=== PATIENT | female | born 1955 | race Caucasian/White ===

== ENCOUNTER 2023-11-17 11:15 | Observation (INO) ==
[2023-11-17] MEDS: SODIUM CHLORIDE 0.9% 500 ML IV STA (11:37)
[2023-11-17 11:58] LABS: Basophils # (auto) 0.08 K/uL (0.00-0.20); Basophils % (auto) 0.9 %; Eosinophils % (auto) 2.2 %; Hematocrit (blood only) 34.3 % (37.0-47.0); Hemoglobin 11.1 g/dl (12.0-16.0); Immature Granulocytes # (auto) 0.06 K/uL (0.01-0.20); Immature Granulocytes % (auto) 0.7 %; Lymphocytes # (auto) 2.17 K/uL (1.20-3.40); Lymphocytes % (auto) 24.3 %; Mean Corpuscular Hemoglobin 31.7 pg (25.0-34.0); Mean Corpuscular Hgb Conc 32.4 g/dL (32.0-36.0); Mean Platelet Volume 9.2 fL (9.4-12.4); Monocytes % (auto) 7.8 %; Neutrophils # (auto) 5.73 K/uL (1.40-6.50); Neutrophils % (auto) 64.1 %; Platelet Count 300 K/uL (130-400); RDW Coefficient of Variation 12.1 % (11.5-14.5); RDW Standard Deviation 43.9 fL (36.4-46.3); White Blood Count 8.94 K/ul (4.8-10.8)
[2023-11-17 12:02] LABS: Appearance Urine Turbid (Clear); Bacteria Urine Automated Negative (Negative); Bilirubin Urine Negative (Negative); Blood Urine 3+ (Negative); Color Urine Yellow; Glucose Urine UA Negative (Negative); Ketones Urine Negative (Negative); Leukocyte Esterase Urine 3+ (Negative); Nitrite Urine Negative (Negative); Protein Urine Negative (Negative); Specific Gravity Urine 1.007 (1.000-1.030); Urobilinogen Urine Negative (Negative); WBC Urine Automated >30 /hpf (0-5); pH Urine 6.5 (4.5-7.5)
[2023-11-17 12:12] LABS: Albumin Globulin Ratio 1.5 (0.9-2); Albumin Level 4.5 gm/dl (3.4-5.0); BUN Creatinine Ratio 13.3 (10-20); Bilirubin,Total 0.4 mg/dl (0.2-1.0); Calcium 9.8 mg/dl (8.6-10.3); Creatinine Clr Calc Pharmacy 24.1 ml/min; Est GFR (African American) 30.1 ml/min; Potassium 4.1 mmol/L (3.5-5.1); Total Protein 7.5 gm/dl (6.0-8.3)
--- NOTE | 2023-11-17 12:24 | Emergency Department Note ---
Impression & Plan VÍCTOR (acute kidney injury), Anemia, HTN (hypertension) ED Provider Note NAME: JAY GALVAN AGE: 67 SEX: F : 1955 ARRIVES VIA: Walk-In INFORMANT: Patient ED PROVIDER(S): Castillo Noguera DO CHIEF COMPLAINT: Kidney failure HPI: Patient is a 67-year-old female with a past medical history of urinary retention who presents to the ER for abnormal blood work. She notes that she was sent in by her PCP for an elevated creatinine. She does not believe that she has been drinking as much as usual. She denies any headache or change in vision. No chest pain or shortness of breath. No nausea, vomiting, or diarrhea. No dysuria, urgency, or frequency. No other exacerbating or remitting factors. She notes that she does have a urethral stricture which was just stretched today by urology at [facility]. ADDITIONAL HISTORY OBTAINED: Per HPI Chronic Medical/Social Conditions Affecting Care: Per HPI PAST MEDICAL HISTORY:See Below PAST SURGICAL HISTORY:See Below FAMILY HISTORY:See Below SOCIAL HISTORY:See Below HOME MEDICATIONS:See Below ALLERGIES:GENERAL: Sitting up in bed, alert, well appearing, well nourished, no distress, non-toxic VITALS:See Below PHYSICAL EXAMINATION: EYE EXAM: normal conjunctiva. PERRL and EOM's grossly intact. OROPHARYNX: mucous membranes are moist NECK: supple, no nuchal rigidity, no adenopathy, non-tender LUNGS: Clear to auscultation. Normal chest wall mechanics HEART: no murmurs, S1 normal and S2 normal ABDOMEN: abdomen soft, non-tender, normo-active bowel sounds, no masses, no rebound or guarding. BACK: Back is symmetrical on inspection and there is no deformity, no midline tenderness, no CVA tenderness. SKIN: no rashes and no bruising UPPER EXTREMITIES: upper extremities are grossly normal. LOWER EXTREMITIES: No pitting edema. NEURO EXAM: Normal sensorium, cranial nerves II-XII grossly intact, normal speech, no gross weakness of arms, no gross weakness of legs. MEDICAL DECISION MAKING: Patient is a 67-year-old female who presents the ER referred in by PCP for abnormal renal function. IV was established blood work was obtained. Labs show no significant leukocytosis. Mild anemia 11. BMP with creatinine 1.9 up from baseline 1.9. LFTs bilirubin was unremarkable. Lipase is normal. UA was contaminated. She has no urinary symptoms. Renal ultrasound was unremarkable. Patient was given IV fluids discussed with the hospitalist admitted for further workup. Consults/Care Managements Discussions: Per [facility] Triage Nursing notes reviewed. Limited review of prior medical records performed Vital Signs: reviewed and remarkable for HTN Differential diagnosis: Differential diagnoses includes but is not limited to gastritis, peptic ulcer disease, GERD, gallbladder disease, pancreatitis, small bowel obstruction, appendicitis, diverticulitis, hernia, urinary tract infection, torsion, perforation, trauma, infectious. ER treatment provided: See below Diagnostics interpreted by me include EKG and cardiac monitoring as listed below: -Cardiac Monitoring: An order was placed for continuous cardiac monitoring. The monitor shows a rate of 110 with sinus rhythm. -ECG: none -Laboratory studies:Interpreted by me as stated above in MDM and shown below. Imaging studies: Xrays: As interpreted by me:none CTs show: none Ultrasound renal per my preliminary interpretation showed no hydro Ultrasound the kidneys per radiology was unremarkable Procedures:none Critical Care: None Past Med/Surg History Medical History (Updated 11/17/23 @ 17:33 by Castillo Noguera DO) Hyperlipidemia Osteopenia Osteoporosis Chronic insomnia Obstructive sleep apnea syndrome No pertinent family history Vertigo Sleep apnea Arthritis Surgical History History of tubal ligation History of tonsillectomy History of mandibular surgery History of cholecystectomy History of arthroscopic knee surgery Family History Grandfather (Maternal) Diabetes Grandmother (Maternal) Diabetes Sister Diabetes Son Hypertension Mother Lung cancer Social History Smoking Status: Never smoker Hx Alcohol Use: No Hx Substance Use: No Preferred Language: Telugu Communication Ability: Effective Bolt Threader Required: No Beliefs That Will Affect Care: None marital status: Current Living Situation: Alone current occupational status: employed Feels Safe at Home: Yes Safety Concerns: Feels Safe At This Time Seatbelt Use: always Assistive Devices: CPAP, Denture - Upper, Denture - Lower, Glasses and Hearing Aid - Bilateral Allergies Allergies Allergy/AdvReac Type Severity Reaction Status Date / Time No Known Allergies Allergy Verified 11/17/23 13:43 Home Meds Home Medications Medication Instructions Recorded Confirmed meclizine 25 mg tablet 25 mg PO TID PRN Dizziness 08/28/18 11/17/23 meloxicam 15 mg tablet 15 mg PO DAILY 08/28/18 11/17/23 multivitamin 1 tab PO DAILY 08/28/18 11/17/23 cholecalciferol (vitamin D3) 125 125 mcg PO DAILY 07/24/20 11/17/23 mcg (5,000 unit) capsule cranberry fruit concentrate 250 mg 250 mg PO DAILY 07/24/20 11/17/23 chewable tablet (Azo Cranberry) mecobalamin (vitamin B12) 5,000 5,000 mcg PO DAILY 07/24/20 11/17/23 mcg disintegrating tablet albuterol sulfate 90 mcg/actuation 2 inh inhalation Q6H PRN Shortness 09/30/23 11/17/23 breath activated powder inhaler Of Breath Or Wheezing atorvastatin 20 mg tablet 20 mg PO HS 11/17/23 11/17/23 ferrous sulfate 325 mg (65 mg 325 mg PO BID 11/17/23 11/17/23 iron) tablet pantoprazole 20 mg tablet,delayed 20 mg PO QAM 11/17/23 11/17/23 release tamsulosin 0.4 mg capsule 0.4 mg PO BID 11/17/23 11/17/23 Previous Rx's Medication Instructions Recorded CPAP Machine #1 ea 10/18/19 CPAP Machine #1 ea 01/17/20 CPAP Supplies #1 ea 09/12/21 Results & Data (ED) Vital Signs Vital Signs - 24 hr 11/17/23 11:21 Temperature 36.1 C L Temperature Source Temporal Artery Scan Pulse Rate 95 H Respiratory Rate 14 Blood Pressure 151/76 H Blood Pressure Mean 101 Pulse Oximetry 95 Oxygen Delivery Method Room Air Sepsis Recent Fever Within 48 Hours No Sepsis New/Unexplained Change in Mental Status No Sepsis Action Taken by Nursing No Action Required Laboratory Data 11/17/23 11:31 11/17/23 11:31 Lab Results 11/17/23 11/17/23 Range/Units 11:10 11:31 WBC 8.94 (4.8-10.8) K/ul RBC 3.50 L (4.20-5.40) M/uL Hgb 11.1 L (12.0-16.0) g/dl Hct 34.3 L (37.0-47.0) % MCV 98.0 (80.0-100.0) fL MCH 31.7 (25.0-34.0) pg MCHC 32.4 (32.0-36.0) g/dL RDW Std Deviation 43.9 (36.4-46.3) fL RDW Coeff of Esteban 12.1 (11.5-14.5) % Plt Count 300 (130-400) K/uL MPV 9.2 L (9.4-12.4) fL Immature Gran % (Auto) 0.7 % Neut % (Auto) 64.1 % Lymph % (Auto) 24.3 % [place] % (Auto) 7.8 % Eos % (Auto) 2.2 % Baso % (Auto) 0.9 % Neut # (Auto) 5.73 (1.40-6.50) K/uL Lymph # (Auto) 2.17 (1.20-3.40) K/uL [place] # (Auto) 0.70 H (0.11-0.59) K/uL Eos # (Auto) 0.20 (0.00-0.50) K/uL Baso # (Auto) 0.08 (0.00-0.20) K/uL Immature Gran # (Auto) 0.06 (0.01-0.20) K/uL Sodium 136 (136-145) mmol/L Potassium 4.1 (3.5-5.1) mmol/L Chloride 104 (98-107) mmol/L Carbon Dioxide 24 (21-32) mmol/L Anion Gap 8 (3-11) BUN 26 H (6-23) mg/dl Creatinine 1.95 H (0.6-1.2) mg/dl Est Cr Clr Drug Dosing 24.1 ml/min Est GFR ( Amer) 30.1 ml/min Est GFR (Non-Af Amer) 26.0 ml/min BUN/Creatinine Ratio 13.3 (10-20) Glucose 100 H (70-99(Fasting)) mg/dl Calcium 9.8 (8.6-10.3) mg/dl Total Bilirubin 0.4 (0.2-1.0) mg/dl AST 11 L (13-39) U/L ALT 9 (7-52) U/L Alkaline Phosphatase 73 (34-104) U/L Total Protein 7.5 (6.0-8.3) gm/dl Albumin 4.5 (3.4-5.0) gm/dl Globulin 3.0 (2.5-4.0) gm/dl Albumin/Globulin Ratio 1.5 (0.9-2) Lipase 35 (11-82) U/L Urine Color Yellow Urine Appearance Turbid A (Clear) Urine pH 6.5 (4.5-7.5) Ur Specific [place] 1.007 (1.000-1.030) Urine Protein Negative (Negative) Urine Glucose (UA) Negative (Negative) Urine Ketones Negative (Negative) Urine Blood 3+ H (Negative) Urine Nitrite Negative (Negative) Urine Bilirubin Negative (Negative) Urine Urobilinogen Negative (Negative) Ur Leukocyte Esterase 3+ H (Negative) Urine WBC (Auto) >30 H (0-5) /hpf Urine RBC (Auto) 5-10 H (0-4) /hpf U Hyaline Cast (Auto) 1-5 (0-5) /lpf U Epithel Cells (Auto) 10-20 H (0-5) /lpf Urine Bacteria (Auto) Negative (Negative) Urine Yeast Not Reportable Administered Medications Ferrous Sulfate (Ferrous Sulfate 325 Mg Tab) 325 mg PO BIDM GABRIELA Stop: 12/17/23 16:59 Last Admin: 11/17/23 16:59 Dose: 325 mg Documented By: AMNA Sodium Chloride (Nss) 500 mls @ 80 mls/hr IV .Q6H15M GABRIELA Stop: 11/17/23 22:37 Last Admin: 11/17/23 16:43 Dose: 80 mls/hr Documented By: AMNA Discontinued Medications Sodium Chloride (Nss) 500 mls @ 999 mls/hr IV .Q31M STA Stop: 11/17/23 11:55 Last Infusion: 11/17/23 12:38 Dose: Infused Documented By: Admin: 11/17/23 11:37 Dose: 999 mls/hr Documented By: FRANCA Sodium Chloride (Nss) 500 mls @ 999 mls/hr IV .Q31M ONE Stop: 11/17/23 12:52 Last Infusion: 11/17/23 14:33 Dose: Infused Documented By: Admin: 11/17/23 12:39 Dose: 999 mls/hr Documented By: PAMELA Ceftriaxone Sodium (Rocephin) 1,000 mg in 50 mls @ 100 mls/hr IV 1500 GABRIELA Stop: 11/17/23 15:29 Last Infusion: 11/17/23 15:51 Dose: Infused Documented By: [facility] Admin: 11/17/23 15:05 Dose: 100 mls/hr Documented By: [facility] Imaging Data Radiologist's Impression: Renal Ultrasound 11/17/23 12:22 RENAL ULTRASOUND CLINICAL HISTORY: Acute kidney injury. COMPARISON STUDY: CT of the abdomen and pelvis June 17, 2012. Renal ultrasound October 15, 2020. TECHNIQUE: Sonography of the kidneys and the urinary bladder was performed. FINDINGS: The right kidney measures 9.2 cm in maximal dimension and the left measures 9.3 cm. Right renal pelvis is prominent. This is unchanged. There is no hydronephrosis. No renal calculus or mass is identified. Renal echogenicity, size and cortical thickness are normal. Bladder wall thickening is similar to prior ultrasound. IMPRESSION: 1. No hydronephrosis. 2. Unremarkable sonographic appearance of the kidneys. 3. No change in mild bladder wall thickening since prior ultrasound. ACT 112: Negative or not required by law. Electronically signed by: Isaiah Marcelo M.D. 11/17/2023 1:21 PM Discharge Plan Visit Data Chief Complaint: Referred by Doctor Stated Complaint: ABN LABS, NEEDS IV FLUIDS, CT SCAN ED Provider: Castillo Noguera Discharge Problem: VÍCTOR (acute kidney injury), Anemia, HTN (hypertension) Patient Disposition: Admitted As Inpatient Discharge Instructions Interventions: ED Discharge Assessment Last Done: 11/17/23 15:56 Discharge Problem: Anemia Qualifiers: Anemia type: unspecified type Qualified Code(s): D64.9 - Anemia, unspecified HTN (hypertension) Qualifiers: Hypertension type: unspecified Qualified Code(s): I10 - Essential (primary) hypertension
[2023-11-17] MEDS: SODIUM CHLORIDE 0.9% 500 ML IV ONE (12:39)
--- NOTE | 2023-11-17 13:05 | History & Physical Report ---
Date of Service November 17, 2023 Assessment & Plan (1) Bladder outlet obstruction: (2) Hyperlipidemia: (3) Obstructive sleep apnea syndrome: (4) VÍCTOR (acute kidney injury): Plan: Bladder outlet obstruction VÍCTOR on CKD stage III History of ureteral stricture - Observation for VÍCTOR and postoperative pain s/p planned ureteral dilation for hx of bladder outlet obstruction today as outpatient - Creatinine on 11/04, 1.9, in EPIC, previously baseline was ~1.2-1.5, remains elevated at 1.95 upon admission today - Patient was prescribed Bactrim perioperatively x 1 dose but did not take it today, so will HOLD on this med due to slight VÍCTOR. - Consider urology consult - follows with Dr. Rendon as outpatient - Avoid nephrotoxins and renally reduce medication - HOLD mobic she uses for pain - Obtain blood culture x 2, UA appears contaminated status postprocedure, + esterase, WBC 10-30, no urine bacteria noted, no wbc, no fever. Pt with chills and urinary frequency since here in hospital, consider prophylactic dose of ceftriaxone IV - Pt given total of 1 L NSS in the ER, will run maintenance fluids WERO -Continue CPAP HS HLD - Cont statin therapy DVT ppx: teds, scds Lines: 1 PIV FEN/GI: Allow HH diet, NSS at 80 ml/hr CODE: DNR/DNI Dispo: From home, likely to remain in the hospital x 1 day and discharge tomorrow A total of 75 minutes were spent with greater than 50% of that time face to face with the patient, personally reviewing all current laboratories, imaging studies, past medication reconciliation, outpatient chart review, and discussion with specialists to collaborate care for the patient with attending. Please see attending documentation for corrections and/or additions. (5) Complicated UTI (urinary tract infection): History of Present Illness Chief Complaint: Referred by urology Primary Care Provider: Priscilla Baez MD This is a 67 yo F with PMHx of bladder outlet obstruction, scheduled dilations by urology, follows with Dr. Thierry Rendon, she was seen in the office this morning for a planned ureteral dilation and was given Rx for perioperative Bactrim 800-160 mg x 1 tablet, but did NOT take it after the procedure, instead was sent to the ER. It was noted that she had VÍCTOR on 11/04 with creatinine of 1.9 at that time on outpatient epic review. She was referred here by urology for concern for VÍCTOR after her procedure this morning. Patient states that she feels well overall, she has been making frequent trips to the bathroom status post procedure, and feels a bit chilled. She denies any fever, difficulty breathing, abdominal pain, or pain with urinating. Denies any blood in urine and states that it appears clear yellow. Patient took all her regular scheduled medications this morning except for the iron tablet. She lives at home by herself, able to participate in all ADLs, no recent falls or concerns for safety issues. Patient plans to call her children and update them. Allergies Allergy/AdvReac Type Severity Reaction Status Date / Time No Known Allergies Allergy Verified 11/17/23 13:43 Home Medications Medication Instructions Recorded Confirmed Type meclizine 25 mg tablet 25 mg PO TID PRN Dizziness 08/28/18 11/17/23 History meloxicam 15 mg tablet 15 mg PO DAILY 08/28/18 11/17/23 History multivitamin 1 tab PO DAILY 08/28/18 11/17/23 History CPAP Machine #1 ea 10/18/19 09/30/23 Rx CPAP Machine #1 ea 01/17/20 09/30/23 Rx cholecalciferol (vitamin D3) 125 125 mcg PO DAILY 07/24/20 11/17/23 History mcg (5,000 unit) capsule cranberry fruit concentrate 250 mg 250 mg PO DAILY 07/24/20 11/17/23 History chewable tablet (Azo Cranberry) mecobalamin (vitamin B12) 5,000 5,000 mcg PO DAILY 07/24/20 11/17/23 History mcg disintegrating tablet CPAP Supplies #1 ea 09/12/21 09/30/23 Rx albuterol sulfate 90 mcg/actuation 2 inh inhalation Q6H PRN Shortness 09/30/23 11/17/23 History breath activated powder inhaler Of Breath Or Wheezing atorvastatin 20 mg tablet 20 mg PO HS 11/17/23 11/17/23 History ferrous sulfate 325 mg (65 mg 325 mg PO BID 11/17/23 11/17/23 History iron) tablet pantoprazole 20 mg tablet,delayed 20 mg PO QAM 11/17/23 11/17/23 History release tamsulosin 0.4 mg capsule 0.4 mg PO BID 11/17/23 11/17/23 History Past Med/Surg History Medical History (Updated 11/17/23 @ 18:34 by Becca Natarajan DO) Hyperlipidemia Osteopenia Osteoporosis Chronic insomnia Obstructive sleep apnea syndrome No pertinent family history Vertigo Sleep apnea Arthritis Surgical History History of tubal ligation History of tonsillectomy History of mandibular surgery History of cholecystectomy History of arthroscopic knee surgery Family History Grandfather (Maternal) Diabetes Grandmother (Maternal) Diabetes Sister Diabetes Son Hypertension Mother Lung cancer Social History Smoking Status: Never smoker Hx Alcohol Use: No Hx Substance Use: No Preferred Language: Croatian Communication Ability: Effective Matrix Bath Operator Required: No Beliefs That Will Affect Care: None marital status: Current Living Situation: Alone current occupational status: employed Feels Safe at Home: Yes Safety Concerns: Feels Safe At This Time Seatbelt Use: always Assistive Devices: CPAP, Denture - Upper, Denture - Lower, Glasses and Hearing Aid - Bilateral Review of Systems Review of Systems: Constitutional: No fever, sweats, + chills Eyes: No diplopia, no worsening or blurred vision ENT: normal hearing, no trouble swallowing Respiratory: No cough, sputum, dyspnea at rest or on exertion Cardiovascular: No chest pain, tightness or palpitations Abdomen: + Minimal lower abdominal pain with palpation status post procedure, no chronic pain, nausea, vomiting, diarrhea or constipation : Urinary frequency, no hematuria, status post ureteral dilation today Musculoskeletal: No joint pain, calf pain, swelling Neurologic: No weakness, numbness/tingling, or balance problems Psychiatric: No anxiety or depression Skin: No rash or itch Physical Exam Physical Exam: General: awake, alert, no apparent distress, white female Head: Normocephalic, atraumatic ENT: PERRL, EOMI, no pharyngeal exudate, mucous membranes moist Chest: Clear to auscultation, on room air, no adventitious breath sounds Cardiac: + Sinus tachy, no murmur, no JVD, normal peripheral pulses, good capillary refill Abdominal: NABS x 4 quadrants, soft, nondistended, nontender to palpation, no rebound or guarding Extremities: Normal inspection, no peripheral edema or erythema, calfs nontender to palpation Psych: Normal mood and affect Neuro: AAO x 3, strength intact bilaterally and rated 5/5, no motor deficits, speech is clear, no peripheral sensory deficits Results & Data Results & Data Vital Signs (Past 12 Hours) Vital Signs Temp Pulse Resp BP Pulse Ox O2 Del Method 11/17/23 11:21 36.1 C L 95 H 14 151/76 H 95 Room Air Laboratory Results 11/17/23 11:10 Urine Culture - Pending Urine,Clean Catch 11/17/23 11/17/23 11:31 11:10 WBC 8.94 RBC 3.50 L Hgb 11.1 L Hct 34.3 L MCV 98.0 MCH 31.7 MCHC 32.4 RDW Std Deviation 43.9 RDW Coeff of Esteban 12.1 Plt Count 300 MPV 9.2 L Immature Gran % (Auto) 0.7 Neut % (Auto) 64.1 Lymph % (Auto) 24.3 [place] % (Auto) 7.8 Eos % (Auto) 2.2 Baso % (Auto) 0.9 Neut # (Auto) 5.73 Lymph # (Auto) 2.17 [place] # (Auto) 0.70 H Eos # (Auto) 0.20 Baso # (Auto) 0.08 Immature Gran # (Auto) 0.06 Sodium 136 Potassium 4.1 Chloride 104 Carbon Dioxide 24 Anion Gap 8 BUN 26 H Creatinine 1.95 H Est Cr Clr Drug Dosing 24.1 Est GFR ( Amer) 30.1 Est GFR (Non-Af Amer) 26.0 BUN/Creatinine Ratio 13.3 Glucose 100 H Calcium 9.8 Total Bilirubin 0.4 AST 11 L ALT 9 Alkaline Phosphatase 73 Total Protein 7.5 Albumin 4.5 Globulin 3.0 Albumin/Globulin Ratio 1.5 Lipase 35 Urine Color Yellow Urine Appearance Turbid A Urine pH 6.5 Ur Specific [place] 1.007 Urine Protein Negative Urine Glucose (UA) Negative Urine Ketones Negative Urine Blood 3+ H Urine Nitrite Negative Urine Bilirubin Negative Urine Urobilinogen Negative Ur Leukocyte Esterase 3+ H Urine WBC (Auto) >30 H Urine RBC (Auto) 5-10 H U Hyaline Cast (Auto) 1-5 U Epithel Cells (Auto) 10-20 H Urine Bacteria (Auto) Negative Urine Yeast Not Reportable Diagnostic Findings Renal Ultrasound 11/17/23 12:22 RENAL ULTRASOUND CLINICAL HISTORY: Acute kidney injury. COMPARISON STUDY: CT of the abdomen and pelvis June 17, 2012. Renal ultrasound October 15, 2020. TECHNIQUE: Sonography of the kidneys and the urinary bladder was performed. FINDINGS: The right kidney measures 9.2 cm in maximal dimension and the left measures 9.3 cm. Right renal pelvis is prominent. This is unchanged. There is no hydronephrosis. No renal calculus or mass is identified. Renal echogenicity, s ize and cortical thickness are normal. Bladder wall thickening is similar to prior ultrasound. IMPRESSION: 1. No hydronephrosis. 2. Unremarkable sonographic appearance of the kidneys. 3. No change in mild bladder wall thickening since prior ultrasound. ACT 112: Negative or not required by law. Electronically signed by: Isaiah Marcelo M.D. 11/17/2023 1:21 PM Code Status & VTE Plan Code Status DNR/DNI-discussed with the patient at bedside Supervising Physician Co-Signing Physician Notes I have seen and examined the patient and have discussed the case with the provider above. I have reviewed the advanced practitioner's documentation, and I agree with, and take responsibility for that plan of care. This patient is a 67 yo F with chronic urologic issues, who reports frequent UTIs. She receives a regular ureteral dilation by Dr. Rendon every 6 months and recently had one two days ago. History as noted above and she reports taking Bactrim chronically as a prophylaxis over the last 6 months. There is no report of this on her outpatient Urology note, however, and she may be confused. If this information is true, it would correspond with her rise in creatinine over the past year and may be why we are seeing her creatinine as high as 1.9. This is also in conjunction with her ongoing use of Mobic and recent urologic manipulation. This may also reflect a natural worsening of her kidney function naturally, however. Notably renal us reveals no evidence of obstruction and she is making urine. Possible evidence of complicated UTI, UA shows pyuria, blood, and leuk esterase. Will monitor bladder scans serially to ensure there is no retention. There is no sepsis on exam but patient does have some tachycardia and does report subjective chills. My physical exam findings are consistent with that noted above and she also has no CVA tenderness. Agree with addition of Rocephin pending culture results and clinical improvement. Recommend continuing Mobic but avoiding Bactrim and then repeating BMP in two weeks as outpatient. Patient was advised that she can consider alternatives for antibiotic prophylaxis should her doctors still recommend this. Consider outpatient nephrology evaluation. DO Delgado
--- NOTE | 2023-11-17 13:22 | Ultrasound Report ---
RENAL ULTRASOUND CLINICAL HISTORY: Acute kidney injury. COMPARISON STUDY: CT of the abdomen and pelvis June 17, 2012. Renal ultrasound October 15, 2020. TECHNIQUE: Sonography of the kidneys and the urinary bladder was performed. FINDINGS: The right kidney measures 9.2 cm in maximal dimension and the left measures 9.3 cm. Right r enal pelvis is prominent. This is unchanged. There is no hydronephrosis. No renal calculus or mass is identified. Renal echogenicity, size and cortical thickness are normal. Bladder wall thickening is s imilar to prior ultrasound. IMPRESSION: 1. No hydronephrosis. 2. Unremarkable sonographic appearance of the kidneys. 3. No change in mild bladder wall thickening since prior ultrasound. ACT 112: Negative or not required by law. Electronically signed by: Isaiah Marcelo M.D. 11/17/2023 1:21 PM
[2023-11-17] MEDS ORDERED: MECLIZINE HCL 25 MG TAB PO PRN (13:43)
[2023-11-17] MEDS ORDERED: ALBUTEROL HFA 8 GM INHALER INH PRN (13:50)
[2023-11-17] MEDS: cefTRIAXone SODIUM 1,000 MG/50 ML BAG IV SCH (15:05)
[2023-11-17] MEDS ORDERED: ONDANSETRON INJ 2 MG/ML 2 ML VIAL IV PRN (16:23)
[2023-11-17] MEDS ORDERED: ACETAMINOPHEN 325 MG TAB PO PRN (16:23)
[2023-11-17] MEDS: SODIUM CHLORIDE 0.9% 500 ML IV SCH (16:43)
[2023-11-17] MEDS: FERROUS SULFATE 325 MG TAB PO SCH (16:59)
[2023-11-17] MEDS: ATORVASTATIN 20 MG TAB PO SCH (19:55)
[2023-11-17] MEDS: TAMSULOSIN HCL 0.4 MG CAP PO SCH (19:55)
--- OUTSIDE RECORDS SUMMARY | 2023-11-17 21:07 | External Medical Summary | Summary of Care ---
Author Name Unknown Organization [facility] Address [address] [place] [address] Phone [phone] Care Team Providers Care Mixed Signal Design Engineer Name Role Phone Priscilla Baez MD Primary Care Provide r Reason for Visit * Reason Onset Date Comments Advice 11/09/2023 Encounter Details Date Type Department Care Team (Late st Contact Info) Description 11/09/2023 Telephone Family [address] [place] [address] Priscilla Baez MD [address] [place] [address] [place] [address] Advice Allergies Active Allergy Reactions Criticality Noted Date Comments No Known Drug Allergy 08/09/2004 documented as of this encounter (statuses as of 11/10/2023) Medications Medication Sig Dispensed Refills Start Date End Date Status CALCIUM 500+D 500-200 MG-UNIT PO TABS One tablet three times daily 0 Active CRANBERRY 500 MG PO CAPS One daily 0 Active Meloxicam 15 MG Oral TabletIndications: Hip pain, right TAKE ONE TABLET BY MOUTH ONCE DAILY FOR PAIN 90 Tablet 2 04/29/2023 Active Pantoprazole Sodium 20 MG Oral Tablet Delayed Release (Protonix)Indicati ons:Gastroesophage al reflux disease, unspecified whether esophagitis present TAKE 1 TABLET BY MOUTH EVERY DAY IN THE MORNING 90 Tablet 2 04/29/2023 Active Atorvastatin Calcium 20 MG Oral Tablet (Lipitor)Indicatio ns:Hyperlipidemia with target LDL less than 100 Take 1 Tablet by mouth at bedtime. 90 Tablet 3 05/21/2023 Active Additional Information Patient taking differently:20 mg [id number], Reported on 10/07/2023 Tamsulosin HCl 0.4 MG Oral Capsule (Flomax) Take 2 Capsules by mouth in the morning. 180 Capsule 3 06/16/2023 Active Ferrous Sulfate 325 (65 Fe) MG Oral Tablet (Feosol)Indication s:Iron deficiency anemia, unspecified iron deficiency anemia type Take 1 Tablet by mouth in the morning and 1 Tablet before bedtime. 180 Tablet 3 07/03/2023 Active Triamcinolone Acetonide 0.1 % External Cream (Aristocort)Indica tions:Dry skin APPLY TOPICALLY TO AFFECTED AREA 2 TIMES A DAY. TO AFFECTED AREA. FOR UP TO 2 WEEKS. 15 g 1 07/27/2023 Active Clobetasol Propionate 0.05 % External Cream (Temovate) Apply topically to affected area 2 times a day. To affected area for up to two weeks. 30 g 1 09/04/2023 Active Meclizine HCl 25 MG Oral Tablet (Antivert)Indicati ons:BPPV (benign paroxysmal positional vertigo), bilateral TAKE 1 TABLET BY MOUTH 3 TIMES A DAY (MORNING, NOON & BEDTIME) NEEDED FOR DIZZINESS 30 Tablet 5 09/25/2023 Active CPAP Use as directed at bedtime. 0 Active Albuterol Sulfate HFA 108 (90 Base) MCG/ACT Inhalation Aerosol SolutionIndication s:SOB (shortness of breath) INHALE 2 PUFFS BY MOUTH EVERY 4 HOURS NEEDED FOR WHEEZING 18 g 1 10/26/2023 Active documented as of this encounter (statuses as of 11/10/2023) Active Problems Problem Noted Date Diagnosed Date Food insecurity 05/04/2023 Overview: Per [facility] Protocol Urinary retention 12/19/2022 Chronic kidney disease, stage 3a 06/02/2022 Overview: Per CKD protocol Hyperlipidemia with target LDL less than 100 Obesity, Class I, BMI 30.0-34.9 (see actual BMI) 12/05/2021 Shoulder arthritis 12/05/2021 Arthritis of right hip 03/16/2020 WERO on CPAP 03/16/2020 Vertigo 03/16/2020 Urethral stricture 08/04/2014 GENERAL OSTEOARTHROSIS 01/18/2003 Scoliosis documented as of this encounter (statuses as of 11/10/2023) Resolved Problems Problem Noted Date Diagnosed Date Resolved Date Hip pain, right 07/06/2018 03/16/2020 OVARIAN CYST NEC-NOS 10/24/2005 017 ADJ DISORDER W/DEPRES MOOD 05/06/2005 0 09/11/2015 Headache 02/14/2004 09/11/2015 Overview: ICD-10 update of inactive term BACKACHE, T8 disc disease 01/18/2003 Lumbago 01/18/2003 07/06/2018 Excessive menstruation 01/18/200309/11 documented as of this encounter (statuses as of 11/10/2023) Immunizations Name Administration Dates Next Due PPD 02/02/2006 documented as of this encounter Social History Tobacco Use Types Packs/Day Years Used Date Smoking Tobacco: Former Cigarettes 0.1 5 0 08/24/1970 - 08/24/1975 Smokeless Tobacco: Never Alcohol Use Standard Drinks/Week Comments No 0 (1 standard drink = 0.6 oz pur e alcohol) PHQ-2 Answer Date Recorded PHQ-2 Score 0 03/16/2020 Hunger Vital Sign Answer Date Recorded Within the past 12 months, y ou worried that your food would run out before you got the money to buy more. Never true 04/13/20 23 Within the past 12 months, t he food you bought just didn't last and you didn't have money to get more. Often true 04/13/2023 Sex and Gender Information Value Date Recorded Sex Assigned at Female 04/13/2023 11:44 AM EDT Gender Identity Female 04/13/2023 11:44 AM EDT Sexual Orientation Straight 04/13/2023 11 :44 AM EDT Job Start Date Occupation Industry Not on file Not on file Not on file documented as of this encounter Miscellaneous Notes * Telephone Encounter - Yulia Resendiz LPN - 11/10/2023 8:34 AM EDT lmtcb * Telephone Encounter - Thierry Rendon MD - 11/09/2023 1:48 PM EDT Patient has upcoming appoint for urethral which may help with her symptoms. Patient can come in forFoley catheter placement with nursing staff until her appointment next week. Thx, HM * Telephone Encounter - Yulia Resendiz LPN - 11/09/2023 1:[address] Rendon, Please see below concern from the patient. Nurse is asking for further advise/recommendation till patient is seen in office on 11/16. Thank you-Yulia Additional Comments: Patient is having problems urinating, stomach pain and when she tries to urinate has to wait a bit before it comes out and a little burning. Doesn't feel it is a UTI but something with her kidneys. Refused manager of data callback. Prefers someone from Dr Baez's office. * Telephone Encounter - Clarita Hung RN - 11/09/2023 11:21 AM EDT Defer to Urology: Pt has an appt on 11/17/23 with Urology for Cystoscopy/Dilation. Please call pt if you have any recommendations prior to your appt next week * Telephone Encounter - Clarita Hung RN - 11/09/2023 11:20 AM EDT URINARY/GENITAL: Yes Patient Gender: Female Abdominal Pain: Yes Burning: Yes Additional Comment(s) Additional Comments: Patient is having problems urinating, stomach pain and when she tries to urinate has to wait a bit before it comes out and a little burning. Doesn't feel it is a UTI but something with her kidneys. Refused manager of data callback. Prefers someone from Dr Baez's office. documented in this encounter Plan of Treatment Upcoming Encounters Date Type Department Care Team (Late st Contact Info) Description 11/13/2023 12:00 PM EDT [facility] [address] [facility] [place] [address] 11/17/2023 10:30 AM EDT Procedure Only Urology, [facility] [address] [facility] [place] [address] Thierry Rendon MD [address] [facility] [address] [place] [address] 02/04/2024 8:00 AM EDT Office Visit Orthopaedics [facility] [address] [facility] [place] [address] Willie Roe DO [address] [place] [address] 02/29/2024 9:30 AM EDT Imaging [place]iology, [address] [place] [address] 03/02/2024 8:00 AM EDT Office Visit Dermatology [address] [place] [address] Sandie Burden PA-C [address] [place] [address] [place] [address] 06/09/2024 9:00 AM EDT Imaging Radiology [address] [place] [address] Health Maintenance Due Date Last Done Comments DXA Scan 1955 DTaP,Tdap,and Td Vaccines (1 - Tdap) 12/03/1974 Cologuard 12/03/2000 Fecal Occult Blood Test 12/03/2000 Sigmoidoscopy 12/03/2000 Zoster Vaccines (1 of 2) 12/03/2005 Pneumococcal Vaccine: 65+ Years (1 of 1 - PCV) 12/03/2020 Depression Screening 03/16/2021 03/16/2020 COVID-19 Vaccine (1 - 2022- season) 2023 Influenza Vaccine (FLU shot) (#1) 2023 CKD PHOS USE SMARTSET 04762 12/20/2023 12/19/2022 GFR 05/07/2024 11/05/2023, 12/2022, 06/09/2023, Additional history exists Mammogram 05/28/2024 05/28/2023, 11/2021, 05/24/2021, Additional history exists Albumin/Creatinine Ratio 07/28/2024 07/28/2023, 05/24 CKD HGB USE SMARTSET 70379 11/04/202411/04, 11/05/2023, 07/28/2023, Additional history exists Diabetes Screening 11/04/2026 11/05/2023, 1 09/28/2022, 06/09/2023, Additional history exists Lipid Panel 12/20/2027 12/19/2022, 11/2021, 11/19/2021, Additional history exists Colonoscopy 10/20/2033 10/20/2023, 10/20/2023 Colorectal Cancer Screening 10/20/2033 Pap Smear Discontinued 10/03/2015, 09/2005, 09/25/2005, Additional history exists GARDASIL-HPV IMMUNIZATION SERIES Aged Out No longer eligible based on patient's age to complete this topic Hepatitis B Aged Out No longer eligi ble based on patient's age to complete this topic MENINGOCOCCAL (MENACTRA/MENVEO) Aged Out No longer eligible based on patient's age to complete this topic documented as of this encounter Medical Devices Implanted Type Area Corporate Attorney Device Identifier Shelf Expiration Date Model / Serial / Lot Shell Acet Trident Ii 50mm - [id number] Implanted:Qty: 1 on 03/26/2020 by Willie Roe DO at OR [facility] Right: Hip [employer] : ORTHOPA[employer] 07/17/2024 702-04-50D / / [id number] Trident Acetabular X3 0 36 D - [id number] Implanted:Qty: 1 on 03/26/2020 by Willie Roe DO at OR [facility] Right: Hip [employer] : ORTHOPAEDICS 02/15/2024 623-00-36D / / [id number] Accolade Ii 132 Deg Sz 2 - [id number] Implanted:Qty: 1 on 03/26/2020 by Willie Roe DO at OR [facility] Right: Hip [employer] : ORTHOPAED[employer] 09/29/2020 [id number] / / [id number] Hip Hd Nk Alumina Mod D 36/+5 - [id number] Implanted:Qty: 1 on 03/26/2020 by Willie Roe DO at OR [facility] Right: Hip [employer] : ORTHOPAED[employer] 09/07/2024 6570-0-236 / / [id number] documented as of this encounter Advance Directives Latest Code Status on File Code Status Date Activated Date Inactivated Comments Full Code 08/04/2014 7:47 AM 08/04/2014 1:44 PM Thi s order reflects the patients wishes and were consensually agreed upon. Care Teams Mixed Signal Design Engineer Relationship Specialty Start Date End Date Priscilla Baez MD [address] [place] [address] [place] [address] PCP - General Family Medicine 09/11/15 documented as of this encounter
--- OUTSIDE RECORDS SUMMARY | 2023-11-17 21:07 | External Medical Summary | Summary of Care ---
Author Name Unknown Organization [facility] Address [address] [place] [address] Phone [phone] Care Team Providers Care Carrier Blower Name Role Phone Priscilla Baez MD Primary Care Provide r Reason for Visit * Reason Onset Date Comments Advice 11/09/2023 Encounter Details Date Type Department Care Team (Late st Contact Info) Description 11/09/2023 Telephone Family [address] [place] [address] Priscilla Baez MD [address] [place] [address] [place] [address] Advice Allergies Active Allergy Reactions Criticality Noted [...] Active Additional Information Patient taking differently:20 mg [id number], Reported on 10/07/2023 Tamsulosin HCl 0.4 MG [...] Diagnosed Date Food insecurity 05/04/2023 Overview: Per [facility] Protocol Urinary retention 12/19/2022 Chronic kidney [...] UTI but something with her kidneys. Refused furnace checker callback. Prefers someone from Dr Baez's office. [...] UTI but something with her kidneys. Refused furnace checker callback. Prefers someone from Dr Baez's office. documented in this encounter Plan of Treatment Upcoming Encounters Date Type Department Care Team (Late st Contact Info) Description 11/17/2023 10:30 AM EDT Procedure Only Urology, [facility] [address] [place] [address] Thierry Rendon MD [address] [place] [address] 02/04/2024 8:00 AM EDT Office Visit Orthopaedics [facility] [address] [facility] [place] [address] Willie Roe, [address] [place] [address] 02/29/2024 9:30 AM EDT Imaging Radiology, [address] [place] [address] 03/02/2024 8:00 AM EDT Office Visit Dermatology [address] [place] [address] Sandie Burden PA-C [address] [place] [address] [place] [address] 06/09/2024 9:00 AM EDT Imaging Radiology [address] [place] [address] Health Maintenance Due Date Last Done Comments DXA Scan 1955 DTaP,Tdap,and Td Vaccines (1 - Tdap) 12/03/1974 Cologuard 12/03/2000 Fecal Occult Blood Test 12/03/2000 Sigmoidoscopy 12/03/2000 Zoster Vaccines (1 of 2) 12/03/2005 Pneumococcal Vaccine: 65+ Years (1 of 1 - PCV) 12/03/2020 Depression Screening 03/16/2021 03/16/2020 COVID-19 Vaccine (1 - 2022- season) 2023 Influenza Vaccine (FLU shot) (#1) 2023 CKD PHOS USE SMARTSET 52245 12/20/2023 12/19/2022 GFR 05/07/2024 11/05/2023, 12/2022, 06/09/2023, Additional history exists Mammogram 05/28/2024 05/28/2023, 11/2021, 05/24/2021, Additional history exists Albumin/Creatinine Ratio 07/28/2024 07/28/2023, 05/24 CKD HGB USE SMARTSET 05271 11/04/202411/04, 11/05/2023, 07/28/2023, Additional history exists Diabetes [...] this encounter Medical Devices Implanted Type Area Remote Sensing Surveyor Device Identifier Shelf Expiration Date Model / Serial / Lot Shell Acet Trident Ii 50mm - [id number] Implanted:Qty: 1 on 03/26/2020 by Willie Roe DO at OR [facility] Right: Hip [employer] : ORTHOPAEDICS 07/17/2024 702-04-50D / / [id number] Trident Acetabular X3 0 36 D - [id number] Implanted:Qty: 1 on 03/26/2020 by Willie Roe DO at OR [facility] Right: Hip [employer] : ORTHOPAEDICS 02/15/2024 623-00-36D / / [id number] Accolade Ii 132 Deg Sz 2 - [id number] Implanted:Qty: 1 on 03/26/2020 by Willie Roe DO at OR [facility] Right: Hip [employer] : ORTHOPAEDICS 09/29/2020 [id number] / / [id number] Hip Hd Nk Alumina Mod D 36/+5 - [id number] Implanted:Qty: 1 on 03/26/2020 by Willie Roe DO at OR [facility] Right: Hip [employer] : ORTHOPAEDICS 09/07/2024 6570-0-236 / / [id number] documented as of this encounter Advance Directives Latest Code Status on File Code Status Date Activated Date Inactivated Comments Full Code 08/04/2014 7:47 AM 08/04/2014 1:44 PM Thi s order reflects the patients wishes and were consensually agreed upon. Care Teams Carrier Blower Relationship Specialty Start Date End Date Priscilla Baez MD [address] [place] [address] [place] [address] PCP - General Family Medicine 09/11/15 documented as of this encounter
--- OUTSIDE RECORDS SUMMARY | 2023-11-17 21:07 | External Medical Summary | Summary of Care ---
Author Name Unknown Organization [facility] Address [address] [facility] [place] [address] Phone [phone] Care Team Providers Care Heel Top Lift Splitter Name Role Phone Priscilla Baez MD Primary Care Provide r Reason for Visit * Reason Onset Date Comments Advice 11/09/2023 Lmtcb 11/09, myg 11/10 Encounter Details Date Type Department Care Team (Late st Contact Info) Description 11/09/2023 Telephone Family [address] [place] [address] Priscilla Baez MD [address] [place] [address] [place] [address] Advice (Lmtcb 11/09, myg 11/10) Allergies Active Allergy Reactions Criticality Noted Date Comments No Known Drug Allergy 08/09/2004 documented as of this encounter (statuses as of 11/11/2023) Medications Medication Sig Dispensed Refills Start Date [...] Active Additional Information Patient taking differently:20 mg [id number], Reported on 10/07/2023 Tamsulosin HCl 0.4 MG [...] as of this encounter (statuses as of 11/11/2023) Active Problems Problem Noted Date Diagnosed Date Food insecurity 05/04/2023 Overview: Per [facility] Protocol Urinary retention 12/19/2022 Chronic kidney disease, stage 3a 06/02/2022 Overview: Per CKD protocol Hyperlipidemia with target LDL less than 100 Obesity, Class I, BMI 30.0-34.9 (see actual BMI) 12/05/2021 Shoulder arthritis 12/05/2021 Arthritis of right hip 03/16/2020 WERO on CPAP 03/16/2020 Vertigo 03/16/2020 Urethral stricture 08/04/2014 GENERAL OSTEOARTHROSIS 01/18/2003 Scoliosis documented as of this encounter (statuses as of 11/11/2023) Resolved Problems Problem Noted Date Diagnosed Date Resolved Date Hip pain, right 07/06/2018 03/16/2020 OVARIAN CYST NEC-NOS 10/24/2005 017 ADJ DISORDER W/DEPRES MOOD 05/06/2005 0 09/11/2015 Headache 02/14/2004 09/11/2015 Overview: ICD-10 update of inactive term BACKACHE, T8 disc disease 01/18/2003 Lumbago 01/18/2003 07/06/2018 Excessive menstruation 01/18/200309/11 documented as of this encounter (statuses as of 11/11/2023) Immunizations Name Administration Dates Next Due PPD [...] UTI but something with her kidneys. Refused aluminizer callback. Prefers someone from Dr Baez's office. [...] UTI but something with her kidneys. Refused aluminizer callback. Prefers someone from Dr Baez's office. documented in this encounter Plan of Treatment Upcoming Encounters Date Type Department Care Team (Late st Contact Info) Description 11/13/2023 12:00 PM EDT [facility] [address] [facility] [place] [address] 11/17/2023 10:30 AM EDT Procedure Only Urology, [facility] [address] [facility] [place] [address] Thierry Rendon MD [address] [facility] [address] [place] [address] 02/04/2024 8:00 AM EDT Office Visit Orthopaedics [facility] [address] [facility] [place] [address] Willie Roe, [address] [facility] [place] [address] 02/29/2024 9:30 AM EDT [place]iology, [address] [place] [address] 03/02/2024 8:00 AM EDT Office Visit Dermatology [address] [place] [address] Sandie Burden PA-C [address] [place] [address] [place] [address] 06/09/2024 9:00 AM EDT Imaging Radiology [address] [place] [address] Health Maintenance Due Date Last Done Comments DXA Scan 1955 DTaP,Tdap,and Td Vaccines (1 - Tdap) 12/03/1974 Cologuard 12/03/2000 Fecal Occult Blood Test 12/03/2000 Sigmoidoscopy 12/03/2000 Zoster Vaccines (1 of 2) 12/03/2005 Pneumococcal Vaccine: 65+ Years (1 of 1 - PCV) 12/03/2020 Depression Screening 03/16/2021 03/16/2020 COVID-19 Vaccine ( season) 2023 Influenza Vaccine (FLU shot) (#1) 2023 CKD PHOS USE SMARTSET 83636 12/20/2023 12/19/2022 GFR 05/07/2024 11/05/2023, 12/2022, 06/09/2023, Additional history exists Mammogram 05/28/2024 05/28/2023, 11/2021, 05/24/2021, Additional history exists Albumin/Creatinine Ratio 07/28/2024 07/28/2023, 05/24 CKD HGB USE SMARTSET 36997 11/04/202411/04, 11/05/2023, 07/28/2023, Additional history exists Diabetes [...] this encounter Medical Devices Implanted Type Area Valve Technician Device Identifier Shelf Expiration Date Model / Serial / Lot Shell Acet Trident Ii 50mm - [id number] Implanted:Qty: 1 on 03/26/2020 by Willie Roe DO at OR [facility] Right: Hip [employer] : ORTHOPAEDICS 07/17/2024 702-04-50D / / [id number] Trident Acetabular X3 0 36 D - [id number] Implanted:Qty: 1 on 03/26/2020 by Willie Roe DO at OR [facility] Right: Hip [employer] : ORTHOPAEDICS 02/15/2024 623-00-36D / / [id number] Accolade Ii 132 Deg Sz 2 - [id number] Implanted:Qty: 1 on 03/26/2020 by Willie Roe DO at OR [facility] Right: Hip [employer] : ORTHOPAEDICS 09/29/2020 1505-3236 / / [id number] Hip Hd Nk Alumina Mod D 36/+5 - [id number] Implanted:Qty: 1 on 03/26/2020 by Willie Roe DO at OR [facility] Right: Hip [employer] : ORTHOPAEDICS 09/07/2024 6570-0-236 / / [id number] documented as of this encounter Advance Directives Latest Code Status on File Code Status Date Activated Date Inactivated Comments Full Code 08/04/2014 7:47 AM 08/04/2014 1:44 PM Thi s order reflects the patients wishes and were consensually agreed upon. Care Teams Heel Top Lift Splitter Relationship Specialty Start Date End Date Priscilla Baez MD [address] [place] [address] [place] [address] PCP - General Family Medicine 09/11/15 documented as of this encounter
--- OUTSIDE RECORDS SUMMARY | 2023-11-17 21:07 | External Medical Summary | Summary of Care ---
Author Name Unknown Organization [facility] Address [address] [facility] [place] [address] Phone [phone] Care Team Providers Care Lithographing Machine Operator Name Role Phone Priscilla Baez MD Primary Care Provide r Reason for Visit * Reason Comments Outpatient Testing Encounter Details Date Type Department Care Team (Late st Contact Info) Description 11/05/2023 8:40 AM EDT Laboratory Laboratory [address] [place] [address] [facility] [address] [place] [address] Iron deficiency anemia, unspecified iron deficiency anemia type; Chronic kidney disease, stage 3a (HCC); Fatigue, unspecified type Allergies Active Allergy Reactions Criticality Noted Date Comments No Known Drug Allergy 08/09/2004 documented as of this encounter (statuses as of 11/05/2023) Medications Medication Sig Dispensed Refills Start Date [...] Active Additional Information Patient taking differently:20 mg [id number], Reported on 10/07/2023 Tamsulosin HCl 0.4 MG [...] as of this encounter (statuses as of 11/05/2023) Active Problems Problem Noted Date Diagnosed Date Food insecurity 05/04/2023 Overview: Per [facility] Protocol Urinary retention 12/19/2022 Chronic kidney disease, stage 3a 06/02/2022 Overview: Per CKD protocol Hyperlipidemia with target LDL less than 100 Obesity, Class I, BMI 30.0-34.9 (see actual BMI) 12/05/2021 Shoulder arthritis 12/05/2021 Arthritis of right hip 03/16/2020 WERO on CPAP 03/16/2020 Vertigo 03/16/2020 Urethral stricture 08/04/2014 GENERAL OSTEOARTHROSIS 01/18/2003 Scoliosis documented as of this encounter (statuses as of 11/05/2023) Resolved Problems Problem Noted Date Diagnosed Date Resolved Date Hip pain, right 07/06/2018 03/16/2020 OVARIAN CYST NEC-NOS 10/24/2005 017 ADJ DISORDER W/DEPRES MOOD 05/06/2005 0 09/11/2015 Headache 02/14/2004 09/11/2015 Overview: ICD-10 update of inactive term BACKACHE, T8 disc disease 01/18/2003 Lumbago 01/18/2003 07/06/2018 Excessive menstruation 01/18/200309/11 documented as of this encounter (statuses as of 11/05/2023) Immunizations Name Administration Dates Next Due PPD [...] on file documented as of this encounter Plan of Treatment Upcoming Encounters Date Type Department Care Team (Late st Contact Info) Description 11/17/2023 10:30 AM EDT Procedure Only Urology, [facility] [address] [facility] [place] [address] Thierry Rendon MD [address] [place] [address] 02/04/2024 8:00 AM EDT Office Visit Orthopaedics [facility] [address] [place] [address] Willie Roe, DO [address] [place] [address] 02/29/2024 9:30 AM EDT [place]iology, [address] [place] [address] 03/02/2024 8:00 AM EDT Office Visit Dermatology [address] [place] [address] Sandie Burden PA-C [address] [place] [address] [place] [address] 06/09/2024 9:00 AM EDT Imaging Radiology [address] [place] [address] Pending Results Name Type Priority Associated Diagnoses Date /Time CBC WITH WBC DIFFERENTIAL AND ANEMIA REFLEX WORKUP Lab Routine Iron deficiency anemia, unspecified iron deficiency anemia type 11/05/2023 8:25 AM EDT IRON SCREEN, INCLUDING TIBC Lab Routine Iron deficiency anemia, unspecified iron deficiency anemia type 11/05/2023 8:25 AM EDT COMPREHENSIVE METABOLIC PANEL Lab Routine Chronic kidney disease, stage 3a (HCC) 11/05/2023 8:25 AM EDT 25-HYDROXY VITAMIN D Lab Routine Fatigue, unspecified type 11/05/2023 8:25 AM EDT D-DIMER Lab Routine Fatigue, unspecified type 11/05/2023 8:25 AM EDT ANEMIA CBC Lab Routine Iron deficiency anemia, unspecified iron deficiency anemia type 11/05/2023 8:25 AM EDT DIFFERENTIAL, AUTOMATED Lab Routine Iron deficiency anemia, unspecified iron deficiency anemia type 11/05/2023 8:25 AM EDT ANEMIA REFLEX CHEMISTRY HOLD Lab Routine Iron deficiency anemia, unspecified iron deficiency anemia type 11/05/2023 8:25 AM EDT Health Maintenance Due Date Last Done Comments DXA Scan 1955 DTaP,Tdap,and Td Vaccines (1 - Tdap) 12/03/1974 Cologuard 12/03/2000 Fecal Occult Blood Test 12/03/2000 Sigmoidoscopy 12/03/2000 Zoster Vaccines (1 of 2) 12/03/2005 Pneumococcal Vaccine: 65+ Years (1 of 1 - PCV) 12/03/2020 Depression Screening 03/16/2021 03/16/2020 COVID-19 Vaccine (1 - 2022- season) 2023 Influenza Vaccine (FLU shot) (#1) 2023 CKD PHOS USE SMARTSET 16535 12/20/2023 12/19/2022 GFR 01/27/2024 07/28/2023, 05/24, 12/19/2022, Additional history exists Mammogram 05/28/2024 05/28/2023, 11/2021, 05/24/2021, Additional history exists Albumin/Creatinine Ratio 07/28/2024 07/28/2023, 05/24 CKD HGB USE SMARTSET 39718 07/28/202407/28, 07/28/2023, 06/09/2023, Additional history exists Diabetes Screening 07/28/2026 07/28/2023, 1 , 12/19/2022, Additional history exists Lipid Panel 12/20/2027 12/19/2022, [...] this encounter Medical Devices Implanted Type Area Deck Supervisor Device Identifier Shelf Expiration Date Model / Serial / Lot Shell Acet Trident Ii 50mm - [id number] Implanted:Qty: 1 on 03/26/2020 by Willie Roe DO at OR [facility] Right: Hip K[employer] : ORTHOPAEDICS 07/17/2024 702-04-50D / / [id number] Trident Acetabular X3 0 36 D - [id number] Implanted:Qty: 1 on 03/26/2020 by Willie Roe DO at OR [facility] Right: Hip [employer] : ORTHOPAEDICS 02/15/2024 623-00-36D / / [id number] Accolade Ii 132 Deg Sz 2 - [id number] Implanted:Qty: 1 on 03/26/2020 by Willie Roe DO at OR [facility] Right: Hip [employer] : ORTHOPAEDICS 09/29/2020 [id number] / / [id number] Hip Hd Nk Alumina Mod D 36/+5 - [id number] Implanted:Qty: 1 on 03/26/2020 by Willie Roe DO at OR [facility] Right: Hip [employer]IAN : ORTHOPAEDICS 09/07/2024 6570-0-236 / / [id number] documented as of this encounter Visit Diagnoses Diagnosis Iron deficiency anemia, unspecified iron deficiency anemia type Chronic kidney disease, stage 3a (HCC) Fatigue, unspecified type documented in this encounter Advance Directives Latest Code Status on File Code Status Date Activated Date Inactivated Comments Full Code 08/04/2014 7:47 AM 08/04/2014 1:44 PM Thi s order reflects the patients wishes and were consensually agreed upon. Care Teams Lithographing Machine Operator Relationship Specialty Start Date End Date Priscilla Baez MD [address] [place] [address] [place] [address] PCP - General Family Medicine 09/11/15 documented as of this encounter
--- OUTSIDE RECORDS SUMMARY | 2023-11-17 21:07 | External Medical Summary | Summary of Care ---
Author Name Unknown Organization [facility] Address [address] [facility] [place] [address] Phone [phone] Care Team Providers Care Transit Manager Name Role Phone Priscilla Baez MD Primary Care Provide r Reason for Visit * Reason Onset Date Comments Advice 11/09/2023 Encounter Details Date Type Department Care Team (Late st Contact Info) Description 11/09/2023 Telephone Family [address] [place] [address] Priscilla Baez MD [address] [place] [address] [place] [address] Advice Allergies Active Allergy Reactions Criticality Noted Date Comments No Known Drug Allergy 08/09/2004 documented as of this encounter (statuses as of 11/12/2023) Medications Medication Sig Dispensed Refills Start Date [...] Active Additional Information Patient taking differently:20 mg [id number], Reported on 10/07/2023 Tamsulosin HCl 0.4 MG [...] as of this encounter (statuses as of 11/12/2023) Active Problems Problem Noted Date Diagnosed Date Food insecurity 05/04/2023 Overview: Per [facility] Protocol Urinary retention 12/19/2022 Chronic kidney disease, stage 3a 06/02/2022 Overview: Per CKD protocol Hyperlipidemia with target LDL less than 100 Obesity, Class I, BMI 30.0-34.9 (see actual BMI) 12/05/2021 Shoulder arthritis 12/05/2021 Arthritis of right hip 03/16/2020 WERO on CPAP 03/16/2020 Vertigo 03/16/2020 Urethral stricture 08/04/2014 GENERAL OSTEOARTHROSIS 01/18/2003 Scoliosis documented as of this encounter (statuses as of 11/12/2023) Resolved Problems Problem Noted Date Diagnosed Date Resolved Date Hip pain, right 07/06/2018 03/16/2020 OVARIAN CYST NEC-NOS 10/24/2005 017 ADJ DISORDER W/DEPRES MOOD 05/06/2005 0 09/11/2015 Headache 02/14/2004 09/11/2015 Overview: ICD-10 update of inactive term BACKACHE, T8 disc disease 01/18/2003 Lumbago 01/18/2003 07/06/2018 Excessive menstruation 01/18/200309/11 documented as of this encounter (statuses as of 11/12/2023) Immunizations Name Administration Dates Next Due PPD [...] encounter Miscellaneous Notes * Telephone Encounter - Farzana David LPN - 11/12/2023 9:00 AM EDT lmtcb * Telephone Encounter - Yulia Resendiz LPN [...] UTI but something with her kidneys. Refused spoon maker callback. Prefers someone from Dr Baez's office. [...] UTI but something with her kidneys. Refused spoon maker callback. Prefers someone from Dr Baez's office. documented in this encounter Plan of Treatment Upcoming Encounters Date Type Department Care Team (Late st Contact Info) Description 11/17/2023 10:30 AM EDT Procedure Only Urology, [facility] [place] [address] Thierry Rendon MD [address] [place] [address] 02/04/2024 8:00 AM EDT Office Visit Orthopaedics [facility] [address] [facility] [place] [address] Willie Roe, [address] [facility] [place] [address] 02/29/2024 9:30 AM EDT Imaging [place]iology, [address] [place] [address] 03/02/2024 8:00 AM EDT Office Visit Dermatology [address] [place] [address] Sandie Burden PA-C [address] [place] [address] [place] [address] 06/09/2024 9:00 AM EDT Imaging Radiology [address] [place] [address] Health Maintenance Due Date Last Done Comments DXA Scan 1955 DTaP,Tdap,and Td Vaccines (1 - Tdap) 12/03/1974 Cologuard 12/03/2000 Fecal Occult Blood Test 12/03/2000 Sigmoidoscopy 12/03/2000 Zoster Vaccines (1 of 2) 12/03/2005 Pneumococcal Vaccine: 65+ Years (1 of 1 - PCV) 12/03/2020 Depression Screening 03/16/2021 03/16/2020 COVID-19 Vaccine ( season) 2023 Influenza Vaccine (FLU shot) (#1) 2023 CKD PHOS USE SMARTSET 36072 12/20/2023 12/19/2022 GFR 05/07/2024 11/05/2023, 12/2022, 06/09/2023, Additional history exists Mammogram 05/28/2024 05/28/2023, 11/2021, 05/24/2021, Additional history exists Albumin/Creatinine Ratio 07/28/2024 07/28/2023, 05/24 CKD HGB USE SMARTSET 94929 11/04/202411/04, 11/05/2023, 07/28/2023, Additional history exists Diabetes [...] this encounter Medical Devices Implanted Type Area Camp Program Director Device Identifier Shelf Expiration Date Model / Serial / Lot Shell Acet Trident Ii 50mm - [id number] Implanted:Qty: 1 on 03/26/2020 by Willie Roe DO at OR [facility] Right: Hip [employer] : ORTHOPAEDICS 07/17/2024 702-04-50D / / [id number] Trident Acetabular X3 0 36 D - [id number] Implanted:Qty: 1 on 03/26/2020 by Willie Roe DO at OR [facility] Right: Hip [employer]STIAN : ORTHOPAEDICS 02/15/2024 623-00-36D / / [id number] Accolade Ii 132 Deg Sz 2 - [id number] Implanted:Qty: 1 on 03/26/2020 by Willie Roe DO at OR [facility] Right: Hip [employer]IAN : ORTHOPAEDICS 09/29/2020 [id number] / / [id number] Hip Hd Nk Alumina Mod D 36/+5 - [id number] Implanted:Qty: 1 on 03/26/2020 by Willie Roe DO at OR [facility] Right: Hip [employer]IAN : ORTHOPAEDICS 09/07/2024 6570-0-236 / / [id number] documented as of this encounter Advance Directives Latest Code Status on File Code Status Date Activated Date Inactivated Comments Full Code 08/04/2014 7:47 AM 08/04/2014 1:44 PM Thi s order reflects the patients wishes and were consensually agreed upon. Care Teams Transit Manager Relationship Specialty Start Date End Date Priscilla Baez MD [address] [place] [address] [place] [address] PCP - General Family Medicine 09/11/15 documented as of this encounter
--- OUTSIDE RECORDS SUMMARY | 2023-11-17 21:08 | External Medical Summary ---
Author Name Unknown Address Unknown Organization [id number]:LABORATORY [facility] [place] - [address] [facility] [address] Laboratory Report Ordering Provider Test Date Status REYNA CRUZ 11/05/2023 08:25:51 Final Observation Date Value Abnormality Reference (Units ) Status WBC, Total 11/05/2023 08:25:51 8.61 4.00-10.8 0 (K/uL) Final RBC 11/05/2023 08:25:51 3.37 3.85-5.15 (M/uL) Final Hemoglobin 11/05/2023 08:25:51 11.4 Below low normal 12 .0-15.3 (g/dL) Final Anemia reflex testing trigge rs on a HGB < 12.0 for Females and HGB < 13.0 for Males in accordance with the WHO Anemia Guidelines
Anemia reflex testing triggers on a HGB < 12.0 for Females and HGB < 13.0 for Males in accordance with the WHO Anemia Guidelines HCT 11/05/2023 08:25:51 34.8 Below low normal 36. 0-45.2 (%) Final MCV 11/05/2023 08:25:51 103.3 81.5-97.5 (fL) Final MCH 11/05/2023 08:25:51 33.8 27.0-34.0 (pg) Final MCHC 11/05/2023 08:25:51 32.8 32.0-36.0 (g/dL) Final RDW 11/05/2023 08:25:51 12.2 11.5-15.5 (%) Final Platelets 11/05/2023 08:25:51 298 140-400 (K /uL) Final MPV 11/05/2023 08:25:51 10.2 6.6-11.1 ( fL) Final Nucleated erythrocytes/100 leukocytes [Ratio] in Blood by Automated count 11/05/2023 08:25:51 0 <=0 (/100 WBCs) [facility] Performing Location LABORATORY [facility] - [address] [facility] [address]
--- OUTSIDE RECORDS SUMMARY | 2023-11-17 21:08 | External Medical Summary ---
Author Name Unknown Address Unknown Organization [id number]:[facility] [place] [address] [facility] [address] Laboratory Report Ordering Provider Test Date Status REYNA CRUZ 11/05/2023 08:25:51 Final Observation Date Value Abnormality Reference (Units ) Status SYNC LEUKOCYTES IN BLOOD BY AUTOMATED COUNT 11/05/2023 08:25:51 8.61 4.00-10.80 (K/uL) Final Segs 11/05/2023 08:25:51 60.0 40.0-75.0 (%) Final Lymphs % 11/05/2023 08:25:51 26.2 18.0-42.0 (%) Final Monos 11/05/2023 08:25:51 8.5 1.0-11.0 (%) Final Eosinophils 11/05/2023 08:25:51 3.7 0.0-6.0 (%) Final Basos 11/05/2023 08:25:51 0.7 0.0-2.0 (%) Final Immature Granulocyte, Percent 11/05/2023 08:25:51 0.9 0.0-2.0 (%) Final Absolute Segs 11/05/2023 08:25:51 5.16 1.80-7.70 (K/uL) Final Lymphs, absolute 11/05/2023 08:25:51 2.26 1.00-4.80 (K/ul) Final Monos, Abs 11/05/2023 08:25:51 0.73 0.00-1.10 (K/uL) Final Eos, Abs 11/05/2023 08:25:51 0.32 0.00-0.70 (K/uL) Final Basos, Abs 11/05/2023 08:25:51 0.06 0.00-0.20 (K/uL) Final Immature Granulocytes, Number 11/05/2023 08:25:51 0.08 0.00-0.20 (K/uL) Final Performing Location [facility] [place] [address] [facility] [address]
--- OUTSIDE RECORDS SUMMARY | 2023-11-17 21:08 | External Medical Summary ---
Author Name Unknown Address Unknown Organization [id number]:LAB[facility]ATORY [facility] [place] - [address] [facility] [place] [address] Laboratory Report Ordering Provider Test Date Status REYNA CRUZ 11/05/2023 08:25:51 Final Observation Date Value Abnormality Reference (Units ) Status BUN 11/05/2023 08:25:51 31 Above high normal 6-20 (mg/dL) Final Creatinine 11/05/2023 08:25:51 1.9 Above high normal 0.5-1.0 (mg/dL) Final Glomerular filtration rate/1.73 sq M.predicted [Volume Rate/Area] in Serum, Plasma or Blood by Creatinine-based formula (CKD-EPI) 11/05/2023 08:25:51 29 Below low normal >=60 (mL/min) Final eGFR is calculated based on the CKD-EPI 2020 equation SODIUM 11/05/2023 08:25:51 137 135-146 (m mol/L) Final Potassium 11/05/2023 08:25:51 4.7 3.5-5.1 (m mol/L) Final Cl 11/05/2023 08:25:51 104 98-107 (mm ol/L) Final CO2 11/05/2023 08:25:51 23 22-32 (mmo l/L) Final Anion gap 11/05/2023 08:25:51 10 7-15 (mmol /L) Final Glucose 11/05/2023 08:25:51 116 70-120 (mg /dL) Final Albumin 11/05/2023 08:25:51 4.1 3.8-5.0 (g /dL) Final AST (Aspartate aminotransferase) 11/05/2023 08:25:51 10 10-35 (U/L) Final Alk Phos 11/05/2023 08:25:51 82 35-130 (U/ L) Final Bilirubin, Total 11/05/2023 08:25:51 0.3 <=1 .2 (mg/dL) Final Calcium 11/05/2023 08:25:51 9.5 8.4-10.2 ( mg/dL) Final Protein 11/05/2023 08:25:51 6.5 6.0-8.3 (g /dL) Final ALT (Alanine aminotransferase) 11/05/2023 08:25:51 14 10-35 (U/L) Final Performing Location LAB[facility]ATORY [facility] - [facility] [address] [facility] [address]
--- OUTSIDE RECORDS SUMMARY | 2023-11-17 21:08 | External Medical Summary | Summary of Care ---
Author Name Unknown Organization [facility] Address [address] [facility] [place] [address] Phone [phone] Care Team Providers Care Date Pitter Name Role Phone Priscilla Baez MD Primary Care Provide r Reason for Visit * Reason Comments Follow Up R shoulder injection , last injection 07/09/23, Encounter Details Date Type Department Care Team (Latest Contact Info) Description 10/08/2023 9:00 AM EST Office Visit Orthopaedics [facility] [address] [place] [address] Willie Roe, [address] [place] [address] Chronic right shoulder pain*; Primary osteoarthritis of right shoulder Allergies Active Allergy Reactions Criticality Noted Date Comments No Known Drug Allergy 08/09/2004 documented as of this encounter (statuses as of 10/08/2023) Medications Medication Sig Dispensed Refills Start Date [...] Active Additional Information Patient taking differently:20 mg [id number], Reported on 10/07/2023 Tamsulosin HCl 0.4 MG [...] two weeks. 30 g 1 09/04/2023 Active Additional Information Patient not taking.Reported on 10/07/2023 Albuterol Sulfate HFA 108 (90 Base) MCG/ACT Inhalation Aerosol SolutionIndication s:SOB (shortness of breath) INHALE 2 PUFFS BY MOUTH EVERY 4 HOURS NEEDED FOR WHEEZE 18 g 1 09/10/2023 Active Meclizine HCl 25 MG Oral Tablet (Antivert)Indicati ons:BPPV (benign paroxysmal positional vertigo), bilateral TAKE 1 TABLET BY MOUTH 3 TIMES A DAY (MORNING, NOON & BEDTIME) NEEDED FOR DIZZINESS 30 Tablet 5 09/25/2023 Active Hospital, Clinic, or Other Facility Administered Medication Ordered Dose Route Frequency Start Date End Date Status lidocaine 1% 1 mL - triamcinolone acetonide 40 mg/mL 1 mL inj 2 mLIndications:Primary osteoarthritis of right shoulder 2 mL IJ ONCE 10/08/2023 10/08/2023 Active documented as of this encounter (statuses as of 10/08/2023) Active Problems Problem Noted Date Diagnosed Date [...] as of this encounter (statuses as of 10/08/2023) Resolved Problems Problem Noted Date Diagnosed Date Resolved Date Hip pain, right 07/06/2018 03/16/2020 OVARIAN CYST NEC-NOS 10/24/2005 017 ADJ DISORDER W/DEPRES MOOD 05/06/2005 0 09/11/2015 Headache 02/14/2004 09/11/2015 Overview: ICD-10 update of inactive term BACKACHE, T8 disc disease 01/18/2003 Lumbago 01/18/2003 07/06/2018 Excessive menstruation 01/18/200309/11 documented as of this encounter (statuses as of 10/08/2023) Immunizations Name Administration Dates Next Due PPD 02/02/2006 documented as of this encounter Social History Tobacco Use Types Packs/Day Years Used Date Smoking Tobacco: Former Cigarettes 0.1 5 Q uit: 08/24/1975 Smokeless Tobacco: Never Tobacco Cessation:Counseling Given: Not Answered Alcohol Use Standard Drinks/Week Comments No 0 [...] on file documented as of this encounter Last Filed Vital Signs Vital Sign Reading Time Taken Comments Blood Pressure - - Pulse - - Temperature - - Respiratory Rate - - Oxygen Saturation - - Inhaled Oxygen Concentration - - Weight 68.9 kg (152 lb) 10/08/2023 8:47 AM EST Height 152.4 cm (5') 10/08/2023 8:47 AM EST Body Mass Index 29.69 10/08/2023 8:47 AM EST documented in this encounter Progress Notes * Willie Roe, DO - 10/08/2023 9:00 AM EST ORTHOPAEDIC SURGERY - Clinic Note/Injection SUBJECTIVE: Apoorva Morillo is a 67 year old female. Chief Complaint Patient presents with Follow Up R shoulder injection, last injection 07/09/23, HPI: She presents for a repeat right shoulder glenohumeral injection today. Her last injection worked quite well. She described symptoms returning this past week. Review of patient's allergies indicates: Allergen Reactions No Known Drug Allergy Current Outpatient Medications Medication Sig Dispense Refill CALCIUM 500+D 500-200 MG-UNIT PO TABS One tablet three times daily CRANBERRY 500 MG PO CAPS One daily Meloxicam 15 MG Oral Tablet TAKE ONE TABLET BY MOUTH ONCE DAILY FOR PAIN 90 Tablet 2 Pantoprazole Sodium 20 MG Oral Tablet Delayed Release (Protonix) TAKE 1 TABLET BY MOUTH EVERY DAY IN THE MORNING 90 Tablet 2 Atorvastatin Calcium 20 MG Oral Tablet (Lipitor) Take 1 Tablet by mouth at bedtime. (Patient takingdifferently: Take 1 Tablet by mouth daily first thing in the morning.) 90 Tablet 3 Tamsulosin HCl 0.4 MG Oral Capsule (Flomax) Take 2 Capsules by mouth in the morning. 180 Capsule 3 Ferrous Sulfate 325 (65 Fe) MG Oral Tablet (Feosol) Take 1 Tablet by mouth in the morning and 1 Tablet before bedtime. 180 Tablet 3 Triamcinolone Acetonide 0.1 % External Cream (Aristocort) APPLY TOPICALLY TO AFFECTED AREA 2 TIMES A DAY. TO AFFECTED AREA. FOR UP TO 2 WEEKS. 15 g 1 Clobetasol Propionate 0.05 % External Cream (Temovate) Apply topically to affected area 2 times a day. To affected area for up to two weeks. (Patient not taking: Reported on 10/07/2023) 30 g 1 Albuterol Sulfate HFA 108 (90 Base) MCG/ACT Inhalation Aerosol Solution INHALE 2 PUFFS BY MOUTH EVERY 4 HOURS NEEDED FOR WHEEZE 18 g 1 Meclizine HCl 25 MG Oral Tablet (Antivert) TAKE 1 TABLET BY MOUTH 3 TIMES A DAY (MORNING, NOON & BEDTIME) NEEDED FOR DIZZINESS 30 Tablet 5 Current Facility-Administered Medications Medication Dose Route Frequency Provider Last Rate Last Admin lidocaine 1% 1 mL - triamcinolone acetonide 40 mg/mL 1 mL inj 2 mL 2 mL Injection Once Willie Roe, ASSESSMENT: Chronic right shoulder pain (Primary) Primary osteoarthritis of right shoulder - ARTHROCENT ASP &/OR INJ MAJOR JX/BURSA W/O US - lidocaine 1% 1 mL - triamcinolone acetonide 40 mg/mL 1 mL inj 2 mL Follow Up: Return in about 4 months (around 02/06/2024). PLAN: We discussed a repeat right shoulder glenohumeral injection today. She was in agreement. This was well tolerated. Injection Procedure Note: RIGHT Shoulder: Time out: Prior to injection, a time out was called to confirm the administration of appropriate medicine, patient name, procedure and confirm to the best of our ability and knowledge the presence of any necessary risks and benefits. Patient verbalizes understanding. Consent obtained. Sterile techinique applied. Skin sterilized with alcohol swab and ChloraPrep. The right shoulder glenohumeral joint was injected using 1.5 inch, 22 gauge needle. Injected with 1 mL 1% lidocaine and 1mL Kenalog 40 mg/mL. Skin cleansed with alcohol and Band-Aid placed. Patient tolerated procedure with no significant bleeding or adverse reaction. Patient instructed to call or return to clinic for fever or warmth and redness at injection site for potential infection. Patient also advised as to potential for steroid flare reaction including increased pain and redness at injection site which should be treated with ice and resolve within 24 hours. Willie Roe DO This chart was completed in part utilizing [employer] Speech Voice Recognition Software. Grammatical errors, random word insertions, pronoun errors, and incomplete sentences are an occasional consequence of this system due to software limitations, ambient noise, and hardware issues. Any formal questions or concerns about the content, text, or information contained within the body of this dictation should be directly addressed to the provider for clarification. Willie Roe DO 10/08/2023 9:00 AM documented in this encounter Nursing Notes * Guido Valenzuela LPN - 10/08/2023 8:47 AM EST Chief Complaint Patient presents with Follow Up R shoulder injection, last injection 07/09/23, documented in this encounter Plan of Treatment Upcoming Encounters Date Type Department Care Team (Latest Contact Info) Description 10/19/2023 11:40 AM EST Office Visit Family [address] [place] [phone] Priscilla Baez MD [address] [place] [address] [place] [address] 10/20/2023 10:30 AM EST Hospital Encounter ENDO OSSC, Endoscopy Room [facility] [address] [place] [phone] Ellen Torres DO [address] [place] [address] 10/20/2023 10:30 AM EST - 10/20/2023 11:00 AM EST Surgery ENDO OSSC, Endoscopy Room [facility] [address] [place] [phone] Ellen Torres DO [address] [place] [address] COLONOSCOPY FLEXIBLE PROXIMAL DIAGNOSTIC 11/17/2023 10:30 AM EDT Procedure Only Urology, [facility] [address] [place] [address] Thierry Rendon MD [address] [place] [address] 02/04/2024 8:00 AM EDT Office Visit Orthopaedics [facility] [address] [place] [address] Willie Roe, [address] [place] [address] 03/02/2024 8:00 AM EDT Office Visit Dermatology [address] [place] [address] Sandie Burden PA-C [address] [place] [address] [place] [address] 06/09/2024 9:00 AM EDT Imaging Radiology [address] [place] [address] Scheduled Orders Name Type Priority Associated Diagnoses Orde r Schedule ARTHROCENT ASP &/OR INJ MAJOR JX/BURSA W/O US Procedures Routine Primary osteoarthritis of right shoulder Ordered: 10/08/2023 Scheduled Procedures Name Priority Associated Diagnoses Date/Ti me COLONOSCOPY FLEXIBLE PROXIMAL DIAGNOSTIC Iron deficiency anemia, unspecified iron deficiency anemia type 10/20/2023 10:30 AM EST Health Maintenance Due Date Last Done Comments DXA Scan 1955 COVID-19 Vaccine (#1) 06/04/1956 DTaP,Tdap,and Td Vaccines (1 - Tdap) 12/03/1974 Cologuard 12/03/2000 Colonoscopy 12/03/2000 Colorectal Cancer Screening 12/03/2000 Fecal Occult Blood Test 12/03/2000 Sigmoidoscopy 12/03/2000 Zoster Vaccines (1 of 2) 12/03/2005 Pneumococcal Vaccine: 65+ Years (1 - PCV) 12/03/2020 Depression Screening 03/16/2021 03/16/2020 Influenza Vaccine (FLU shot) (#1) 2023 CKD PHOS USE SMARTSET 83477 12/20/2023 12/19/2022 GFR 01/27/2024 07/28/2023, 05/24, 12/19/2022, Additional history exists Mammogram 05/28/2024 05/28/2023, 11/2021, 05/24/2021, Additional history exists Albumin/Creatinine Ratio 07/28/2024 07/28/2023, 05/24 CKD HGB USE SMARTSET 22415 07/28/202407/28, 07/28/2023, 06/09/2023, Additional history exists Diabetes Screening 07/28/2026 07/28/2023, 1 , 12/19/2022, Additional history exists Lipid Panel 12/20/2027 12/19/2022, 11/2021, 11/19/2021, Additional history exists Pap Smear Discontinued 10/03/2015, 09/2005, 09/25/2005, Additional [...] this encounter Medical Devices Implanted Type Area [employer] Device Identifier Shelf Expiration Date Model / Serial / Lot Hip Hd Nk Alumina Mod D 36/+5 - [id number] Implanted:Qty: 1 on 03/26/2020 by Willie Roe DO at OR [facility] Right: Hip [employer]IAN : ORTHOPAEDICS 09/07/2024 [id number] / / [id number] documented as of this encounter Visit Diagnoses Diagnosis Chronic right shoulder pain- Primary Pain in joint, shoulder region Primary osteoarthritis of right shoulder Primary localized osteoarthrosis, shoulder region Iron deficiency anemia, unspecified iron deficiency anemia type documented in this encounter Advance Directives Latest Code Status on File Code Status Date Activated Date Inactivated Comments Full Code 08/04/2014 7:47 AM 08/04/2014 1:44 PM Thi s order reflects the patients wishes and were consensually agreed upon. Care Teams Date Pitter Relationship Specialty Start Date End Date Priscilla Baez MD [address] [place] [address] [place] [address] PCP - General Family Medicine 09/11/15 documented as of this encounter
--- OUTSIDE RECORDS SUMMARY | 2023-11-17 21:08 | External Medical Summary ---
Author Name Unknown Address Unknown Organization K01:LABORATORY [facility] - [address] [place] [address] [place] [address] Laboratory Report Ordering Provider Test Date Status ANTHONYREYNA 11/05/2023 08:25:51 Final Observation Date Value Abnormality Reference (Units ) Status Retic, % (auto) 11/05/2023 08:25:51 1.69 0.80-1.90 (%) Final Reticulocytes, Absolute 11/05/2023 08:25:51 58.3 31.3-100.1 (K/uL) Final Reticulocyte fraction, immature 11/05/2023 08:25:51 16.9 2.5-20.6 (%) Final Reticulocyte HGB 11/05/2023 08:25:51 34.7 29.7-37.4 (pg) Final Performing Location LABORATORY [facility] - [address] [place] [address]
--- OUTSIDE RECORDS SUMMARY | 2023-11-17 21:08 | External Medical Summary ---
Author Name Unknown Address Unknown Organization K01:LABORATORY [facility] [place] - [address] [place] [address] Laboratory Report Ordering Provider Test Date Status REYNA CRUZ 11/05/2023 08:25:51 Final Observation Date Value Abnormality Reference (Units ) Status Folic Acid 11/05/2023 08:25:51 20.0 >4.5 (ng/ mL) Final Performing Location [facility] [address] [facility] [address]
--- OUTSIDE RECORDS SUMMARY | 2023-11-17 21:08 | External Medical Summary | Summary of Care ---
Author Name Unknown Organization [facility] Address [address] [facility] [place] [address] Phone [phone] Care Team Providers Care Information And Referral Director Name Role Phone Priscilla Baez MD Primary Care Provide r Reason for Visit * Reason Comments Follow Up R shoulder injection , last injection 07/09/23, Encounter Details Date Type Department Care Team (Latest Contact Info) Description 10/08/2023 9:00 AM EST Office Visit Orthopaedics [facility] [address] [place] [address] Willie Roe, [address] [place] [address] Chronic right shoulder pain*; Primary osteoarthritis of [...] Active Additional Information Patient taking differently:20 mg [id number], Reported on 10/07/2023 Tamsulosin HCl 0.4 MG [...] shoulder 2 mL IJ ONCE 10/08/2023 10/08/2023 Ended documented as of this encounter (statuses as [...] This chart was completed in part utilizing [employer] Voice Recognition Software. Grammatical errors, random word insertions, pronoun errors, and incomplete sentences are an occasional consequence of this system due to software limitations, ambient noise, and hardware issues. Any formal questions or concerns about the content, text, or information contained within the body of this dictation should be directly addressed to the provider for clarification. Wlilie Roe DO 10/08/2023 9:00 AM documented in this encounter Nursing Notes * Guido Valenzuela LPN - 10/08/2023 8:47 AM EST Chief Complaint Patient presents with Follow Up R shoulder injection, last injection 07/09/23, documented in this encounter Plan of Treatment Upcoming Encounters Date Type Department Care Team (Latest Contact Info) Description 10/19/2023 11:40 AM EST Office Visit Family [address] [place] [phone] Priscilla Baez MD [address] [place] [address] [place] [address] 10/20/2023 10:30 AM EST Hospital Encounter ENDO OSSC, Endoscopy Room [facility] [address] [place] [phone] Ellen Torres DO [address] [place] [address] 10/20/2023 10:30 AM EST - 10/20/2023 11:00 AM EST Surgery ENDO OSSC, Endoscopy Room [facility] [address] [place] [phone] Ellen Torres DO [address] [place] [address] COLONOSCOPY FLEXIBLE PROXIMAL DIAGNOSTIC 11/17/2023 10:30 AM EDT Procedure Only Urology, [facility] [address] [place] [address] Thierry Rendon MD [address] [place] [address] 02/04/2024 8:00 AM EDT Office Visit Orthopaedics [facility] [address] [place] [address] Willie Roe, [address] [place] [address] 03/02/2024 8:00 AM EDT Office Visit Dermatology [address] [place] [address] Sandie Burden PA-C [address] [place] [address] [place] [address] 06/09/2024 9:00 AM EDT Imaging Radiology [address] [place] [address] Scheduled Orders Name Type Priority Associated Diagnoses [...] shot) (#1) 2023 CKD PHOS USE SMARTSET 02986 12/20/2023 12/19/2022 GFR 01/27/2024 07/28/2023, 05/24, 12/19/2022, Additional history exists Mammogram 05/28/2024 05/28/2023, 11/2021, 05/24/2021, Additional history exists Albumin/Creatinine Ratio 07/28/2024 07/28/2023, 05/24 CKD HGB USE SMARTSET 36641 07/28/202407/28, 07/28/2023, 06/09/2023, Additional history exists Diabetes [...] this encounter Medical Devices Implanted Type Area [employer] Device Identifier Shelf Expiration Date Model / Serial / Lot Hip Hd Nk Alumina Mod D 36/+5 - [id number] Implanted:Qty: 1 on 03/26/2020 by Willie Roe DO at OR [facility] Right: Hip [employer]STIAN : ORTHOPAEDICS 09/07/2024 [id number] / / [id number] documented as of this encounter Visit Diagnoses Diagnosis Chronic right shoulder pain- Primary Pain in joint, shoulder region Primary osteoarthritis of right shoulder Primary localized osteoarthrosis, shoulder region Iron deficiency anemia, unspecified iron deficiency anemia type documented in this encounter Administered Medications Inactive Administered Medications - up to 3 most recent administrations Medication Order MAR Action Action Date Dose Rate Site lidocaine 1% 1 mL - triamcinolone acetonide 40 mg/mL 1 mL inj 2 mL 2 mL, Injection, ONCE, On Vidhya 10/08/23 at 0945, For 1 dose, Lidocaine 1% 1mL Triamcinolone Acetonide 40 mg/mL 1 mL (Final concentration = 20 mg/mL) REFRIGERATE and SHAKE WELL Given 10/08/2023 9:28 AM EST 2 mL Shoulder Right documented in this encounter Advance Directives Latest Code Status on File Code Status Date Activated Date Inactivated Comments Full Code 08/04/2014 7:47 AM 08/04/2014 1:44 PM Thi s order reflects the patients wishes and were consensually agreed upon. Care Teams Information And Referral Director Relationship Specialty Start Date End Date Priscilla Baez MD [address] [place] [address] [place] [phone] PCP - General Family Medicine 09/11/15 documented as of this encounter
--- OUTSIDE RECORDS SUMMARY | 2023-11-17 21:08 | External Medical Summary ---
Author Name Unknown Address Unknown Organization K01:LABORATORY [facility] - [address] [place] [address] [place] [address] Laboratory Report Ordering Provider Test Date Status REYNA CRUZ 11/05/2023 08:25:51 Final Observation Date Value Abnormality Reference (Units ) Status Vitamin B12 11/05/2023 08:25:51 [phone] (pg/mL) Final Performing Location LABORATORY [facility] - [address] [place] [address]
--- OUTSIDE RECORDS SUMMARY | 2023-11-17 21:08 | External Medical Summary | Summary of Care ---
Author Name Unknown Organization [facility] Address [address] [facility] [place] [address] Phone [phone] Care Team Providers Care Executive Talent Acquisition Consultant Name Role Phone Priscilla Baez MD Primary Care Provide r Reason for Visit * Reason Comments Follow Up 6 mo f/u Encounter Details Date Type Department Care Team (Late st Contact Info) Description 11/05/2023 8:00 AM EDT Office Visit Family Medicine [address] [place] [address] Enid Rose PA-C [address] [place] [address] [place] [address] Iron deficiency anemia, unspecified iron deficiency anemia type*; Postmenopausal status, age-related; Chronic kidney disease, stage 3a (HCC); GENERAL OSTEOARTHROSIS; Hyperlipidemia with target LDL less than 100; WERO on CPAP; Fatigue, unspecified type Allergies Active Allergy Reactions [...] Active Additional Information Patient taking differently:20 mg [id number], Reported on 10/07/2023 Tamsulosin HCl 0.4 MG [...] Diagnosed Date Food insecurity 05/04/2023 Overview: Per [facility] Protocol Urinary retention 12/19/2022 Chronic [...] 0 08/24/1970 - 08/24/1975 Smokeless Tobacco: Never Tobacco Cessation:Counseling Given: [...] Sign Reading Time Taken Comments Blood Pressure 120/60 11/05/2023 7:46 AM EDT Pulse 89 11/05/2023 7:46 AM EDT Temperature 36.8 C (98.2 F) 11/05/2023 7:46 AM ED T Respiratory Rate - - Oxygen Saturation 99% 11/05/2023 7:46 AM EDT Inhaled Oxygen Concentration - - Weight 68.5 kg (151 lb) 11/05/2023 7:46 AM EDT Height - - Body Mass Index 29.49 10/08/2023 8:47 AM EST documented in this encounter Progress Notes * Enid Rose PA-C - 11/05/2023 7:55 AM EDT Nursing Notes: Juana Marx LPN 11/05/23 0753 Signed Chief Complaint Patient presents with Follow Up 6 mo f/u 10/20/23 colonoscopy done and no dx of Anemia. Still remains fatigue and SOB The patient has been properly identified by confirmation of name and date of . Pt here today for recheck. Pt with PMH of GERD, dyslipidemia, OA, WERO on CPAP, CKD. Pt is still feeling run down and tired. Her blood count was low a few months ago. She never had repeat labs. She states that she is taking her iron when she remembers. She hasn't taken it for the past week or so. Ptdid have colonoscopy and it was normal. Pt denies chest pain, swelling in legs, fever, chills, cough, URI sx, allergy/sinus sx. Pt has very mild SOB. Pt states that she did have some chest pain with deep breath, just now. Nothing before today. Pt has no other issues at this time. Pt denies calf swelling, pain in calves. Review of patient's allergies indicates: Allergen Reactions [...] up to two weeks. 30 g 1 Meclizine HCl 25 MG Oral Tablet (Antivert) TAKE 1 TABLET BY MOUTH 3 TIMES A DAY (MORNING, NOON & BEDTIME) NEEDED FOR DIZZINESS 30 Tablet 5 CPAP Use as directed at bedtime. Albuterol Sulfate HFA 108 (90 Base) MCG/ACT Inhalation Aerosol Solution INHALE 2 PUFFS BY MOUTH EVERY 4 HOURS NEEDED FOR WHEEZING 18 g 1 No current facility-administered medications for this visit. Past Medical History: Diagnosis Date Generalized osteoarthritis WERO on CPAP Scoliosis Vertigo Social History Socioeconomic History Marital status: Spouse name: Not on file Number of children: Not on file Years of education: Not on file Highest education level: Not on file Occupational History Not on file Tobacco Use Smoking status: Former Current packs/day: 0.00 Average packs/day: 0.1 packs/day for 5.0 years (0.5 ttl pk-yrs) Types: Cigarettes Start date: 08/24/1970 Quit date: 08/24/1975 Years since quittin.2 Smokeless tobacco: Never Vaping Use Vaping Use: Never used Substance and Sexual Activity Alcohol use: No Drug use: No Sexual activity: Not on file Other Topics Concern Not on file Social History Narrative Not on file Social Determinants of Health Financial Resource Strain: Not on file Food Insecurity: Food Insecurity Present (04/13/2023) Hunger Vital Sign Worried About Running Out of Food in the Last Year: Never true Ran Out of Food in the Last Year: Often true Transportation Needs: Not on file Physical Activity: Not on file Stress: Not on file Social Connections: Not on file Intimate Partner Violence: Not on file Housing Stability: Not on file O:Blood pressure 120/60, pulse 89, temperature 36.8 C (98.2 F), temperature source Tympanic, weight 68.5 kg (151 lb), SpO2 99%. GENERAL: alert, healthy, and no distress NECK: supple, no adenopathy, no bruits, thyroid normal size, non-tender, without nodularity EYES: PERRLA, conjunctiva are pink and non-injected, sclera clear EARS: External ears normal, Canals clear, TM's Normal NOSE: no mucosal erythema, no mucosal edema, no purulent discharge OROPHARYNX: no exudate, no erythema, lips, buccal mucosa, and tongue normal, and mucous membranes are moist HEART: regular rate & rhythm, no murmur, and no gallops LUNGS: chest symmetric with normal AP diameter, no chest deformities noted, no chest wall tenderness, lungs clear to auscultation A:Iron deficiency anemia, unspecified iron deficiency anemia type (Primary) - CBC WITH WBC DIFFERENTIAL AND ANEMIA REFLEX WORKUP; Future; Expected date: 11/05/2023 - IRON SCREEN, INCLUDING TIBC; Future; Expected date: 11/05/2023 Postmenopausal status, age-related - DEXA SCAN/BONE MINERAL AXIAL; Future; Expected date: 11/05/2023 Chronic kidney disease, stage 3a (HCC) - COMPREHENSIVE METABOLIC PANEL; Future; Expected date: 11/05/2023 GENERAL OSTEOARTHROSIS Hyperlipidemia with target LDL less than 100 WERO on CPAP Fatigue, unspecified type - 25-HYDROXY VITAMIN D; Future; Expected date: 11/05/2023 - D-DIMER; Future; Expected date: 11/05/2023 Will recheck some labs. May need to get EGD. Make sure to take iron. Any questions/problems, pleasecall. If anything changes, worsens, develops new sx, please call [facility]. Follow Up: Return if symptoms worsen or fail to improve. Enid Rose PA-C documented in this encounter Nursing Notes * Juana Marx LPN - 11/05/2023 7:47 AM EDT Chief Complaint Patient presents with Follow Up 6 mo f/u 02/27/24 colonoscopy done and no dx of Anemia. Still remains fatigue and SOB The patient has been properly identified by confirmation of name and date of . documented in this encounter Plan of Treatment Upcoming Encounters Date Type Department Care Team (Latest Contact Info) Description 11/05/2023 8:40 AM EDT Laboratory Laboratory [address] [place] [phone] [place] [address] Iron deficiency anemia, unspecified iron deficiency anemia type; Chronic kidney disease, stage 3a (HCC); Fatigue, unspecified type 11/17/2023 10:30 AM EDT Procedure Only Urology, [facility] [address] [facility] [place] [address] Thierry Rendon MD [address] [facility] [address] [place] [address] 02/04/2024 8:00 AM EDT Office Visit Orthopaedics [facility] [address] [facility] [place] [address] Willie Roe DO [address] [place] [address] 02/29/2024 9:30 AM EDT [place], [address] [place] [address] 03/02/2024 8:00 AM EDT Office Visit Dermatology [address] [place] [address] Sandie Burden PA-C [address] [place] [address] [place] [address] 06/09/2024 9:00 AM EDT Imaging Radiology [address] [place] [address] Pending Results Name Type Priority Associated Diagnoses [...] Fatigue, unspecified type 11/05/2023 8:25 AM EDT Scheduled Orders Name Type Priority Associated Diagnoses Orde r Schedule DEXA SCAN/BONE MINERAL AXIAL Medical Imaging Routine Postmenopausal status, age-related Expected: 11/05/2023 (Approximate), Expires: 12/05/2024 CBC WITH WBC DIFFERENTIAL AND ANEMIA REFLEX WORKUP Lab Routine Iron deficiency anemia, unspecified iron deficiency anemia type Expected: 11/05/2023 (Approximate), Expires: 11/04/2024 IRON SCREEN, INCLUDING TIBC Lab Routine Iron deficiency anemia, unspecified iron deficiency anemia type Expected: 11/05/2023 (Approximate), Expires: 11/04/2024 COMPREHENSIVE METABOLIC PANEL Lab Routine Chronic kidney disease, stage 3a (HCC) Expected: 11/05/2023 (Approximate), Expires: 11/04/2024 25-HYDROXY VITAMIN D Lab Routine Fatigue, unspecified type Expected: 11/05/2023 (Approximate), Expires: 11/04/2024 D-DIMER Lab Routine Fatigue, unspecified type Expected: 11/05/2023 (Approximate), Expires: 11/04/2024 Health Maintenance Due Date Last Done Comments DXA Scan 1955 DTaP,Tdap,and Td Vaccines (1 - Tdap) 12/03/1974 Cologuard 12/03/2000 Fecal Occult Blood Test 12/03/2000 Sigmoidoscopy 12/03/2000 Zoster Vaccines (1 of 2) 12/03/2005 Pneumococcal Vaccine: 65+ Years (1 of 1 - PCV) 12/03/2020 Depression Screening 03/16/2021 03/16/2020 COVID-19 Vaccine (1 - 2022- season) 2023 Influenza Vaccine (FLU shot) (#1) 2023 CKD PHOS USE SMARTSET 35245 12/20/2023 12/19/2022 GFR 01/27/2024 07/28/2023, 05/24, 12/19/2022, Additional history exists Mammogram 05/28/2024 05/28/2023, 11/2021, 05/24/2021, Additional history exists Albumin/Creatinine Ratio 07/28/2024 07/28/2023, 05/24 CKD HGB USE SMARTSET 98300 07/28/202407/28, 07/28/2023, 06/09/2023, Additional history exists Diabetes [...] this encounter Medical Devices Implanted Type Area Automation Tech Device Identifier Shelf Expiration Date Model / Serial / Lot Shell Acet Trident Ii 50mm - [id number] Implanted:Qty: 1 on 03/26/2020 by Willie Roe DO at OR [facility] Right: Hip KRISTIAN : ORTHOPAEDICS 07/17/2024 702-04-50D / / [id number] Trident Acetabular X3 0 36 D - [id number] Implanted:Qty: 1 on 03/26/2020 by Willie Roe DO at OR [facility] Right: Hip K[employer]IAN : ORTHOPAEDICS 02/15/2024 623-00-36D / / [id number] Accolade Ii 132 Deg Sz 2 - [id number] Implanted:Qty: 1 on 03/26/2020 by Willie Roe DO at OR [facility] Right: Hip [employer]STIAN : ORTHOPAEDICS 09/29/2020 9634-8726 / / [id number] Hip Hd Nk Alumina Mod D 36/+5 - [id number] Implanted:Qty: 1 on 03/26/2020 by Willie Roe DO at OR [facility] Right: Hip K[employer]IAN : ORTHOPAEDICS 09/07/2024 6570-0-236 / / [id number] documented as of this encounter Visit Diagnoses Diagnosis Iron deficiency anemia, unspecified iron deficiency anemia type- Primary Postmenopausal status, age-related Asymptomatic postmenopausal status (age-related) (natural) Chronic kidney disease, stage 3a (HCC) GENERAL OSTEOARTHROSIS Generalized osteoarthrosis, unspecified site Hyperlipidemia with target LDL less than 100 Other and unspecified hyperlipidemia WERO on CPAP Obstructive sleep apnea (adult) (pediatric) Fatigue, unspecified type Iron deficiency anemia, unspecified iron deficiency anemia type Chronic kidney disease, stage 3a (HCC) Fatigue, unspecified type documented in this encounter Advance Directives Latest Code Status on File Code Status Date Activated Date Inactivated Comments Full Code 08/04/2014 7:47 AM 08/04/2014 1:44 PM Thi s order reflects the patients wishes and were consensually agreed upon. Care Teams Executive Talent Acquisition Consultant Relationship Specialty Start Date End Date Priscilla Baez MD [address] [place] [address] [place] [phone] PCP - General Family Medicine 09/11/15 documented as of this encounter
--- OUTSIDE RECORDS SUMMARY | 2023-11-17 21:08 | External Medical Summary | Summary of Care ---
Author Name Unknown Organization [facility] Address [address] [place] [address] Phone [phone] Care Team Providers Care Senior Management Consultant Name Role Phone Priscilla Baez MD Primary Care Provide r Encounter Details Date Type Department Care Team (Late st Contact Info) Description 10/05/2023 Patient Reported Data Patient Survey Ortho [facility] Allergies Active Allergy Reactions Criticality Noted Date Comments No Known Drug Allergy 08/09/2004 documented as of this encounter (statuses as of 10/05/2023) Medications Medication Sig Dispensed Refills Start Date End Date Status CALCIUM 500+D 500-200 MG-UNIT PO TABS One tablet three times daily 0 Active CRANBERRY 500 MG PO CAPS One daily 0 Active Meloxicam 15 MG Oral TabletIndications:H ip pain, right TAKE ONE TABLET BY MOUTH ONCE DAILY FOR PAIN 90 Tablet 2 04/29/2023 Active Pantoprazole Sodium 20 MG Oral Tablet Delayed Release (Protonix)Indicatio ns:Gastroesophageal reflux disease, unspecified whether esophagitis present TAKE 1 TABLET BY MOUTH EVERY DAY IN THE MORNING 90 Tablet 2 04/29/2023 Active Atorvastatin Calcium 20 MG Oral Tablet (Lipitor)Indication s:Hyperlipidemia with target LDL less than 100 Take 1 Tablet by mouth at bedtime. 90 Tablet 3 05/21/2023 Active Tamsulosin HCl 0.4 MG Oral Capsule (Flomax) Take 2 Capsules by mouth in the morning. 180 Capsule 3 06/16/2023 Active Ferrous Sulfate 325 (65 Fe) MG Oral Tablet (Feosol)Indications :Iron deficiency anemia, unspecified iron deficiency anemia type Take 1 Tablet by mouth in the morning and 1 Tablet before bedtime. 180 Tablet 3 07/03/2023 Active Triamcinolone Acetonide 0.1 % External Cream (Aristocort)Indicat ions:Dry skin APPLY TOPICALLY TO AFFECTED AREA 2 TIMES A DAY. TO AFFECTED AREA. FOR UP TO 2 WEEKS. 15 g 1 07/27/2023 Active predniSONE 20 MG Oral Tablet (Deltasone)Indicati ons:Allergic contact dermatitis due to cosmetics,Acute cough 1 tab 3 times a day for 3 days, then 1 tab 2 times a day for 3 days, then 1 tab daily for 3 days 18 Tablet 0 08/25/2023 Active Clobetasol Propionate 0.05 % External Cream (Temovate) Apply topically to affected area 2 times a day. To affected area for up to two weeks. 30 g 1 09/04/2023 Active Albuterol Sulfate HFA 108 (90 Base) MCG/ACT Inhalation Aerosol SolutionIndications :SOB (shortness of breath) INHALE 2 PUFFS BY MOUTH EVERY 4 HOURS NEEDED FOR WHEEZE 18 g 1 09/10/2023 Active Meclizine HCl 25 MG Oral Tablet (Antivert)Indicatio ns:BPPV (benign paroxysmal positional vertigo), bilateral TAKE 1 TABLET BY MOUTH 3 TIMES A DAY (MORNING, NOON & BEDTIME) NEEDED FOR DIZZINESS 30 Tablet 5 09/25/2023 Active documented as of this encounter (statuses as of 10/05/2023) Active Problems Problem Noted Date Diagnosed Date [...] as of this encounter (statuses as of 10/05/2023) Resolved Problems Problem Noted Date Diagnosed Date Resolved Date Hip pain, right 07/06/2018 03/16/2020 OVARIAN CYST NEC-NOS 10/24/2005 017 ADJ DISORDER W/DEPRES MOOD 05/06/2005 0 09/11/2015 Headache 02/14/2004 09/11/2015 Overview: ICD-10 update of inactive term BACKACHE, T8 disc disease 01/18/2003 Lumbago 01/18/2003 07/06/2018 Excessive menstruation 01/18/200309/11 documented as of this encounter (statuses as of 10/05/2023) Immunizations Name Administration Dates Next Due PPD 02/02/2006 documented as of this encounter Social History Tobacco Use Types Packs/Day Years Used Date Smoking Tobacco: Former Cigarettes 0.1 5 Q uit: 08/24/1975 Smokeless Tobacco: Never Alcohol Use Standard [...] 10/08/2023 9:00 AM EST Office Visit Orthopaedics [facility] [address] [place] [address] Willie Roe, [address] [place] [address] 10/19/2023 11:40 AM EST Office Visit Family Medicine [address] [address] Priscilla Baez MD [address] [place] [address] [place] [address] 10/20/2023 10:30 AM EST Hospital Encounter ENDO [facility], Endoscopy Room [facility] [address] [place] [phone] Ellen Torres, DO [address] [place] [address] 10/20/2023 10:30 AM EST - 10/20/2023 11:00 AM EST Surgery ENDO [facility], Endoscopy Room [facility] [address] [place] [phone] Ellen Torres, [address] [place] [address] COLONOSCOPY FLEXIBLE PROXIMAL DIAGNOSTIC 11/17/2023 10:30 AM EDT Procedure Only Urology, [facility] [address] [place] [address] Thierry Rendon MD [address] [place] [address] [place] [address] 03/02/2024 8:00 AM EDT Office Visit Dermatology [address] [place] [address] Sandie Burden PA-C [address] [place] [address] [place] [address] 06/09/2024 9:00 AM EDT Imaging Radiology [address] [place] [address] Scheduled Procedures Name Priority Associated Diagnoses Date/Ti [...] shot) (#1) 2023 CKD PHOS USE SMARTSET 34982 12/20/2023 12/19/2022 GFR 01/27/2024 07/28/2023, 05/24, 12/19/2022, Additional history exists Mammogram 05/28/2024 05/28/2023, 11/2021, 05/24/2021, Additional history exists Albumin/Creatinine Ratio 07/28/2024 07/28/2023, 05/24 CKD HGB USE SMARTSET 80643 07/28/202407/28, 07/28/2023, 06/09/2023, Additional history exists Diabetes [...] this encounter Medical Devices Implanted Type Area Hr Business Partner Consultant Device Identifier Shelf Expiration Date Model / Serial / Lot Hip Hd Nk Alumina Mod D 36/+5 - [id number] Implanted:Qty: 1 on 03/26/2020 by Willie Roe, DO at OR [facility] Right: Hip KRISTIAN : ORTHOPAEDICS 09/07/2024 6570-0-236 / / [id number] documented as of this encounter Advance Directives Latest Code Status on File Code Status Date Activated Date Inactivated Comments Full Code 08/04/2014 7:47 AM 08/04/2014 1:44 PM Thi s order reflects the patients wishes and were consensually agreed upon. Care Teams Senior Management Consultant Relationship Specialty Start Date End Date Priscilla Baez MD [address] [place] [address] [place] [phone] PCP - General Family Medicine 09/11/15 documented as of this encounter
--- OUTSIDE RECORDS SUMMARY | 2023-11-17 21:08 | External Medical Summary | Summary of Care ---
Author Name Unknown Organization [facility] Address [address] [place] [address] Phone [phone] Care Team Providers Care Substance Abuse Services Director Name Role Phone Priscilla Baez MD [...] 10/08/2023 9:00 AM EST Office Visit Orthopaedics [facility] [address] [place] [address] Willie Roe, [address] [place] [address] 10/19/2023 11:40 AM EST Office Visit Family Medicine [address] [place] [address] [phone] Priscilla Baez MD [address] [place] [address] [place] [address] 10/20/2023 10:30 AM EST Hospital Encounter ENDO [facility], Endoscopy Room [facility] [address] [place] [phone] Ellen Torres, DO [address] [place] [address] 10/20/2023 10:30 AM EST - 10/20/2023 11:00 AM EST Surgery ENDO [facility], Endoscopy Room [facility] [address] [place] [phone] Ellen Torres, [address] [place] [address] COLONOSCOPY FLEXIBLE PROXIMAL DIAGNOSTIC 11/17/2023 10:30 AM EDT Procedure Only Urology, [facility] [address] [place] [address] Thierry Rendon MD [address] [place] [address] [place] [address] 03/02/2024 8:00 AM EDT Office Visit Dermatology [address] [place] [address] Sandie Burden PA-C [address] [place] [address] [place] [address] 06/09/2024 9:00 AM EDT Imaging Radiology [address] [place] [address] Scheduled Procedures Name Priority Associated Diagnoses Date/Ti [...] shot) (#1) 2023 CKD PHOS USE SMARTSET 02637 12/20/2023 12/19/2022 GFR 01/27/2024 07/28/2023, 05/24, 12/19/2022, Additional history exists Mammogram 05/28/2024 05/28/2023, 11/2021, 05/24/2021, Additional history exists Albumin/Creatinine Ratio 07/28/2024 07/28/2023, 05/24 CKD HGB USE SMARTSET 28047 07/28/202407/28, 07/28/2023, 06/09/2023, Additional history exists Diabetes [...] this encounter Medical Devices Implanted Type Area Lock Stitch Channeler Device Identifier Shelf Expiration Date Model / Serial / Lot Hip Hd Nk Alumina Mod D 36/+5 - [id number] Implanted:Qty: 1 on 03/26/2020 by Willie Roe, DO at OR [facility] Right: Hip K[employer]STIAN : ORTHOPAEDICS 09/07/2024 6570-0-236 / / [id number] documented as of this encounter Advance Directives Latest Code Status on File Code Status Date Activated Date Inactivated Comments Full Code 08/04/2014 7:47 AM 08/04/2014 1:44 PM Thi s order reflects the patients wishes and were consensually agreed upon. Care Teams Substance Abuse Services Director Relationship Specialty Start Date End Date Priscilla Baez MD [address] [place] [address] [place] [phone] PCP - General Family Medicine 09/11/15 documented as of this encounter
--- OUTSIDE RECORDS SUMMARY | 2023-11-17 21:08 | External Medical Summary | Summary of Care ---
Author Name Unknown Organization [facility] Address [address] [facility] [place] [address] Phone [phone] Care Team Providers Care Wellfield Technician Name Role Phone Priscilla Baez MD Primary Care Provide r Reason for Visit * Reason Onset Date Comments Pre Op Discussion 10/07/2023 Encounter Details Date Type Department Care Team (Late st Contact Info) Description 10/07/2023 Telephone OR [facility], Operating Room [facility] [address] [place] [phone] Ellen Torres DO [address] [place] [address] Pre Op Discussion Allergies Active Allergy Reactions Criticality Noted Date Comments No Known Drug Allergy 08/09/2004 documented as of this encounter (statuses as of 10/07/2023) Medications Medication Sig Dispensed Refills Start Date [...] Active Additional Information Patient taking differently:20 mg [id number], Reported on 10/07/2023 Tamsulosin HCl 0.4 MG [...] as of this encounter (statuses as of 10/07/2023) Active Problems Problem Noted Date Diagnosed Date Food insecurity 05/04/2023 Overview: Per [facility] Protocol Urinary retention 12/19/2022 Chronic kidney disease, stage 3a 06/02/2022 Overview: Per CKD protocol Hyperlipidemia with target LDL less than 100 Obesity, Class I, BMI 30.0-34.9 (see actual BMI) 12/05/2021 Shoulder arthritis 12/05/2021 Arthritis of right hip 03/16/2020 WERO on CPAP 03/16/2020 Vertigo 03/16/2020 Urethral stricture 08/04/2014 GENERAL OSTEOARTHROSIS 01/18/2003 Scoliosis documented as of this encounter (statuses as of 10/07/2023) Resolved Problems Problem Noted Date Diagnosed Date Resolved Date Hip pain, right 07/06/2018 03/16/2020 OVARIAN CYST NEC-NOS 10/24/2005 017 ADJ DISORDER W/DEPRES MOOD 05/06/2005 0 09/11/2015 Headache 02/14/2004 09/11/2015 Overview: ICD-10 update of inactive term BACKACHE, T8 disc disease 01/18/2003 Lumbago 01/18/2003 07/06/2018 Excessive menstruation 01/18/200309/11 documented as of this encounter (statuses as of 10/07/2023) Immunizations Name Administration Dates Next Due PPD [...] 10/08/2023 9:00 AM EST Office Visit Orthopaedics [facility] [address] [place] [address] Willie Roe, [address] [place] [address] 10/19/2023 11:40 AM EST Office Visit Family Medicine [address] [place] [phone] Priscilla Baez MD [address] [place] [address] [place] [address] 10/20/2023 10:30 AM EST Hospital Encounter ENDO OSS, Endoscopy Room [facility] [address] [place] [phone] Ellen Torres DO [address] [place] [address] 10/20/2023 10:30 AM EST - 10/20/2023 11:00 AM EST Surgery ENDO OSS, Endoscopy Room [facility] [address] [place] [phone] Ellen Torres DO [address] [place] [address] COLONOSCOPY FLEXIBLE PROXIMAL DIAGNOSTIC 11/17/2023 10:30 AM EDT Procedure Only Urology, [facility] [address] [place] [address] Thierry Rendon MD 27 [facility] [address] [place] [address] 03/02/2024 8:00 AM EDT Office Visit Dermatology [address] [place] [address] Sandie Burden PA-C [address] [place] [address] [place] [address] 06/09/2024 9:00 AM EDT Imaging Radiology [address] [place] [address] Scheduled Procedures Name Priority Associated Diagnoses Date/Ti [...] shot) (#1) 2023 CKD PHOS USE SMARTSET 55455 12/20/2023 12/19/2022 GFR 01/27/2024 07/28/2023, 05/24, 12/19/2022, Additional history exists Mammogram 05/28/2024 05/28/2023, 11/2021, 05/24/2021, Additional history exists Albumin/Creatinine Ratio 07/28/2024 07/28/2023, 05/24 CKD HGB USE SMARTSET 34369 07/28/202407/28, 07/28/2023, 06/09/2023, Additional history exists Diabetes [...] this encounter Medical Devices Implanted Type Area Noodle Press Operator Device Identifier Shelf Expiration Date Model / Serial / Lot Hip Hd Nk Alumina Mod D 36/+5 - [id number] Implanted:Qty: 1 on 03/26/2020 by Willie Roe DO at OR [facility] Right: Hip KRISTIAN : ORTHOPAEDICS 09/07/2024 6570-0-236 / / [id number] documented as of this encounter Advance Directives Latest Code Status on File Code Status Date Activated Date Inactivated Comments Full Code 08/04/2014 7:47 AM 08/04/2014 1:44 PM Thi s order reflects the patients wishes and were consensually agreed upon. Care Teams Wellfield Technician Relationship Specialty Start Date End Date Priscilla Baez MD [address] [place] [address] [place] [address] PCP - General Family Medicine 09/11/15 documented as of this encounter
--- OUTSIDE RECORDS SUMMARY | 2023-11-17 21:08 | External Medical Summary ---
Author Name Unknown Address Unknown Organization K01:[place] [place] [address] [facility] [address] [facility] [address] Laboratory Report Ordering Provider Test Date Status REYNA CRUZ 11/05/2023 08:25:51 Final Observation Date Value Abnormality Reference (Units ) Status TSH 11/05/2023 08:25:51 4.25 Above high normal 0. 27-4.20 (uIU/mL) Final Performing Location LABORATORY [facility] - [address] [facility] [address]
--- OUTSIDE RECORDS SUMMARY | 2023-11-17 21:08 | External Medical Summary | Summary of Care ---
Author Name Unknown Organization [facility] Address [address] [place] [address] Phone [phone] Care Team Providers Care Database Report Writer Name Role Phone Florencia Baez MD Primary Care Provide r Reason for Visit * Reason Comments eRx-Medication Refill Encounter Details Date Type Department Care Team (Late st Contact Info) Description 10/25/2023 Refill Family [address] [place] [phone] Florencia Baez MD [address] [place], [place] [address] [id number] SOB (shortness of breath) Allergies Active Allergy Reactions Criticality Noted Date Comments No Known Drug Allergy 08/09/2004 documented as of this encounter (statuses as of 10/26/2023) Medications Medication Sig Dispensed Refills Start Date End Date Status CALCIUM 500+D 500-200 MG-UNIT PO TABS One tablet three times daily 0 Active CRANBERRY 500 MG PO CAPS One daily 0 Active Meloxicam 15 MG Oral TabletIndication s:Hip pain, right TAKE ONE TABLET BY MOUTH ONCE DAILY FOR PAIN 90 Tablet 2 04/29/2023 Active Pantoprazole Sodium 20 MG Oral Tablet Delayed Release (Protonix)Indica tions:Gastroesop hageal reflux disease, unspecified whether esophagitis present TAKE 1 TABLET BY MOUTH EVERY DAY IN THE MORNING 90 Tablet 2 04/29/2023 Active Atorvastatin Calcium 20 MG Oral Tablet (Lipitor)Indicat ions:Hyperlipide paola with target LDL less than 100 Take 1 Tablet by mouth at bedtime. 90 Tablet 3 05/21/2023 Active Additional Information Patient taking differently:20 mg [id number], Reported on 10/07/2023 Tamsulosin HCl 0.4 MG Oral Capsule (Flomax) Take 2 Capsules by mouth in the morning. 180 Capsule 3 06/16/2023 Active Ferrous Sulfate 325 (65 Fe) MG Oral Tablet (Feosol)Indicati ons:Iron deficiency anemia, unspecified iron deficiency anemia type Take 1 Tablet by mouth in the morning and 1 Tablet before bedtime. 180 Tablet 3 07/03/2023 Active Triamcinolone Acetonide 0.1 % External Cream (Aristocort)Cindy cations:Dry skin APPLY TOPICALLY TO AFFECTED AREA 2 TIMES A DAY. TO AFFECTED AREA. FOR UP TO 2 WEEKS. 15 g 1 07/27/2023 Active Clobetasol Propionate 0.05 % External Cream (Temovate) Apply topically to affected area 2 times a day. To affected area for up to two weeks. 30 g 1 09/04/2023 Active Additional Information Patient not taking.Reported on 10/07/2023 Meclizine HCl 25 MG Oral Tablet (Antivert)Indica tions:BPPV (benign paroxysmal positional vertigo), bilateral TAKE 1 TABLET BY MOUTH 3 TIMES A DAY (MORNING, NOON & BEDTIME) NEEDED FOR DIZZINESS 30 Tablet 5 09/25/2023 Active CPAP Use as directed at bedtime. 0 Active Albuterol Sulfate HFA 108 (90 Base) MCG/ACT Inhalation Aerosol SolutionIndicati ons:SOB (shortness of breath) INHALE 2 PUFFS BY MOUTH EVERY 4 HOURS NEEDED FOR WHEEZING 18 g 1 10/26/2023 Active Albuterol Sulfate HFA 108 (90 Base) MCG/ACT Inhalation Aerosol SolutionIndicati ons:SOB (shortness of breath) INHALE 2 PUFFS BY MOUTH EVERY 4 HOURS NEEDED FOR WHEEZE 18 g 1 09/10/2023 10/26/19 24 Discontinued documented as of this encounter (statuses as of 10/26/2023) Active Problems Problem Noted Date Diagnosed Date Food insecurity 05/04/2023 Overview: Per [facility] Protocol Urinary retention 12/19/2022 Chronic kidney disease, stage 3a 06/02/2022 Overview: Per CKD protocol Hyperlipidemia with target LDL less than 100 04/ Obesity, Class I, BMI 30.0-34.9 (see actual BMI) 12/05/2021 Shoulder arthritis 12/05/2021 Arthritis of right hip 03/16/2020 WERO on CPAP 03/16/2020 Vertigo 03/16/2020 Urethral stricture 08/04/2014 GENERAL OSTEOARTHROSIS 01/18/2003 Scoliosis documented as of this encounter (statuses as of 10/26/2023) Resolved Problems Problem Noted Date Diagnosed Date Resolved Date Hip pain, right 07/06/2018 03/16/2020 OVARIAN CYST NEC-NOS 10/24/2005 017 ADJ DISORDER W/DEPRES MOOD 05/06/2005 0 09/11/2015 Headache 02/14/2004 09/11/2015 Overview: ICD-10 update of inactive term BACKACHE, T8 disc disease 01/18/2003 Lumbago 01/18/2003 07/06/2018 Excessive menstruation 01/18/200309/11 documented as of this encounter (statuses as of 10/26/2023) Immunizations Name Administration Dates Next Due PPD [...] encounter Miscellaneous Notes * Telephone Encounter - Lexie Arzate [facility] - 10/26/2023 3:51 PM ESTSigned Prescriptions: Disp Refills Albuterol Sulfate HFA 108 (90 Base) MCG/AC*18 g 1 Sig: INHALE 2 PUFFS BY MOUTH EVERY 4 HOURS NEEDED FOR WHEEZINGAuthorizing Provider: FLORENCIA BAEZ User: LEXIE ARZATE documented in this encounter Plan of Treatment Upcoming Encounters Date Type Department Care Team (Late st Contact Info) Description 11/05/2023 8:00 AM EDT Office Visit Family Medicine [address] [place] [phone] Enid Rose PA-C [address] [place] [address] [place] [address] 11/17/2023 10:30 AM EDT Procedure Only Urology, [facility] [address] [facility] [place] [address] Thierry Rendon MD 27 [facility] [address] [place] [address] 02/04/2024 8:00 AM EDT Office Visit Orthopaedics [facility] [address] [place] [address] Willie Roe DO 132 [place] [address] 03/02/2024 8:00 AM EDT Office Visit Dermatology [address] [place] [address] Sandie Burden PA-C [address] [place] [address] [place] [address] 06/09/2024 9:00 AM EDT Imaging Radiology [address] [place] [address] Health Maintenance Due Date Last Done Comments DXA Scan 1955 DTaP,Tdap,and Td Vaccines (1 - Tdap) 12/03/1974 Cologuard 12/03/2000 Fecal Occult Blood Test 12/03/2000 Sigmoidoscopy 12/03/2000 Zoster Vaccines (1 of 2) 12/03/2005 Pneumococcal Vaccine: 65+ Years (1 of 1 - PCV) 12/03/2020 Depression Screening 03/16/2021 03/16/2020 COVID-19 Vaccine (1 - 2022- season) 2023 Influenza Vaccine (FLU shot) (#1) 2023 CKD PHOS USE SMARTSET 53163 12/20/2023 12/19/2022 GFR 01/27/2024 07/28/2023, 05/24, 12/19/2022, Additional history exists Mammogram 05/28/2024 05/28/2023, 11/2021, 05/24/2021, Additional history exists Albumin/Creatinine Ratio 07/28/2024 07/28/2023, 05/24 CKD HGB USE SMARTSET 18530 07/28/202407/28, 07/28/2023, 06/09/2023, Additional history exists Diabetes [...] this encounter Medical Devices Implanted Type Area Regional Business Manager Device Identifier Shelf Expiration Date Model / Serial / Lot Shell Acet Trident Ii 50mm - [id number] Implanted:Qty: 1 on 03/26/2020 by Willie oRe DO at OR [facility] Right: Hip K[employer]STIAN : ORTHOPAEDICS 07/17/2024 702-04-50D / / [id number] Trident Acetabular X3 0 36 D - [id number] Implanted:Qty: 1 on 03/26/2020 by Willie Roe DO at OR [facility] Right: Hip KRISTIAN : ORTHOPAEDICS 02/15/2024 623-00-36D / / [id number] Accolade Ii 132 Deg Sz 2 - [id number] Implanted:Qty: 1 on 03/26/2020 by Willie Roe DO at OR [facility] Right: Hip KRISTIAN : ORTHOPAEDICS 09/29/2020 [id number] / / [id number] Hip Hd Nk Alumina Mod D 36/+5 - [id number] Implanted:Qty: 1 on 03/26/2020 by Willie Roe DO at OR [facility] Right: Hip KRISTIAN : ORTHOPAEDICS 09/07/2024 6570-0-236 / / [id number] documented as of this encounter Visit Diagnoses Diagnosis SOB (shortness of breath) Shortness of breath documented in this encounter Advance Directives Latest Code Status on File Code Status Date Activated Date Inactivated Comments Full Code 08/04/2014 7:47 AM 08/04/2014 1:44 PM Thi s order reflects the patients wishes and were consensually agreed upon. Care Teams Database Report Writer Relationship Specialty Start Date End Date Florencia Baez MD [address] [place] [address] [place] [address] PCP - General Family Medicine 09/11/15 documented as of this encounter
--- OUTSIDE RECORDS SUMMARY | 2023-11-17 21:08 | External Medical Summary ---
Author Name Unknown Address Unknown Organization K01:LAB[facility]ATORY [facility] [place] - [address] [place] [address] Laboratory Report Ordering Provider Test Date Status REYNA CRUZ 11/05/2023 08:25:51 Final Deficient: <20 ng/mL
Ins ufficient: 20-29 ng/mL
Recommended/Optimum:30-50 ng/mL

Vitamin D intoxication is rare. If suspicious of Vitamin D toxicity, evaluation of serum Calcium and PTH is recommended. Observation Date Value Abnormality Reference (Units ) Status 25-OH Vitamin D total 11/05/2023 08:25:51 37 >19 (ng/mL) Final Performing Location LABORATORY [facility] [place] - [address] [place] [address]
--- OUTSIDE RECORDS SUMMARY | 2023-11-17 21:08 | External Medical Summary | Summary of Care ---
Author Name Unknown Organization [facility] Address [address] [facility] [place] [address] Phone [phone] Care Team Providers Care Beater Engineer Name Role Phone Priscilla Baez MD Primary Care Provide r Reason for Visit * Reason Onset Date Comments Advice 07/27/2023 Encounter Details Date Type Department Care Team (Late st Contact Info) Description 07/27/2023 Telephone Family [address] [place] [phone] Priscilla Baez MD [address] [place] [address] [place] [address] Advice Allergies Active Allergy Reactions Criticality Noted [...] Active Additional Information Patient taking differently:20 mg [id number], Reported on 10/07/2023 Tamsulosin HCl 0.4 MG Oral Capsule (Flomax) Take 2 Capsules by mouth in the morning. 180 Capsule 3 06/16/2023 Active Ferrous Sulfate 325 (65 Fe) MG Oral Tablet (Feosol)Indication s:Iron deficiency anemia, unspecified iron deficiency anemia type Take 1 Tablet by mouth in the morning and 1 Tablet before bedtime. 180 Tablet 3 07/03/2023 Active documented as of this encounter (statuses [...] encounter Miscellaneous Notes * Telephone Encounter - Fadumo Aponte LPN - 07/27/2023 9:46 AM EST Pt calling due to ankles swelling for 3 days. No pain, her shoes feel tight. Elevating helps but assoon as she gets up they swell again. Scheduled appt with [place] on 07/28 at 11:40 * Telephone Encounter - Rissa Michaels OSA - 07/27/2023 9:45 AM EST Requesting to speak to a nurse about swelling in ankles. Denied scheduling sherine documented in this encounter Plan of Treatment Upcoming Encounters Date Type Department Care Team (Late st Contact Info) Description 11/05/2023 8:00 AM EDT Office Visit Family Medicine [address] [place] [phone] Enid Rose PA-C [address] [place] [address] [place] [address] 11/17/2023 10:30 AM EDT Procedure Only Urology, [facility] [address] [facility] [place] [address] Thierry Rendon MD 27 [facility] [address] [place] [address] 02/04/2024 8:00 AM EDT Office Visit Orthopaedics [facility] [place] [address] Willie Roe, DO 132 [facility] [place] [address] 03/02/2024 8:00 AM EDT Office Visit Dermatology [address] [place] [address] Sandie Burden PA-C [address] [place] [address] [place] [address] 06/09/2024 9:00 AM EDT Imaging Radiology [address] [place] [address] Health Maintenance Due Date Last Done Comments DXA Scan 1955 DTaP,Tdap,and Td Vaccines (1 - Tdap) 12/03/1974 Cologuard 12/03/2000 Fecal Occult Blood Test 12/03/2000 Sigmoidoscopy 12/03/2000 Zoster Vaccines (1 of 2) 12/03/2005 Pneumococcal Vaccine: 65+ Years (1 of 1 - PCV) 12/03/2020 Depression Screening 03/16/2021 03/16/2020 COVID-19 Vaccine (1 - 2022- season) 2023 Influenza Vaccine (FLU shot) (#1) 2023 CKD PHOS USE SMARTSET 88501 12/20/2023 12/19/2022 GFR 01/27/2024 07/28/2023, 05/24, 12/19/2022, Additional history exists Mammogram 05/28/2024 05/28/2023, 11/2021, 05/24/2021, Additional history exists Albumin/Creatinine Ratio 07/28/2024 07/28/2023, 05/24 CKD HGB USE SMARTSET 16883 07/28/202407/28, 07/28/2023, 06/09/2023, Additional history exists Diabetes [...] this encounter Medical Devices Implanted Type Area Pediatric Clinical Dietician Device Identifier Shelf Expiration Date Model / Serial / Lot Shell Acet Trident Ii 50mm - [id number] Implanted:Qty: 1 on 03/26/2020 by Willie Roe DO at OR [facility] Right: Hip KRISTIAN : ORTHOPAEDICS 07/17/2024 702-04-50D / / [id number] Trident Acetabular X3 0 36 D - [id number] Implanted:Qty: 1 on 03/26/2020 by Willie Roe DO at OR [facility] Right: Hip KRISTIAN : ORTHOPAEDICS 02/15/2024 623-00-36D / / [id number] Accolade Ii 132 Deg Sz 2 - [id number] Implanted:Qty: 1 on 03/26/2020 by Willie Roe DO at OR [facility] Right: Hip KRISTIAN : ORTHOPAEDICS 09/29/2020 [id number] / / [id number] Hip Hd Nk Alumina Mod D 36/+5 - [id number] Implanted:Qty: 1 on 03/26/2020 by Willie Roe, at OR [facility] Right: Hip KRISTIAN : ORTHOPAEDICS 09/07/2024 6570-0-236 / / [id number] documented as of this encounter Advance Directives Latest Code Status on File Code Status Date Activated Date Inactivated Comments Full Code 08/04/2014 7:47 AM 08/04/2014 1:44 PM Thi s order reflects the patients wishes and were consensually agreed upon. Care Teams Beater Engineer Relationship Specialty Start Date End Date Priscilla Baez MD [address] [place] [address] [place] [address] PCP - General Family Medicine 09/11/15 documented as of this encounter
--- OUTSIDE RECORDS SUMMARY | 2023-11-17 21:08 | External Medical Summary ---
Author Name Unknown Address Unknown Organization K01:LABORATORY [facility] [place] - [address] [place] [address] Laboratory Report Ordering Provider Test Date Status REYNA CRUZ 11/05/2023 08:25:51 Final Observation Date Value Abnormality Reference (Units ) Status Iron 11/05/2023 08:25:51 65 33-151 (ug/dL) Final Iron-binding capacity 11/05/2023 08:25:51 243 Below low normal 250-425 (ug/dL) Final Transferrin Sat % 11/05/2023 08:25:51 27 15-55 (%) Final Performing Location LABORATORY [facility] [place] - [address] [place] [address]
--- OUTSIDE RECORDS SUMMARY | 2023-11-17 21:08 | External Medical Summary ---
Author Name Unknown Address Unknown Organization K01:LABORATORY [address] [address] Laboratory Report Ordering Provider Test Date Status REYNA CRUZ 11/05/2023 08:25:51 Final Rheumatoid factor at a level above 50 IU/mL may lead to an overestimation of the D-dimer level. A normal D-dimer result (<0.50 ug/mL FEU) has a negative predictive value of approximately 95% for the exclusion of acute pulmonary embolism (PE) or deep vein thrombosis when there is low or moderate pretest PE probability. Increased D-dimer values are abnormal but do not indicate a specific disease state and the D-dimer increase does not definitively correlate with clinical severity of disease. Observation Date Value Abnormality Reference (Units ) Status Fibrin D-dimer FEU [Mass/volume] in Platelet poor plasma by Immunoassay 11/05/2023 08:25:51 0.58 Above high normal <0.50 (ug/mL FEU) Final Performing Location LABORATORY [facility] [place] - [facility] [address] [facility] [address]
--- OUTSIDE RECORDS SUMMARY | 2023-11-17 21:08 | External Medical Summary | Summary of Care ---
Author Name Unknown Organization [facility] Address [address] [facility] [address] Phone [phone] Care Team Providers Care Brush Maker Machine Name Role Phone Priscilla Baez MD Primary Care Provide r Reason for Visit * Auth/Cert Specialty Diagnoses / Procedures Referred By Dalton t Referred To Contact Diagnoses Iron deficiency anemia, unspecified iron deficiency anemia type Iron deficiency anemia, unspecified iron deficiency anemia type [D50.9] Procedures COLONOSCOPY, DIAGNOSTIC (RECTUM) COLONOSCOPY FLEXIBLE PROXIMAL DIAGNOSTIC Referral ID Status Reason Start Date Expiration Date Visits Re quested Visits Authorized [id number] Encounter Details Date Type Department Care Team (Latest Contact Info) Description 10/20/2023 8:05 AM EST - 10/20/2023 11:13 AM EST Hospital Encounter ENDO [facility], Endoscopy Room [facility] [address] [place] [phone] Ellen Torres DO [address] [place] [address] Colonoscopy Discharge Disposition: Home - Self Care Allergies Active Allergy Reactions Criticality Noted Date Comments No Known Drug Allergy 08/09/2004 documented as of this encounter (statuses as of 10/20/2023) Medications Medication Sig Dispensed Refills Start Date [...] Active Additional Information Patient taking differently:20 mg [id number], Reported on 10/07/2023 Tamsulosin HCl 0.4 MG [...] 2 WEEKS. 15 g 1 07/27/2023 Active Albuterol Sulfate HFA 108 (90 Base) MCG/ACT Inhalation Aerosol SolutionIndicati ons:SOB (shortness of breath) INHALE 2 PUFFS BY MOUTH EVERY 4 HOURS NEEDED FOR WHEEZE 18 g 1 09/10/2023 Active Meclizine HCl 25 MG Oral Tablet (Antivert)Indica tions:BPPV (benign paroxysmal positional vertigo), bilateral TAKE 1 TABLET BY MOUTH 3 TIMES A DAY (MORNING, NOON & BEDTIME) NEEDED FOR DIZZINESS 30 Tablet 5 09/25/2023 Active CPAP Use as directed at bedtime. 0 Active predniSONE 20 MG Oral Tablet (Deltasone)Indic ations:Allergic contact dermatitis due to cosmetics,Acute cough 1 tab 3 times a day for 3 days, then 1 tab 2 times a day for 3 days, then 1 tab daily for 3 days 18 Tablet 0 08/25/2023 10/07/19 24 Discontinued documented as of this encounter (statuses as of 10/20/2023) Active Problems Problem Noted Date Diagnosed Date [...] as of this encounter (statuses as of 10/20/2023) Resolved Problems Problem Noted Date Diagnosed Date Resolved Date Hip pain, right 07/06/2018 03/16/2020 OVARIAN CYST NEC-NOS 10/24/2005 017 ADJ DISORDER W/DEPRES MOOD 05/06/2005 0 09/11/2015 Headache 02/14/2004 09/11/2015 Overview: ICD-10 update of inactive term BACKACHE, T8 disc disease 01/18/2003 Lumbago 01/18/2003 07/06/2018 Excessive menstruation 01/18/200309/11 documented as of this encounter (statuses as of 10/20/2023) Immunizations Name Administration Dates Next Due PPD [...] Sign Reading Time Taken Comments Blood Pressure 109/79 10/20/2023 10:46 AM EST Pulse 70 10/20/2023 10:46 AM EST Temperature 36.2 C (97.2 F) 10/20/2023 10:[address] Respiratory Rate 16 10/20/2023 10:46 AM EST Oxygen Saturation 98% 10/20/2023 10:46 AM EST Inhaled Oxygen Concentration - - Weight 68.9 kg (152 lb) 10/07/2023 12:35 PM EST Height 152.4 cm (5') 10/07/2023 12:35 PM EST Body Mass Index 29.69 10/07/2023 12:35 PM EST documented in this encounter H&P Notes * Ellen Torres, DO - 10/20/2023 9:26 AM EST Endoscopy Pre-Procedure Assessment Name: Apoorva Morillo Date: 10/20/2023 Time: 9:26 AM Procedure: Colonoscopy; with Indication(s) of evaluation of GI blood loss or iron- deficiency anemia Endoscopy Pre-Procedure Assessment: Prior to the procedure, the patient was identified. The patient's history, medications and allergies were reviewed as per the Anesthesia Assessment. The patient is competent. The risks and benefits of the proposed procedure and the planned sedation were discussed with the patient. All questions were answered and informed consent for the procedure was obtained. This patient has undergone a preprocedural evaluation. A determination has been made to proceed with the planned procedure under [facility] procedural guidelines and the CMS Non-Emergent, Elective Medical Services and Treatment Recommendations (published on 11-29-19). The community and hospital prevalence of COVID-19 has been discussed as well as this patient's specific risks associated with SARS-CoV-19 infection. Based upon the clinical acuity and patient-specific care considerations, this procedure is deemed a Tier II - Intermediate acuity treatment or service with either progression or the threat of progressive disease related to the delay in treatment. Not providing the service has the potential for increasing morbidity or mortality. Ht 1.524 m (5') | Wt 68.9 kg (152 lb) | BMI 29.69 kg/m | BSA 1.71 m Prior to Admission medications Medication Sig Last Dose Discont. CPAP Use as directed at bedtime. 10/19/2023 Meclizine HCl 25 MG Oral Tablet (Antivert) TAKE 1 TABLET BY MOUTH 3 TIMES A DAY (MORNING, NOON & BEDTIME) NEEDED FOR DIZZINESS 10/20/2023 Albuterol Sulfate HFA 108 (90 Base) MCG/ACT Inhalation Aerosol Solution INHALE 2 PUFFS BY MOUTH EVERY 4 HOURS NEEDED FOR WHEEZE 10/19/2023 Triamcinolone Acetonide 0.1 % External Cream (Aristocort) APPLY TOPICALLY TO AFFECTED AREA 2 TIMES A DAY. TO AFFECTED AREA. FOR UP TO 2 WEEKS. Past Week Ferrous Sulfate 325 (65 Fe) MG Oral Tablet (Feosol) Take 1 Tablet by mouth in the morning and 1 Tablet before bedtime. Past Week Tamsulosin HCl 0.4 MG Oral Capsule (Flomax) Take 2 Capsules by mouth in the morning. Past Week Atorvastatin Calcium 20 MG Oral Tablet (Lipitor) Take 1 Tablet by mouth at bedtime. Patient taking differently: Take 1 Tablet by mouth daily first thing in the morning. 10/19/2023 Meloxicam 15 MG Oral Tablet TAKE ONE TABLET BY MOUTH ONCE DAILY FOR PAIN 10/19/2023 Pantoprazole Sodium 20 MG Oral Tablet Delayed Release (Protonix) TAKE 1 TABLET BY MOUTH EVERY DAY IN THE MORNING 10/20/2023 CALCIUM 500+D 500-200 MG-UNIT PO TABS One tablet three times daily Past Week CRANBERRY 500 MG PO CAPS One daily Past Week Clobetasol Propionate 0.05 % External Cream (Temovate) Apply topically to affected area 2 times a day. To affected area for up to two weeks. Patient not taking: Reported on 10/07/2023 Not Taking Ampicillin 500 MG Oral Capsule Take 1 Capsule by mouth in the morning and 1 Capsule at noon and 1 Capsule in the evening and 1 Capsule before bedtime. Do all this for 10 days. Review of patient's allergies indicates: Allergen Reactions No Known Drug Allergy Physical Exam: Mental Status Examination: alert and oriented. General: nad, calm Airway Examination: normal oropharyngeal airway and neck mobility. Respiratory Examination: symmetrical excursion Cardiac: RRR, no murmurs Abd:soft/ntd ASA Grade: II - A patient with mild systemic disease. After reviewing the risks and benefits, the patient was deemed in satisfactory condition to undergothe procedure. The anesthesia plan was to use general anesthesia. Ellen Torres DO Gastroenterology and Hepatology 10/20/2023 documented in this encounter Procedure Notes * Priscilla Baez MD - 10/20/2023 9:56 AM ESTAssociated Order(s): COLONOSCOPY [facility] Patient Name: Apoorva Morillo Procedure Date: 10/20/2023 9:56 AM Date of : 1955 Admit Type: Outpatient Note Status: Finalized Date of : 1955 Admit Type: Outpatient Age: 67 Room: Endo 3 Gender: Female Note Status: Finalized Procedure: Colonoscopy Indications: Iron deficiency anemia Providers: Ellen Torres DO (Doctor) Patient Profile: This is a 67 year old female. Refer to note in patient chart for documentation of history and physical. Referring MD: Priscilla Baez MD (Referring MD) Medicines: General Anesthesia Complications: No immediate complications. Procedure: Pre-Anesthesia Assessment: - Prior to the procedure, a History and Physical was performed, and patient medications and allergies were reviewed. The risks and benefits of the procedure and the sedation options and risks were discussed with the patient. All questions were answered and informed consent was obtained. Patient identification and proposed procedure were verified by the physician, the nurse and the functional manager in the procedure room. Mental Status Examination: alert and oriented. Airway Examination: Mallampati Class II (the uvula but not tonsillar pillars visualized). Respiratory Examination: clear to auscultation. CV Examination: RRR, no murmurs, no S3 or S4. Prophylactic Antibiotics: The patient does not require prophylactic antibiotics. Prior Anticoagulants: The patient has taken no anticoagulant or antiplatelet agents. ASA Grade Assessment: III - A patient with severe systemic disease. After reviewing the risks and benefits, the patient was deemed in satisfactory condition to undergo the procedure. The anesthesia plan was to use general anesthesia. Immediately prior to administration of medications, the patient was re-assessed for adequacy to receive sedatives. The physical status of the patient was re-assessed after the procedure. After I obtained informed consent, the scope was passed under direct vision. All instruments were visually inspected immediately before and after removal from the patient to ensure they are fully intact. Throughout the procedure, the patient's blood pressure, pulse, and oxygen saturations were monitored continuously. The colonoscopy was performed without difficulty. The patient tolerated the procedure well. The quality of the bowel preparation was good. The PCF-180AL Colonoscope ([id number]) was introduced through the anus and advanced to the terminal ileum, with identification of the appendiceal orifice and IC valve. Findings & Specimens: The perianal and digital rectal examinations were normal. Internal hemorrhoids were found during retroflexion. The exam was otherwise normal throughout the examined colon. The terminal ileum appeared normal. Impression: - Internal hemorrhoids. - The examined portion of the ileum was normal. - No specimens collected. Recommendation: - Patient has a contact number available for emergencies. The signs and symptoms of potential delayed complications were discussed with the patient. Return to normal activities tomorrow. Written discharge instructions were provided to the patient. - The patient will be observed post-procedure, until all discharge criteria are met. - Discharge patient to home (with escort). - Resume previous diet. - Continue present medications. - Repeat colonoscopy in 10 years for screening purposes. - Nothing found on colonoscopy to explain patient's anemia. Ellen Torres DO 10/20/2023 10:30:05 AM This report has been signed electronically. documented in this encounter Nursing Notes * Monik Lowe RN - 10/20/2023 11:12 AM EST Escorted pt to the vehicle by PACU staff. Ambulates well. * Monik Lowe RN - 10/20/2023 11:05 AM EST Late entry: pt ambulates to the BR a few times prior to her discharge. Had been incontinent of small amt of urine. Pt states "that happens to me sometimes." * Monik Lowe RN - 10/20/2023 10:31 AM EST Late entry: received pt into the PACU II s/p colonoscopy. VSS. Awakens with mild verbal stimuli. O2sats 97% on RA, resps easy and unlabored. IV fluids infusing without issue. Dr. Torres in to visit pt and discusses her procedure with her. * Sudeep Zuleta RN - 10/20/2023 10:28 AM EST See anesthesia record for medication administered during procedure. Sudeep Zuleta RN Pre cleaning of scope at the bedside started by air analysis technician. Mid abdominal pressure given per Dr. Torres to assist with scope advancement. Pt tolerated well * Paula Kennedy RN - 10/20/2023 9:18 AM EST Patient prepped and ready for anesthesia to assess. Call portillo in reach, bed locked. documented in this encounter Plan of Treatment Upcoming Encounters Date Type Department Care Team (Late st Contact Info) Description 11/05/2023 8:00 AM EDT Office Visit Family [address] [place] [phone] Enid Rose PA-C [address] [place] [address] [place] [address] 11/17/2023 10:30 AM EDT Procedure Only Urology, [facility] [address] [facility] [place] [address] Thierry Rendon MD [address] [facility] [address] [place] [address] 02/04/2024 8:00 AM EDT Office Visit Orthopaedics [facility] [address] [place] [address] Willie Roe, [address] [place] [address] 03/02/2024 8:00 AM EDT Office Visit Dermatology [address] [place] [address] Sandie Burden PA-C [address] [place] [address] [place] [address] 06/09/2024 9:00 AM EDT Imaging Radiology [address] [place] [address] Scheduled Procedures Name Priority Associated Diagnoses Date/Ti me COLONOSCOPY FLEXIBLE PROXIMAL DIAGNOSTIC Iron deficiency anemia, unspecified iron deficiency anemia type 10/20/2023 10:10 AM EST Health Maintenance Due Date Last [...] shot) (#1) 2023 CKD PHOS USE SMARTSET 73571 12/20/2023 12/19/2022 GFR 01/27/2024 07/28/2023, 05/24, 12/19/2022, Additional history exists Mammogram 05/28/2024 05/28/2023, 11/2021, 05/24/2021, Additional history exists Albumin/Creatinine Ratio 07/28/2024 07/28/2023, 05/24 CKD HGB USE SMARTSET 54785 07/28/202407/28, 07/28/2023, 06/09/2023, Additional history exists Diabetes Screening 07/28/2026 07/28/2023, 1 , 12/19/2022, Additional history exists Lipid Panel 12/20/2027 12/19/2022, 11/2021, 11/19/2021, Additional history exists Colonoscopy 10/20/2033 10/20/2023 Colorectal Cancer Screening 10/20/2033 Pap Smear [...] this encounter Medical Devices Implanted Type Area [employer] Car Loader Device Identifier Shelf Expiration Date Model / Serial / Lot Shell Acet Trident Ii 50mm - [id number] Implanted:Qty: 1 on 03/26/2020 by Willie Roe DO at OR [facility] Right: Hip [employer] : ORTHOPAEDICS 07/17/2024 702-04-50D / / [id number] Trident Acetabular X3 0 36 D - [id number] Implanted:Qty: 1 on 03/26/2020 by Willie Roe DO at OR [facility] Right: Hip [employer] : ORTHOPAEDICS 02/15/2024 623-00-36D / / [id number] Accolade Ii 132 Deg Sz 2 - [id number] Implanted:Qty: 1 on 03/26/2020 by Willie Roe DO at OR [facility] Right: Hip [employer] : ORTHOPAEDICS 09/29/2020 5533-5106 / / [id number] Hip Hd Nk Alumina Mod D 36/+5 - [id number] Implanted:Qty: 1 on 03/26/2020 by Willie Roe DO at OR [facility] Right: Hip [employer] : ORTHOPAEDICS 09/07/2024 6570-0-236 / / [id number] documented as of this encounter Procedures Procedure Name Priority Date/Time Associated Diagnosis Comments COLONOSCOPY 10/20/2023 9:56 AM EST documented in this encounter Results * COLONOSCOPY (10/20/2023 9:56 AM EST) 10/20/2023 9:56 AM EST Narrative Procedure Note Priscilla Baez MD - 10/20/2023 9:56 AM EST [facility] Patient Name: Apoorva Morillo Procedure Date: 10/20/2023 9:56 AM Date of : 1955 Admit Type: Outpatient Note Status:Finalized Date of : 1955 Admit Type: Outpatient Age: 67 Room: Endo 3 Gender: Female Note Status: Finalized Procedure: Colonoscopy Indications: Iron deficiency anemia Providers: Ellen Torres DO (Doctor) Patient Profile: This is a 67 year old female. Refer to note inpatient chart for documentation of history and physical. Referring MD: Priscilla Baez MD (Referring MD) Medicines: General Anesthesia Complications: No immediate complications. Procedure: Pre-Anesthesia Assessment: - Prior to the procedure, a History and Physicalwas performed, and patient medications and allergies were reviewed. The risksand benefits of the procedure and the sedation options and risks were discussed withthe patient. All questions were answered and informed consent was obtained. Patientidentification and proposed procedure were verified by the physician, the nurseand the functional manager in the procedure room. Mental Status Examination: alertand oriented. Airway Examination: Mallampati Class II (the uvula but not tonsillarpillars visualized). Respiratory Examination: clear to auscultation. CV Examination:RRR, no murmurs, no S3 or S4. Prophylactic Antibiotics: The patient does notrequire prophylactic antibiotics. Prior Anticoagulants: The patient has taken noanticoagulant or antiplatelet agents. ASA Grade Assessment: III - A patient with severesystemic disease. After reviewing the risks and benefits, the patient was deemed insatisfactory condition to undergo the procedure. The anesthesia plan was to usegeneral anesthesia. Immediately prior to administration of medications, the patient wasre-assessed for adequacy to receive sedatives. The physical status of the patient wasre-assessed after the procedure. After I obtained informed consent, the scope waspassed under direct vision. All instruments were visually inspected immediatelybefore and after removal from the patient to ensure they are fully intact. Throughout the procedure, the patient's bloodpressure, pulse, and oxygen saturations were monitored continuously. The colonoscopy wasperformed without difficulty. The patient tolerated the procedure well. The qualityof the bowel preparation was good. The PCF-180AL Colonoscope ([id number]) was introducedthrough the anus and advanced to the terminal ileum, with identification of theappendiceal orifice and IC valve. Findings & Specimens: The perianal and digital rectal examinations were normal. Internal hemorrhoids were found during retroflexion. The exam was otherwise normal throughout the examined colon. The terminal ileum appeared normal. Impression: - Internal hemorrhoids. - The examined portion of the ileum was normal. - No specimens collected. Recommendation: - [facility]. The signs and symptoms of potential delayed complications were discussed withthe patient. Return to normal activities tomorrow. Written discharge instructionswere provided to the patient. - The patient will be observed post-procedure,until all discharge criteria are met. - Discharge patient to home (with escort). - Resume previous diet. - Continue present medications. - Repeat colonoscopy in 10 years for screeningpurposes. - Nothing found on colonoscopy to explain patient'sanemia. Ellen Torres DO 10/20/2023 10:30:05 AM This report has been signed electronically. Priscilla Baez MD GASTRO LOWER documented in this encounter Administered Medications Inactive Administered Medications - up to 3 most recent administrations Medication Order MAR Action Action Date Dose Rate Site isolyte-S pH 7.4 infusion Intravenous, at 75 mL/hr, for Outpatient patient Plasma-LYTE 148, isolyte-S, and isolyte-S pH 7.4 are considered equivalent - including for MAR barcode scanning., CONTINUOUS, Starting on Thu10/20/23 at 1000, Until Thu10/20/23 at 1516, Pre-Op Continue from Pre-Op 10/20/2023 10:02 AM EST 75 mL/hr New Bag 10/20/2023 9:36 AM EST 75 mL/hr 75 mL/hr documented in this encounter Active and Recently Administered Medications Times are shown in EST. Continuous Medication Order 10/18/2023 10/19/2023 10/20/2023 isolyte-S pH 7.4 infusion Intravenous, at 75 mL/hr, for Outpatient patient Plasma-LYTE 148, isolyte-S, and isolyte-S pH 7.4 are considered equivalent - including for MAR barcode scanning., CONTINUOUS, Starting on Thu10/20/23 at 1000, Until Thu10/20/23 at 1516, Pre-Op 0936 (New Bag - Prov ider: Paula Kennedy RN)1002 (Continue from Pre-Op - Provider: Analy Marks CRNA)1032 (Anes Intra-Op Fluid - Provider: Analy Marks CRNA) documented in this encounter Advance Directives Latest Code Status on File Code Status Date Activated Date Inactivated Comments Full Code 08/04/2014 7:47 AM 08/04/2014 1:44 PM Thi s order reflects the patients wishes and were consensually agreed upon. Care Teams Brush Maker Machine Relationship Specialty Start Date End Date Priscilla Baez MD [address] [place] [address] [place] [phone] PCP - General Family Medicine 09/11/15 documented as of this encounter
--- OUTSIDE RECORDS SUMMARY | 2023-11-17 21:09 | External Medical Summary | Summary of Care ---
Author Name Unknown Organization [facility] Address [address] [place] [address] Phone [phone] Care Team Providers Care Fourdrinier Operator Name Role Phone Priscilla Baez MD [...] 10/08/2023 9:00 AM EST Office Visit Orthopaedics [facility] [address] [place] [address] Willie Roe, [address] [place] [address] 10/19/2023 11:40 AM EST Office Visit Family Medicine [address] [phone] Priscilla Baez MD [address] [place] [address] [place] [address] 10/20/2023 10:30 AM EST Hospital Encounter ENDO [facility], Endoscopy Room [facility] [address] [place] [phone] Ellen Torres, DO [address] [place] [address] 10/20/2023 10:30 AM EST - 10/20/2023 11:00 AM EST Surgery ENDO [facility], Endoscopy Room [facility] [address] [place] [phone] Ellen Torres, [address] [place] [address] COLONOSCOPY FLEXIBLE PROXIMAL DIAGNOSTIC 11/17/2023 10:30 AM EDT Procedure Only Urology, [facility] [address] [place] [address] Thierry Rendon MD [address] [place] [address] [place] [address] 03/02/2024 8:00 AM EDT Office Visit Dermatology [address] [place] [address] Sandie Burden PA-C [address] [place] [address] [place] [address] 06/09/2024 9:00 AM EDT Imaging Radiology [address] [place] [address] Scheduled Procedures Name Priority Associated Diagnoses Date/Ti [...] shot) (#1) 2023 CKD PHOS USE SMARTSET 49122 12/20/2023 12/19/2022 GFR 01/27/2024 07/28/2023, 05/24, 12/19/2022, Additional history exists Mammogram 05/28/2024 05/28/2023, 11/2021, 05/24/2021, Additional history exists Albumin/Creatinine Ratio 07/28/2024 07/28/2023, 05/24 CKD HGB USE SMARTSET 86007 07/28/202407/28, 07/28/2023, 06/09/2023, Additional history exists Diabetes [...] this encounter Medical Devices Implanted Type Area Pharmacy Clerk Device Identifier Shelf Expiration Date Model / Serial / Lot Hip Hd Nk Alumina Mod D 36/+5 - [id number] Implanted:Qty: 1 on 03/26/2020 by Willie Roe, DO at OR [facility] Right: Hip [employer] : ORTHOPAEDICS 09/07/2024 6570-0-236 / / [id number] documented as of this encounter Advance Directives Latest Code Status on File Code Status Date Activated Date Inactivated Comments Full Code 08/04/2014 7:47 AM 08/04/2014 1:44 PM Thi s order reflects the patients wishes and were consensually agreed upon. Care Teams Fourdrinier Operator Relationship Specialty Start Date End Date Priscilla Baez MD [address] [place] [address] [place] [phone] PCP - General Family Medicine 09/11/15 documented as of this encounter
[2023-11-17] MEDS: SODIUM CHLORIDE 0.9% 1,000 ML IV SCH (23:02)
--- NOTE | 2023-11-18 | CT Scan Report ---
Exam(s): CT HEAD Without Contrast EXAM: CT Head Without Intravenous Contrast CLINICAL HISTORY: Reason for exam: double vision. TECHNIQUE: Axial computed tomography images of the head/brain without intravenous contrast. CTDI is 36.43 mGy and DLP is 547.75 mGy-cm. Automated exposure control was utilized for the study. A dose lowering technique was utilized adhering to the principles of ALARA. COMPARISON: February 12, 2018 FINDINGS: Brain: Unremarkable. No hemorrhage. No significant white matter disease. No edema. Ventricles: Unremarkable. No ventriculomegaly. Bones/joints: Unremarkable. No acute fracture. Soft tissues: Unremarkable. Sinuses: Unremarkable as visualized. No acute sinusitis. Mastoid air cells: Unremarkable as visualized. No mastoid effusion. IMPRESSION: Normal head/brain CT. Electronically signed by: Tulio Marie MD 11/17/23 23:59 PM
[2023-11-18 07:29] LABS: Hematocrit (blood only) 31.3 % (37.0-47.0); Hemoglobin 10.4 g/dl (12.0-16.0); Mean Corpuscular Hemoglobin 32.2 pg (25.0-34.0); Mean Corpuscular Hgb Conc 33.2 g/dL (32.0-36.0); Mean Corpuscular Volume 96.9 fL (80.0-100.0); Mean Platelet Volume 9.3 fL (9.4-12.4); Platelet Count 294 K/uL (130-400); RDW Coefficient of Variation 12.3 % (11.5-14.5); RDW Standard Deviation 43.6 fL (36.4-46.3); Red Blood Count 3.23 M/uL (4.20-5.40)
[2023-11-18 07:44] LABS: BUN Creatinine Ratio 15.3 (10-20); Calcium 8.8 mg/dl (8.6-10.3); Creatinine Clr Calc Pharmacy 27.7 ml/min; Est GFR (African American) 35.5 ml/min; Est GFR (Non-African American) 30.7 ml/min
[2023-11-18] MEDS: CYANOCOBALAMIN (B-12) 2,500 MCG TABLET PO SCH (08:22)
[2023-11-18] MEDS: MULTIVITAMIN TAB PO SCH (08:22)
[2023-11-18] MEDS: PANTOprazole 40 MG TAB PO SCH (08:22)
[2023-11-18] MEDS: CHOLECALCIFEROL 125 MCG (5,000 UNITS) TAB PO SCH (08:22)
--- OUTSIDE RECORDS SUMMARY | 2023-11-18 09:46 | External Medical Summary | Summary of Care ---
Author Name Unknown Organization [facility] Address [address] [place] [address] Phone [phone] Care Team Providers Care Talkback Host Name Role Phone Priscilla Baez MD Primary Care Provide r Reason for Visit * Reason Comments Cystoscopy Encounter Details Date Type Department Care Team (Latest Contact Info) Description 11/17/2023 10:30 AM EDT Procedure Only Urology, [facility] 132 [facility] [place] [address] Thierry Rendon MD 27 [facility] [address] [place] [address] Bladder outlet obstruction*; Acute cystitis without hematuria; Retention of urine Allergies Active Allergy Reactions Criticality Noted Date Comments No Known Drug Allergy 08/09/2004 documented as of this encounter (statuses as of 11/17/2023) Medications Medication Sig Dispensed Refills Start Date [...] Active Additional Information Patient taking differently:20 mg [id number], Reported on 10/07/2023 Tamsulosin HCl 0.4 MG [...] FOR WHEEZING 18 g 1 10/26/2023 Active Hospital, Clinic, or Other Facility Administered Medication Ordered Dose Route Frequency Start Date End Date Status sulfamethoxazole-trimethopr im DS (Bactrim DS) 800-160 MG 1 TabletIndications:Bladder outlet obstruction 1 Tablet OR ONCE 11/17/2023 11/17/2023 Ended documented as of this encounter (statuses as of 11/17/2023) Active Problems Problem Noted Date Diagnosed Date [...] as of this encounter (statuses as of 11/17/2023) Resolved Problems Problem Noted Date Diagnosed Date Resolved Date Hip pain, right 07/06/2018 03/16/2020 OVARIAN CYST NEC-NOS 10/24/2005 017 ADJ DISORDER W/DEPRES MOOD 05/06/2005 0 09/11/2015 Headache 02/14/2004 09/11/2015 Overview: ICD-10 update of inactive term BACKACHE, T8 disc disease 01/18/2003 Lumbago 01/18/2003 07/06/2018 Excessive menstruation 01/18/200309/11 documented as of this encounter (statuses as of 11/17/2023) Immunizations Name Administration Dates Next Due PPD [...] on file documented as of this encounter Progress Notes * Thierry Rendon MD - 11/17/2023 10:30 AM EDT [id number] PCP: PRISCILLA BAEZ [address] [place] [address] [place] [address] Apoorva Morillo is a 67 year old female, who presents for cystoscopy for six- month urethral dilation. She notes recurrent urinary symptoms after recent colonoscopy. Bladder outlet obstruction: Presented to Urology in December 2022. Present for over 10 years. Last urethral dilation December 2020. Tamsulosin provided December 2022. Cystoscopy, urethral dilation December 2022, May 2023, Oct 2023. Renal US Aug 2022: IMPRESSION: Bilateral foreshortened kidneys. No hydronephrosis. Current Outpatient Medications Medication Sig Dispense Refill [...] No current facility-administered medications for this visit. Review of patient's allergies indicates: Allergen Reactions No Known Drug Allergy Social History: Social History Tobacco Use Smoking status: Former Current packs/day: 0.00 Average packs/day: 0.1 packs/day for 5.0 years (0.5 ttl pk-yrs) Types: Cigarettes Start date: 08/24/1970 Quit date: 08/24/1975 Years since quittin.2 Smokeless tobacco: Never Substance Use Topics Alcohol use: No Vaping/E-Cigarette Use Vaping/E-Cigarette Use Never User Vaping/E-Cigarette Substances Vaping/E-Cigarette Devices Past Surgical History: Procedure Laterality Date COLONOSCOPY normal COLONOSCOPY, DIAGNOSTIC (RECTUM) 10/20/2023 COLONOSCOPY FLEXIBLE PROXIMAL DIAGNOSTIC performed by Ellen Torres DO at ENDOSCOPY [facility] CYSTOSCOPY 07/31/2014 CYSTOSCOPY/TREATMENT OF STRICTURE N/A 08/04/2014 CYSTOURETHROSCOPY WITH CALIBRATION OR DILATION STRICTURE performed by Qiana Allen MD at OR [facility] CYSTOURETHROSCOPY W/BIOPSY N/A 08/04/2014 CYSTOURETHROSCOPY WITH BIOPSY performed by Qiana Allen MD at [facility] EGD, FLEXIBLE, DIAGNOSTIC KNEE ARTHROSCOPY, DIAGNOSTIC 09/27 Knee Arthroscopy, right LAPAROSCOPY; CHOLECYSTECTOMY 2009 [facility] LIGATE/CUT OVIDUCT(S) 1980 RECONST LWR JAW W/FIXATION REMOVE TONSILS & ADENOIDS, UNDER 12 TOTAL HIP REPLACEMENT & PROSTHESIS Right 03/26/2020 ROBOTIC ARTHROPLASTY TOTAL HIP performed by Willie Roe DO at OR [facility] Past Medical History: Diagnosis Date Generalized osteoarthritis WERO on CPAP Scoliosis Vertigo Patient Active Problem List Diagnosis Code GENERAL OSTEOARTHROSIS M15.9 Urethral stricture N35.919 Scoliosis M41.9 Arthritis of right hip M16.11 WERO on CPAP G47.33 Vertigo R42 Hyperlipidemia with target LDL less than 100 E78.5 Obesity, Class I, BMI 30.0-34.9 (see actual BMI) E66.9 Shoulder arthritis M19.019 Chronic kidney disease, stage 3a (HCC) N18.31 Urinary retention R33.9 Food insecurity Z59.41 Female : (+) see HPI Physical Exam Nursing note reviewed. Exam conducted with a data governance analyst present. Constitutional: General: She is not in acute distress. Appearance: She is not toxic-appearing. Constitutional: (-) fever and (-) chills Eyes: (+) corrective lenses Abdominal/GI: (+) abdominal pain Female : (+) see HPI Neurology: (-) negative: no focal neurologic defect Psychiatry: (+) anxiousness Procedure Note: Using female sounds patient is dilated from a 22-32 Ukrainian caliber with some discomfort. Urine aliquot taken for culture. Perioperative Bactrim was provided. Impression/Plan: 67-year-old female with recurrent obstructive voiding and pelvic discomfort. Patient with recurrence of symptoms shortly before her planned dilation. Will continue with the abbreviated intervals. Will plan on next dilation in April 2024. Will see the patient in a couple of months to check on progress. Will check a urine culture, cover if urinary pathogens are present. Above content is personally reviewed. Thierry Rendon MD 8:07 AM 11/17/2023 documented in this encounter Nursing Notes * Farzana David LPN - 11/17/2023 10:25 AM EDT Patient in office for cystoscopy with dilation. Consent signed. Patient's skin was prepped with hibiclens, and 2% lidocaine jelly was inserted into urethra for cystoscopy. Patient tolerated well. documented in this encounter Plan of Treatment Upcoming Encounters Date Type Department Care Team (Late st Contact Info) Description 02/04/2024 8:00 AM EDT Office Visit Orthopaedics [facility] [address] [place] [address] Willie Roe DO 132 [place] [address] 02/29/2024 9:30 AM EDT Imaging Radiology, [address] [place] [address] 03/02/2024 8:00 AM EDT Office Visit Dermatology [address] [place] [address] Sandie Burden PA-C [address] [place] [address] [place] [address] 05/18/2024 3:30 PM EDT Office Visit Urology, [facility] [address] [facility] [place] [address] Thierry Rendon MD [address] [place] [address] [place] [address] 06/09/2024 9:00 AM EDT Imaging Radiology [address] [place] [address] Scheduled Orders Name Type Priority Associated Diagnoses Orde r Schedule CULTURE, URINE, QUANTITATIVE Lab Routine Bladder outlet obstruction Expected: 11/17/2023, Expires: 11/16/2024 RE-DILATE FEMALE URETHRA Procedures Routine Acute cystitis without hematuria Bladder outlet obstruction Retention of urine Ordered: 11/17/2023 Health Maintenance Due Date Last Done Comments DXA Scan 1955 DTaP,Tdap,and Td Vaccines (1 - Tdap) 12/03/1974 Cologuard 12/03/2000 Fecal Occult Blood Test 12/03/2000 Sigmoidoscopy 12/03/2000 Zoster Vaccines (1 of 2) 12/03/2005 Pneumococcal Vaccine: 65+ Years (1 of 1 - PCV) 12/03/2020 Depression Screening 03/16/2021 03/16/2020 COVID-19 Vaccine (1 - 2022- season) 2023 Influenza Vaccine (FLU shot) (#1) 2023 CKD PHOS USE SMARTSET 67182 12/20/2023 12/19/2022 GFR 05/07/2024 11/05/2023, 12/2022, 06/09/2023, Additional history exists Mammogram 05/28/2024 05/28/2023, 11/2021, 05/24/2021, Additional history exists Albumin/Creatinine Ratio 07/28/2024 07/28/2023, 05/24 CKD HGB USE SMARTSET 30757 11/04/202411/04, 11/05/2023, 07/28/2023, Additional history exists Diabetes [...] this encounter Medical Devices Implanted Type Area Nurse Leader Device Identifier Shelf Expiration Date Model / Serial / Lot Shell Acet Trident Ii 50mm - [id number] Implanted:Qty: 1 on 03/26/2020 by Willie Roe DO at OR [facility] Right: Hip KRISTIAN : ORTHOPAEDICS 07/17/2024 702-04-50D / / [id number] Trident Acetabular X3 0 36 D - [id number] Implanted:Qty: 1 on 03/26/2020 by Willie Roe DO at OR [facility] Right: Hip KRISTIAN : ORTHOPAEDICS 02/15/2024 623-00-36D / / [id number] Accolade Ii 132 Deg Sz 2 - [id number] Implanted:Qty: 1 on 03/26/2020 by Willie Roe DO at OR [facility] Right: Hip KRISTIAN : ORTHOPAEDICS 09/29/2020 4229-0443 / / [id number] Hip Hd Nk Alumina Mod D 36/+5 - [id number] Implanted:Qty: 1 on 03/26/2020 by Willie Roe DO at OR [facility] Right: Hip KRISTIAN : ORTHOPAEDICS 09/07/2024 6570-0-236 / / [id number] documented as of this encounter Visit Diagnoses Diagnosis Bladder outlet obstruction- Primary Bladder neck obstruction Acute cystitis without hematuria Acute cystitis Retention of urine Retention of urine, unspecified documented in this encounter Administered Medications Inactive Administered Medications - up to 3 most recent administrations Medication Order MAR Action Action Date Dose Rate Site sulfamethoxazole-trimethoprim DS (Bactrim DS) 800-160 MG 1 Tablet 1 Tablet, Oral, ONCE, On Thu11/17/23 at 1115, For 1 dose Given 11/17/2023 10:53 AM EDT 1 Tablet documented in this encounter Advance Directives Latest Code Status on File Code Status Date Activated Date Inactivated Comments Full Code 08/04/2014 7:47 AM 08/04/2014 1:44 PM Thi s order reflects the patients wishes and were consensually agreed upon. Care Teams Talkback Host Relationship Specialty Start Date End Date Priscilla Baez MD [address] [place] [address] [place] [phone] PCP - General Family Medicine 09/11/15 documented as of this encounter
--- OUTSIDE RECORDS SUMMARY | 2023-11-18 09:46 | External Medical Summary | Summary of Care ---
Author Name Unknown Organization [facility] Address [address] [place] [address] Phone [phone] Care Team Providers Care Technology Manager Name Role Phone Florencia Baez MD Primary Care Provide r Reason for Visit * Reason Comments Cystoscopy Encounter Details Date Type Department Care Team (Latest Contact Info) Description 11/17/2023 10:30 AM EDT Procedure Only Urology, [facility] 132 [facility] [place] [address] Thierry Rendon MD 27 [facility] [address] [place] [address] Bladder outlet obstruction*; Acute cystitis without hematuria; [...] Active Additional Information Patient taking differently:20 mg [id number], Reported on 10/07/2023 Tamsulosin HCl 0.4 MG [...] Rendon MD - 11/17/2023 10:30 AM EDT [id number] PCP: FLORENCIA BAEZ [address] [place] [address] [place] [address] Apoorva Morillo is a [...] performed by Ellen Torres DO at ENDOSCOPY [facility] CYSTOSCOPY 07/31/2014 CYSTOSCOPY/TREATMENT OF STRICTURE N/A 08/04/2014 CYSTOURETHROSCOPY WITH CALIBRATION OR DILATION STRICTURE performed by Qiana Allen MD at OR [facility] CYSTOURETHROSCOPY W/BIOPSY N/A 08/04/2014 CYSTOURETHROSCOPY WITH BIOPSY performed by Qiana Allen MD at [facility] EGD, FLEXIBLE, DIAGNOSTIC KNEE ARTHROSCOPY, DIAGNOSTIC 09/27 Knee Arthroscopy, right LAPAROSCOPY; CHOLECYSTECTOMY 2009 [facility] LIGATE/CUT OVIDUCT(S) 1980 RECONST LWR JAW W/FIXATION REMOVE TONSILS & ADENOIDS, UNDER 12 TOTAL HIP REPLACEMENT & PROSTHESIS Right 03/26/2020 ROBOTIC ARTHROPLASTY TOTAL HIP performed by Willie Roe DO at OR [facility] Past Medical History: Diagnosis Date Generalized osteoarthritis [...] Nursing note reviewed. Exam conducted with a chucking machine set up operator present. Constitutional: General: She is not in acute distress. Appearance: She is not toxic-appearing. Constitutional: (-) fever and (-) chills Eyes: (+) corrective lenses Abdominal/GI: (+) abdominal pain Female : (+) see HPI Neurology: (-) negative: no focal neurologic defect Psychiatry: (+) anxiousness Procedure Note: Using female sounds patient is dilated from a 22-32 Armenian caliber with some discomfort. Urine aliquot taken [...] 02/04/2024 8:00 AM EDT Office Visit Orthopaedics [facility] [address] [place] [address] Willie Roe DO 132 [place] [address] 02/29/2024 9:30 AM EDT Imaging Radiology, [address] [place] [address] 03/02/2024 8:00 AM EDT Office Visit Dermatology [address] [place] [address] Sandie Burden PA-C [address] [place] [address] [place] [address] 06/09/2024 9:00 AM EDT Imaging Radiology [address] [place] [address] Scheduled Orders Name Type Priority Associated Diagnoses [...] shot) (#1) 2023 CKD PHOS USE SMARTSET 46722 12/20/2023 12/19/2022 GFR 05/07/2024 11/05/2023, 12/2022, 06/09/2023, Additional history exists Mammogram 05/28/2024 05/28/2023, 11/2021, 05/24/2021, Additional history exists Albumin/Creatinine Ratio 07/28/2024 07/28/2023, 05/24 CKD HGB USE SMARTSET 90627 11/04/202411/04, 11/05/2023, 07/28/2023, Additional history exists Diabetes [...] this encounter Medical Devices Implanted Type Area Senior Partner Device Identifier Shelf Expiration Date Model / Serial / Lot Shell Acet Trident Ii 50mm - [id number] Implanted:Qty: 1 on 03/26/2020 by Willie Roe DO at OR [facility] Right: Hip KRISTIAN : ORTHOPAEDICS 07/17/2024 702-04-50D / / [id number] Trident Acetabular X3 0 36 D - [id number] Implanted:Qty: 1 on 03/26/2020 by Willie Roe DO at OR [facility] Right: Hip KRISTIAN : ORTHOPAEDICS 02/15/2024 623-00-36D / / [id number] Accolade Ii 132 Deg Sz 2 - [id number] Implanted:Qty: 1 on 03/26/2020 by Willie Roe DO at OR [facility] Right: Hip KRISTIAN : ORTHOPAEDICS 09/29/2020 1419-3034 / / [id number] Hip Hd Nk Alumina Mod D 36/+5 - [id number] Implanted:Qty: 1 on 03/26/2020 by Willie Roe DO at OR [facility] Right: Hip KRISTIAN : ORTHOPAEDICS 09/07/2024 6570-0-236 / / [id number] documented as of this encounter Visit Diagnoses [...] and were consensually agreed upon. Care Teams Technology Manager Relationship Specialty Start Date End Date Florencia Baez MD [address] [place] [address] [place] [address] PCP - General Family Medicine 09/11/15 documented as of this encounter
--- OUTSIDE RECORDS SUMMARY | 2023-11-18 09:46 | External Medical Summary | Summary of Care ---
Author Name Unknown Organization [facility] Address [address] [place] [address] Phone [phone] Care Team Providers Care Gravedigger Name Role Phone Priscilla Baez MD Primary Care Provide r Reason for Visit * Reason Comments Cystoscopy Encounter Details Date Type Department Care Team (Latest Contact Info) Description 11/17/2023 10:30 AM EDT Procedure Only Urology, [facility] 132 [facility] [place] [address] Thierry Rendon MD 27 [facility] [address] [place] [address] Bladder outlet obstruction*; Acute cystitis without hematuria; [...] Active Additional Information Patient taking differently:20 mg [id number], Reported on 10/07/2023 Tamsulosin HCl 0.4 MG [...] Rendon MD - 11/17/2023 10:30 AM EDT [id number] PCP: PRISCILLA BAEZ [address] [place] [address] [place] [address] Apoorva Morillo is a [...] performed by Ellen Torres DO at ENDOSCOPY [facility] CYSTOSCOPY 07/31/2014 CYSTOSCOPY/TREATMENT OF STRICTURE N/A 08/04/2014 CYSTOURETHROSCOPY WITH CALIBRATION OR DILATION STRICTURE performed by Qiana Allen MD at OR [facility] CYSTOURETHROSCOPY W/BIOPSY N/A 08/04/2014 CYSTOURETHROSCOPY WITH BIOPSY performed by Qiana Allen MD at [facility] EGD, FLEXIBLE, DIAGNOSTIC KNEE ARTHROSCOPY, DIAGNOSTIC 09/27 Knee Arthroscopy, right LAPAROSCOPY; CHOLECYSTECTOMY 2009 [facility] LIGATE/CUT OVIDUCT(S) 1980 RECONST LWR JAW W/FIXATION REMOVE TONSILS & ADENOIDS, UNDER 12 TOTAL HIP REPLACEMENT & PROSTHESIS Right 03/26/2020 ROBOTIC ARTHROPLASTY TOTAL HIP performed by Willie Roe DO at OR [facility] Past Medical History: Diagnosis Date Generalized osteoarthritis [...] Nursing note reviewed. Exam conducted with a chemical dependency nurse present. Constitutional: General: She is not in acute distress. Appearance: She is not toxic-appearing. Constitutional: (-) fever and (-) chills Eyes: (+) corrective lenses Abdominal/GI: (+) abdominal pain Female : (+) see HPI Neurology: (-) negative: no focal neurologic defect Psychiatry: (+) anxiousness Procedure Note: Using female sounds patient is dilated from a 22-32 Burmese caliber with some discomfort. Urine aliquot taken [...] 02/04/2024 8:00 AM EDT Office Visit Orthopaedics [facility] [address] [place] [address] Willie Roe DO 132 [place] [address] 02/29/2024 9:30 AM EDT Imaging Radiology, [address] [place] [address] 03/02/2024 8:00 AM EDT Office Visit Dermatology [address] [place] [address] Sandie Burden PA-C [address] [place] [address] [place] [address] 05/18/2024 3:30 PM EDT Office Visit Urology, [facility] [address] [facility] [place] [address] Thierry Rendon MD [address] [place] [address] [place] [address] 06/09/2024 9:00 AM EDT Imaging Radiology [address] [place] [address] Scheduled Orders Name Type Priority Associated Diagnoses [...] shot) (#1) 2023 CKD PHOS USE SMARTSET 90313 12/20/2023 12/19/2022 GFR 05/07/2024 11/05/2023, 12/2022, 06/09/2023, Additional history exists Mammogram 05/28/2024 05/28/2023, 11/2021, 05/24/2021, Additional history exists Albumin/Creatinine Ratio 07/28/2024 07/28/2023, 05/24 CKD HGB USE SMARTSET 79195 11/04/202411/04, 11/05/2023, 07/28/2023, Additional history exists Diabetes [...] this encounter Medical Devices Implanted Type Area Professor Of Psychiatry Device Identifier Shelf Expiration Date Model / Serial / Lot Shell Acet Trident Ii 50mm - [id number] Implanted:Qty: 1 on 03/26/2020 by Willie Roe DO at OR [facility] Right: Hip KRISTIAN : ORTHOPAEDICS 07/17/2024 702-04-50D / / [id number] Trident Acetabular X3 0 36 D - [id number] Implanted:Qty: 1 on 03/26/2020 by Willie Roe DO at OR [facility] Right: Hip KRISTIAN : ORTHOPAEDICS 02/15/2024 623-00-36D / / [id number] Accolade Ii 132 Deg Sz 2 - [id number] Implanted:Qty: 1 on 03/26/2020 by Willie Roe DO at OR [facility] Right: Hip KRISTIAN : ORTHOPAEDICS 09/29/2020 4037-3522 / / [id number] Hip Hd Nk Alumina Mod D 36/+5 - [id number] Implanted:Qty: 1 on 03/26/2020 by Willie Roe DO at OR [facility] Right: Hip KRISTIAN : ORTHOPAEDICS 09/07/2024 6570-0-236 / / [id number] documented as of this encounter Visit Diagnoses [...] and were consensually agreed upon. Care Teams Gravedigger Relationship Specialty Start Date End Date Priscilla Baez MD [address] [place] [address] [place] [phone] PCP - General Family Medicine 09/11/15 documented as of this encounter
--- NOTE | 2023-11-18 10:11 | Urology Consultation ---
Date of Consultation November 18, 2023 Assessment & Plan (1) VÍCTOR (acute kidney injury): 67 yo/F with history of urethral stricture and urinary retention admitted for VÍCTOR. Patient had urethral dilation with Dr. Thierry Rendon on 11/16 She is febrile with stable vitals Labs todaycreatinine improved to 1.7, no leukocytosis Urine and blood cultures are pending She is on empiric IV ceftriaxonefollow cultures and narrow per sensitivity data when available Renal ultrasound showed no hydronephrosis Plan: No indication for Pantoja catheter at this time She is voiding spontaneously, bladder scans have been low, creatinine downtrending Continue to monitor postvoid residual bladder scans If there is evidence of urinary retention, then Pantoja catheter can be placed Continue with hydration and monitoring Continue medical management per hospital medicine service She can follow-up with her established urologist for ongoing management of urethral stricture will sign off, please contact our service with any additional questions or concerns Supervising Physician Co-Signing Physician Notes Discussed patient with SUSANA. Agree with plan. History of Present Illness Attending Physician: Latosha Freire MD History of Present Illness This is a 67-year-old female with history of urinary retention and urethral strictures who was referred to the emergency department on 11/17/23 by her PCP for elevated creatinine. She follows routinely with urology, Dr. Rendon, at [facility] and reported urethral dilation prior to ED presentation. On arrival, she was afebrile, hypertensive but otherwise hemodynamically stable. Labs showed creatinine 1.95 (baseline ~1.2-1.5), WBC 8.94, hemoglobin 11.1. Urinalysis notable for turbid urine, 3+ blood, 3+ LE, >30 WBC, 5-10 RBC, 10-20 epithelials and negative for bacteria. Renal ultrasound showed no hydronephrosis, mild bladder wall thickening. She was treated with IV fluids, ceftriaxone in the emergency department. Urology consulted for evaluation. Patient seen and examined at bedside. She is awake, alert and sitting up in bed. She reports she is voiding without difficulty, notes her urine stream is improved since her dilation. She notes mild dysuria, no gross hematuria. She notes urinary frequency, but feels like she is emptying her bladder well. Repo rts mild low back pain, no flank or abdominal pain. Denies fever or chills. She follows with Dr. Thierry Rendon. She has urethral dilations performed approximately every 5 to 6 months. Chart review: Labs todaycreatinine 1.70, WBC 7.9, hemoglobin 10.4 Urine and blood cultures are pending Currently on IV ceftriaxone Documented bladder scans are low (30 mL, 0 mL) Allergies Allergy/AdvReac Type Severity Reaction Status Date / Time No Known Allergies Allergy Verified 11/17/23 13:43 Home Medications Medication Instructions Recorded Confirmed Type meclizine 25 mg tablet 25 mg PO TID PRN Dizziness 08/28/18 11/17/23 History meloxicam 15 mg tablet 15 mg PO DAILY 08/28/18 11/17/23 History multivitamin 1 tab PO DAILY 08/28/18 11/17/23 History CPAP Machine #1 ea 10/18/19 09/30/23 Rx CPAP Machine #1 ea 01/17/20 09/30/23 Rx cholecalciferol (vitamin D3) 125 125 mcg PO DAILY 07/24/20 11/17/23 History mcg (5,000 unit) capsule cranberry fruit concentrate 250 mg 250 mg PO DAILY 07/24/20 11/17/23 History chewable tablet (Azo Cranberry) mecobalamin (vitamin B12) 5,000 5,000 mcg PO DAILY 07/24/20 11/17/23 History mcg disintegrating tablet CPAP Supplies #1 ea 09/12/21 09/30/23 Rx albuterol sulfate 90 mcg/actuation 2 inh inhalation Q6H PRN Shortness 09/30/23 11/17/23 History breath activated powder inhaler Of Breath Or Wheezing atorvastatin 20 mg tablet 20 mg PO HS 11/17/23 11/17/23 History ferrous sulfate 325 mg (65 mg 325 mg PO BID 11/17/23 11/17/23 History iron) tablet pantoprazole 20 mg tablet,delayed 20 mg PO QAM 11/17/23 11/17/23 History release tamsulosin 0.4 mg capsule 0.4 mg PO BID 11/17/23 11/17/23 History Patient History Medical History Hyperlipidemia Osteopenia Osteoporosis Chronic insomnia Obstructive sleep apnea syndrome No pertinent family history Vertigo Sleep apnea Arthritis Surgical History History of tubal ligation History of tonsillectomy History of mandibular surgery History of cholecystectomy History of arthroscopic knee surgery Family History Grandfather (Maternal) Diabetes Grandmother (Maternal) Diabetes Sister Diabetes Son Hypertension Mother Lung cancer Social History Smoking Status: Never smoker Hx Alcohol Use: No Hx Substance Use: No Preferred Language: Macedonian Communication Ability: Effective Computer Forensic Examiner Required: No Beliefs That Will Affect Care: None marital status: Current Living Situation: Alone current occupational status: employed Feels Safe at Home: Yes Safety Concerns: Feels Safe At This Time Seatbelt Use: always Assistive Devices: Cane, Glasses and Walker Review of Systems 2 Review of Systems: All systems reviewed & are unremarkable except as noted in HPI & below Physical Exam Constitutional: well developed and well nourished; no acute distress Respiratory: normal respiratory effort; no respiratory distress and no labored breathing Gastrointestinal (Abdomen): Inspection/Auscultation: abdomen normal to inspection Musculoskeletal: Head/Neck/Chest: normocephalic Neurologic: moves all extremities and awake Psychiatric: Orientation: alert and oriented x 3 Genitourinary: no CVA tenderness Results & Data Vital Signs (Past 12 Hours) Vital Signs Temp Pulse Pulse Resp BP Pulse Ox O2 Del Method 11/18/23 07:58 36.5 C 70 18 137/75 97 Room Air 11/17/23 23:13 36.6 C 80 20 132/79 97 Room Air 11/17/23 22:10 85 15 98 PG Care Time/CCT Total # of Minutes Spent Total Time Spent with Patient: Total time spent is greater than 50% in coordination of care (as documented) at patient's floor/unit and/or counseling patient: Coding Level of Care Code 83190 INT INP/OBS CARE 2/55MIN Diagnoses VÍCTOR (acute kidney injury) N17.9
--- NOTE | 2023-11-18 13:35 | Hospitalist Progress Note ---
Date of Service November 18, 2023 Assessment & Plan (1) Bladder outlet obstruction: (2) Hyperlipidemia: (3) Obstructive sleep apnea syndrome: (4) VÍCTOR (acute kidney injury): Plan: Bladder outlet obstruction VÍCTOR on CKD stage III History of ureteral stricture - c/w Mx for VÍCTOR and postoperative pain s/p planned ureteral dilation for hx of bladder outlet obstruction 11/16 as outpatient - Creatinine on 11/04, 1.9, in EPIC, previously baseline was ~1.2-1.5, remains elevated at 1.95 upon admission. Minimal Cr improvement today. - Uro evaled. F/u w/ uro as OP. - Avoid nephrotoxins and renally reduce medication - hold nsaids - UCx prelim +ve, f/u. f/u admitting bl cx. - c/w iv rocephin. - c/w ivf - f/u labs in am. WERO -Continue CPAP HS HLD - Cont statin therapy DVT ppx: teds, scds CODE: DNR/DNI Dispo: From home, until renal fxn improves. (5) Complicated UTI (urinary tract infection): Admission and Anticipated Discharge Date Admission Date: November 17, 2023 Subjective Patient was seen and examined at bedside. Patient was lying in bed, on room air, resting comfortably, NAD. Patient reported having pain / burning while passing urine yesterday but none today. Patient denies febrile illness/chest pain/palpitations/abdominal pain. Physical Exam Physical Exam: General: awake, alert, no apparent distress, white female Head: Normocephalic, atraumatic ENT: PERRL, EOMI, no pharyngeal exudate, mucous membranes moist Chest: Clear to auscultation, on room air, no adventitious breath sounds Cardiac: + Sinus tachy, no murmur, no JVD, normal peripheral pulses, good capillary refill Abdominal: NABS x 4 quadrants, soft, nondistended, nontender to palpation, no rebound or guarding Extremities: Normal inspection, no peripheral edema or erythema, calfs nontender to palpation Psych: Normal mood and affect Neuro: AAO x 3, strength intact bilaterally and rated 5/5, no motor deficits, speech is clear, no peripheral sensory deficits Results & Data Results & Data Vital Signs (Past 12 Hours) Vital Signs Temp Pulse Resp BP Pulse Ox O2 Del Method 11/18/23 07:58 36.5 C 70 18 137/75 97 Room Air
[2023-11-18] MEDS: cefTRIAXone SODIUM 1,000 MG in DEXTROSE 5 % MINI-B 50 ML IV SCH (14:01)
[2023-11-18] MEDS: SODIUM CHLORIDE 0.9% 1,000 ML IV SCH (14:01)
[2023-11-19 07:13] LABS: Hematocrit (blood only) 29.5 % (37.0-47.0); Hemoglobin 9.8 g/dl (12.0-16.0); Mean Corpuscular Hemoglobin 32.3 pg (25.0-34.0); Mean Corpuscular Hgb Conc 33.2 g/dL (32.0-36.0); Mean Corpuscular Volume 97.4 fL (80.0-100.0); Mean Platelet Volume 9.5 fL (9.4-12.4); Platelet Count 261 K/uL (130-400); RDW Coefficient of Variation 12.4 % (11.5-14.5); RDW Standard Deviation 43.8 fL (36.4-46.3); Red Blood Count 3.03 M/uL (4.20-5.40); White Blood Count 8.17 K/ul (4.8-10.8)
[2023-11-19 07:41] LABS: BUN Creatinine Ratio 17.6 (10-20); Calcium 8.8 mg/dl (8.6-10.3); Creatinine Clr Calc Pharmacy 28.5 ml/min; Est GFR (African American) 36.9 ml/min; Est GFR (Non-African American) 31.8 ml/min; Magnesium 2.3 mg/dl (1.7-2.4); Phosphorus 2.9 mg/dl (2.5-4.9); Potassium 4.1 mmol/L (3.5-5.1)
--- NOTE | 2023-11-19 15:15 | Hospitalist Progress Note ---
Date of Service November 19, 2023 Assessment & Plan (1) Bladder outlet obstruction: (2) Hyperlipidemia: (3) Obstructive sleep apnea syndrome: (4) VÍCTOR (acute kidney injury): Plan: Bladder outlet obstruction VÍCTOR on CKD stage III History of ureteral stricture - c/w Mx for VÍCTOR and postoperative pain s/p planned ureteral dilation for hx of bladder outlet obstruction 11/16 as outpatient - Creatinine on 11/04, 1.9, in EPIC, previously baseline was ~1.2-1.5, remains elevated at 1.95 upon admission. Minimal Cr improvement today. - Uro evaled. F/u w/ uro as OP. - Avoid nephrotoxins and renally reduce medication - hold nsaids - UCx prelim +ve, f/u. f/u admitting bl cx. - c/w iv rocephin. - c/w ivf - f/u labs in am. WERO -Continue CPAP HS HLD - Cont statin therapy DVT ppx: teds, scds CODE: DNR/DNI Dispo: From home, until renal fxn improves. (5) Complicated UTI (urinary tract infection): Admission and Anticipated Discharge Date Admission Date: November 17, 2023 Results & Data Results & Data Vital Signs (Past 12 Hours) Vital Signs Temp Pulse Resp BP Pulse Ox O2 Del Method 11/19/23 14:59 73 11/19/23 14:32 36.6 C 134 H 16 142/80 H 91 Room Air 11/19/23 08:08 36.6 C 80 16 136/80 98 Room Air
--- NOTE | 2023-11-19 15:26 | Discharge Summary ---
Discharge Summary Date of Service November 19, 2023 Notes For Next Care Provider complicated UTI, VÍCTOR following outpatient Bactrim course, recent urologic instrumentation Medication Changes From Visit Complete renally dosed Keflex course Hold Mobic for now given VÍCTOR Admission HPI Per Admitting Provider This is a 67 yo F with PMHx of bladder outlet obstruction, scheduled dilations by urology, follows with Dr. Thierry Rendon, she was seen in the office this morning for a planned ureteral dilation and was given Rx for perioperative Bactrim 800-160 mg x 1 tablet, but did NOT take it after the procedure, instead was sent to the ER. It was noted that she had VÍCTOR on 11/04 with creatinine of 1.9 at that time on outpatient epic review. She was referred here by urology for concern for VÍCTOR after her procedure this morning. Patient states that she feels well overall, she has been making frequent trips to the bathroom status post procedure, and feels a bit chilled. She denies any fever, difficulty breathing, abdominal pain, or pain with urinating. Denies any blood in urine and states that it appears clear yellow. Patient took all her regular scheduled medications this morning except for the iron tablet. She lives at home by herself, able to participate in all ADLs, no recent falls or concerns for safety issues. Patient plans to call her children and update them. Admission Exam Per Admitting Provider General: awake, alert, no apparent distress, white female Head: Normocephalic, atraumatic ENT: PERRL, EOMI, no pharyngeal exudate, mucous membranes moist Chest: Clear to auscultation, on room air, no adventitious breath sounds Cardiac: + Sinus tachy, no murmur, no JVD, normal peripheral pulses, good capillary refill Abdominal: NABS x 4 quadrants, soft, nondistended, nontender to palpation, no rebound or guarding Extremities: Normal inspection, no peripheral edema or erythema, calfs nontender to palpation Psych: Normal mood and affect Neuro: AAO x 3, strength intact bilaterally and rated 5/5, no motor deficits, speech is clear, no peripheral sensory deficits Principal Dx & Hospital Course #1 = Principal Diagnosis (1) Bladder outlet obstruction: (2) Hyperlipidemia: (3) Obstructive sleep apnea syndrome: (4) VÍCTOR (acute kidney injury): (5) Complicated UTI (urinary tract infection): This is a 67 yo F with PMH of bladder outlet obstruction, scheduled dilations by urology, follows with Dr. Thierry Rendon, she was seen in the office this morning for a planned ureteral dilation and was given Rx for perioperative Bactrim 800- 160 mg x 1 tablet, but did NOT take it after the procedure, instead was sent to the ER. It was noted that she had VÍCTOR on 11/04 with creatinine of 1.9 at that time on outpatient epic review. Underwent ureteral dilation on 11/16. Noted to be growing group B strep on urine culture, will discharge on renally dosed Keflex to complete antibiotic course. Renal ultrasound without hydronephrosis, normal-appearing kidneys, no change in mild bladder wall thickening since prior ultrasound. Was evaluated by [facility] urology group during admission who did not feel any procedure was indicated as there was no obstruction present. Okay to follow-up with Dr. Rendon, primary urologist. Their office aware of patient will call to schedule follow-up. Continue holding Mobic due to impaired kidney function. VÍCTOR downtrending from 1.95-1.6 during admission but baseline closer to 1.2. Bladder scans <100 ml. Will need follow-up BMP within 1 week with PCP follow-up. Patient hemodynamically stable and comfortable at time of discharge home. Discharge Exam Gen: WD/WN, NAD, sitting in bedside chair, A&Ox3, ambulating out of bed without issue HEENT: Normocephalic, atraumatic, conjunctivae moist, sclerae anicteric, mucous membranes moist Lung: Clear to Auscultation bilaterally, no wheezes/rales/rhonchi Heart: Regular rate, regular rhythm, no murmurs, rubs, or gallops Abdomen: Soft, NT, ND +BS x 4 Extremities: no edema Skin: Warm, no rash Updated Medication List Medication Instructions Recorded Confirmed Type meclizine 25 mg tablet 25 mg PO TID PRN Dizziness 08/28/18 11/17/23 History meloxicam 15 mg tablet 15 mg PO DAILY 08/28/18 11/17/23 History multivitamin 1 tab PO DAILY 08/28/18 11/17/23 History CPAP Machine #1 ea 10/18/19 09/30/23 Rx CPAP Machine #1 ea 01/17/20 09/30/23 Rx cholecalciferol (vitamin D3) 125 125 mcg PO DAILY 07/24/20 11/17/23 History mcg (5,000 unit) capsule cranberry fruit concentrate 250 mg 250 mg PO DAILY 07/24/20 11/17/23 History chewable tablet (Azo Cranberry) mecobalamin (vitamin B12) 5,000 5,000 mcg PO DAILY 07/24/20 11/17/23 History mcg disintegrating tablet CPAP Supplies #1 ea 09/12/21 09/30/23 Rx albuterol sulfate 90 mcg/actuation 2 inh inhalation Q6H PRN Shortness 09/30/23 11/17/23 History breath activated powder inhaler Of Breath Or Wheezing atorvastatin 20 mg tablet 20 mg PO HS 11/17/23 11/17/23 History ferrous sulfate 325 mg (65 mg 325 mg PO BID 11/17/23 11/17/23 History iron) tablet pantoprazole 20 mg tablet,delayed 20 mg PO QAM 11/17/23 11/17/23 History release tamsulosin 0.4 mg capsule 0.4 mg PO BID 11/17/23 11/17/23 History cephalexin 500 mg capsule 500 mg PO BID 7 days #14 caps 11/19/23 Rx Hospital Stay Data Consultations 11/17/23 12:56 ED Decision to Admit Stat 11/18/23 08:51 Consult Urology Routine Diagnostic Imagining Performed 11/17/23 12:22 US Renal Bladder [US renal/blad retro comp] Stat 11/17/23 22:16 CT head/brain wo con Urgent Pending Results Patient Have Any Pending Studies at Discharge: No Discharge Instructions Given to Patient (Per Discharging Provider) MEDICATION CHANGES: Keflex 500mg BID (renally dosed) x 7 days forcomplicated UTI. Hold meloxicam until PCP says to resume given kidney injury. SUMMARY OF TEST RESULTS: Patient was admitted for post-operative pain and acute kidney injury following outpatient ureteral dilation on 11/16 Cr downtrending from 1.95 -> 1.70 -> 1.65 Evaluated by [facility] [place] - no indication for intervention during admission. No obstruction on imaging. Follow up with Dr. Rendon as an outpatient. Their office knows to contact you for follow-up. PENDING TEST RESULTS: None RECOMMENDATIONS FOR FOLLOW-UP: Follow up with PCP as scheduled. Complete antibiotic in its entirety. Follow up with your urologist, Dr. Rendon, given UTI and VÍCTOR in setting of recent instrumentation. Will need repeat BMP in 1 week to monitor renal function, PCP to follow up. Continue medication regimen as scheduled aside from changes noted above. OTHER INSTRUCTIONS: Seek medical attention if you have: * temperature above 101 * chest pain or trouble breathing * abdominal pain, nausea, vomiting * diarrhea, dark stools or bloody stools * any unanswered questions or concerns Call 911 if symptoms are severe. Please take good care of yourself. Call if you have any questions or problems. You can reach a [facility] hospitalist on duty at [facility] 24 hours a day by calling [phone]. Abigail Marie PA-C [facility] Medical Centerist Total Time Total Time Spent Total Time Spent (In Minutes): 45 Supervising Physician Co-Signing Physician Notes Attending addendum: The patient was seen and examined in medical floor She has been feeling lot better and denies any urinary and/or respiratory symptoms She has been passing urine normally and has been drinking enough fluid to improv e kidney function Her creatinine has been improving and she denies any significant symptoms She will be discharged home this afternoon On examination Lying in bed without any acute distress Remains hemodynamically stable Chest-clear to auscultate bilaterally Heart-S1-S2, regular Abdomen-benign Extremities-negative for any edema Her labs, imaging studies reviewed Bladder outlet obstruction-resolved VÍCTOR likely secondary to dehydration-improved UTI-will continue with current antibiotic Will have outpatient follow-up appointment with PCP and urologist Agree with assessment and plan as outlined above by JOSIE Aden Dr
== END 2023-11-19 15:53 | disposition home or self-care (01) ==
LOC: ED 11:15 → SUATTDRO 13:13 → 3W 13:13 → INTOOBSV 13:13 → 3W 15:56

== ENCOUNTER 2024-01-04 20:29 | Observation (INO) ==
--- NOTE | 2024-01-04 21:09 | Emergency Department Note ---
Impression & Plan Facial droop, Acute kidney injury superimposed on chronic kidney disease ED Provider Note HISTORY OF PRESENT ILLNESS: Patient is a 68-year-old female presenting with left-sided facial droop and slurred speech. Patient reports that she started having facial droop on the left side of her face 3 days ago. They were seen in her primary care provider's clinic and CT imaging was ordered in the outpatient setting. However, patient started having significant difficulties speaking and communicating this evening and seemed more confused per family, prompting presentation to the emergency department. Patient denies any anticoagulation use. Denies any numbness, tingling or weakness in extremities. She denies any chest pain. Reports she is chronically short of breath and uses an inhaler. She denies any recent head injury or chiropractic manipulation of her neck. ROS: as above PHYSICAL EXAM: Constitutional: Patient appears in no acute distress. HENT: Head: Normocephalic and atraumatic. Eyes: EOMI, PERRL Mouth/Throat: Mucous membranes moist. Neck: Trachea midline. Neck supple. Cardiovascular: RRR, No murmurs, rubs or gallops. Intact distal pulses. Pulmonary/Chest: No respiratory distress. Breath sounds clear and equal bilaterally. No wheezes or rales. Abdominal: Abdomen soft, no tenderness, rebound or guarding. Musculoskeletal: No edema, tenderness or deformity noted. Skin: Warm and dry. No rash, erythema, pallor or cyanosis Psychiatric: Appropriate mood and affect for situation. Neurological: Alert and keenly responsive. Patient has left-sided facial droop that involves the upper and lower face. She is unable to raise her eyebrows. Able to shrug shoulders. PERRLA. SILT to forehead below eye and at jawline. Can hear soft noise bilaterally. Good finger to nose. Strength 5/5 in bilateral upper and lower extremities. SILT throughout bilateral upper and lower extremities. MDM: - Vitals signs showed hypertension and tachycardia - History obtained via patient. History as above. - Chronic conditions affecting care: HTN; HLD - Differential diagnoses include, but are not limited to: Chicas's palsy; electrolyte abnormality; CVA; intracranial hemorrhage; ACS - Order placed for continuous cardiac monitoring. At this time, monitor showed rate of 85 bpm with normal sinus rhythm, per my interpretation. - External medical records reviewed. Discharge summary dated 11/19/2023 was reviewed. Patient was admitted at that time for complicated UTI and acute kidney injury following an outpatient Bactrim course. - EKG interpreted by myself showed normal sinus rhythm. Rate tachycardic at 101 bpm. QT 330. No acute ischemic changes. - Laboratory workup interpreted by myself showed normal WBC; normal PT/INR; stable electrolytes; VÍCTOR on CKD (Cr 2.11 - baseline around 1.65); hypercalcemia (Ca 11.5) - CT head wo contrast negative for acute pathology, per radiology - CXR negative for pneumonia, per my interpretation - Further CTA imaging not obtained, given patient's poor GFR. Patient has complete paralysis of the left side of her face and no sparing of her forehead, making Chicas's palsy significantly more likely. However, patient has numerous risk factors for CVA and will admit for further stroke workup. - Discussion was had with family independence case manager about patient's case and need for admission - Hospitalist consulted for admission - Patient admitted to [facility] for further evaluation and management. ASSESSMENT AND PLAN: Diagnosis: Facial droop; VÍCTOR on CKD Plan: Admit Past Med/Surg History Problem List (Updated 01/04/24 @ 22:25 by Lexie Escamilla MD) Acute kidney injury superimposed on chronic kidney disease (Acute) Facial droop (Acute) Complicated UTI (urinary tract infection) HTN (hypertension) (Acute) Anemia (Acute) VÍCTOR (acute kidney injury) (Acute) Hyperlipidemia VÍCTOR (acute kidney injury) Bladder outlet obstruction Poor sleep hygiene Urinary retention Other urethral stricture, female Cervical radiculopathy (Acute) Microscopic hematuria (Acute) Urinary symptom or sign (Acute) Vitamin D deficiency (Acute) Chronic insomnia Obstructive sleep apnea syndrome Arthritis (Chronic) Sleep apnea (Chronic) Vertigo (Chronic) Medical History Hyperlipidemia Osteopenia Osteoporosis Chronic insomnia Obstructive sleep apnea syndrome No pertinent family history Vertigo Sleep apnea Arthritis Surgical History History of tubal ligation History of tonsillectomy History of mandibular surgery History of cholecystectomy History of arthroscopic knee surgery Family History Grandfather (Maternal) Diabetes Grandmother (Maternal) Diabetes Sister Diabetes Son Hypertension Mother Lung cancer Social History Smoking Status: Never smoker Hx Alcohol Use: No Hx Substance Use: No Preferred Language: Thai Communication Ability: Effective Drywaller Required: No Beliefs That Will Affect Care: None marital status: Current Living Situation: Alone current occupational status: employed Feels Safe at Home: Yes Seatbelt Use: always Assistive Devices: Cane, Glasses and Walker Allergies Allergies Allergy/AdvReac Type Severity Reaction Status Date / Time No Known Allergies Allergy Verified 11/17/23 13:43 Home Meds Home Medications Medication Instructions Recorded Confirmed meclizine 25 mg tablet 25 mg PO TID PRN Dizziness 08/28/18 11/17/23 meloxicam 15 mg tablet 15 mg PO DAILY 08/28/18 11/17/23 multivitamin 1 tab PO DAILY 08/28/18 11/17/23 cholecalciferol (vitamin D3) 125 125 mcg PO DAILY 07/24/20 11/17/23 mcg (5,000 unit) capsule cranberry fruit concentrate 250 mg 250 mg PO DAILY 07/24/20 11/17/23 chewable tablet (Azo Cranberry) mecobalamin (vitamin B12) 5,000 5,000 mcg PO DAILY 07/24/20 11/17/23 mcg disintegrating tablet albuterol sulfate 90 mcg/actuation 2 inh inhalation Q6H PRN Shortness 09/30/23 11/17/23 breath activated powder inhaler Of Breath Or Wheezing atorvastatin 20 mg tablet 20 mg PO HS 11/17/23 11/17/23 ferrous sulfate 325 mg (65 mg 325 mg PO BID 11/17/23 11/17/23 iron) tablet pantoprazole 20 mg tablet,delayed 20 mg PO QAM 11/17/23 11/17/23 release tamsulosin 0.4 mg capsule 0.4 mg PO BID 11/17/23 11/17/23 Previous Rx's Medication Instructions Recorded CPAP Machine #1 ea 10/18/19 CPAP Machine #1 ea 01/17/20 CPAP Supplies #1 ea 09/12/21 Results & Data (ED) Vital Signs Vital Signs - 24 hr 01/04/24 20:30 01/04/24 20:37 01/04/24 21:14 Temperature 36.9 C Temperature Source Temporal Artery Scan Pulse Rate 107 H Pulse Rate [Apical] 94 H Pulse Rate from SpO2 Sensor Pulse Rhythm [Apical] Regular Pulse Strength [Apical] Normal Respiratory Rate 20 16 Respiratory Effort / Characteristics Non-Labored Respiratory Depth Normal Respiratory Pattern Regular Blood Pressure 162/73 H Blood Pressure [Left Arm] 165/92 H Blood Pressure Mean 102 Blood Pressure Mean [Left Arm] 116 Blood Pressure Position [Left Arm] Semi-fowlers Pulse Oximetry 95 95 Oxygen Delivery Method Room Air Room Air Room Air Oxygen Flow Rate 95 Sepsis Recent Fever Within 48 Hours No Sepsis New/Unexplained Change in Mental Status N/A Sepsis Action Taken by Nursing No Action Required 01/04/24 21:14 01/04/24 21:14 01/04/24 21:16 Temperature Temperature Source Pulse Rate 89 90 95 H Pulse Rate [Apical] Pulse Rate from SpO2 Sensor 90 Pulse Rhythm [Apical] Pulse Strength [Apical] Respiratory Rate 18 16 Respiratory Effort / Characteristics Respiratory Depth Respiratory Pattern Blood Pressure Blood Pressure [Left Arm] Blood Pressure Mean Blood Pressure Mean [Left Arm] Blood Pressure Position [Left Arm] Pulse Oximetry 96 95 Oxygen Delivery Method Room Air Oxygen Flow Rate Sepsis Recent Fever Within 48 Hours Sepsis New/Unexplained Change in Mental Status Sepsis Action Taken by Nursing 01/04/24 21:20 01/04/24 21:30 01/04/24 21:30 Temperature Temperature Source Pulse Rate 103 H 93 H Pulse Rate [Apical] Pulse Rate from SpO2 Sensor 100 H 95 H Pulse Rhythm [Apical] Pulse Strength [Apical] Respiratory Rate 26 H 16 Respiratory Effort / Characteristics Respiratory Depth Respiratory Pattern Blood Pressure 185/107 H Blood Pressure [Left Arm] Blood Pressure Mean 130 Blood Pressure Mean [Left Arm] Blood Pressure Position [Left Arm] Pulse Oximetry 95 96 Oxygen Delivery Method Oxygen Flow Rate Sepsis Recent Fever Within 48 Hours Sepsis New/Unexplained Change in Mental Status Sepsis Action Taken by Nursing 01/04/24 21:44 01/04/24 21:45 01/04/24 21:45 Temperature Temperature Source Pulse Rate 83 Pulse Rate [Apical] Pulse Rate from SpO2 Sensor 106 H 85 Pulse Rhythm [Apical] Pulse Strength [Apical] Respiratory Rate 20 Respiratory Effort / Characteristics Respiratory Depth Respiratory Pattern Blood Pressure 158/99 H Blood Pressure [Left Arm] Blood Pressure Mean 125 Blood Pressure Mean [Left Arm] Blood Pressure Position [Left Arm] Pulse Oximetry 97 98 Oxygen Delivery Method Oxygen Flow Rate Sepsis Recent Fever Within 48 Hours Sepsis New/Unexplained Change in Mental Status Sepsis Action Taken by Nursing 01/04/24 21:50 01/04/24 22:00 01/04/24 22:00 Temperature Temperature Source Pulse Rate 83 83 Pulse Rate [Apical] Pulse Rate from SpO2 Sensor 83 85 Pulse Rhythm [Apical] Pulse Strength [Apical] Respiratory Rate 17 15 Respiratory Effort / Characteristics Respiratory Depth Respiratory Pattern Blood Pressure 156/88 H Blood Pressure [Left Arm] Blood Pressure Mean 119 Blood Pressure Mean [Left Arm] Blood Pressure Position [Left Arm] Pulse Oximetry 97 96 Oxygen Delivery Method Oxygen Flow Rate Sepsis Recent Fever Within 48 Hours Sepsis New/Unexplained Change in Mental Status Sepsis Action Taken by Nursing Laboratory Data 01/04/24 20:50 01/04/24 20:50 Lab Results 01/04/24 01/04/24 Range/Units 20:50 20:58 WBC 10.17 (4.8-10.8) K/ul RBC 3.61 L (4.20-5.40) M/uL Hgb 11.9 L (12.0-16.0) g/dl POC Hgb 11.9 L (12.0-16.0) g/dl Hct 34.9 L (37.0-47.0) % POC Hct 35 L (37-47) % MCV 96.7 (80.0-100.0) fL MCH 33.0 (25.0-34.0) pg MCHC 34.1 (32.0-36.0) g/dL RDW Std Deviation 43.1 (36.4-46.3) fL RDW Coeff of Esteban 12.1 (11.5-14.5) % Plt Count 316 (130-400) K/uL MPV 9.8 (9.4-12.4) fL PT 10.7 (9.0-12.0) Seconds INR 1.0 (0.9-1.1) APTT 24 (21-31) Seconds PTT Ratio 0.9 POC Sodium 138 (135-144) mmol/L Sodium 138 (136-145) mmol/L POC Potassium 3.7 (3.3-5.0) mmol/L Potassium 3.7 (3.5-5.1) mmol/L POC Chloride 104 (101-112) mmol/L Chloride 103 (98-107) mmol/L Carbon Dioxide 25 (21-32) mmol/L POC Total CO2 24 (24-31) mmol/L Anion Gap 10 (3-11) POC Anion Gap 15.0 L (16-25) mmol/L POC BUN 32 H (7-18) mg/dl BUN 33 H (6-23) mg/dl Creatinine 2.11 H (0.6-1.2) mg/dl POC Creatinine 2.4 H (0.6-1.3) mg/dl Est Cr Clr Drug Dosing 22.0 ml/min Est GFR ( Amer) 27.2 ml/min Est GFR (Non-Af Amer) 23.5 ml/min BUN/Creatinine Ratio 15.6 (10-20) Glucose 93 (70-99(Fasting)) mg/dl POC Glucose (other) 98 (70-99) mg/dl Calcium 11.5 H (8.6-10.3) mg/dl POC Ioniz Calcium Stephani 1.42 H (1.12-1.32) mmol/l Magnesium 1.8 (1.7-2.4) mg/dl Total Bilirubin 0.4 (0.2-1.0) mg/dl AST 16 (13-39) U/L ALT 14 (7-52) U/L Alkaline Phosphatase 65 (34-104) U/L Total Protein 7.6 (6.0-8.3) gm/dl Albumin 4.5 (3.4-5.0) gm/dl Globulin 3.1 (2.5-4.0) gm/dl Albumin/Globulin Ratio 1.5 (0.9-2) Imaging Data Radiologist's Impression: Head CT 01/04/24 20:37 Exam(s): CT HEAD Without Contrast EXAM: CT Head Without Intravenous Contrast CLINICAL HISTORY: Reason for exam: Neuro deficit, acute, stroke suspected. TECHNIQUE: Axial computed tomography images of the head/brain without intravenous contrast. CTDI is 37.32 mGy and DLP is 547.75 mGy-cm. Automated exposure control was utilized for the study. A dose lowering technique was utilized adhering to the principles of ALARA. COMPARISON: No relevant prior studies available. FINDINGS: No acute intracranial hemorrhage. No midline shift or mass effect. The territorial dias-white matter differentiation is maintained throughout. Age-related cerebral volume loss. Periventricular and subcortical white matter hypoattenuation, consistent with chronic microangiopathy. The visualized orbits appear grossly unremarkable. The calvarium is intact. The visualized paranasal sinuses and mastoid air cells are grossly clear. IMPRESSION: No acute intracranial hemorrhage, midline shift, or mass effect. Electronically signed by: Marvin Sheth MD 01/04/24 22:03 PM Discharge Plan Visit Data Chief Complaint: TIA Symptoms Stated Complaint: STROKE LIKE SX ED Provider: Lexie Escamilla Discharge Problem: Facial droop, Acute kidney injury superimposed on chronic kidney disease Forms Stand Alone Forms: My [facility] [employer] Prescriptions Prescriptions: No Action (DME) CPAP Machine Misc See Rx Instructions .ROUTE .MEDSUPPLY Qty: 1 0RF Rx Instructions: NEW CPAP 6CM. HEATED HUMIDITY. CPAP SUPPLIES. [place] 99. [place] [facility] (DME) CPAP Supplies Misc See Rx Instructions .ROUTE .MEDSUPPLY Qty: 1 0RF Rx Instructions: CPAP supplies, mask, and filter. Needs new mask fit patient comfort and appropriate seal. [place] ancillary Azo Cranberry 250 mg tablet,chewable 250 mg PO DAILY cholecalciferol (vitamin D3) 125 mcg (5,000 unit) capsule 125 mcg PO DAILY mecobalamin (vitamin B12) 5,000 mcg tablet,disintegrating 5,000 mcg PO DAILY albuterol sulfate 90 mcg/actuation aerosol powdr breath activated 2 inh inhalation Q6H PRN (Reason: Shortness Of Breath Or Wheezing) (DME) CPAP Machine Misc See Rx Instructions .ROUTE .MEDSUPPLY Qty: 1 0RF Rx Instructions: CHANGE TO AUTO CPAP MIN 6 MAX 12. [place] [facility] meloxicam 15 mg Tablet 15 mg PO DAILY Hold Instructions: Resume on 12/03/23. VÍCTOR meclizine 25 mg tablet 25 mg PO TID PRN (Reason: Dizziness) multivitamin Tablet 1 tab PO DAILY atorvastatin 20 mg tablet 20 mg PO HS pantoprazole 20 mg tablet,delayed release (DR/EC) 20 mg PO QAM tamsulosin 0.4 mg capsule 0.4 mg PO BID Rx Instructions: Morning and Afternoon ferrous sulfate 325 mg (65 mg iron) tablet 325 mg PO BID Referrals Referrals: Priscilla Baez MD [Primary Care Provider] -
[2024-01-04 21:11] LABS: iSTAT Creatinine 2.4 mg/dl (0.6-1.3); iSTAT Hemoglobin 11.9 g/dl (12.0-16.0); iSTAT Ionized Calcium 1.42 mmol/l (1.12-1.32); iSTAT Potassium 3.7 mmol/L (3.3-5.0)
[2024-01-04 21:13] LABS: Hematocrit (blood only) 34.9 % (37.0-47.0); Hemoglobin 11.9 g/dl (12.0-16.0); Mean Corpuscular Hgb Conc 34.1 g/dL (32.0-36.0); Mean Corpuscular Volume 96.7 fL (80.0-100.0); Mean Platelet Volume 9.8 fL (9.4-12.4); Platelet Count 316 K/uL (130-400); RDW Coefficient of Variation 12.1 % (11.5-14.5); RDW Standard Deviation 43.1 fL (36.4-46.3); Red Blood Count 3.61 M/uL (4.20-5.40); White Blood Count 10.17 K/ul (4.8-10.8)
[2024-01-04 21:44] LABS: Albumin Globulin Ratio 1.5 (0.9-2); Albumin Level 4.5 gm/dl (3.4-5.0); BUN Creatinine Ratio 15.6 (10-20); Bilirubin,Total 0.4 mg/dl (0.2-1.0); Calcium 11.5 mg/dl (8.6-10.3); Est GFR (African American) 27.2 ml/min; Est GFR (Non-African American) 23.5 ml/min; Globulin 3.1 gm/dl (2.5-4.0); Magnesium 1.8 mg/dl (1.7-2.4); Potassium 3.7 mmol/L (3.5-5.1); Total Protein 7.6 gm/dl (6.0-8.3)
[2024-01-04 21:59] LABS: Partial Thromboplastin Ratio 0.9; Partial Thromboplastin Time 24 Seconds (21-31); Prothrombin Time 10.7 Seconds (9.0-12.0)
--- NOTE | 2024-01-04 22:04 | CT Scan Report ---
Exam(s): CT HEAD Without Contrast EXAM: CT Head Without Intravenous Contrast CLINICAL HISTORY: Reason for exam: Neuro deficit, acute, stroke suspected. TECHNIQUE: Axial computed tomography images of the head/brain without intravenous contrast. CTDI is 37.32 mGy and DLP is 547.75 mGy-cm. Automated exposure control was utilized for the study. A dose lowering technique was utilized adhering to the principles of ALARA. COMPARISON: No relevant prior studies available. FINDINGS: No acute intracranial hemorrhage. No midline shift or mass effect. The territorial dias-white matter differentiation is maintained throughout. Age-related cerebral volume loss. Periventricular and subcortical white matter hypoattenuation, consistent with chronic microangiopathy. The visualized orbits appear grossly unremarkable. The calvarium is intact. The visualized paranasal sinuses and mastoid air cells are grossly clear. IMPRESSION: No acute intracranial hemorrhage, midline shift, or mass effect. Electronically signed by: Marvin Sheth MD 01/04/24 22:03 PM
[2024-01-04] MEDS: SODIUM CHLORIDE 0.9% 1,000 ML IV ONE (22:42)
[2024-01-05] MEDS: OPTIRAY 320 125ml IV ONE (01:05)
--- NOTE | 2024-01-05 01:19 | Magnetic Resonance Report ---
Exam(s): MRI HEAD Without Contrast EXAM: MR Head Without Intravenous Contrast CLINICAL HISTORY: Reason for exam: L facial droop. TECHNIQUE: Magnetic resonance images of the head/brain without intravenous contrast in multiple planes. COMPARISON: Comparison made to prior head CT from January 04, 2024. FINDINGS: Brain: Minimal nonspecific white matter changes. No mass. No hemorrhage. No acute infarct. The flow voids at the base the brain are intact. Hypoplastic vertebral basilar arteries. Ventricles: Unremarkable. No ventriculomegaly. Bones/joints: Unremarkable. No acute fracture. Sinuses: Unremarkable as visualized. No acute sinusitis. Mastoid air cells: Unremarkable as visualized. No mastoid effusion. Orbits: Left lens replacement. IMPRESSION: No evidence of acute intracranial pathology. If there is continued clinical concern, recommend contrast enhanced MRI of the IACs for further evaluation of Chicas's palsy. Electronically signed by: Augustina Ho MD 01/05/24 01:19 AM
--- NOTE | 2024-01-05 01:55 | History & Physical Report ---
Date of Service January 05, 2024 Assessment & Plan (1) Stroke-like symptom: Plan: 68-year-old female with past medical history significant for hyperlipidemia, obstructive sleep apnea on CPAP, ureteral stricture and urinary retention s/p multiple dilatations, CKD stage III, arthritis, vertigo comes because of left- sided facial droop and some slurred speech. Patient states she noticed watery left eye since last 3 days. On Mother's Day Thursday her [id number] noticed that she is having facial droop on the left side,So she came to the ER today. She also thinks she has some slurred speech. Feeling numbness on the left side of the face. Having difficulty raising the left brow. And also difficulty closing left eye tight. No weakness in the hands or legs. Ambulating okay. No headache. No dizziness. Vision is somewhat blurred. No runny nose or sore throat. No cough. No difficulty swallowing. No fevers. No nausea. No abdominal pain. No chest pains or shortness of breath. Normal bowel movements. States yesterday she had some difficulty micturating but today she is micturating okay as per patient. 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 Will monitor in the hospital Consult neurology for further recommendations VÍCTOR on CKD stage III History of ureteral stricture and urinary retention s/p multiple dilatations Baseline creatinine 1.4 Presented with creatinine of 2.1 IV fluids Continue Flomax Avoid nephrotoxic agents Follow CT abdomen pelvis Monitor for urinary retention If not improving consult urology/nephro History of obstructive apnea CPAP nightly Hyperlipidemia On statin DVT prophylaxis SCDs Disposition Telemetry Full code History of Present Illness Chief Complaint: Left-sided facial droop and numbness and slurred speech Primary Care Provider: Priscilla Baez MD 68-year-old female with past medical history significant for hyperlipidemia, obstructive sleep apnea on CPAP, ureteral stricture and urinary retention s/p multiple dilatations, CKD stage III, arthritis, vertigo comes because of left- sided facial droop and some slurred speech. Patient states she noticed watery left eye since last 3 days. On Mother's Day Thursday her [id number] noticed that she is having facial droop on the left side,So she came to the ER today. She also thinks she has some slurred speech. Feeling numbness on the left side of the face. Having difficulty raising the left brow. And also difficulty closing left eye tight. No weakness in the hands or legs. Ambulating okay. No headache. No dizziness. Vision is somewhat blurred. No runny nose or sore throat. No cough. No difficulty swallowing. No fevers. No nausea. No abdominal pain. No chest pains or shortness of breath. Normal bowel movements. States yesterday she had some difficulty micturating but today she is micturating okay as per patient. Past medical history. As mentioned above. Past surgical history. Colonoscopy. Cystoscopy. Cystourethroscopy with dilatation of stricture. Cystourethroscopy with biopsy. EGD. Right knee arthroscopy. Laparoscopic cholecystectomy. Ligation of oviducts. Tonsillectomy adenoidectomy. Right total hip replacement. Social history. . Quit smoking 1975. Smoked 0.1 pack a day for 5 years. No alcohol use. No drug use. Family history. Father had lung cancer. Mother had lung cancer. Sister has diabetes. Paternal grandfather had diabetes. Sister had stroke. Allergies Allergy/AdvReac Type Severity Reaction Status Date / Time No Known Allergies Allergy Verified 01/04/24 22:43 Home Medications Medication Instructions Recorded Confirmed Type meclizine 25 mg tablet 25 mg PO TID PRN Dizziness 08/28/18 01/04/24 History meloxicam 15 mg tablet 15 mg PO DAILY 08/28/18 01/04/24 History multivitamin 1 tab PO DAILY 08/28/18 01/04/24 History CPAP Machine #1 ea 10/18/19 09/30/23 Rx CPAP Machine #1 ea 01/17/20 09/30/23 Rx cholecalciferol (vitamin D3) 125 125 mcg PO DAILY 07/24/20 01/04/24 History mcg (5,000 unit) capsule cranberry fruit concentrate 250 mg 250 mg PO DAILY 07/24/20 01/04/24 History chewable tablet (Azo Cranberry) mecobalamin (vitamin B12) 5,000 5,000 mcg PO DAILY 07/24/20 01/04/24 History mcg disintegrating tablet CPAP Supplies #1 ea 09/12/21 09/30/23 Rx albuterol sulfate 90 mcg/actuation 2 inh inhalation Q6H PRN Shortness 09/30/23 01/04/24 History breath activated powder inhaler Of Breath Or Wheezing atorvastatin 20 mg tablet 20 mg PO HS 11/17/23 01/04/24 History ferrous sulfate 325 mg (65 mg 325 mg PO BID 11/17/23 01/04/24 History iron) tablet pantoprazole 20 mg tablet,delayed 20 mg PO QAM 11/17/23 01/04/24 History release tamsulosin 0.4 mg capsule 0.4 mg PO BID 11/17/23 01/04/24 History Past Med/Surg History Problem List (Updated 01/05/24 @ 02:00 by Tip Talbert MD) Stroke-like symptom Acute kidney injury superimposed on chronic kidney disease (Acute) Facial droop (Acute) Complicated UTI (urinary tract infection) HTN (hypertension) (Acute) Anemia (Acute) VÍCTOR (acute kidney injury) (Acute) Hyperlipidemia VÍCTOR (acute kidney injury) Bladder outlet obstruction Poor sleep hygiene Urinary retention Other urethral stricture, female Cervical radiculopathy (Acute) Microscopic hematuria (Acute) Urinary symptom or sign (Acute) Vitamin D deficiency (Acute) Chronic insomnia Obstructive sleep apnea syndrome Arthritis (Chronic) Sleep apnea (Chronic) Vertigo (Chronic) Medical History Hyperlipidemia Osteopenia Osteoporosis Chronic insomnia Obstructive sleep apnea syndrome No pertinent family history Vertigo Sleep apnea Arthritis Surgical History History of tubal ligation History of tonsillectomy History of mandibular surgery History of cholecystectomy History of arthroscopic knee surgery Family History Grandfather (Maternal) Diabetes Grandmother (Maternal) Diabetes Sister Diabetes Son Hypertension Mother Lung cancer Social History Smoking Status: Unknown if ever smoked Second Hand Exposure: No; Do You Dip or Chew Tobacco: No; Tobacco Cessation Education Requested by Patient: No Hx Alcohol Use: No Hx Substance Use: No Preferred Language: Estonian Communication Ability: Effective Weather Analyst Required: No Beliefs That Will Affect Care: None marital status: Current Living Situation: Alone current occupational status: employed Other Information That Helps Us Care for You: No Feels Safe at Home: Yes Safety Concerns: Feels Safe At This Time Seatbelt Use: always Assistive Devices: CPAP and Walker Review of Systems Review of Systems: All systems reviewed & are unremarkable except as noted in HPI & below Physical Exam Physical Exam: General- Not in distress Head- atraumatic Eyes- PERRL, EOMI,difficult to raise left brow and closing left eye ENT- oropharynx clear Neck- supple, no JVD. Lungs- clear to auscultation no wheezing or crackles. Heart- regular rhythm; no murmur, no gallop. Abdomen- normal bowel sounds, soft, nontender, no distension. Extremities- no pretibial edema, no erythema seen. Neuro- alert, oriented PERRL, EOMI; Left side facial droop. Difficulty raising left eye brow. Difficulty closing left eye lid; no dysarthria; motor 5/5 bilaterally; no pronator drift, sensations intact, position sense intact. Skin- warm & dry Results & Data Results & Data Vital Signs (Past 12 Hours) Vital Signs Temp Pulse Pulse Resp BP BP Pulse Ox 01/05/24 01:14 96 H 01/05/24 00:50 104 H 18 01/05/24 00:40 89 22 96 01/05/24 00:30 153/84 H 01/05/24 00:30 73 20 97 01/05/24 00:29 88 24 91 01/05/24 00:10 79 12 97 01/05/24 00:00 83 17 93 01/05/24 00:00 146/83 H 01/04/24 23:50 87 14 99 01/04/24 23:42 84 18 97 01/04/24 22:50 92 H 23 97 01/04/24 22:41 88 17 96 01/04/24 22:10 87 22 97 01/04/24 22:00 156/88 H 01/04/24 22:00 83 15 96 01/04/24 21:50 83 17 97 01/04/24 21:45 83 20 98 01/04/24 21:45 158/99 H 01/04/24 21:44 97 01/04/24 21:30 185/107 H 01/04/24 21:30 93 H 16 96 01/04/24 21:20 103 H 26 H 95 01/04/24 21:16 95 H 16 95 01/04/24 21:14 90 18 96 01/04/24 21:14 89 01/04/24 21:14 94 H 16 165/92 H 95 01/04/24 20:37 01/04/24 20:30 36.9 C 107 H 20 162/73 H 95 O2 Del Method O2 Flow Rate 01/05/24 01:14 01/05/24 00:50 01/05/24 00:40 01/05/24 00:30 01/05/24 00:30 01/05/24 00:29 01/05/24 00:10 01/05/24 00:00 01/05/24 00:00 01/04/24 23:50 01/04/24 23:42 01/04/24 22:50 01/04/24 22:41 01/04/24 22:10 01/04/24 22:00 01/04/24 22:00 01/04/24 21:50 01/04/24 21:45 01/04/24 21:45 01/04/24 21:44 01/04/24 21:30 01/04/24 21:30 01/04/24 21:20 01/04/24 21:16 Room Air 01/04/24 21:14 01/04/24 21:14 01/04/24 21:14 Room Air 01/04/24 20:37 Room Air 95 01/04/24 20:30 Room Air Diagnostic Findings Laboratory Results WBC 10.17 K/ul (4.8-10.8) 01/04/24 20:50 RBC 3.61 M/uL (4.20-5.40) L 01/04/24 20:50 Hgb 11.9 g/dl (12.0-16.0) L 01/04/24 20:50 POC Hgb 11.9 g/dl (12.0-16.0) L 01/04/24 20:58 Hct 34.9 % (37.0-47.0) L 01/04/24 20:50 POC Hct 35 % (37-47) L 01/04/24 20:58 MCV 96.7 fL (80.0-100.0) 01/04/24 20:50 MCH 33.0 pg (25.0-34.0) 01/04/24 20:50 MCHC 34.1 g/dL (32.0-36.0) 01/04/24 20:50 RDW Std Deviation 43.1 fL (36.4-46.3) 01/04/24 20:50 RDW Coeff of Esteban 12.1 % (11.5-14.5) 01/04/24 20:50 Plt Count 316 K/uL (130-400) 01/04/24 20:50 MPV 9.8 fL (9.4-12.4) 01/04/24 20:50 PT 10.7 Seconds (9.0-12.0) 01/04/24 20:50 INR 1.0 (0.9-1.1) 01/04/24 20:50 APTT 24 Seconds (21-31) 01/04/24 20:50 PTT Ratio 0.9 01/04/24 20:50 POC Sodium 138 mmol/L (135-144) 01/04/24 20:58 Sodium 138 mmol/L (136-145) 01/04/24 20:50 POC Potassium 3.7 mmol/L (3.3-5.0) 01/04/24 20:58 Potassium 3.7 mmol/L (3.5-5.1) 01/04/24 20:50 POC Chloride 104 mmol/L (101-112) 01/04/24 20:58 Chloride 103 mmol/L (98-107) 01/04/24 20:50 Carbon Dioxide 25 mmol/L (21-32) 01/04/24 20:50 POC Total CO2 24 mmol/L (24-31) 01/04/24 20:58 Anion Gap 10 (3-11) 01/04/24 20:50 POC Anion Gap 15.0 mmol/L (16-25) L 01/04/24 20:58 POC BUN 32 mg/dl (7-18) H 01/04/24 20:58 BUN 33 mg/dl (6-23) H 01/04/24 20:50 Creatinine 2.11 mg/dl (0.6-1.2) H 01/04/24 20:50 POC Creatinine 2.4 mg/dl (0.6-1.3) H 01/04/24 20:58 Est Cr Clr Drug Dosing 22.0 ml/min 01/04/24 20:50 Est GFR ( Amer) 27.2 ml/min 01/04/24 20:50 Est GFR (Non-Af Amer) 23.5 ml/min 01/04/24 20:50 BUN/Creatinine Ratio 15.6 (10-20) 01/04/24 20:50 Glucose 93 mg/dl (70-99(Fasting)) 01/04/24 20:50 POC Glucose (other) 98 mg/dl (70-99) 01/04/24 20:58 Calcium 11.5 mg/dl (8.6-10.3) H 01/04/24 20:50 POC Ioniz Calcium Stephani 1.42 mmol/l (1.12-1.32) H 01/04/24 20:58 Magnesium 1.8 mg/dl (1.7-2.4) 01/04/24 20:50 Total Bilirubin 0.4 mg/dl (0.2-1.0) 01/04/24 20:50 AST 16 U/L (13-39) 01/04/24 20:50 ALT 14 U/L (7-52) 01/04/24 20:50 Alkaline Phosphatase 65 U/L (34-104) 01/04/24 20:50 Total Protein 7.6 gm/dl (6.0-8.3) 01/04/24 20:50 Albumin 4.5 gm/dl (3.4-5.0) 01/04/24 20:50 Globulin 3.1 gm/dl (2.5-4.0) 01/04/24 20:50 Albumin/Globulin Ratio 1.5 (0.9-2) 01/04/24 20:50 Lyme Disease Screen Negative (Negative) 01/04/24 20:[address] 01/04/24 20:37 Exam(s): CT HEAD Without Contrast EXAM: CT Head Without Intravenous Contrast CLINICAL HISTORY: Reason for exam: Neuro deficit, acute, stroke suspected. TECHNIQUE: Axial computed tomography images of the head/brain without intravenous contrast. CTDI is 37.32 mGy and DLP is 547.75 mGy-cm. Automated exposure control was utilized for the study. A dose lowering technique was utilized adhering to the principles of ALARA. COMPARISON: No relevant prior studies available. FINDINGS: No acute intracranial hemorrhage. No midline shift or mass effect. The territorial dias-white matter differentiation is maintained throughout. Age-related cerebral volume loss. Periventricular and subcortical white matter hypoattenuation, consistent with chronic microangiopathy. The visualized orbits appear grossly unremarkable. The calvarium is intact. The visualized paranasal sinuses and mastoid air cells are grossly clear. IMPRESSION: No acute intracranial hemorrhage, midline shift, or mass effect. Electronically signed by: Marvin Sheth MD 01/04/24 22:03 PM Brain MRI 01/04/24 22:34 Exam(s): MRI HEAD Without Contrast EXAM: MR Head Without Intravenous Contrast CLINICAL HISTORY: Reason for exam: L facial droop. TECHNIQUE: Magnetic resonance images of the head/brain without intravenous contrast in multiple planes. COMPARISON: Comparison made to prior head CT from January 04, 2024. FINDINGS: Brain: Minimal nonspecific white matter changes. No mass. No hemorrhage. No acute infarct. The flow voids at the base the brain are intact. Hypoplastic vertebral basilar arteries. Ventricles: Unremarkable. No ventriculomegaly. Bones/joints: Unremarkable. No acute fracture. Sinuses: Unremarkable as visualized. No acute sinusitis. Mastoid air cells: Unremarkable as visualized. No mastoid effusion. Orbits: Left lens replacement. IMPRESSION: No evidence of acute intracranial pathology. If there is continued clinical concern, recommend contrast enhanced MRI of the IACs for further evaluation of Chicas's palsy. Electronically signed by: Augustina Ho MD 01/05/24 01:19 AM ECG Additional Comments: ECG. Sinus tachycardia rate of 101. Left posterior fascicular block. Code Status & VTE Plan VTE Prophylaxis Plan VTE Prophylaxis will be ordered: Yes
--- NOTE | 2024-01-05 02:11 | CT Scan Report ---
Exam(s): CTA HEAD With Contrast IV Amt: 119 ML OPTIRAY 320 EXAM: CT Angiography Head With Intravenous Contrast CLINICAL HISTORY: Reason for exam: facial droop. TECHNIQUE: Axial computed tomographic angiography images of the head with intravenous contrast. Automated exposure control was utilized for the study. A dose lowering technique was utilized adhering to the principles of ALARA. MIP reconstructed images were created and reviewed. CONTRAST: Patient received 119 ML OPTIRAY 320 of IV contrast COMPARISON: No relevant prior studies available. FINDINGS: The dural venous sinuses are patent. Right internal carotid artery: No acute findings. Intracranial segment is patent with no significant stenosis. No aneurysm. Right anterior cerebral artery: Unremarkable. No occlusion or significant stenosis. No aneurysm. Right middle cerebral artery: Unremarkable. No occlusion or significant stenosis. No aneurysm. Right posterior cerebral artery: Unremarkable. No occlusion or significant stenosis. No aneurysm. Right vertebral artery: Hypoplastic. Left internal carotid artery: No acute findings. Intracranial segment is patent with no significant stenosis. No aneurysm. Left anterior cerebral artery: Unremarkable. No occlusion or significant stenosis. No aneurysm. Left middle cerebral artery: Unremarkable. No occlusion or significant stenosis. No aneurysm. Left posterior cerebral artery: Unremarkable. No occlusion or significant stenosis. No aneurysm. Left vertebral artery: Hypoplastic. Basilar artery: Hypoplastic. No occlusion or significant stenosis. No aneurysm. IMPRESSION: Negative CT angiogram of the head. Electronically signed by: Augustina Ho MD 01/05/24 02:09 AM
--- NOTE | 2024-01-05 02:14 | CT Scan Report ---
Exam(s): CTA NECK With Contrast IV Amt: 119 ML OPTIRAY 320 EXAM: CT Angiography Neck With Intravenous Contrast CLINICAL HISTORY: Reason for exam: facial droop. TECHNIQUE: Routine carotid CT angiography protocol was performed with intravenous contrast. NASCET criteria using the distal ICAs for comparison were used for evaluation of stenoses. Automated exposure control was utilized for the study. A dose lowering technique was utilized adhering to the principles of ALARA. MIP reconstructed images were created and reviewed. CONTRAST: Patient received 119 ML OPTIRAY 320 of IV contrast COMPARISON: None. FINDINGS: VASCULATURE: Right common carotid artery: Unremarkable. No occlusion or significant stenosis. No dissection. Right internal carotid artery: Unremarkable. Extracranial segment is patent with no occlusion or significant stenosis. No dissection. Right external carotid artery: Unremarkable. No occlusion. Right vertebral artery: Unremarkable. No occlusion or significant stenosis. No dissection. Left common carotid artery: Unremarkable. No occlusion or significant stenosis. No dissection. Left internal carotid artery: Unremarkable. Extracranial segment is patent with no occlusion or significant stenosis. No dissection. Left external carotid artery: Unremarkable. No occlusion. Left vertebral artery: Unremarkable. No occlusion or significant stenosis. No dissection. NECK: Bones/joints: Severe spinal canal stenosis at C6-7. No acute fracture. Soft tissues: Prominent cervical lymph nodes. Prominent mediastinal lymph nodes.. Lung apices: Clear. CAROTID STENOSIS REFERENCE USING NASCET CRITERIA: % ICA stenosis = (1 - narrowest ICA diameter/diameter of distal cervical ICA) x 100. Mild - <50% stenosis. Moderate - 50-69% stenosis. Severe - 70-94% stenosis. Near occlusion - 95-99% stenosis. Occluded - 100% stenosis. IMPRESSION: Negative CTA neck. Electronically signed by: Augustina Ho MD 01/05/24 02:14 AM
[2024-01-05] MEDS ORDERED: NITROGLYCERIN SL 0.4 MG/TAB TAB SL PRN (03:16)
[2024-01-05] MEDS ORDERED: POLYETHYLENE (MIRALAX) 17 GM PACK PO PRN (03:16)
[2024-01-05] MEDS ORDERED: PHARMACIST DISCHARGE MED REC CONSULT PRN (03:16)
[2024-01-05] MEDS ORDERED: MECLIZINE HCL 25 MG TAB PO PRN (03:16)
[2024-01-05] MEDS ORDERED: ACETAMINOPHEN 325 MG TAB PO PRN (03:16)
[2024-01-05] MEDS ORDERED: ALBUTEROL HFA 8 GM INHALER INH PRN (03:25)
[2024-01-05] MEDS: SODIUM CHLORIDE 0.9% 1,000 ML IV SCH (05:15)
[2024-01-05 05:34] LABS: Appearance Urine Clear (Clear); Bacteria Urine Automated None Seen (None Seen); Bilirubin Urine Negative (Negative); Blood Urine 2+ (Negative); Cast Urine Automated 0-2 /lpf (0-2); Color Urine Yellow; Epithelial Cell Urine Auto 0-2 /hpf (0-2); Glucose Urine UA Negative (Negative); Ketones Urine Negative (Negative); Leukocyte Esterase Urine 1+ (Negative); Nitrite Urine Negative (Negative); Protein Urine Negative (Negative); RBC Urine Automated >20 /hpf (0-2); Urobilinogen Urine Negative (Negative); pH Urine 7.5 (4.5-7.5)
--- NOTE | 2024-01-05 07:25 | XRay Report ---
XR chest 1V portable HISTORY: 68 years-old Female stroke alert acute strokelike symptoms COMPARISON: 02/12/2018 TECHNIQUE: AP view of the chest FINDINGS: Cardiac silhouette is enlarged. No pneumothorax, pleural effusion, or overt pulmonary edema. There is no ill-defined 2.2 cm left midlung opacity. Degenerative changes of the shoulders and spine. IMPRESSION: Ill-defined 2.2 cm left midlung opacity may be secondary to summation density however cou ld be further evaluated with a follow-up chest CT. ACT 112: Negative or not required by law. The above report was generated using voice recognition software. It may contain grammatical, syntax o r spelling errors. Electronically signed by: Aries Chua M.D. 01/05/2024 7:24 AM
[2024-01-05 08:01] LABS: BUN Creatinine Ratio 16.6 (10-20); Calcium 10.3 mg/dl (8.6-10.3); Creatinine Clr Calc Pharmacy 27.5 ml/min; Est GFR (African American) 35.5 ml/min; Est GFR (Non-African American) 30.7 ml/min; Magnesium 1.9 mg/dl (1.7-2.4); Potassium 4.2 mmol/L (3.5-5.1)
[2024-01-05 08:39] LABS: Estimated Average Glucose 103 mg/dl; Hemoglobin A1C 5.2 % (4.5-5.6)
[2024-01-05] MEDS: cefTRIAXone SODIUM 2,000 MG/50 ML BAG IV SCH (08:44)
[2024-01-05 08:50] LABS: Basophils # (auto) 0.08 K/uL (0.00-0.20); Basophils % (auto) 1.1 %; Eosinophils # (auto) 0.27 K/uL (0.00-0.50); Eosinophils % (auto) 3.8 %; Immature Granulocytes # (auto) 0.04 K/uL (0.01-0.20); Immature Granulocytes % (auto) 0.6 %; Lymphocytes # (auto) 1.99 K/uL (1.20-3.40); Mean Corpuscular Hemoglobin 32.4 pg (25.0-34.0); Mean Corpuscular Hgb Conc 33.3 g/dL (32.0-36.0); Mean Corpuscular Volume 97.1 fL (80.0-100.0); Mean Platelet Volume 10.1 fL (9.4-12.4); Monocytes # (auto) 0.74 K/uL (0.11-0.59); Monocytes % (auto) 10.4 %; Neutrophils # (auto) 3.98 K/uL (1.40-6.50); Neutrophils % (auto) 56.1 %; Platelet Count 292 K/uL (130-400); RDW Coefficient of Variation 12.3 % (11.5-14.5); RDW Standard Deviation 44.2 fL (36.4-46.3)
[2024-01-05] MEDS ORDERED: CHOLECALCIFEROL 125 MCG (5,000 UNITS) TAB PO SCH (09:00)
--- NOTE | 2024-01-05 09:05 | Electrocardiogram Report ---
Test Reason : Blood Pressure : / mmHG Vent. Rate : 101 BPM Atrial Rate : 101 BPM P-R Int : 140 ms QRS Dur : 082 ms QT Int : 330 ms P-R-T Axes : 000 128 181 degrees QTc Int : 427 ms Sinus tachycardia Left posterior fascicular block possible Inferior infarct , age undetermined Abnormal ECG When compared with ECG of 28-AUG-2018 10:18, Left posterior fascicular block is now Present Confirmed by Kuldip Khan ([id number]) on 01/05/2024 9:05:30 AM Referred By: REFERRED SELF Confirmed By:Oniel Khan
--- NOTE | 2024-01-05 09:21 | Communication Note ---
Date of Service: January 05, 2024 Patient seen and examined. Did she started having to read left right associated with itching. Noted [id number] had commented aobut deviation of the mouth to the right on Thursday. Patient reports that she noted that when she looked at herself in the marrow. She reported some spillage when eating but no difficulty swallowing. Denies any focal weakness. Denies any numbness. Denies any visual changes, Reports some headache this morning, mild. Exam notable for flattened left nasolabial folds, deviation of mild to the right, inability to close left eye completely Head CT did not show any acute abnormality CTA head and neck was negative Brain MRI did not show any acute abnormality Chest x-ray on admission had noted an ill-defined 2.2 cm left midlung opacity CT chest to better evaluate the third no finding to correspond to a 2.2 cm left midlung opacity. This was artifactual is a 5 mm subpleural groundglass left lower lobe nodule. Will need follow-up CT chest CT in 6 months to ensure stability Possible Chicas's palsy. Follow-up neurology evaluation. Speech therapy/PT/OT evaluation. Had VÍCTOR with creatinine of 2.1 on admission, improved to 1.69 this morning. IV fluids. CT abdomen pelvis did not show any hydronephrosis. Other plans as detailed in H&P this morning
[2024-01-05 09:39] LABS: Chol HDL Ratio 3.8 (0-5)
[2024-01-05] MEDS: CYANOCOBALAMIN (B-12) 2,500 MCG TABLET PO SCH (10:28)
[2024-01-05] MEDS: PANTOprazole 40 MG TAB PO SCH (10:28)
[2024-01-05] MEDS: FERROUS SULFATE 325 MG TAB PO SCH (10:28)
[2024-01-05] MEDS: MULTIVITAMIN TAB PO SCH (10:28)
[2024-01-05] MEDS: TAMSULOSIN HCL 0.4 MG CAP PO SCH (10:28)
--- NOTE | 2024-01-05 11:32 | CT Scan Report ---
CT OF THE CHEST WITHOUT IV CONTRAST CLINICAL HISTORY: For better assessment of lung opacity on CXR COMPARISON STUDY: Chest CT February 12, 2018. Chest radiograph January 04, 2024. CT DOSE: 422.57 mGy.cm TECHNIQUE: Axial images of the chest were obtained without IV contrast. Images were reviewed in the axial, sagittal, and coronal planes. IV contrast was not administered for this examination. Automat ed exposure control was utilized for the study. A dose lowering technique was utilized adhering to t he principles of ALARA. FINDINGS: No enlarged axillary, mediastinal or hilar lymph nodes are present. There is a small hiata l hernia. There is no pericardial effusion. Central airways are patent. There is no pneumothorax or p leural effusion. There is no finding to correspond to the 2.2 cm left midlung density on chest radiog raph January 04, 2024. This was artifactual. A 5 mm subpleural groundglass left lower lobe nodule on imag e 121 of 233 is present. This was not clearly evident on CT of February 12, 2018 but may have been obscur ed by groundglass opacity. Mild subpleural groundglass opacities with reticulation are noted on this exam. There is no honeycombing. A 3 cm intermediate attenuation left hepatic dome lesion is similar t o CT of February 12, 2018. This is benign. Excreted contrast within the collecting systems from recent co ntrast-enhanced CT is incidentally noted. IMPRESSION: 1. No finding to correspond to the 2.2 cm left midlung opacity on chest radiograph of January 04, 2024. T his was artifactual. 2. Subpleural ground glass opacities and reticulation, likely chronic. The findings favor interstitia l lung disease. No consolidation to suggest pneumonia. 3. 5 mm subpleural groundglass left lower lobe nodule. This is likely benign. A follow-up chest CT in 6 months to ensure stability is recommended. ACT 112: Negative or not required by law. Electronically signed by: Isaiah Marcelo M.D. 01/05/2024 11:30 AM
--- NOTE | 2024-01-05 13:07 | CT Scan Report ---
ABDOMEN AND PELVIS CT WITHOUT CONTRAST CT DOSE: 1159.09 mGy.cm HISTORY: Reported urinary bladder retention. Acute kidney injury. raji, hx of incomplete bladder empt meena TECHNIQUE: Multiaxial CT images of the abdomen and pelvis were performed without contrast. A dose lo wering technique was utilized adhering to the principles of ALARA. COMPARISON STUDY: CT 06/17/2012. FINDINGS: Bibasilar atelectasis/scarring with areas of mild traction bronchiectasis. No free air. Unr emarkable spleen, pancreas and adrenal glands. Cholecystectomy. A 2.6 cm left hepatic lobe lesion on image 8 series 2 is unchanged, compatible with a benign hemangioma. Mild nonspecific bilateral perinephric stranding. Subcentimeter hypodensity of the superior pole righ t kidney is too small to characterize, likely a cyst. Contrast is noted within the renal collecting s ystems without hydronephrosis. There is limited evaluation for renal and ureteral calculi secondary t o the phase of postcontrast imaging. Urinary bladder wall thickening and trabeculation with a small a nterior diverticulum. No urinary bladder mass lesion is identified. The uterus and adnexa are within normal limits. Mild atherosclerosis of the aorta. No lymphadenopathy. Small hiatal hernia. No bowel obstruction or bowel wall thickening. Mild colonic diverticulosis. The appendix is not visualized. No CT evidence of acute appendicitis. Unremarkable soft tissues. No acute fracture. Severe L2-L3 intervertebral disc space narrowing. Lumbar levoscoliosis. Right hip arthropl asty. IMPRESSION: 1. No hydronephrosis. 2. Urinary bladder wall thickening and trabeculation with a few small diverticula. 3. No bowel obstruction or bowel wall thickening. 4. Small hiatal hernia. 5. Additional findings as above. ACT 112: Negative or not required by law. The above report was generated using voice recognition software. It may contain grammatical, syntax o r spelling errors. Dictated: 01/05/2024 8:31 AM Transcribed: 01/05/2024 8:49 AM Jay [id number] [email or web address] Electronically signed by: Aries Chua M.D. 01/05/2024 1:06 PM
--- OUTSIDE RECORDS SUMMARY | 2024-01-05 13:09 | External Medical Summary ---
Author Name Unknown Address Unknown Organization [id number]:[facility] [place] - [address] [place] [id number] Laboratory Report Ordering Provider Test Date Status NOAH HAGAN 12/08/2023 11:59:31 Final Observation Date Value Abnormality Reference (Units) Status Bacteria identified in Specimen by Culture 12/08/2023 11:59:31 No significant growth Final Test: Culture, Urine, Quanti tative
Specimen Source: Urine, Clean Catch
Specimen Type: Urine
Specimen Date: 12/08/2023 11:59 AM
Result Date: 12/09/2023 5:41 PM
Result Status: Final result
Resulting Lab: [facility]
[address]
[facility] [address]

CULTURE

No significant growth

null Performing Location [facility] - [address] [facility] [address]
--- OUTSIDE RECORDS SUMMARY | 2024-01-05 13:09 | External Medical Summary | Summary of Care ---
Author Name Unknown Organization [facility] Address [address] [place] [address] Phone [phone] Care Team Providers Care Real Estate Account Executive Name Role Phone Florencia Baez MD Primary Care Provide r Reason for Visit * Reason Comments eRx-Medication Refill Encounter Details Date Type Department Care Team (Late st Contact Info) Description 12/11/2023 Refill Family [address] [place] [address] Florencia Baez MD [address] [place], [place] [address] [id number] SOB (shortness of breath) Allergies Active Allergy Reactions Criticality Noted Date Comments No Known Drug Allergy 08/09/2004 documented as of this encounter (statuses as of 12/11/2023) Medications Medication Sig Dispensed Refills Start Date [...] Active Additional Information Patient taking differently:20 mg [id number], Reported on 10/07/2023 Tamsulosin HCl 0.4 MG [...] Use as directed at bedtime. 0 Active Amoxicillin 500 MG Oral Capsule (Amoxil) Take 1 Capsule by mouth in the morning and 1 Capsule at noon and 1 Capsule before bedtime. Do all this for 7 days. 21 Capsule 0 12/08/2023 12/15/19 24 Active Albuterol Sulfate HFA 108 (90 Base) MCG/ACT Inhalation Aerosol SolutionIndicati ons:SOB (shortness of breath) TAKE 2 PUFFS BY MOUTH EVERY 4 HOURS NEEDED FOR WHEEZE 48 g 1 12/11/2023 Active Albuterol Sulfate HFA 108 (90 Base) MCG/ACT Inhalation Aerosol SolutionIndicati ons:SOB (shortness of breath) INHALE 2 PUFFS BY MOUTH EVERY 4 HOURS NEEDED FOR WHEEZING 18 g 1 10/26/2023 12/11/19 24 Discontinued documented as of this encounter (statuses as of 12/11/2023) Active Problems Problem Noted Date Diagnosed Date Chronic kidney disease, stage 3b 11/30/2023 Overview: Per CKD protocol Urinary retention 12/19/2022 Hyperlipidemia with target LDL less than 100 Obesity, Class I, BMI 30.0-34.9 (see actual BMI) 12/05/2021 Shoulder arthritis 12/05/2021 Arthritis of right hip 03/16/2020 WERO on CPAP 03/16/2020 Vertigo 03/16/2020 Urethral stricture 08/04/2014 GENERAL OSTEOARTHROSIS 01/18/2003 Scoliosis documented as of this encounter (statuses as of 12/11/2023) Resolved Problems Problem Noted Date Diagnosed Date Resolved Date Food insecurity 05/04/2023 12/03/2023 Overview: Per [facility] Protocol Chronic kidney disease, stage 3a 06/02/2022 12/03/2023 Overview: Per CKD protocol Hip pain, right 07/06/2018 03/16/2020 OVARIAN CYST NEC-NOS 10/24/2005 017 ADJ DISORDER W/DEPRES MOOD 05/06/2005 0 09/11/2015 Headache 02/14/2004 09/11/2015 Overview: ICD-10 update of inactive term BACKACHE, T8 disc disease 01/18/2003 Lumbago 01/18/2003 07/06/2018 Excessive menstruation 01/18/200309/11 documented as of this encounter (statuses as of 12/11/2023) Immunizations Name Administration Dates Next Due PPD [...] the money to buy more. Never true Within the past 12 months, t he food you bought just didn't last and you didn't have money to get more. Patient declined 04/ 08/2023 Sex and Gender Information Value Date Recorded Sex Assigned at Female 04/13/2023 11:44 AM EDT Gender Identity Female 04/13/2023 11:44 AM EDT Sexual Orientation Straight 04/13/2023 11 :44 AM EDT Job Start Date Occupation Industry Not on file Not on file Not on file documented as of this encounter Miscellaneous Notes * Telephone Encounter - Adina Blum [facility] - 12/11/2023 12:54 PM EDTSigned Prescriptions: Disp Refills Albuterol Sulfate HFA 108 (90 Base) MCG/AC*48 g 1 Sig: TAKE 2 PUFFS BY MOUTH EVERY 4 HOURS NEEDED FOR WHEEZEAuthorizing Provider: FLORENCIA BAEZ User: ADINA BLUM documented in this encounter Plan of Treatment Upcoming Encounters Date Type Department Care Team (Late st Contact Info) Description 02/04/2024 8:00 AM EDT Office Visit Orthopaedics [facility] [address] [facility] [place] [address] Willie Roe, [address] [place] [address] 02/29/2024 9:30 AM EDT Imaging Radiology, [address] [place] [address] 03/02/2024 8:00 AM EDT Office Visit Dermatology [address] [place] [address] Sandie Burden PA-C [address] [place] [address] [place] [address] 05/18/2024 3:30 PM EDT Office Visit Urology, [facility] [place] [address] Thierry Rendon MD 27 [facility] [address] [place] [address] 06/09/2024 9:00 AM EDT Imaging Radiology [address] [place] [address] Health Maintenance Due Date Last Done Comments DXA Scan 1955 DTaP,Tdap,and Td Vaccines (1 - Tdap) 12/03/1974 Cologuard 12/03/2000 Fecal Occult Blood Test 12/03/2000 Sigmoidoscopy 12/03/2000 Zoster Vaccines (1 of 2) 12/03/2005 Pneumococcal Vaccine: 65+ Years (1 of 1 - PCV) 12/03/2020 Depression Screening 03/16/2021 03/16/2020 COVID-19 Vaccine (1 - 2022- season) 2023 Influenza Vaccine (FLU shot) (Season Ended) 2024 GFR 05/24/2024 11/23/2023, 10/23, 11/17/2023, Additional history exists Mammogram 05/28/2024 05/28/2023, 11/2021, 05/24/2021, Additional history exists Albumin/Creatinine Ratio 07/28/2024 07/28/2023, 05/24 CKD HGB USE SMARTSET 66401 11/22/202411/22, 11/17/2023, 11/05/2023, Additional history exists CKD PHOS USE SMARTSET 93107 11/22/2024 04/0 08/2023, 11/19/2023, 12/19/2022 Diabetes Screening 11/22/2026 11/23/2023, 0 11/19/2023, 11/17/2023, Additional history exists Lipid Panel 12/20/2027 12/19/2022, 1011/2021, 11/19/2021, Additional history exists Colonoscopy 10/20/2033 10/20/2023, [...] this encounter Medical Devices Implanted Type Area Fiber Artist Device Identifier Shelf Expiration Date Model / Serial / Lot Shell Acet Trident Ii 50mm - [id number] Implanted:Qty: 1 on 03/26/2020 by Willie Roe DO at OR [facility] Right: Hip KRISTIAN : ORTHOPAEDICS 07/17/2024 702-04-50D / / [id number] Trident Acetabular X3 0 36 D - [id number] Implanted:Qty: 1 on 03/26/2020 by Willie Roe DO at OR [facility] Right: Hip KRISTIAN : ORTHOPAEDICS 02/15/2024 623-00-36D / / [id number] Accolade Ii 132 Deg Sz 2 - [id number] Implanted:Qty: 1 on 03/26/2020 by Willie Roe DO at OR [facility] Right: Hip KRISTIAN : ORTHOPAEDICS 09/29/2020 [id number] / / [id number] Hip Hd Nk Alumina Mod D 36/+5 - [id number] Implanted:Qty: 1 on 03/26/2020 by Willie Roe DO at OR [facility] Right: Hip KRISTIAN : ORTHOPAEDICS 09/07/2024 6570-0-236 / / [id number] documented as of this encounter Visit Diagnoses Diagnosis SOB (shortness of breath) Shortness of breath documented in this encounter Advance Directives Latest Code Status on File Code Status Date Activated Date Inactivated Comments Full Code 08/04/2014 7:47 AM 08/04/2014 1:44 PM Thi s order reflects the patients wishes and were consensually agreed upon. Care Teams Real Estate Account Executive Relationship Specialty Start Date End Date Florencia Baez MD [address] [place] [address] [place] [address] PCP - General Family Medicine 09/11/15 documented as of this encounter
--- OUTSIDE RECORDS SUMMARY | 2024-01-05 13:09 | External Medical Summary | Summary of Care ---
Author Name Unknown Organization [facility] Address [address] [place] [address] Phone [phone] Care Team Providers Care Replenishment Merchandising Associate Name Role Phone Priscilla Baez MD Primary Care Provide r Reason for Visit * Reason Comments Acute Pt c/o pain in lower abdomen, blood in urine, saw Dr. Rendon last week and everything was okay then. Encounter Details Date Type Department Care Team (Late st Contact Info) Description 12/08/2023 11:50 AM EDT Office Visit Family Medicine [address] [place] [address] [place] [phone] Dysuria*; Acute cystitis with hematuria; Chronic kidney disease, stage 3b ([facility]) Allergies Active Allergy Reactions Criticality Noted Date Comments No Known Drug Allergy 08/09/2004 documented as of this encounter (statuses as of 12/08/2023) Medications Medication Sig Dispensed Refills Start Date [...] Active Additional Information Patient taking differently:20 mg [id number], Reported on 10/07/2023 Tamsulosin HCl 0.4 MG [...] FOR WHEEZING 18 g 1 10/26/2023 Active Amoxicillin 500 MG Oral Capsule (Amoxil) Take 1 Capsule by mouth in the morning and 1 Capsule at noon and 1 Capsule before bedtime. Do all this for 7 days. 21 Capsule 0 12/08/2023 12/15/2023 Active documented as of this encounter (statuses as of 12/08/2023) Active Problems Problem Noted Date Diagnosed Date [...] as of this encounter (statuses as of 12/08/2023) Resolved Problems Problem Noted Date Diagnosed Date [...] as of this encounter (statuses as of 12/08/2023) Immunizations Name Administration Dates Next Due PPD [...] have money to get more. Patient declined 08/2023 Sex and Gender Information Value Date Recorded Sex Assigned at Female 04/13/2023 11:44 AM EDT Gender Identity Female 04/13/2023 11:44 AM EDT Sexual Orientation Straight 04/13/2023 11 :44 AM EDT Job Start Date Occupation Industry Not on file Not on file Not on file documented as of this encounter Last Filed Vital Signs Vital Sign Reading Time Taken Comments Blood Pressure 126/58 12/08/2023 11:54 AM EDT Pulse 96 12/08/2023 11:54 AM EDT Temperature 36.9 C (98.4 F) 12/08/2023 1 1:54 AM EDT Respiratory Rate 20 12/08/2023 11:5 4 AM EDT Oxygen Saturation - - Inhaled Oxygen Concentration - - Weight 67.9 kg (149 lb 12.8 oz) 024 11:54 AM EDT Height - - Body Mass Index 29.26 11/23/2023 2:43 PM EDT documented in this encounter Progress Notes * Bhupinder Ashlyn Kraft, DO - 12/08/2023 12:02 PM EDT Subjective: Apoorva Morillo is a 68 year old female. Chief Complaint Patient presents with Acute Pt c/o pain in lower abdomen, blood in urine, saw Dr. Rendon last week and everything was okay then. HPI: Apoorva Morillo presents today for evaluation of lower abdominal pain/gross hematuria. She hada ureteral dilation by Dr. Rendon on 11/17/23 for ureteral stricture. She has pain in her lower abdomen and pain when she urinates. This morning she started peeing clots. She feels she is able to urinate. PMH: Patient Active Problem List Diagnosis Code GENERAL OSTEOARTHROSIS M15.9 Urethral stricture N35.919 Scoliosis M41.9 Arthritis of right hip M16.11 WERO on CPAP G47.33 Vertigo R42 Hyperlipidemia with target LDL less than 100 E78.5 Obesity, Class I, BMI 30.0-34.9 (see actual BMI) E66.9 Shoulder arthritis M19.019 Urinary retention R33.9 Chronic kidney disease, stage 3b (HCC) N18.32 Current Outpatient Medications Medication Sig Dispense Refill [...] indicates: Allergen Reactions No Known Drug Allergy Objective: BP 126/58 | Pulse 96 | Temp 36.9 C (98.4 F) | Resp 20 | Wt 67.9 kg (149 lb 12.8 oz) | BMI 29.26kg/m | BSA 1.7 m General: alert, healthy, no distress, well nourished, and well developed Neck: supple, no adenopathy, thyroid normal size, non-tender, without nodularity Heart: regular rate & rhythm and no murmur Lungs: chest symmetric with normal AP diameter, no chest deformities noted, normal respiratory rateand rhythm, lungs clear to auscultation Abdomen: abdomen soft and non-tender Extremities: no joint deformities, effusion, or inflammation, no edema Neuro Exam: alert & oriented x 3 with fluent speech, no focal motor/sensory deficits, gait normal Skin: skin color, texture, turgor are normal, no rashes or significant lesions ASSESSMENT/PLAN: Dysuria (Primary) - antibiotics as below. - URINALYSIS, POINT OF CARE (ENTER/EDIT) - CULTURE, URINE, QUANTITATIVE Acute cystitis with hematuria Chronic kidney disease, stage 3b (HCC) Other orders - Amoxicillin 500 MG Oral Capsule (Amoxil); Take 1 Capsule by mouth in the morning and 1 Capsule atnoon and 1 Capsule before bedtime. Do all this for 7 days. Follow up as needed. Ashlyn Roe DO documented in this encounter Plan of Treatment Upcoming Encounters Date Type Department Care Team (Late st Contact Info) Description 02/04/2024 8:00 AM EDT Office Visit Orthopaedics [facility] [address] [place] [address] Willie Roe DO [address] [place] [address] 02/29/2024 9:30 AM EDT Imaging Radiology, [address] [place] [address] 03/02/2024 8:00 AM EDT Office Visit Dermatology [address] [place] [address] Sandie Burden PA-C [address] [place] [address] [place] [address] 05/18/2024 3:30 PM EDT Office Visit Urology, [facility] [address] [facility] [place] [address] Thierry Rendon MD 27 [facility] [address] [place] [address] 06/09/2024 9:00 AM EDT Imaging Radiology [address] [place] [address] Scheduled Orders Name Type Priority Associated Diagnoses Orde r Schedule CULTURE, URINE, QUANTITATIVE Lab Routine Dysuria Ordered: 12/08/2023 Health Maintenance Due Date Last Done Comments [...] 07/28/2024 07/28/2023, 05/24 CKD HGB USE SMARTSET 98781 11/22/202411/22, 11/17/2023, 11/05/2023, Additional history exists CKD PHOS USE SMARTSET 31459 11/22/2024 0408/2023, 11/19/2023, 12/19/2022 Diabetes Screening 11/22/2026 11/23/2023, 0 [...] this encounter Medical Devices Implanted Type Area Director Of Strategy & Mobile Device Identifier Shelf Expiration Date Model / Serial / Lot Shell Acet Trident Ii 50mm - [id number] Implanted:Qty: 1 on 03/26/2020 by Willie Roe DO at OR [facility] Right: Hip KRISTIAN : ORTHOPAEDICS 07/17/2024 702-04-50D / / [id number] Trident Acetabular X3 0 36 D - [id number] Implanted:Qty: 1 on 03/26/2020 by Willie Roe DO at OR [facility] Right: Hip KRISTIAN : ORTHOPAEDICS 02/15/2024 623-00-36D / / [id number] Accolade Ii 132 Deg Sz 2 - [id number] Implanted:Qty: 1 on 03/26/2020 by Willie Roe DO at OR [facility] Right: Hip KRISTIAN : ORTHOPAEDICS 09/29/2020 6979-1369 / / [id number] Hip Hd Nk Alumina Mod D 36/+5 - [id number] Implanted:Qty: 1 on 03/26/2020 by Willie Roe DO at OR [facility] Right: Hip KRISTIAN : ORTHOPAEDICS 09/07/2024 6570-0-236 / / [id number] documented as of this encounter Procedures Procedure Name Priority Date/Time Associated Diagnosis Comments URINALYSIS, POINT OF CARE (ENTER/EDIT) Routine 12/08/2023 Dysuria documented in this encounter Results * URINALYSIS, POINT OF CARE (ENTER/EDIT) (12/08/2023) Color, Urine Yellow Yellow or Light Yellow Clarity, Urine Clear Clear Glucose, Urine Negative Negative mg/dL Bilirubin, Urine Negative Negative Ketone, Urine Negative Negative mg/dL Specific [place], Urine 1.005 1.003 - 1.030 Blood, Urine Large Negative pH, Urine 6.0 5.0 - 7.5 units Protein, Urine Negative Negative mg/dL Urobilinogen, Urine 0.2 0.2 - 1.0 mg/dL Nitrite, Urine Negative Negative Esterase, Urine Large Negative Urine 12/08/2023 Ashlyn Kraft Roe DO LAB POINT OF CARE TE ST ENTER/EDIT ORDERABLES documented in this encounter Visit Diagnoses Diagnosis Dysuria- Primary Acute cystitis with hematuria Acute cystitis Chronic kidney disease, stage 3b (HCC) documented in this encounter Advance Directives Latest Code Status on File Code Status Date Activated Date Inactivated Comments Full Code 08/04/2014 7:47 AM 08/04/2014 1:44 PM Thi s order reflects the patients wishes and were consensually agreed upon. Care Teams Replenishment Merchandising Associate Relationship Specialty Start Date End Date Priscilla Baez MD [address] [place] [address] [place] [phone] PCP - General Family Medicine 09/11/15 documented as of this encounter"
--- OUTSIDE RECORDS SUMMARY | 2024-01-05 13:09 | External Medical Summary | Summary of Care ---
Author Name Unknown Organization [facility] Address [address] [place] [address] Phone [phone] Care Team Providers Care Organizational Consultant Name Role Phone Priscilla Baez MD Primary Care Provide r Reason for Referral * Evaluate & Treat - Unlimited Visits (Within 10 days (routine)) - Pending Review Specialty Diagnoses / Procedures Referred By Dalton saavedra Referred To Contact Dermatology Diagnoses Dermatitis Priscilla Baez MD [address] [place] [address] [place] [address] Referral ID Status Reason Start Date Expiration Date Visits Requested Visits Authorized [id number] Pending Review Specialty Services Required 09/04/[phone] Question Answer Referral Priority Within 10 days (routine) Where should this appointment be scheduled? [facility] Are you referring the patient for Mohs Surgery and have a current positive skin cancer biopsy result? No What is the reason for the patient referral? Rash/Skin Check/Eval of Lesion or Mole Comments Dermatitis temporarily relieved with prednisone Reason for Visit * Reason Onset Date Comments Advice 09/04/2023 Encounter Details Date Type Department Care Team (Late st Contact Info) Description 09/04/2023 Telephone Family Medicine [facility] [place] [phone] Priscilla Baez MD [address] [place] [address] [place] [address] Advice Allergies Active Allergy Reactions Criticality Noted Date Comments No Known Drug Allergy 08/09/2004 documented as of this encounter (statuses as of 2023) Medications Medication Sig Dispensed Refills Start Date [...] Active Additional Information Patient taking differently:20 mg [id number], Reported on 10/07/2023 Tamsulosin HCl 0.4 MG [...] BEDTIME) NEEDED FOR DIZZINESS 30 Tablet 5 10/13/2022 09/25/19 24 Discontinued Albuterol Sulfate HFA 108 (90 Base) MCG/ACT Inhalation Aerosol SolutionIndicati ons:SOB (shortness of breath) TAKE 2 PUFFS BY MOUTH EVERY 4 HOURS NEEDED FOR WHEEZE 18 g 1 07/24/2023 09/10/19 24 Discontinued predniSONE 20 MG Oral Tablet (Deltasone)Indic ations:Allergic contact dermatitis due to cosmetics,Acute cough 1 tab 3 times a day for 3 days, then 1 tab 2 times a day for 3 days, then 1 tab daily for 3 days 18 Tablet 0 08/25/2023 10/07/19 24 Discontinued documented as of this encounter (statuses as of 2023) Active Problems Problem Noted Date Diagnosed Date [...] as of this encounter (statuses as of 2023) Resolved Problems Problem Noted Date Diagnosed Date [...] as of this encounter (statuses as of 2023) Immunizations Name Administration Dates Next Due PPD [...] encounter Miscellaneous Notes * Telephone Encounter - Juana Marx LPN - 09/04/2023 1:22 PM EST message left for patient to return my phone call Transfer to nurse triage line [phone] * Telephone Encounter - Priscilla Baez MD - 09/04/2023 10:03 AM EST Sent a stronger steroid cream and placed referral to dermatology * Telephone Encounter - Marilee Kaminski LPN - 09/04/2023 9:17 AM EST Patient states that she finished prednisone on Thursday, her rash had resolved after taking prednisone for about 4 days, but then the rash came back last night The rash looks the same It is very itchy It is in all the same places She is now using Dove soap She is not taking any OTC meds Patient states that it is very itchy and she does not know what to do for it She wants to know what PCP recommends Pharm selected. Please advise. * Telephone Encounter - Yolanda Estrada OSA - 09/04/2023 9:13 AM EST Spoke to pt voiced that she would like to speak to a nurse, did not say why call was transferred, thanks documented in this encounter Plan of Treatment Upcoming Encounters Date Type Department Care Team (Late st Contact Info) Description 02/04/2024 8:00 AM EDT Office Visit Orthopaedics [facility] [address] [place] [phone] Willie Roe DO [address] [place] [address] 02/29/2024 9:30 AM EDT Imaging Radiology, [address] [place] [address] 03/02/2024 8:00 AM EDT Office Visit Dermatology [address] [place] [address] Sandie Burden PA-C [address] [place] [address] [place] [address] 05/18/2024 3:30 PM EDT Office Visit Urology, [facility] [address] [place] [address] Thierry Rendon MD 27 [facility] [address] [place] [address] 06/09/2024 9:00 AM EDT Imaging Radiology [address] [place] [address] Scheduled Referrals Name Type Priority Associated Diagnoses Orde r Schedule DERMATOLOGY REFERRAL OP Referral Within 10 days (routine) Dermatitis Ordered: 09/04/2023 Health Maintenance Due Date Last Done Comments [...] 07/28/2024 07/28/2023, 05/24 CKD HGB USE SMARTSET 12230 11/22/202411/22, 11/17/2023, 11/05/2023, Additional history exists CKD PHOS USE SMARTSET 87814 11/22/2024 040 08/2023, 11/19/2023, 12/19/2022 Diabetes Screening 11/22/2026 11/23/2023, [...] this encounter Medical Devices Implanted Type Area Loader Technician Device Identifier Shelf Expiration Date Model / Serial / Lot Shell Acet Trident Ii 50mm - [id number] Implanted:Qty: 1 on 03/26/2020 by Willie Roe DO at OR [facility] Right: Hip KRISTIAN : ORTHOPAEDICS 07/17/2024 702-04-50D / / [id number] Trident Acetabular X3 0 36 D - [id number] Implanted:Qty: 1 on 03/26/2020 by Willie Roe DO at OR [facility] Right: Hip KRISTIAN : ORTHOPAEDICS 02/15/2024 623-00-36D / / [id number] Accolade Ii 132 Deg Sz 2 - [id number] Implanted:Qty: 1 on 03/26/2020 by Willie Roe DO at OR [facility] Right: Hip KRISTIAN : ORTHOPAEDICS 09/29/2020 5809-2505 / / [id number] Hip Hd Nk Alumina Mod D 36/+5 - [id number] Implanted:Qty: 1 on 03/26/2020 by Willie Roe DO at OR [facility] Right: Hip KRISTIAN : ORTHOPAEDICS 09/07/2024 6570-0-236 / / [id number] documented as of this encounter Visit Diagnoses Diagnosis Dermatitis- Primary Contact dermatitis and other eczema, due to unspecified cause documented in this encounter Advance Directives Latest Code Status on File Code Status Date Activated Date Inactivated Comments Full Code 08/04/2014 7:47 AM 08/04/2014 1:44 PM Thi s order reflects the patients wishes and were consensually agreed upon. Care Teams Organizational Consultant Relationship Specialty Start Date End Date Priscilla Baez MD [address] [place] [address] [place] [phone] PCP - General Family Medicine 09/11/15 documented as of this encounter
--- OUTSIDE RECORDS SUMMARY | 2024-01-05 13:09 | External Medical Summary | Summary of Care ---
Author Name Unknown Organization [facility] Address [address] [facility] [place] [address] Phone [phone] Care Team Providers Care Legal Summer Intern Name Role Phone Priscilla Baez MD Primary Care Provide r Reason for Visit * Reason Onset Date Comments Health Maintenance 12/30/2023 Encounter Details Date Type Department Care Team (Late st Contact Info) Description 12/30/2023 Telephone Family Medicine [address] [place] [address] Priscilla Baez MD [address] [place] [address] [place] [address] Health Maintenance Allergies Active Allergy Reactions Criticality Noted Date Comments No Known Drug Allergy 08/09/2004 documented as of this encounter (statuses as of 12/30/2023) Medications Medication Sig Dispensed Refills Start Date [...] Active Additional Information Patient taking differently:20 mg [id number], Reported on 10/07/2023 Tamsulosin HCl 0.4 MG Oral Capsule (Flomax) Take 2 Capsules by mouth in the morning. 180 Capsule 3 06/16/2023 Active Ferrous Sulfate 325 (65 Fe) MG Oral Tablet (Feosol)Indication s:Iron deficiency anemia, unspecified iron deficiency anemia type Take 1 Tablet by mouth in the morning and 1 Tablet before bedtime. 180 Tablet 3 07/03/2023 Active Meclizine HCl 25 MG Oral Tablet (Antivert)Indicati ons:BPPV (benign paroxysmal positional vertigo), bilateral TAKE 1 TABLET BY MOUTH 3 TIMES A DAY (MORNING, NOON & BEDTIME) NEEDED FOR DIZZINESS 30 Tablet 5 09/25/2023 Active CPAP Use as directed at bedtime. 0 Active Albuterol Sulfate HFA 108 (90 Base) MCG/ACT Inhalation Aerosol SolutionIndication s:SOB (shortness of breath) TAKE 2 PUFFS BY MOUTH EVERY 4 HOURS NEEDED FOR WHEEZE 48 g 1 12/11/2023 Active Triamcinolone Acetonide 0.1 % External Cream (Aristocort)Indica tions:Dry skin APPLY TOPICALLY TO AFFECTED AREA 2 TIMES A DAY. TO AFFECTED AREA. FOR UP TO 2 WEEKS. 15 g 1 12/23/2023 Active Clobetasol Propionate 0.05 % External Cream (Temovate) APPLY TOPICALLY TO AFFECTED AREA 2 TIMES A DAY. TO AFFECTED AREA FOR UP TO TWO WEEKS. 30 g 1 12/23/2023 Active documented as of this encounter (statuses as of 12/30/2023) Active Problems Problem Noted Date Diagnosed Date [...] as of this encounter (statuses as of 12/30/2023) Resolved Problems Problem Noted Date Diagnosed Date [...] as of this encounter (statuses as of 12/30/2023) Immunizations Name Administration Dates Next Due PPD [...] encounter Miscellaneous Notes * Telephone Encounter - Kurt SonyaLUZ jordan - 12/30/2023 9:10 AM EDT Care Gaps Comprehensive Care Outreach Last Office/Telemedicine Visit: 12/08/2023 (in office), Visit date not found (telemedicine) Next Office Visit: Visit date not found Hemoglobin AIC Results: Lab Results Component Value Date/Time HEMOGLOBIN A1C - ROSINAER 5.5 03/16/2020 09:29 AM BP Readings from Last 1 Encounters: 12/08/23 126/58 Reviewed Health Maintenance below: Health Maintenance Topic Date Due DXA Scan Never done DTaP,Tdap,and Td Vaccines (1 - Tdap) Never done Zoster Vaccines (1 of 2) Never done Pneumococcal Vaccine: 65+ Years (1 of 1 - PCV) Never done Depression Screening 03/16/2021 COVID-19 Vaccine (1 - season) Never done Influenza Vaccine (FLU shot) (Season Ended) 2024 GFR 05/24/2024 Mammogram 05/28/2024 Albumin/Creatinine Ratio 07/28/2024 Ov Dexa already scheduled Labs Mamm oct already scheduled order placed Care Gap Outreach Action Taken: Unable to reach won't ring through documented in this encounter Plan of Treatment Upcoming Encounters Date Type Department Care Team (Late st Contact Info) Description 02/04/2024 8:00 AM EDT Office Visit Orthopaedics [facility] [address] [place] [address] Willie Roe DO [address] [place] [address] 02/29/2024 9:30 AM EDT Imaging [place]iology, [address] [place] [address] 03/02/2024 8:00 AM EDT Office Visit Dermatology [address] [place] [address] Sandie Burden PA-C [address] [place] [address] [place] [address] 05/18/2024 3:30 PM EDT Office Visit Urology, [facility] [address] [place] [address] Thierry Rendon MD 27 [facility] [address] [place] [id number] 06/09/2024 9:00 AM EDT Imaging Radiology [address] [place] [address] Scheduled Orders Name Type Priority Associated Diagnoses Orde r Schedule MAMMOGRAM SCREENING AL BILATERAL Medical Imaging Routine Encounter for screening mammogram for malignant neoplasm of breast Expected: 12/30/2023, Expires: 01/29/2025 Health Maintenance Due Date Last Done Comments [...] 07/28/2024 07/28/2023, 05/24 CKD HGB USE SMARTSET 93575 11/22/202411/22, 11/17/2023, 11/05/2023, Additional history exists CKD PHOS USE SMARTSET 11284 11/22/2024 0408/2023, 11/19/2023, 12/19/2022 Diabetes Screening 11/22/2026 [...] this encounter Medical Devices Implanted Type Area Heavy Duty Press Operator Device Identifier Shelf Expiration Date Model / Serial / Lot Shell Acet Trident Ii 50mm - [id number] Implanted:Qty: 1 on 03/26/2020 by Willie Roe DO at OR [facility] Right: Hip KRISTIAN : ORTHOPAEDICS 07/17/2024 702-04-50D / / [id number] Trident Acetabular X3 0 36 D - [id number] Implanted:Qty: 1 on 03/26/2020 by Willie Roe DO at OR [facility] Right: Hip KRISTIAN : ORTHOPAEDICS 02/15/2024 623-00-36D / / [id number] Accolade Ii 132 Deg Sz 2 - [id number] Implanted:Qty: 1 on 03/26/2020 by Willie Roe DO at OR [facility] Right: Hip KRISTIAN : ORTHOPAEDICS 09/29/2020 [id number] / / [id number] Hip Hd Nk Alumina Mod D 36/+5 - [id number] Implanted:Qty: 1 on 03/26/2020 by Willie Roe DO at OR [facility] Right: Hip KRISTIAN : ORTHOPAEDICS 09/07/2024 6570-0-236 / / [id number] documented as of this encounter Visit Diagnoses Diagnosis Encounter for screening mammogram for malignant neoplasm of breast- Primary Other screening mammogram documented in this encounter Advance Directives Latest Code Status on File Code Status Date Activated Date Inactivated Comments Full Code 08/04/2014 7:47 AM 08/04/2014 1:44 PM Thi s order reflects the patients wishes and were consensually agreed upon. Care Teams Legal Summer Intern Relationship Specialty Start Date End Date Priscilla Baez MD [address] [place] [address] [place] [phone] PCP - General Family Medicine 09/11/15 documented as of this encounter
--- OUTSIDE RECORDS SUMMARY | 2024-01-05 13:09 | External Medical Summary | Summary of Care ---
Author Name Unknown Organization [facility] Address [address] [place] [address] Phone [phone] Care Team Providers Care Neon Sign Maker Name Role Phone Priscilla Baez MD Primary Care Provide r Reason for Visit * Reason Comments eRx-Medication Refill Encounter Details Date Type Department Care Team (Late st Contact Info) Description 12/23/2023 Refill Family [address] [place] [id number] Priscilla Baez MD [address] [place] [address] [place] [address] Dry skin Allergies Active Allergy Reactions Criticality Noted Date Comments No Known Drug Allergy 08/09/2004 documented as of this encounter (statuses as of 12/23/2023) Medications Medication Sig Dispensed Refills Start Date [...] Active Additional Information Patient taking differently:20 mg [id number], Reported on 10/07/2023 Tamsulosin HCl 0.4 MG [...] TWO WEEKS. 30 g 1 12/23/2023 Active Triamcinolone Acetonide 0.1 % External Cream (Aristocort)Cindy cations:Dry skin APPLY TOPICALLY TO AFFECTED AREA 2 TIMES A DAY. TO AFFECTED AREA. FOR UP TO 2 WEEKS. 15 g 1 07/27/2023 12/23/19 24 Discontinued Clobetasol Propionate 0.05 % External Cream (Temovate) Apply topically to affected area 2 times a day. To affected area for up to two weeks. 30 g 1 09/04/2023 12/23/19 24 Discontinued documented as of this encounter (statuses as of 12/23/2023) Active Problems Problem Noted Date Diagnosed Date [...] as of this encounter (statuses as of 12/23/2023) Resolved Problems Problem Noted Date Diagnosed Date [...] as of this encounter (statuses as of 12/23/2023) Immunizations Name Administration Dates Next Due PPD [...] encounter Miscellaneous Notes * Telephone Encounter - Priscilla Baez MD - 12/23/2023 2:14 PM EDT Signed Prescriptions: Disp Refills Triamcinolone Acetonide 0.1 % External Cre*15 g 1 Sig: APPLY TOPICALLY TO AFFECTED AREA 2 TIMES A DAY. TO AFFECTED AREA. FOR UP TO 2 WEEKS. Authorizing Provider: PRISCILLA BAEZ Clobetasol Propionate 0.05 % External Crea*30 g 1 Sig: APPLY TOPICALLY TO AFFECTED AREA 2 TIMES A DAY. TO AFFECTED AREA FOR UP TO TWO WEEKS. Authorizing Provider: PRISCILLA BAEZ * Telephone Encounter - Jessica Riley LPN - 12/23/2023 2:13 PM EDTPending Prescriptions: Disp Refills Triamcinolone Acetonide 0.1 % External Cre*15 g 1 Sig: APPLY TOPICALLY TO AFFECTED AREA 2 TIMES A DAY. TO AFFECTED AREA. FOR UP TO 2 WEEKS. Clobetasol Propionate 0.05 % External Crea*30 g 1 Sig: Apply topically to affected area 2 times a day. To affected area for up to two weeks. * Telephone Encounter - Jessica Riley LPN - 12/23/2023 2:13 PM EDT Last refill 09/04/23 Last appt: 12/08/2023 (in office), Visit date not found (telemedicine) * Telephone Encounter - Luis Winter - 12/23/2023 1:47 PM EDTPending Prescriptions: Disp Refills Triamcinolone Acetonide 0.1 % External Cre*15 g 1 Sig: APPLY TOPICALLY TO AFFECTED AREA 2 TIMES A DAY. TO AFFECTED AREA. FOR UP TO 2 WEEKS. Clobetasol Propionate 0.05 % External Crea*30 g 1 Sig: Apply topically to affected area 2 times a day. To affected area forup to two weeks. documented in this encounter Plan of Treatment Upcoming Encounters Date Type Department Care Team (Late st Contact Info) Description 02/04/2024 8:00 AM EDT Office Visit Orthopaedics [facility] [address] [place] [address] Willie Roe DO 132 [place] [address] 02/29/2024 9:30 AM EDT [place] [address] [place] [address] 03/02/2024 8:00 AM EDT Office Visit Dermatology [address] [place] [address] Sandei Burden PA-C [address] [place] [address] [place] [address] 05/18/2024 3:30 PM EDT Office Visit Urology, [facility] [address] [place] [address] Thierry Rendon MD 27 [facility] [place] [address] [place] [address] 06/09/2024 9:00 AM EDT Imaging Radiology [address] [place] [address] Health Maintenance Due Date Last Done Comments DXA Scan 1955 DTaP,Tdap,and Td Vaccines (1 - Tdap) 12/03/1974 Cologuard 12/03/2000 Fecal Occult Blood Test 12/03/2000 Sigmoidoscopy 12/03/2000 Zoster Vaccines (1 of 2) 12/03/2005 Pneumococcal Vaccine: 65+ Years (1 of 1 - PCV) 12/03/2020 Depression Screening 03/16/2021 03/16/2020 COVID-19 Vaccine (1 - season) 2023 Influenza Vaccine (FLU shot) (Season Ended) 2024 GFR 05/24/2024 11/23/2023, 10/23, 11/17/2023, Additional history exists Mammogram 05/28/2024 05/28/2023, 11/2021, 05/24/2021, Additional history exists Albumin/Creatinine Ratio 07/28/2024 07/28/2023, 05/24 CKD HGB USE SMARTSET 36160 11/22/202411/22, 11/17/2023, 11/05/2023, Additional history exists CKD PHOS USE SMARTSET 92472 11/22/2024 04/08/2023, 11/19/2023, 12/19/2022 Diabetes Screening 11/22/2026 11/23/2023, 0 [...] this encounter Medical Devices Implanted Type Area Ssis Architect Device Identifier Shelf Expiration Date Model / Serial / Lot Shell Acet Trident Ii 50mm - [id number] Implanted:Qty: 1 on 03/26/2020 by Willie Roe DO at OR [facility] Right: Hip KRISTIAN : ORTHOPAEDICS 07/17/2024 702-04-50D / / [id number] Trident Acetabular X3 0 36 D - [id number] Implanted:Qty: 1 on 03/26/2020 by Willie Roe DO at OR [facility] Right: Hip KRISTIAN : ORTHOPAEDICS 02/15/2024 623-00-36D / / [id number] Accolade Ii 132 Deg Sz 2 - [id number] Implanted:Qty: 1 on 03/26/2020 by Willie Roe DO at OR [facility] Right: Hip KRISTIAN : ORTHOPAEDICS 09/29/2020 1394-0889 / / [id number] Hip Hd Nk Alumina Mod D 36/+5 - [id number] Implanted:Qty: 1 on 03/26/2020 by Willie Roe DO at OR [facility] Right: Hip KRISTIAN : ORTHOPAEDICS 09/07/2024 6570-0-236 / / [id number] documented as of this encounter Visit Diagnoses Diagnosis Dry skin Other specified disease of sebaceous glands documented in this encounter Advance Directives Latest Code Status on File Code Status Date Activated Date Inactivated Comments Full Code 08/04/2014 7:47 AM 08/04/2014 1:44 PM Thi s order reflects the patients wishes and were consensually agreed upon. Care Teams Neon Sign Maker Relationship Specialty Start Date End Date Priscilla Baez MD [address] [place] [address] [place] [address] PCP - General Family Medicine 09/11/15 documented as of this encounter
--- OUTSIDE RECORDS SUMMARY | 2024-01-05 13:10 | External Medical Summary | Summary of Care ---
Author Name Unknown Organization [facility] Address [address] [place] [address] Phone [phone] Care Team Providers Care Machine Buffer Name Role Phone Priscilla Baez MD Primary Care Provide r Encounter Details Date Type Department Care Team (Late st Contact Info) Description 11/17/2023 Orders Only Family Medicine [address] [place] [address] Priscilla Baez MD [address] [place] [address] [place] [address] Allergies Active Allergy Reactions Criticality Noted Date Comments No Known Drug Allergy 08/09/2004 documented as of this encounter (statuses as of 12/01/2023) Medications Medication Sig Dispensed Refills Start Date [...] Active Additional Information Patient taking differently:20 mg [id number], Reported on 10/07/2023 Tamsulosin HCl 0.4 MG [...] as of this encounter (statuses as of 12/01/2023) Active Problems Problem Noted Date Diagnosed Date Food insecurity 05/04/2023 Overview: Per [facility] Protocol Urinary retention 12/19/2022 Chronic kidney disease, stage 3a 06/02/2022 Overview: Per CKD protocol Hyperlipidemia with target LDL less than 100 Obesity, Class I, BMI 30.0-34.9 (see actual BMI) 12/05/2021 Shoulder arthritis 12/05/2021 Arthritis of right hip 03/16/2020 WERO on CPAP 03/16/2020 Vertigo 03/16/2020 Urethral stricture 08/04/2014 GENERAL OSTEOARTHROSIS 01/18/2003 Scoliosis documented as of this encounter (statuses as of 12/01/2023) Resolved Problems Problem Noted Date Diagnosed Date Resolved Date Hip pain, right 07/06/2018 03/16/2020 OVARIAN CYST NEC-NOS 10/24/2005 017 ADJ DISORDER W/DEPRES MOOD 05/06/2005 0 09/11/2015 Headache 02/14/2004 09/11/2015 Overview: ICD-10 update of inactive term BACKACHE, T8 disc disease 01/18/2003 Lumbago 01/18/2003 07/06/2018 Excessive menstruation 01/18/200309/11 documented as of this encounter (statuses as of 12/01/2023) Immunizations Name Administration Dates Next Due PPD [...] Care Team (Late st Contact Info) Description 12/02/2023 11:15 AM EDT Office Visit Urology, [facility] [address] [facility] [place] [address] Thierry Rendon MD 27 [facility] [place] [address] [place] [address] 02/04/2024 8:00 AM EDT Office [facility] [place] [address] Willie Roe, [address] [place] [address] 02/29/2024 9:30 AM EDT [place]iology, [address] [place] [address] 03/02/2024 8:00 AM EDT Office Visit Dermatology [address] [place] [address] Sandie Burden PA-C [address] [place] [address] [place] [address] 05/18/2024 3:30 PM EDT Office Visit Urology, [facility] [address] [place] [address] Thierry Rendon MD 27 [facility] [address] [place] [address] 06/09/2024 9:00 AM EDT Imaging Radiology [address] [place] [address] Health Maintenance Due Date Last Done Comments [...] 07/28/2024 07/28/2023, 05/24 CKD HGB USE SMARTSET 66969 11/22/202411/22, 11/17/2023, 11/05/2023, Additional history exists CKD PHOS USE SMARTSET 07100 11/22/2024 040 08/2023, 11/19/2023, 12/19/2022 Diabetes Screening [...] this encounter Medical Devices Implanted Type Area Wellness Program Manager Device Identifier Shelf Expiration Date Model / Serial / Lot Shell Acet Trident Ii 50mm - [id number] Implanted:Qty: 1 on 03/26/2020 by Willie Roe DO at OR [facility] Right: Hip KRISTIAN : ORTHOPAEDICS 07/17/2024 702-04-50D / / [id number] Trident Acetabular X3 0 36 D - [id number] Implanted:Qty: 1 on 03/26/2020 by Willie Roe DO at OR [facility] Right: Hip KRISTIAN : ORTHOPAEDICS 02/15/2024 623-00-36D / / [id number] Accolade Ii 132 Deg Sz 2 - [id number] Implanted:Qty: 1 on 03/26/2020 by Willie Roe, DO at OR [facility] Right: Hip KRISTIAN : ORTHOPAEDICS 09/29/2020 1456-2255 / / [id number] Hip Hd Nk Alumina Mod D 36/+5 - [id number] Implanted:Qty: 1 on 03/26/2020 by Willie Roe, DO at OR [facility] Right: Hip KRISTIAN : ORTHOPAEDICS 09/07/2024 6570-0-236 / / [id number] documented as of this encounter Procedures Procedure Name Priority Date/Time Associated Diagnosis Comments RADIOLOGY EXAM - CT (IMAGES ONLY, NO REPORT) Routine 11/17/2023 10:35 PM EDT documented in this encounter Results * RADIOLOGY EXAM - CT (IMAGES ONLY, NO REPORT) (11/17/2023 10:35 PM EDT) 11/17/2023 10:3 5 PM EDT Narrative Scheduling, Silent - 12/01/2023 9:46 AM EDT This is an imaging study not interpreted or resulted by a [employer] or [employer] contracted radiologist. Priscilla Baez MD RAD CT documented in this encounter Advance Directives Latest Code Status on File Code Status Date Activated Date Inactivated Comments Full Code 08/04/2014 7:47 AM 08/04/2014 1:44 PM Thi s order reflects the patients wishes and were consensually agreed upon. Care Teams Machine Buffer Relationship Specialty Start Date End Date Priscilla Baez MD [address] [place] [address] [place] [address] PCP - General Family Medicine 09/11/15 documented as of this encounter
--- OUTSIDE RECORDS SUMMARY | 2024-01-05 13:10 | External Medical Summary | Summary of Care ---
Author Name Unknown Organization [facility] Address [address] [place] [address] Phone [phone] Care Team Providers Care Tile Roofer Name Role Phone Priscilla Baez MD Primary Care Provide r Encounter Details Date Type Department Care Team (Latest Contact Info) Description 11/17/2023 12:45 PM EDT - 11/17/2023 10:34 PM EDT Hospital Encounter Radiology Film File [address] [place] [address] Discharge Disposition: Home - Self Care Allergies Active Allergy Reactions Criticality Noted Date Comments No Known Drug Allergy 08/09/2004 documented as of this encounter (statuses as of 12/02/2023) Medications Medication Sig Dispensed Refills Start Date [...] Active Additional Information Patient taking differently:20 mg [id number], Reported on 10/07/2023 Tamsulosin HCl 0.4 MG [...] as of this encounter (statuses as of 12/02/2023) Active Problems Problem Noted Date Diagnosed Date [...] as of this encounter (statuses as of 12/02/2023) Resolved Problems Problem Noted Date Diagnosed Date Resolved Date Hip pain, right 07/06/2018 03/16/2020 OVARIAN CYST NEC-NOS 10/24/2005 017 ADJ DISORDER W/DEPRES MOOD 05/06/2005 0 09/11/2015 Headache 02/14/2004 09/11/2015 Overview: ICD-10 update of inactive term BACKACHE, T8 disc disease 01/18/2003 Lumbago 01/18/2003 07/06/2018 Excessive menstruation 01/18/200309/11 documented as of this encounter (statuses as of 12/02/2023) Immunizations Name Administration Dates Next Due PPD [...] 02/04/2024 8:00 AM EDT Office Visit Orthopaedics [facility] [address] [place] [address] Willie Roe, [address] [place] [address] 02/29/2024 9:30 AM EDT Imaging Radiology, [place] [address] [place] [address] 03/02/2024 8:00 AM EDT Office Visit Dermatology [address] [place] [address] Sandie Burden PA-C [address] [place] [address] [place] [address] 05/18/2024 3:30 PM EDT Office Visit Urology, [facility] [address] [facility] [place] [address] Thierry Rendon MD [address] [place] [address] [place] [address] 06/09/2024 9:00 AM EDT Imaging Radiology [address] [place] [address] Health Maintenance Due Date Last Done Comments [...] 07/28/2024 07/28/2023, 05/24 CKD HGB USE SMARTSET 52373 11/22/202411/22, 11/17/2023, 11/05/2023, Additional history exists CKD PHOS USE SMARTSET 64646 11/22/20242024, 11/19/2023, 12/19/2022 Diabetes Screening 11/22/2026 11/23/2023, 0 [...] this encounter Medical Devices Implanted Type Area Photonics Technician Device Identifier Shelf Expiration Date Model / Serial / Lot Shell Acet Trident Ii 50mm - [id number] Implanted:Qty: 1 on 03/26/2020 by Willie Roe DO at OR [facility] Right: Hip KRISTIAN : ORTHOPAEDICS 07/17/2024 702-04-50D / / [id number] Trident Acetabular X3 0 36 D - [id number] Implanted:Qty: 1 on 03/26/2020 by Willie Roe DO at OR [facility] Right: Hip KRISTIAN : ORTHOPAEDICS 02/15/2024 623-00-36D / / [id number] Accolade Ii 132 Deg Sz 2 - [id number] Implanted:Qty: 1 on 03/26/2020 by Willie Roe DO at OR [facility] Right: Hip KRISTIAN : ORTHOPAEDICS 09/29/2020 6651-7440 / / [id number] Hip Hd Nk Alumina Mod D 36/+5 - [id number] Implanted:Qty: 1 on 03/26/2020 by Willie Roe DO at OR [facility] Right: Hip KRISTIAN : ORTHOPAEDICS 09/07/2024 6570-0-236 / / [id number] documented as of this encounter Procedures Procedure Name Priority Date/Time Associated Diagnosis Comments RADIOLOGY EXAM - US (IMAGES ONLY, NO REPORT) Routine 11/17/2023 12:45 PM EDT documented in this encounter Results * RADIOLOGY EXAM - US (IMAGES ONLY, NO REPORT) (11/17/2023 12:45 PM EDT) 11/17/2023 12:4 4 PM EDT Narrative Scheduling, Silent - 12/01/2023 9:49 AM EDT This is an imaging study not interpreted or resulted by a [facility] or [employer] contracted radiologist. Priscilla Sears documented in this encounter Advance Directives Latest Code Status on File Code Status Date Activated Date Inactivated Comments Full Code 08/04/2014 7:47 AM 08/04/2014 1:44 PM Thi s order reflects the patients wishes and were consensually agreed upon. Care Teams Tile Roofer Relationship Specialty Start Date End Date Priscilla Baez MD [address] [place] [address] [place] [address] PCP - General Family Medicine 09/11/15 documented as of this encounter
--- OUTSIDE RECORDS SUMMARY | 2024-01-05 13:10 | External Medical Summary | Summary of Care ---
Author Name Unknown Organization [facility] Address [address] [place] [address] Phone [phone] Care Team Providers Care Street Car Inspector Name Role Phone Priscilla Baez MD Primary Care Provide r Encounter Details Date Type Department Care Team (Late st Contact Info) Description 11/17/2023 Orders Only Family Medicine [address] [place] [address] Priscilla Baez MD [address] [place] [address] [place] [address] Allergies Active Allergy Reactions [...] Active Additional Information Patient taking differently:20 mg [id number], Reported on 10/07/2023 Tamsulosin HCl 0.4 MG [...] Diagnosed Date Food insecurity 05/04/2023 Overview: Per [facility] Protocol Urinary retention 12/19/2022 Chronic [...] 12/02/2023 11:15 AM EDT Office Visit Urology, [facility] 132 [facility] [place] [address] Thierry Rendon MD 27 [facility] [address] [place] [address] 02/04/2024 8:00 AM EDT Office Visit Orthopaedics [facility] [place] [address] Willie Roe, 132 [place] [address] 02/29/2024 9:30 AM EDT Imaging [place]iology, [address] [place] [address] 03/02/2024 8:00 AM EDT Office Visit Dermatology [address] [place] [address] Sandie Burden PA-C [address] [place] [address] [place] [address] 05/18/2024 3:30 PM EDT Office Visit Urology, [facility] 132 [place] [address] Thierry Rendon MD 27 [facility] [address] [place] [address] 06/09/2024 9:00 AM EDT Imaging Radiology [address] [place] [address] Health Maintenance Due Date Last Done Comments [...] 07/28/2024 07/28/2023, 05/24 CKD HGB USE SMARTSET 30023 11/22/202411/22, 11/17/2023, 11/05/2023, Additional history exists CKD PHOS USE SMARTSET 60142 11/22/2024 040 08/2023, 11/19/2023, 12/19/2022 Diabetes Screening [...] this encounter Medical Devices Implanted Type Area Modeling Teacher Device Identifier Shelf Expiration Date Model / Serial / Lot Shell Acet Trident Ii 50mm - [id number] Implanted:Qty: 1 on 03/26/2020 by Willie Roe DO at OR [facility] Right: Hip KRISTIAN : ORTHOPAEDICS 07/17/2024 702-04-50D / / [id number] Trident Acetabular X3 0 36 D - [id number] Implanted:Qty: 1 on 03/26/2020 by Willie Roe DO at OR [facility] Right: Hip KRISTIAN : ORTHOPAEDICS 02/15/2024 623-00-36D / / [id number] Accolade Ii 132 Deg Sz 2 - [id number] Implanted:Qty: 1 on 03/26/2020 by Willie Roe, DO at OR [facility] Right: Hip KRISTIAN : ORTHOPAEDICS 09/29/2020 1296-3411 / / [id number] Hip Hd Nk Alumina Mod D 36/+5 - [id number] Implanted:Qty: 1 on 03/26/2020 by Willie Roe, DO at OR [facility] Right: Hip KRISTIAN : ORTHOPAEDICS 09/07/2024 6570-0-236 / / [id number] documented as of this encounter Procedures Procedure [...] study not interpreted or resulted by a [employer] or [employer] contracted radiologist. Priscilla Sears documented in this encounter Advance Directives Latest Code Status on File Code Status Date Activated Date Inactivated Comments Full Code 08/04/2014 7:47 AM 08/04/2014 1:44 PM Thi s order reflects the patients wishes and were consensually agreed upon. Care Teams Street Car Inspector Relationship Specialty Start Date End Date Priscilla Baez MD [address] [place] [address] [place] [address] PCP - General Family Medicine 09/11/15 documented as of this encounter
--- OUTSIDE RECORDS SUMMARY | 2024-01-05 13:10 | External Medical Summary | Summary of Care ---
Author Name Unknown Organization [facility] Address [address] [place] [address] Phone [phone] Care Team Providers Care Sales Vendor Name Role Phone Florencia Baez MD Primary Care Provide r Reason for Visit * Reason Comments Follow Up Hospital discharge, reports scanned, images requested 11/24 (renal US). Encounter Details Date Type Department Care Team (Late st Contact Info) Description 12/02/2023 11:15 AM EDT Office Visit Urology, [facility] 132 [facility] [place] [address] Thierry Rendon MD 27 [facility] 270 [place] [address] Acute cystitis without hematuria*; Bladder outlet obstruction; Retention of urine Allergies Active Allergy Reactions [...] Active Additional Information Patient taking differently:20 mg [id number], Reported on 10/07/2023 Tamsulosin HCl 0.4 MG [...] Diagnosed Date Food insecurity 05/04/2023 Overview: Per [facility] Protocol Urinary retention 12/19/2022 Chronic [...] Pressure - - Pulse - - Temperature 37 C (98.6 F) 12/02/2023 10:40 AM EDT Respiratory Rate - - Oxygen Saturation - - Inhaled Oxygen Concentration - - Weight 65.8 kg (145 lb 1.6 oz) 12/02/2023 10:40 AM EDT Height - - Body Mass Index 28.34 11/23/2023 2:43 PM EDT documented in this encounter Progress Notes * Thierry Rendon MD - 12/02/2023 11:15 AM EDT [id number] PCP: FLORENCIA BAEZ [address] [place] [address] [place] [address] Apoorva Morillo is a 67 year old female, who presents For follow-up of her urinary difficulties. Patient's past notes reviewed , seen within the past month. Bladder scanned by nursing staff for postvoid residual at 25 cc. She notes admission for renal insufficiency and IVF, now improved. Bladder outlet obstruction: Presented to Urology in December 2022. Present for over 10 years. Last urethral dilation December 2020. Tamsulosin provided December 2022. Cystoscopy, urethral dilation December 2022, May 2023, Oct 2023. Renal US Aug 2022: IMPRESSION: Bilateral foreshortened kidneys. No hydronephrosis. Creatinine Results: Lab Results Component Value Date/Time CREATININE - [facility] 1.4 (H) 11/23/2023 03:01 PM CREATININE - [facility] 1.9 (H) 11/05/2023 08:25 AM CREATININE - [facility] 1.5 (H) 07/28/2023 11:30 AM CREATININE - [facility] 0.8 03/27/2020 04:54 AM CREATININE - [facility] 1.0 03/16/2020 09:29 AM CREATININE - [facility] 1.0 03/16/2019 09:23 AM CREATININE ISTAT 0.7 08/04/2014 07:35 AM CREATININE, RANDOM URINE - [facility] 200 07/28/2023 01:47 PM CREATININE, RANDOM URINE - [facility] 18 06/06/2022 08:43 AM CREATININE-OU[facility]IDE LAB 1.65 (A) 11/19/2023 12:00 AM CREATININE-OUTSIDE LAB 1.95 (A) 11/17/2023 12:00 AM CREATININE-OUTSIDE LAB 1.11 08/28/2018 12:00 AM Current Outpatient Medications Medication Sig Dispense Refill [...] date: 08/24/1970 Quit date: 08/24/1975 Years since quittin.3 Smokeless tobacco: Never Substance Use Topics Alcohol use: No Vaping/E-Cigarette Use Vaping/E-Cigarette Use Never User Vaping/E-Cigarette Substances Vaping/E-Cigarette Devices Family History Problem Relation Age of Onset Cancer Mother lung Cancer Father lung Diabetes Grandfather (Paternal) Diabetes Sister Neurological Disorder Sister dementia Stroke Sister No Past Hx Son No Past Hx Son Past Surgical History: Procedure Laterality Date COLONOSCOPY normal COLONOSCOPY, DIAGNOSTIC (RECTUM) 10/20/2023 COLONOSCOPY FLEXIBLE PROXIMAL DIAGNOSTIC performed by Ellen Torres DO at ENDOSCOPY [facility] CYSTOSCOPY 07/31/2014 CYSTOSCOPY/TREATMENT OF STRICTURE N/A 08/04/2014 CYSTOURETHROSCOPY WITH CALIBRATION OR DILATION STRICTURE performed by Qiana Allen MD at OR [facility] CYSTOURETHROSCOPY W/BIOPSY N/A 08/04/2014 CYSTOURETHROSCOPY WITH BIOPSY performed by Qiana Allen MD at OR [facility] EGD, FLEXIBLE, DIAGNOSTIC KNEE ARTHROSCOPY, DIAGNOSTIC 09/27 Knee Arthroscopy, right LAPAROSCOPY; CHOLECYSTECTOMY 2009 [facility] LIGATE/CUT OVIDUCT(S) 1980 [facility] JAW W/FIXATION REMOVE TONSILS & ADENOIDS, UNDER 12 TOTAL HIP REPLACEMENT & PROSTHESIS Right 03/26/2020 ROBOTIC ARTHROPLASTY TOTAL HIP performed by Willie Roe DO at OR [facility] Past Medical History: Diagnosis Date VÍCTOR (acute kidney injury) (HCC) 11/05/2023 Cr 1.9 Cystitis 11/17/2023 10-100,000 B strep Generalized osteoarthritis WERO on CPAP Scoliosis Vertigo Patient Active Problem List Diagnosis Code GENERAL OSTEOARTHROSIS M15.9 Urethral stricture N35.919 Scoliosis M41.9 Arthritis of right hip M16.11 WERO on CPAP G47.33 Vertigo R42 Hyperlipidemia with target LDL less than 100 E78.5 Obesity, Class I, BMI 30.0-34.9 (see actual BMI) E66.9 Shoulder arthritis M19.019 Chronic kidney disease, stage 3a ([facility]) N18.31 Urinary retention R33.9 Food insecurity Z59.41 Constitutional: (-) fever and (-) chills Eyes: (+) corrective lenses ENT: (-) stridor Female : (+) see HPI Musculoskeletal: (+) joint pain and (+) shoulder pain/problems Psychiatry: (-) negative: no depression or anxiety Physical Exam Nursing note reviewed. Constitutional: General: She is not in acute distress. Appearance: She is not ill-appearing or toxic-appearing. HENT: Head: Normocephalic and atraumatic. Right Ear: External ear normal. Left Ear: External ear normal. Nose: Nose normal. Mouth/Throat: Mouth: Mucous membranes are moist. Eyes: Extraocular Movements: Extraocular movements intact. Pulmonary: Effort: Pulmonary effort is normal. No respiratory distress. Abdominal: General: There is no distension. Skin: Coloration: Skin is not pale. Neurological: Mental Status: She is oriented to person, place, and time. Psychiatric: Behavior: Behavior normal. Thought Content: Thought content normal. Impression/Plan: 67-year-old female with history of incomplete bladder emptying, improved with regular dilation. We are pleased with her current bladder emptying. Continue tamsulosin, has Rx at home. Will see in Apr 2024 as scheduled for dilation and evaluation. Above content is personally reviewed. Patient vocalizes good understanding of the treatment plan. Thierry Rendon MD 8:13 AM 12/02/2023 documented in this encounter Nursing Notes * Angel Espino MED ASSIST - 12/02/2023 10:42 AM EDT Chief Complaint Patient presents with Follow Up Hospital discharge, reports scanned, images requested 11/24 (renal US). Verified patient. Some pain 2 and goes up out of 10. Patient is here alone today. documented in this encounter Plan of Treatment Upcoming Encounters Date Type Department Care Team (Late st Contact Info) Description 02/04/2024 8:00 AM EDT Office Visit Orthopaedics [facility] 132 [facility] [place] [address] Willie Roe DO 132 [facility] [place] [address] 02/29/2024 9:30 AM EDT Imaging Radiology, [address] [place] [address] 03/02/2024 8:00 AM EDT Office Visit Dermatology [address] [place] [address] Sandie Burden PA-C [address] [place] [address] [place] [address] 05/18/2024 3:30 PM EDT Office Visit Urology, [facility] [address] [place] [address] Thierry Rendon MD 27 [facility] [address] [place] [address] 06/09/2024 9:00 AM EDT Imaging Radiology [address] [place] [address] Health Maintenance Due Date Last Done Comments [...] 07/28/2024 07/28/2023, 05/24 CKD HGB USE SMARTSET 22668 11/22/202411/22, 11/17/2023, 11/05/2023, Additional history exists CKD PHOS USE SMARTSET 05405 11/22/2024 0408/2023, 11/19/2023, 12/19/2022 Diabetes Screening 11/22/2026 [...] this encounter Medical Devices Implanted Type Area Ecotherapist Device Identifier Shelf Expiration Date Model / Serial / Lot Shell Acet Trident Ii 50mm - [id number] Implanted:Qty: 1 on 03/26/2020 by Willie Roe DO at OR [facility] Right: Hip KRISTIAN : ORTHOPAEDICS 07/17/2024 702-04-50D / / [id number] Trident Acetabular X3 0 36 D - [id number] Implanted:Qty: 1 on 03/26/2020 by Willie Roe DO at OR [facility] Right: Hip KRISTIAN : ORTHOPAEDICS 02/15/2024 623-00-36D / / [id number] Accolade Ii 132 Deg Sz 2 - [id number] Implanted:Qty: 1 on 03/26/2020 by Willie Roe DO at OR [facility] Right: Hip KRISTIAN : ORTHOPAEDICS 09/29/2020 7565-5467 / / [id number] Hip Hd Nk Alumina Mod D 36/+5 - [id number] Implanted:Qty: 1 on 03/26/2020 by Willie Roe DO at OR [facility] Right: Hip KRISTIAN : ORTHOPAEDICS 09/07/2024 6570-0-236 / / [id number] documented as of this encounter Visit Diagnoses Diagnosis Acute cystitis without hematuria- Primary Acute cystitis Bladder outlet obstruction Bladder neck obstruction Retention of urine Retention of urine, unspecified documented in this encounter Advance Directives Latest Code Status on File Code Status Date Activated Date Inactivated Comments Full Code 08/04/2014 7:47 AM 08/04/2014 1:44 PM Thi s order reflects the patients wishes and were consensually agreed upon. Care Teams Sales Vendor Relationship Specialty Start Date End Date Florencia Baez MD [address] [place] [address] [place] [address] PCP - General Family Medicine 09/11/15 documented as of this encounter
--- OUTSIDE RECORDS SUMMARY | 2024-01-05 13:10 | External Medical Summary | Summary of Care ---
Author Name Unknown Organization [facility] Address [address] [place] [address] Phone [phone] Care Team Providers Care Sapphire Stylus Grinder Name Role Phone Priscilla Baez MD Primary Care Provide r Reason for Visit * Reason Onset Date Comments Advice 11/27/2023 Encounter Details Date Type Department Care Team (Late st Contact Info) Description 11/27/2023 Telephone Urology, [facility] 132 [facility] [place] [address] Services, Scheduling [address] [place] [address] Advice Allergies Active Allergy Reactions Criticality Noted Date Comments No Known Drug Allergy 08/09/2004 documented as of this encounter (statuses as of 11/27/2023) Medications Medication Sig Dispensed Refills Start Date [...] Active Additional Information Patient taking differently:20 mg [id number], Reported on 10/07/2023 Tamsulosin HCl 0.4 MG [...] as of this encounter (statuses as of 11/27/2023) Active Problems Problem Noted Date Diagnosed Date Food insecurity 05/04/2023 Overview: Per [email or web address] Protocol Urinary retention 12/19/2022 Chronic kidney disease, stage 3a 06/02/2022 Overview: Per CKD protocol Hyperlipidemia with target LDL less than 100 Obesity, Class I, BMI 30.0-34.9 (see actual BMI) 12/05/2021 Shoulder arthritis 12/05/2021 Arthritis of right hip 03/16/2020 WERO on CPAP 03/16/2020 Vertigo 03/16/2020 Urethral stricture 08/04/2014 GENERAL OSTEOARTHROSIS 01/18/2003 Scoliosis documented as of this encounter (statuses as of 11/27/2023) Resolved Problems Problem Noted Date Diagnosed Date Resolved Date Hip pain, right 07/06/2018 03/16/2020 OVARIAN CYST NEC-NOS 10/24/2005 017 ADJ DISORDER W/DEPRES MOOD 05/06/2005 0 09/11/2015 Headache 02/14/2004 09/11/2015 Overview: ICD-10 update of inactive term BACKACHE, T8 disc disease 01/18/2003 Lumbago 01/18/2003 07/06/2018 Excessive menstruation 01/18/200309/11 documented as of this encounter (statuses as of 11/27/2023) Immunizations Name Administration Dates Next Due PPD [...] encounter Miscellaneous Notes * Telephone Encounter - Thierry Rendon MD - 11/27/2023 4:14 PM EDT Patient can come in for nursing visit next week for Pantoja placement if she desires. Otherwise, follow-up as scheduled. If she can not void acutely, return to ER. Thanks, HM * Telephone Encounter - Patricia Rodriguez LPN - 11/27/2023 4:10 PM EDT Returned call to patient, she states last week she was in the hospital due to dehydration, given fluids for two days and discharged. She states since being home from that she's voiding every 15 minutes and has pain at the end of her stream. If she holds her bladder any longer, she gets lower abdominal pain. States she's drinking a lot of fluid (water and green teat) throughout the day. Does have follow up appointment scheduled 12/02/2023 Was dilated 11/17/23 * Telephone Encounter - Merly Butcher OSA - 11/27/2023 4:03 PM EDT Patient's call was transferred to . No nurse available. Patient said she has her phone on her nowif you can return her call. * Telephone Encounter - Patricia Rodriguez LPN - 11/27/2023 2:29 PM EDT Called and left message for patient to return call to office. * Telephone Encounter - Shantal Kirk OSA - 11/27/2023 2:00 PM EDT Pt. had Cysto last week and was seen in the ER on Thursday. Pt having difficulty urinating asking to speak with a nurse. line keeps dropping when transferring to office. Sent TT documented in this encounter Plan of Treatment Upcoming Encounters Date Type Department Care Team (Late st Contact Info) Description 12/02/2023 11:15 AM EDT Office Visit Urology, [address] [place] [address] Thierry Rendon MD [address] [place] [address] [place] [address] 02/04/2024 8:00 AM EDT Office Visit Orthopaedics [facility] [address] [place] [address] Willie Roe, 132 [facility] [place] [address] 02/29/2024 9:30 AM EDT Imaging Radiology, [address] [place] [address] 03/02/2024 8:00 AM EDT Office Visit Dermatology [address] [place] [address] Sandie Burden PA-C [address] [place] [address] [place] [address] 05/18/2024 3:30 PM EDT Office Visit Urology, [facility] [address] [place] [address] Thierry Rendon MD [address] [place] [address] [place] [address] 06/09/2024 9:00 AM EDT Imaging Radiology [address] [place] [address] Health Maintenance Due Date Last Done Comments [...] 07/28/2024 07/28/2023, 05/24 CKD HGB USE SMARTSET 70807 11/22/202411/22, 11/17/2023, 11/05/2023, Additional history exists CKD PHOS USE SMARTSET 27792 11/22/2024 040 08/2023, 11/19/2023, 12/19/2022 Diabetes Screening [...] this encounter Medical Devices Implanted Type Area Wash Barrel Leader Device Identifier Shelf Expiration Date Model / Serial / Lot Shell Acet Trident Ii 50mm - [id number] Implanted:Qty: 1 on 03/26/2020 by Willie Roe DO at OR [facility] Right: Hip KRISTIAN : ORTHOPAEDICS 07/17/2024 702-04-50D / / [id number] Trident Acetabular X3 0 36 D - [id number] Implanted:Qty: 1 on 03/26/2020 by Willie Roe DO at OR [facility] Right: Hip KRISTIAN : ORTHOPAEDICS 02/15/2024 623-00-36D / / [id number] Accolade Ii 132 Deg Sz 2 - [id number] Implanted:Qty: 1 on 03/26/2020 by Willie Roe DO at OR [facility] Right: Hip KRISTIAN : ORTHOPAEDICS 09/29/2020 2051-9061 / / [id number] Hip Hd Nk Alumina Mod D 36/+5 - [id number] Implanted:Qty: 1 on 03/26/2020 by Willie Roe DO at OR [facility] Right: Hip KRISTIAN : ORTHOPAEDICS 09/07/2024 6570-0-236 / / [id number] documented as of this encounter Advance Directives Latest Code Status on File Code Status Date Activated Date Inactivated Comments Full Code 08/04/2014 7:47 AM 08/04/2014 1:44 PM Thi s order reflects the patients wishes and were consensually agreed upon. Care Teams Sapphire Stylus Grinder Relationship Specialty Start Date End Date Priscilla Baez MD [address] [place] [address] [place] [address] PCP - General Family Medicine 09/11/15 documented as of this encounter
--- OUTSIDE RECORDS SUMMARY | 2024-01-05 13:10 | External Medical Summary | Summary of Care ---
Author Name Unknown Organization [facility] Address [address] [place] [address] Phone [phone] Care Team Providers Care Clinical Data Management Manager Name Role Phone Priscilla Baez MD Primary Care Provide r Encounter Details Date Type Department Care Team (Latest Contact Info) Description 11/17/2023 10:35 PM EDT - 11/17/2023 11:59 PM EDT Hospital Encounter Radiology Film File [address] [place] [address] Discharge Disposition: Home - Self [...] Active Additional Information Patient taking differently:20 mg [id number], Reported on 10/07/2023 Tamsulosin HCl 0.4 MG [...] 02/04/2024 8:00 AM EDT Office Visit Orthopaedics [facility] [address] [place] [address] Willie Roe, 132 [place] [address] 02/29/2024 9:30 AM EDT Imaging Radiology, [place] [address] [facility] [place] [address] 03/02/2024 8:00 AM EDT Office Visit Dermatology [address] [place] [address] Sandie Burden PA-C [address] [place] [address] [place] [address] 05/18/2024 3:30 PM EDT Office Visit Urology, [facility] [address] [facility] [place] [address] Thierry Rendon MD [address] [place] [address] [place] [address] 06/09/2024 9:00 AM EDT Imaging Radiology [address] [place] [address] Health Maintenance Due Date Last Done Comments [...] 07/28/2024 07/28/2023, 05/24 CKD HGB USE SMARTSET 92897 11/22/202411/22, 11/17/2023, 11/05/2023, Additional history exists CKD PHOS USE SMARTSET 49712 11/22/20242024, 11/19/2023, 12/19/2022 Diabetes Screening 11/22/2026 11/23/2023, [...] this encounter Medical Devices Implanted Type Area Link Knitting Machine Operator Device Identifier Shelf Expiration Date Model / Serial / Lot Shell Acet Trident Ii 50mm - [id number] Implanted:Qty: 1 on 03/26/2020 by Willie Roe DO at OR [facility] Right: Hip KRISTIAN : ORTHOPAEDICS 07/17/2024 702-04-50D / / [id number] Trident Acetabular X3 0 36 D - [id number] Implanted:Qty: 1 on 03/26/2020 by Willie Roe DO at OR [facility] Right: Hip KRISTIAN : ORTHOPAEDICS 02/15/2024 623-00-36D / / [id number] Accolade Ii 132 Deg Sz 2 - [id number] Implanted:Qty: 1 on 03/26/2020 by Willie Roe DO at OR [facility] Right: Hip KRISTIAN : ORTHOPAEDICS 09/29/2020 3134-3581 / / [id number] Hip Hd Nk Alumina Mod D 36/+5 - [id number] Implanted:Qty: 1 on 03/26/2020 by Willie Roe DO at OR [facility] Right: Hip KRISTIAN : ORTHOPAEDICS 09/07/2024 6570-0-236 / / [id number] documented as of this encounter Procedures Procedure [...] interpreted or resulted by a [facility] or [employer] contracted radiologist. Priscilla Baez MD RAD CT documented in this encounter Advance Directives Latest Code Status on File Code Status Date Activated Date Inactivated Comments Full Code 08/04/2014 7:47 AM 08/04/2014 1:44 PM Thi s order reflects the patients wishes and were consensually agreed upon. Care Teams Clinical Data Management Manager Relationship Specialty Start Date End Date Priscilla Baez MD [address] [place] [address] [place] [address] PCP - General Family Medicine 09/11/15 documented as of this encounter
--- OUTSIDE RECORDS SUMMARY | 2024-01-05 13:11 | External Medical Summary | Summary of Care ---
Author Name Unknown Organization [facility] Address [address] [facility] [place] [address] Phone [phone] Care Team Providers Care Endoscopy Specialty Technician Name Role Phone Priscilla Baez MD Primary Care Provide r Reason for Visit * Reason Onset Date Comments Hospital Follow-Up 11/20/2023 Naye for [facility] Encounter Details Date Type Department Care Team (Late st Contact Info) Description 11/20/2023 Telephone [address] [place] [phone] Fabiana Bautista, ION Hospital Follow-Up (Naye for [facility]) Allergies Active Allergy Reactions Criticality Noted Date Comments No Known Drug Allergy 08/09/2004 documented as of this encounter (statuses as of 11/24/2023) Medications Medication Sig Dispensed Refills Start Date End Date Status CALCIUM 500+D 500-200 MG-UNIT PO TABS One tablet three times daily 0 Active CRANBERRY 500 MG PO CAPS One daily 0 Active Meloxicam 15 MG Oral TabletIndications :Hip pain, right TAKE ONE TABLET BY MOUTH ONCE DAILY FOR PAIN 90 Tablet 2 04/29/2023 Active Pantoprazole Sodium 20 MG Oral Tablet Delayed Release (Protonix)Indicat ions:Gastroesopha geal reflux disease, unspecified whether esophagitis present TAKE 1 TABLET BY MOUTH EVERY DAY IN THE MORNING 90 Tablet 2 04/29/2023 Active Atorvastatin Calcium 20 MG Oral Tablet (Lipitor)Indicati ons:Hyperlipidemi a with target LDL less than 100 Take 1 Tablet by mouth at bedtime. 90 Tablet 3 05/21/2023 Active Additional Information Patient taking differently:20 mg [id number], Reported on 10/07/2023 Tamsulosin HCl 0.4 MG Oral Capsule (Flomax) Take 2 Capsules by mouth in the morning. 180 Capsule 3 06/16/2023 Active Ferrous Sulfate 325 (65 Fe) MG Oral Tablet (Feosol)Indicatio ns:Iron deficiency anemia, unspecified iron deficiency anemia type Take 1 Tablet by mouth in the morning and 1 Tablet before bedtime. 180 Tablet 3 07/03/2023 Active Triamcinolone Acetonide 0.1 % External Cream (Aristocort)Indic ations:Dry skin APPLY TOPICALLY TO AFFECTED AREA 2 TIMES A DAY. TO AFFECTED AREA. FOR UP TO 2 WEEKS. 15 g 1 07/27/2023 Active Clobetasol Propionate 0.05 % External Cream (Temovate) Apply topically to affected area 2 times a day. To affected area for up to two weeks. 30 g 1 09/04/2023 Active Meclizine HCl 25 MG Oral Tablet (Antivert)Indicat ions:BPPV (benign paroxysmal positional vertigo), bilateral TAKE 1 TABLET BY MOUTH 3 TIMES A DAY (MORNING, NOON & BEDTIME) NEEDED FOR DIZZINESS 30 Tablet 5 09/25/2023 Active CPAP Use as directed at bedtime. 0 Active Albuterol Sulfate HFA 108 (90 Base) MCG/ACT Inhalation Aerosol SolutionIndicatio ns:SOB (shortness of breath) INHALE 2 PUFFS BY MOUTH EVERY 4 HOURS NEEDED FOR WHEEZING 18 g 1 10/26/2023 Active Cephalexin 500 MG Oral Capsule (Keflex) Take 1 Capsule by mouth in the morning and 1 Capsule before bedtime. 0 11/19/2023 Discontinue d(Patient preference/ discontinua tion) documented as of this encounter (statuses as of 11/24/2023) Active Problems Problem Noted Date Diagnosed Date Food insecurity 05/04/2023 Overview: Per [facility] Protocol Urinary retention 12/19/2022 Chronic kidney disease, stage 3a 06/02/2022 Overview: Per CKD protocol Hyperlipidemia with target LDL less than 100 Obesity, Class I, BMI 30.0-34.9 (see actual BMI) 12/05/2021 Shoulder arthritis 12/05/2021 Arthritis of right hip 03/16/2020 WERO on CPAP 03/16/2020 Vertigo 03/16/2020 Urethral stricture 08/04/2014 GENERAL OSTEOARTHROSIS 01/18/2003 Scoliosis documented as of this encounter (statuses as of 11/24/2023) Resolved Problems Problem Noted Date Diagnosed Date Resolved Date Hip pain, right 07/06/2018 03/16/2020 OVARIAN CYST NEC-NOS 10/24/2005 017 ADJ DISORDER W/DEPRES MOOD 05/06/2005 0 09/11/2015 Headache 02/14/2004 09/11/2015 Overview: ICD-10 update of inactive term BACKACHE, T8 disc disease 01/18/2003 Lumbago 01/18/2003 07/06/2018 Excessive menstruation 01/18/200309/11 documented as of this encounter (statuses as of 11/24/2023) Immunizations Name Administration Dates Next Due PPD [...] encounter Miscellaneous Notes * Telephone Encounter - Fabiana Bautista RN - 11/24/2023 9:04 AM EDT Patient was seen yesterday for her Hospital discharge appointment. * Telephone Encounter - Fabiana Bautista RN - 11/23/2023 10:16 AM EDT 2nd attempt sent via my , I will make sure patient does keep appointment. * Telephone Encounter - Fabiana Bautista RN - 11/20/2023 3:25 PM EDT Transitions of Care Note Reason for Referral:Recent Admission Phone visit for follow up: naye Admitted to: [facility], Date: 11.17.23 Discharged to: Home, Date: 11.19.23 Diagnosis driving hospitalization: (1) Bladder outlet obstruction: (2) Hyperlipidemia: (3) Obstructive sleep apnea syndrome: (4) VÍCTOR (acute kidney injury): (5) Complicated UTI (urinary tract infection): Plan per hospital discharge patient to have repeat BMP in 1wk Patient to hold Meloxicam and resume on 12/03/23 Left message for the patient to call the office. Fabiana Bautista RN documented in this encounter Plan of Treatment Upcoming Encounters Date Type Department Care Team (Late st Contact Info) Description 12/02/2023 11:15 AM EDT Office Visit Urology, [facility] [address] [facility] [place] [address] Thierry Rendon MD 27 [facility] [address] [place] [address] 02/04/2024 8:00 AM EDT Office Visit Orthopaedics [facility] 132 [facility] [place] [address] Willie Roe DO 132 [facility] [place] [address] 02/29/2024 9:30 AM EDT Imaging Radiology, [facility] [address] [facility] [place] [address] 03/02/2024 8:00 AM EDT Office Visit Dermatology [address] [place] [address] Sandie Burden PA-C [address] [place] [address] [place] [address] 05/18/2024 3:30 PM EDT Office Visit Urology, [facility] [address] [place] [address] Thierry Rendon MD 27 [facility] [place] [address] [place] [address] 06/09/2024 9:00 AM EDT Imaging Radiology [address] [place] [address] Health Maintenance Due Date Last Done Comments [...] 07/28/2024 07/28/2023, 05/24 CKD HGB USE SMARTSET 79680 11/22/202411/22, 11/17/2023, 11/05/2023, Additional history exists CKD PHOS USE SMARTSET 53482 11/22/2024 04/0 08/2023, 11/19/2023, 12/19/2022 Diabetes Screening 11/22/2026 11/23/2023, 0 11/19/2023, 11/17/2023, Additional history exists Lipid Panel 12/20/2027 12/19/2022, 100 11/2021, 11/19/2021, Additional history exists Colonoscopy 10/20/2033 [...] encounter Medical Devices Implanted Type Area Director Executive Communications Device Identifier Shelf Expiration Date Model / Serial / Lot Shell Acet Trident Ii 50mm - [id number] Implanted:Qty: 1 on 03/26/2020 by Willie Roe DO at OR [facility] Right: Hip KRISTIAN : ORTHOPAEDICS 07/17/2024 702-04-50D / / [id number] Trident Acetabular X3 0 36 D - [id number] Implanted:Qty: 1 on 03/26/2020 by Willie Roe DO at OR [facility] Right: Hip KRISTIAN : ORTHOPAEDICS 02/15/2024 623-00-36D / / [id number] Accolade Ii 132 Deg Sz 2 - [id number] Implanted:Qty: 1 on 03/26/2020 by Willie Roe DO at OR [facility] Right: Hip K[employer]STIAN : ORTHOPAEDICS 09/29/2020 7091-4167 / / [id number] Hip Hd Nk Alumina Mod D 36/+5 - [id number] Implanted:Qty: 1 on 03/26/2020 by Willie Roe DO at OR [facility] Right: Hip KRISTIAN : ORTHOPAEDICS 09/07/2024 6570-0-236 / / [id number] documented as of this encounter Advance Directives Latest Code Status on File Code Status Date Activated Date Inactivated Comments Full Code 08/04/2014 7:47 AM 08/04/2014 1:44 PM Thi s order reflects the patients wishes and were consensually agreed upon. Care Teams Endoscopy Specialty Technician Relationship Specialty Start Date End Date Priscilla Baez MD [address] [place] [address] [place] [phone] PCP - General Family Medicine 09/11/15 documented as of this encounter
--- OUTSIDE RECORDS SUMMARY | 2024-01-05 13:11 | External Medical Summary | Summary of Care ---
Author Name Unknown Organization [facility] Address [address] [place] [address] Phone [phone] Care Team Providers Care Sap Abap Developer Name Role Phone Priscilla Baez MD Primary Care Provide r Reason for Visit * Reason Onset Date Comments Advice 11/27/2023 Encounter Details Date Type Department Care Team (Late st Contact Info) Description 11/27/2023 Telephone Urology, [facility] 132 [facility] [place] [address] Services, Scheduling [address] [place] [address] Advice Allergies Active Allergy Reactions Criticality Noted [...] Active Additional Information Patient taking differently:20 mg [id number], Reported on 10/07/2023 Tamsulosin HCl 0.4 MG [...] Diagnosed Date Food insecurity 05/04/2023 Overview: Per [facility] Protocol Urinary retention 12/19/2022 Chronic kidney [...] encounter Miscellaneous Notes * Telephone Encounter - Patricia Rodriguez LPN [...] 12/02/2023 11:15 AM EDT Office Visit Urology, [facility] [address] [place] [address] Thierry Rendon MD [address] [place] [address] [place] [address] 02/04/2024 8:00 AM EDT Office Visit Orthopaedics [facility] [address] [place] [address] Willie Roe, [address] [place] [address] 02/29/2024 9:30 AM EDT Imaging Radiology, [address] [place] [address] 03/02/2024 8:00 AM EDT Office Visit Dermatology [address] [place] [address] Sandie Burden PA-C [address] [place] [address] [place] [address] 05/18/2024 3:30 PM EDT Office Visit Urology, [facility] 132 [place] [address] Thierry Rendon MD [address] [place] [address] [place] [address] 06/09/2024 9:00 AM EDT Imaging Radiology [address] [place] [address] Health Maintenance Due Date Last Done Comments [...] 07/28/2024 07/28/2023, 05/24 CKD HGB USE SMARTSET 14909 11/22/202411/22, 11/17/2023, 11/05/2023, Additional history exists CKD PHOS USE SMARTSET 31293 11/22/2024 0408/2023, 11/19/2023, 12/19/2022 Diabetes Screening 11/22/2026 [...] this encounter Medical Devices Implanted Type Area Profiler Device Identifier Shelf Expiration Date Model / Serial / Lot Shell Acet Trident Ii 50mm - [id number] Implanted:Qty: 1 on 03/26/2020 by Willie Roe DO at OR [facility] Right: Hip KRISTIAN : ORTHOPAEDICS 07/17/2024 702-04-50D / / [id number] Trident Acetabular X3 0 36 D - [id number] Implanted:Qty: 1 on 03/26/2020 by Willie Roe DO at OR [facility] Right: Hip KRISTIAN : ORTHOPAEDICS 02/15/2024 623-00-36D / / [id number] Accolade Ii 132 Deg Sz 2 - [id number] Implanted:Qty: 1 on 03/26/2020 by Willie Roe DO at OR [facility] Right: Hip K[employer]STIAN : ORTHOPAEDICS 09/29/2020 0869-2248 / / [id number] Hip Hd Nk Alumina Mod D 36/+5 - [id number] Implanted:Qty: 1 on 03/26/2020 by Willie Roe DO at OR [facility] Right: Hip KRISTIAN : ORTHOPAEDICS 09/07/2024 6570-0-236 / / [id number] documented as of this encounter Advance Directives Latest Code Status on File Code Status Date Activated Date Inactivated Comments Full Code 08/04/2014 7:47 AM 08/04/2014 1:44 PM Thi s order reflects the patients wishes and were consensually agreed upon. Care Teams Sap Abap Developer Relationship Specialty Start Date End Date Priscilla Baez MD [address] [place] [address] [place] [address] PCP - General Family Medicine 09/11/15 documented as of this encounter
--- OUTSIDE RECORDS SUMMARY | 2024-01-05 13:11 | External Medical Summary | Summary of Care ---
Author Name Unknown Organization [facility] Address [address] [place] [address] Phone [phone] Care Team Providers Care Executive Secretary Social Welfare Name Role Phone Priscilla Baez MD Primary Care Provide r Reason for Visit * Reason Onset Date Comments Advice 11/27/2023 Encounter Details Date Type Department Care Team (Late st Contact Info) Description 11/27/2023 Telephone Urology, [facility] 132 [facility] [place] [address] Services, Scheduling [address] [place] [address] Advice Allergies Active Allergy Reactions Criticality Noted [...] Active Additional Information Patient taking differently:20 mg [id number], Reported on 10/07/2023 Tamsulosin HCl 0.4 MG [...] Diagnosed Date Food insecurity 05/04/2023 Overview: Per [facility] Protocol Urinary retention 12/19/2022 Chronic kidney [...] encounter Miscellaneous Notes * Telephone Encounter - Merly Butcher OSA [...] 12/02/2023 11:15 AM EDT Office Visit Urology, [facility] [address] [place] [address] Thierry Rendon MD 27 [facility] 270 [place] [address] 02/04/2024 8:00 AM EDT Office Visit Orthopaedics [facility] [address] [place] [address] Willie Roe DO 132 [facility] [place] [address] 02/29/2024 9:30 AM EDT [place], [address] [place] [address] 03/02/2024 8:00 AM EDT Office Visit Dermatology [address] [place] [address] Sandie Burden PA-C [address] [place] [address] [place] [address] 05/18/2024 3:30 PM EDT Office Visit Urology, [facility] [address] [address] Thierry Rendon MD 27 [facility] 270 [place] [address] 06/09/2024 9:00 AM EDT Imaging Radiology [address] [place] [address] Health Maintenance Due Date Last Done Comments DXA Scan 1955 DTaP,Tdap,and Td Vaccines (1 - Tdap) 12/03/1974 Cologuard 12/03/2000 Fecal Occult Blood Test 12/03/2000 Sigmoidoscopy 12/03/2000 Zoster Vaccines (1 of 2) 12/03/2005 Pneumococcal Vaccine: 65+ Years (1 of 1 - PCV) 12/03/2020 Depression Screening 03/16/2021 03/16/2020 COVID-19 Vaccine ( - season) 2023 Influenza Vaccine (FLU shot) (Season Ended) 2024 GFR 05/24/2024 11/23/2023, 10/23, 11/17/2023, Additional history exists Mammogram 05/28/2024 05/28/2023, 11/2021, 05/24/2021, Additional history exists Albumin/Creatinine Ratio 07/28/2024 07/28/2023, 05/24 CKD HGB USE SMARTSET 39850 11/22/202411/22, 11/17/2023, 11/05/2023, Additional history exists CKD PHOS USE SMARTSET 27127 11/22/2024 04/0 08/2023, 11/19/2023, 12/19/2022 Diabetes Screening [...] this encounter Medical Devices Implanted Type Area Recreation Aide Device Identifier Shelf Expiration Date Model / Serial / Lot Shell Acet Trident Ii 50mm - [id number] Implanted:Qty: 1 on 03/26/2020 by Willie Roe DO at OR [facility] Right: Hip KRISTIAN : ORTHOPAEDICS 07/17/2024 702-04-50D / / [id number] Trident Acetabular X3 0 36 D - [id number] Implanted:Qty: 1 on 03/26/2020 by Willie Roe DO at OR [facility] Right: Hip KRISTIAN : ORTHOPAEDICS 02/15/2024 623-00-36D / / [id number] Accolade Ii 132 Deg Sz 2 - [id number] Implanted:Qty: 1 on 03/26/2020 by Willie Roe DO at OR [facility] Right: Hip KRISTIAN : ORTHOPAEDICS 09/29/2020 2941-2605 / / [id number] Hip Hd Nk Alumina Mod D 36/+5 - [id number] Implanted:Qty: 1 on 03/26/2020 by Willie Roe DO at OR [facility] Right: Hip KRISTIAN : ORTHOPAEDICS 09/07/2024 6570-0-236 / / [id number] documented as of this encounter Advance Directives Latest Code Status on File Code Status Date Activated Date Inactivated Comments Full Code 08/04/2014 7:47 AM 08/04/2014 1:44 PM Thi s order reflects the patients wishes and were consensually agreed upon. Care Teams Executive Secretary Social Welfare Relationship Specialty Start Date End Date Priscilla Baez MD [address] [place] [address] [place] [phone] PCP - General Family Medicine 09/11/15 documented as of this encounter
--- OUTSIDE RECORDS SUMMARY | 2024-01-05 13:11 | External Medical Summary | Summary of Care ---
Author Name Unknown Organization [facility] Address [address] [place] [address] Phone [phone] Care Team Providers Care Cutter Head Sharpener Name Role Phone Priscilla Baez MD Primary Care Provide r Encounter Details Date Type Department Care Team (Late st Contact Info) Description 11/17/2023 Result Scan Unspecified Department <No scans attached> Allergies Active Allergy Reactions Criticality Noted Date [...] Active Additional Information Patient taking differently:20 mg [id number], Reported on 10/07/2023 Tamsulosin HCl 0.4 MG [...] Diagnosed Date Food insecurity 05/04/2023 Overview: Per [facility] Protocol Urinary retention 12/19/2022 Chronic [...] 12/02/2023 11:15 AM EDT Office Visit Urology, [facility] [address] [place] [address] Thierry Rendon MD 27 [facility] 270 [place] [address] 02/04/2024 8:00 AM EDT Office Visit Orthopaedics [facility] [address] [place] [address] Willie Roe, [address] [place] [address] 02/29/2024 9:30 AM EDT Imaging Radiology, [facility] [address] [facility] [place] [address] 03/02/2024 8:00 AM EDT Office Visit Dermatology [address] [place] [address] Sandie Burden PA-C [address] [place] [address] [place] [address] 05/18/2024 3:30 PM EDT Office Visit Urology, [facility] 132 [facility] [place] [address] Thierry Rendon MD [address] [facility] 270 [place] [address] 06/09/2024 9:00 AM EDT Imaging Radiology [address] [place] [address] Health Maintenance Due Date Last Done Comments [...] 07/28/2024 07/28/2023, 05/24 CKD HGB USE SMARTSET 32292 11/22/202411/22, 11/17/2023, 11/05/2023, Additional history exists CKD PHOS USE SMARTSET 85067 11/22/2024 04/0 08/2023, 11/19/2023, 12/19/2022 Diabetes Screening [...] this encounter Medical Devices Implanted Type Area Digital Marketing Intern Device Identifier Shelf Expiration Date Model / Serial / Lot Shell Acet Trident Ii 50mm - [id number] Implanted:Qty: 1 on 03/26/2020 by Willie Roe DO at OR [facility] Right: Hip KRISTIAN : ORTHOPAEDICS 07/17/2024 702-04-50D / / [id number] Trident Acetabular X3 0 36 D - [id number] Implanted:Qty: 1 on 03/26/2020 by Willie Roe DO at OR [facility] Right: Hip KRISTIAN : ORTHOPAEDICS 02/15/2024 623-00-36D / / [id number] Accolade Ii 132 Deg Sz 2 - [id number] Implanted:Qty: 1 on 03/26/2020 by Willie Roe DO at OR [facility] Right: Hip KRISTIAN : ORTHOPAEDICS 09/29/2020 0376-2613 / / [id number] Hip Hd Nk Alumina Mod D 36/+5 - [id number] Implanted:Qty: 1 on 03/26/2020 by Willie Roe DO at OR [facility] Right: Hip KRISTIAN : ORTHOPAEDICS 09/07/2024 6570-0-236 / / [id number] documented as of this encounter Procedures Procedure Name Priority Date/Time Associated Diagnosis Comments RADIOLOGY SCANNED RESULT 11/17/2023 RADIOLOGY SCANNED RESULT 11/17/2023 documented in this encounter Results * RADIOLOGY SCANNED RESULT (11/17/2023) 11/17/2023 No Physician Data Unknown DIAGNOSTIC RAD IOLOGY SERVICES * RADIOLOGY SCANNED RESULT (11/17/2023) 11/17/2023 No Physician Data Unknown DIAGNOSTIC RAD IOLOGY SERVICES documented in this encounter Advance Directives Latest Code Status on File Code Status Date Activated Date Inactivated Comments Full Code 08/04/2014 7:47 AM 08/04/2014 1:44 PM Thi s order reflects the patients wishes and were consensually agreed upon. Care Teams Cutter Head Sharpener Relationship Specialty Start Date End Date Priscilla Baez MD [address] [place] [address] [place] [address] PCP - General Family Medicine 09/11/15 documented as of this encounter
--- OUTSIDE RECORDS SUMMARY | 2024-01-05 13:11 | External Medical Summary | Summary of Care ---
Author Name Unknown Organization [facility] Address [address] [place] [address] Phone [phone] Care Team Providers Care Mobile Patrol Officer Name Role Phone Priscilla Baez MD Primary Care Provide r Encounter Details Date Type Department Care Team (Latest Contact Info) Description 02/12/2018 5:40 PM EDT - 02/12/2018 11:59 PM EDT Hospital Encounter Radiology Film File [address] [place] [address] Discharge Disposition: Home - Self Care Allergies Active Allergy Reactions Criticality Noted Date Comments No Known Drug Allergy 08/09/2004 documented as of this encounter (statuses as of 11/26/2023) Medications Medication Sig Dispensed Refills Start Date End Date Status CALCIUM 500+D 500-200 MG-UNIT PO TABS One tablet three times daily 0 Active CRANBERRY 500 MG PO CAPS One daily 0 Active documented as of this encounter (statuses as of 11/26/2023) Active Problems Problem Noted Date Diagnosed Date [...] as of this encounter (statuses as of 11/26/2023) Resolved Problems Problem Noted Date Diagnosed Date Resolved Date Hip pain, right 07/06/2018 03/16/2020 OVARIAN CYST NEC-NOS 10/24/2005 017 ADJ DISORDER W/DEPRES MOOD 05/06/2005 0 09/11/2015 Headache 02/14/2004 09/11/2015 Overview: ICD-10 update of inactive term BACKACHE, T8 disc disease 01/18/2003 Lumbago 01/18/2003 07/06/2018 Excessive menstruation 01/18/200309/11 documented as of this encounter (statuses as of 11/26/2023) Immunizations Name Administration Dates Next Due PPD [...] file Not on file Not on file COVID-19 Exposure Response Date Recorded In the last month, have you been in contact with someone who was confirmed or suspected to have Coronavirus / COVID-19? No / Unsure 04/05/2020 10:06 AM EDT documented as of this encounter Plan of Treatment Upcoming Encounters Date Type Department Care Team (Late st Contact Info) Description 12/02/2023 11:15 AM EDT Office Visit Urology, [facility] [address] [facility] [place] [address] Thierry Rendon MD [address] [place] [address] [place] [address] 02/04/2024 8:00 AM EDT Office Visit Orthopaedics [facility] [address] [facility] [place] [address] Willie Roe, 132 [facility] [place] [address] 02/29/2024 9:30 AM EDT Imaging Radiology, [address] [place] [address] 03/02/2024 8:00 AM EDT Office Visit Dermatology [address] [place] [address] Sandie Burden PA-C [address] [place] [address] [place] [address] 05/18/2024 3:30 PM EDT Office Visit Urology, [facility] [address] [facility] [place] [address] Thierry Rendon MD [address] [place] [address] [place] [address] 06/09/2024 9:00 AM EDT Imaging Radiology [address] [place] [address] Health Maintenance Due Date Last Done Comments DXA Scan 1955 DTaP,Tdap,and Td Vaccines (1 - Tdap) 12/03/1974 Cologuard 12/03/2000 Fecal Occult Blood Test 12/03/2000 Sigmoidoscopy 12/03/2000 Zoster Vaccines (1 of 2) 12/03/2005 Pneumococcal Vaccine: 65+ Years (1 of 1 - PCV) 12/03/2020 Depression Screening 03/16/2021 03/16/2020 COVID-19 Vaccine ( season) 2023 Influenza Vaccine (FLU shot) (Season Ended) 2024 GFR 05/24/2024 11/23/2023, 10/23, 11/17/2023, Additional history exists Mammogram 05/28/2024 05/28/2023, 11/2021, 05/24/2021, Additional history exists Albumin/Creatinine Ratio 07/28/2024 07/28/2023, 05/24 CKD HGB USE SMARTSET 47622 11/22/202411/22, 11/17/2023, 11/05/2023, Additional history exists CKD PHOS USE SMARTSET 90047 11/22/2024 040 08/2023, 11/19/2023, 12/19/2022 Diabetes Screening [...] this encounter Medical Devices Implanted Type Area Test Engineering Technician Device Identifier Shelf Expiration Date Model / Serial / Lot Shell Acet Trident Ii 50mm - [id number] Implanted:Qty: 1 on 03/26/2020 by Willie Roe, at OR [facility] Right: Hip KRISTIAN : ORTHOPAEDICS 07/17/2024 702-04-50D / / [id number] Trident Acetabular X3 0 36 D - [id number] Implanted:Qty: 1 on 03/26/2020 by Willie Roe DO at OR [facility] Right: Hip KRISTIAN : ORTHOPAEDICS 02/15/2024 623-00-36D / / [id number] Accolade Ii 132 Deg Sz 2 - [id number] Implanted:Qty: 1 on 03/26/2020 by Willie Roe DO at OR [facility] Right: Hip KRISTIAN : ORTHOPAEDICS 09/29/2020 [id number] / / [id number] Hip Hd Nk Alumina Mod D 36/+5 - [id number] Implanted:Qty: 1 on 03/26/2020 by Willie Roe, at OR [facility] Right: Hip KRISTIAN : ORTHOPAEDICS 09/07/2024 6570-0-236 / / [id number] documented as of this encounter Procedures Procedure Name Priority Date/Time Associated Diagnosis Comments RADIOLOGY EXAM - CT (IMAGES ONLY, NO REPORT) Routine 02/12/2018 5:40 PM EDT documented in this encounter Results * RADIOLOGY EXAM - CT (IMAGES ONLY, NO REPORT) (02/12/2018 5:40 PM EDT) 02/12/2018 5:39 PM EDT Narrative Scheduling, Silent - 11/25/2023 1:04 PM EDT This is an imaging study not interpreted or resulted by a [facility] or [facility] contracted radiologist. Priscilla Baez MD RAD CT documented in this encounter Advance Directives Latest Code Status on File Code Status Date Activated Date Inactivated Comments Full Code 08/04/2014 7:47 AM 08/04/2014 1:44 PM Thi s order reflects the patients wishes and were consensually agreed upon. Care Teams Mobile Patrol Officer Relationship Specialty Start Date End Date Priscilla Baez MD [address] [place] [address] [place] [phone] PCP - General Family Medicine 09/11/15 documented as of this encounter
--- OUTSIDE RECORDS SUMMARY | 2024-01-05 13:11 | External Medical Summary | Summary of Care ---
Author Name Unknown Organization [facility] Address [address] [place] [address] Phone [phone] Care Team Providers Care Gear Cutting Machine Set Up Operator Name Role Phone Priscilla Baez MD Primary Care Provide r Reason for Visit * Reason Onset Date Comments Advice 11/27/2023 Encounter Details Date Type Department Care Team (Late st Contact Info) Description 11/27/2023 Telephone Urology, [facility] 132 [facility] [place] [address] Services, Scheduling [address] [place] [address] Advice Allergies Active Allergy Reactions Criticality Noted [...] Active Additional Information Patient taking differently:20 mg [id number], Reported on 10/07/2023 Tamsulosin HCl 0.4 MG [...] Diagnosed Date Food insecurity 05/04/2023 Overview: Per [facility] Protocol Urinary retention 12/19/2022 Chronic kidney [...] encounter Miscellaneous Notes * Telephone Encounter - Michael LUZ Gomez - 11/27/2023 4:10 PM EDT Returned call [...] 12/02/2023 11:15 AM EDT Office Visit Urology, [facility] [address] [place] [address] Thierry Rendon MD 27 [facility] [address] [place] [address] 02/04/2024 8:00 AM EDT Office Visit Orthopaedics [facility] [address] [place] [address] Willie Roe, 132 [facility] [place] [address] 02/29/2024 9:30 AM EDT Imaging Radiology, [facility] [address] [facility] [place] [address] 03/02/2024 8:00 AM EDT Office Visit Dermatology [address] [place] [address] Sandie Burden PA-C [address] [place] [address] [place] [address] 05/18/2024 3:30 PM EDT Office Visit Urology, [facility] 132 [facility] [place] [address] Tiherry Rendon MD [facility] [address] [place] [address] 06/09/2024 9:00 AM EDT Imaging Radiology [address] [place] [address] Health Maintenance Due Date Last Done Comments [...] 07/28/2024 07/28/2023, 05/24 CKD HGB USE SMARTSET 02549 11/22/202411/22, 11/17/2023, 11/05/2023, Additional history exists CKD PHOS USE SMARTSET 49367 11/22/2024 04/0 08/2023, 11/19/2023, 12/19/2022 Diabetes Screening [...] this encounter Medical Devices Implanted Type Area Manager Of Employee Relations Device Identifier Shelf Expiration Date Model / Serial / Lot Shell Acet Trident Ii 50mm - [id number] Implanted:Qty: 1 on 03/26/2020 by Willie Roe, DO at OR [facility] Right: Hip KRISTIAN : ORTHOPAEDICS 07/17/2024 702-04-50D / / [id number] Trident Acetabular X3 0 36 D - [id number] Implanted:Qty: 1 on 03/26/2020 by Willie Roe DO at OR [facility] Right: Hip KRISTIAN : ORTHOPAEDICS 02/15/2024 623-00-36D / / [id number] Accolade Ii 132 Deg Sz 2 - [id number] Implanted:Qty: 1 on 03/26/2020 by Willie Roe, DO at OR [facility] Right: Hip KRISTIAN : ORTHOPAEDICS 09/29/2020 [id number] / / [id number] Hip Hd Nk Alumina Mod D 36/+5 - [id number] Implanted:Qty: 1 on 03/26/2020 by Willie Roe DO at OR [facility] Right: Hip KRISTIAN : ORTHOPAEDICS 09/07/2024 6570-0-236 / / [id number] documented as of this encounter Advance Directives Latest Code Status on File Code Status Date Activated Date Inactivated Comments Full Code 08/04/2014 7:47 AM 08/04/2014 1:44 PM Thi s order reflects the patients wishes and were consensually agreed upon. Care Teams Gear Cutting Machine Set Up Operator Relationship Specialty Start Date End Date Priscilla Baez MD [address] [place] [address] [place] [phone] PCP - General Family Medicine 09/11/15 documented as of this encounter
--- OUTSIDE RECORDS SUMMARY | 2024-01-05 13:11 | External Medical Summary | Summary of Care ---
Author Name Unknown Organization [facility] Address [address] [place] [address] Phone [phone] Care Team Providers Care Tile Picker Name Role Phone Priscilla Baez MD Primary Care Provide r Reason for Visit * Reason Onset Date Comments Advice 11/27/2023 Encounter Details Date Type Department Care Team (Late st Contact Info) Description 11/27/2023 Telephone Urology, [facility] 132 [facility] [place] [address] Services, Scheduling [address] [place] [address] Advice Allergies Active Allergy Reactions Criticality Noted [...] Active Additional Information Patient taking differently:20 mg [id number], Reported on 10/07/2023 Tamsulosin HCl 0.4 MG [...] Diagnosed Date Food insecurity 05/04/2023 Overview: Per [facility] Protocol Urinary retention 12/19/2022 Chronic kidney [...] 12/02/2023 11:15 AM EDT Office Visit Urology, [facility] [address] [place] [address] Thierry Rendon MD [address] [place] [address] [place] [address] 02/04/2024 8:00 AM EDT Office Visit Orthopaedics [facility] [address] [place] [address] Willie Roe, [address] [place] [address] 02/29/2024 9:30 AM EDT Imaging Radiology, [address] [place] [address] 03/02/2024 8:00 AM EDT Office Visit Dermatology [address] [place] [address] Sandie Burden PA-C [address] [place] [address] [place] [address] 05/18/2024 3:30 PM EDT Office Visit Urology, [facility] 132 [place] [address] Thierry Rendon MD [address] [place] [address] [place] [address] 06/09/2024 9:00 AM EDT Imaging Radiology [address] [place] [address] Health Maintenance Due Date Last Done Comments [...] 07/28/2024 07/28/2023, 05/24 CKD HGB USE SMARTSET 84449 11/22/202411/22, 11/17/2023, 11/05/2023, Additional history exists CKD PHOS USE SMARTSET 96960 11/22/2024 0408/2023, 11/19/2023, 12/19/2022 Diabetes Screening 11/22/2026 [...] this encounter Medical Devices Implanted Type Area Corporation Lawyer Device Identifier Shelf Expiration Date Model / Serial / Lot Shell Acet Trident Ii 50mm - [id number] Implanted:Qty: 1 on 03/26/2020 by Willie Roe DO at OR [facility] Right: Hip KRISTIAN : ORTHOPAEDICS 07/17/2024 702-04-50D / / [id number] Trident Acetabular X3 0 36 D - [id number] Implanted:Qty: 1 on 03/26/2020 by Willie Roe DO at OR [facility] Right: Hip KRISTIAN : ORTHOPAEDICS 02/15/2024 623-00-36D / / [id number] Accolade Ii 132 Deg Sz 2 - [id number] Implanted:Qty: 1 on 03/26/2020 by Willie Roe DO at OR [facility] Right: Hip KRISTIAN : ORTHOPAEDICS 09/29/2020 4901-5542 / / [id number] Hip Hd Nk Alumina Mod D 36/+5 - [id number] Implanted:Qty: 1 on 03/26/2020 by Willie Roe DO at OR [facility] Right: Hip KRISTIAN : ORTHOPAEDICS 09/07/2024 6570-0-236 / / [id number] documented as of this encounter Advance Directives Latest Code Status on File Code Status Date Activated Date Inactivated Comments Full Code 08/04/2014 7:47 AM 08/04/2014 1:44 PM Thi s order reflects the patients wishes and were consensually agreed upon. Care Teams Tile Picker Relationship Specialty Start Date End Date Priscilla Baez MD [address] [place] [address] [place] [address] PCP - General Family Medicine 09/11/15 documented as of this encounter
--- OUTSIDE RECORDS SUMMARY | 2024-01-05 13:13 | External Medical Summary | Summary of Care ---
Author Name Unknown Organization [facility] Address [address] [facility] [place] [address] Phone [phone] Care Team Providers Care Health Care Analyst Name Role Phone Priscilla Baez MD Primary Care Provide r Reason for Visit * Reason Onset Date Comments Advice 11/10/2023 Encounter Details Date Type Department Care Team (Late st Contact Info) Description 11/10/2023 Telephone [address] [place] [address] Reyna Enriquez, RT (R) Advice Allergies Active Allergy Reactions Criticality Noted Date Comments No Known Drug Allergy 08/09/2004 documented as of this encounter (statuses as of 11/19/2023) Medications Medication Sig Dispensed Refills Start Date [...] Active Additional Information Patient taking differently:20 mg [id number], Reported on 10/07/2023 Tamsulosin HCl 0.4 MG [...] as of this encounter (statuses as of 11/19/2023) Active Problems Problem Noted Date Diagnosed Date Food insecurity 05/04/2023 Overview: Per [facility] Protocol Urinary retention 12/19/2022 Chronic kidney disease, stage 3a 06/02/2022 Overview: Per CKD protocol Hyperlipidemia with target LDL less than 100 Obesity, Class I, BMI 30.0-34.9 (see actual BMI) 12/05/2021 Shoulder arthritis 12/05/2021 Arthritis of right hip 03/16/2020 WERO on CPAP 03/16/2020 Vertigo 03/16/2020 Urethral stricture 08/04/2014 GENERAL OSTEOARTHROSIS 01/18/2003 Scoliosis documented as of this encounter (statuses as of 11/19/2023) Resolved Problems Problem Noted Date Diagnosed Date Resolved Date Hip pain, right 07/06/2018 03/16/2020 OVARIAN CYST NEC-NOS 10/24/2005 017 ADJ DISORDER W/DEPRES MOOD 05/06/2005 0 09/11/2015 Headache 02/14/2004 09/11/2015 Overview: ICD-10 update of inactive term BACKACHE, T8 disc disease 01/18/2003 Lumbago 01/18/2003 07/06/2018 Excessive menstruation 01/18/200309/11 documented as of this encounter (statuses as of 11/19/2023) Immunizations Name Administration Dates Next Due PPD [...] encounter Miscellaneous Notes * Telephone Encounter - Jessica Riley LPN - 11/19/2023 8:28 AM EDT I checked [facility] and pt was in the ER on 11/16 and it looks like she's still admitted. * Telephone Encounter - Clarita Hung RN - 11/17/2023 7:05 AM EDT No answer, My G sent to patient * Telephone Encounter - Reyna Enriquez RT (R) - 11/11/2023 10:03 AM EDT Do you know if the patient was informed? She is still on our schedule & I didn't see any notes saying pt notified. She is scheduled for Thursday, 11/12. Reyna Carson * Telephone Encounter - Enid Rose PA-C - 11/10/2023 1:37 PM EDT Please call pt. I wanted to do a CTA of her chest but her kidney function is too bad for them to inject the dye to do the test. I am really out of options as to what we can do next. Talked with Dr. Baez and she feels pt should go to ER for further evaluation. They may be able hydrate her anough to get the scan or order another scan. * Telephone Encounter - Reyna Enriquez RT (R) - 11/10/2023 12:59 PM EDT [facility], This patient is scheduled on 11/13/23 for pulm emb study. Her creatinine is 1.9 & GFR is 29. We can not inject IV contrast due to her labs. She can either try [facility] or [facility]; or if you think her labs would improve with hydration she could have them re-drawn thurs (11/12/23). Please let patient & CT know which way you'd like to proceed. Reyna Carson documented in this encounter Plan of Treatment Upcoming Encounters Date Type Department Care Team (Late st Contact Info) Description 02/04/2024 8:00 AM EDT Office Visit Orthopaedics [facility] [address] [place] [address] Willie Roe, 132 [place] [address] 02/29/2024 9:30 AM EDT Imaging Radiology, [address] [place] [address] 03/02/2024 8:00 AM EDT Office Visit Dermatology [address] [place] [address] Sandie Burden PA-C [address] [place] [address] [place] [address] 05/18/2024 3:30 PM EDT Office Visit Urology, [facility] [address] [place] [address] Thierry Rendon MD 27 [facility] [place] [address] [place] [address] 06/09/2024 9:00 AM EDT Imaging Radiology [address] [place] [address] Health Maintenance Due Date Last Done Comments DXA Scan 1955 DTaP,Tdap,and Td Vaccines (1 - Tdap) 12/03/1974 Cologuard 12/03/2000 Fecal Occult Blood Test 12/03/2000 Sigmoidoscopy 12/03/2000 Zoster Vaccines (1 of 2) 12/03/2005 Pneumococcal Vaccine: 65+ Years (1 of 1 - PCV) 12/03/2020 Depression Screening 03/16/2021 03/16/2020 COVID-19 Vaccine (1 - 2022- season) 2023 Influenza Vaccine (FLU shot) (#1) 2023 CKD PHOS USE SMARTSET 47261 12/20/2023 12/19/2022 GFR 05/07/2024 11/05/2023, 12/2022, 06/09/2023, Additional history exists Mammogram 05/28/2024 05/28/2023, 11/2021, 05/24/2021, Additional history exists Albumin/Creatinine Ratio 07/28/2024 07/28/2023, 05/24 CKD HGB USE SMARTSET 01246 11/04/202411/04, 11/05/2023, 07/28/2023, Additional history exists Diabetes [...] this encounter Medical Devices Implanted Type Area Currency Machine Operator Device Identifier Shelf Expiration Date Model / Serial / Lot Shell Acet Trident Ii 50mm - [id number] Implanted:Qty: 1 on 03/26/2020 by Willie Roe DO at OR [facility] Right: Hip KRISTIAN : ORTHOPAEDICS 07/17/2024 702-04-50D / / [id number] Trident Acetabular X3 0 36 D - [id number] Implanted:Qty: 1 on 03/26/2020 by Willie Roe DO at OR [facility] Right: Hip KRISTIAN : ORTHOPAEDICS 02/15/2024 623-00-36D / / [id number] Accolade Ii 132 Deg Sz 2 - [id number] Implanted:Qty: 1 on 03/26/2020 by Willie Roe DO at OR [facility] Right: Hip KRISTIAN : ORTHOPAEDICS 09/29/2020 [id number] / / [id number] Hip Hd Nk Alumina Mod D 36/+5 - [id number] Implanted:Qty: 1 on 03/26/2020 by Willie Roe DO at OR [facility] Right: Hip KRISTIAN : ORTHOPAEDICS 09/07/2024 6570-0-236 / / [id number] documented as of this encounter Advance Directives Latest Code Status on File Code Status Date Activated Date Inactivated Comments Full Code 08/04/2014 7:47 AM 08/04/2014 1:44 PM Thi s order reflects the patients wishes and were consensually agreed upon. Care Teams Health Care Analyst Relationship Specialty Start Date End Date Priscilla Baez MD [address] [place] [address] [place] [address] PCP - General Family Medicine 09/11/15 documented as of this encounter
--- OUTSIDE RECORDS SUMMARY | 2024-01-05 13:13 | External Medical Summary | Summary of Care ---
Author Name Unknown Organization [facility] Address [address] [facility] [place] [address] Phone [phone] Care Team Providers Care Tab Machine Operator Name Role Phone Priscilla Baez MD Primary Care Provide r Reason for Visit * Reason Comments Outpatient Testing Encounter Details Date Type Department Care Team (Late st Contact Info) Description 11/23/2023 3:00 PM EDT Laboratory Laboratory [address] [place] [phone] [place] [address] VÍCTOR (acute kidney injury) (FORMERLY [facility]) Allergies Active Allergy Reactions Criticality Noted Date Comments No Known Drug Allergy 08/09/2004 documented as of this encounter (statuses as of 11/23/2023) Medications Medication Sig Dispensed Refills Start Date [...] Active Additional Information Patient taking differently:20 mg [id number], Reported on 10/07/2023 Tamsulosin HCl 0.4 MG [...] as of this encounter (statuses as of 11/23/2023) Active Problems Problem Noted Date Diagnosed Date Food insecurity 05/04/2023 Overview: Per [facility] Protocol Urinary retention 12/19/2022 Chronic kidney disease, stage 3a 06/02/2022 Overview: Per CKD protocol Hyperlipidemia with target LDL less than 100 Obesity, Class I, BMI 30.0-34.9 (see actual BMI) 12/05/2021 Shoulder arthritis 12/05/2021 Arthritis of right hip 03/16/2020 WERO on CPAP 03/16/2020 Vertigo 03/16/2020 Urethral stricture 08/04/2014 GENERAL OSTEOARTHROSIS 01/18/2003 Scoliosis documented as of this encounter (statuses as of 11/23/2023) Resolved Problems Problem Noted Date Diagnosed Date Resolved Date Hip pain, right 07/06/2018 03/16/2020 OVARIAN CYST NEC-NOS 10/24/2005 017 ADJ DISORDER W/DEPRES MOOD 05/06/2005 0 09/11/2015 Headache 02/14/2004 09/11/2015 Overview: ICD-10 update of inactive term BACKACHE, T8 disc disease 01/18/2003 Lumbago 01/18/2003 07/06/2018 Excessive menstruation 01/18/200309/11 documented as of this encounter (statuses as of 11/23/2023) Immunizations Name Administration Dates Next Due PPD [...] Care Team (Late st Contact Info) Description 11/23/2023 3:20 PM EDT Office Visit Family Medicine [address] [place] [phone] Dylon Milton MD [address] [place] [address] [place] [address] VÍCTOR (acute kidney injury) (HCC)* 12/02/2023 11:15 AM EDT Office Visit Urology, [facility] [address] [facility] [place] [address] Thierry Rendon MD [address] [place] [address] 02/04/2024 8:00 AM EDT Office Visit Orthopaedics [facility] [address] [facility] [place] [address] Willie Roe DO [address] [place] [address] 02/29/2024 9:30 AM EDT Imaging Radiology, [address] [place] [address] 03/02/2024 8:00 AM EDT Office Visit Dermatology [address] [place] [address] BertramSandie PA-C [address] [place] [address] [place] [address] 05/18/2024 3:30 PM EDT Office Visit Urology, [facility] [address] [facility] [place] [address] Thierry Rendon MD [address] [place] [address] 06/09/2024 9:00 AM EDT Imaging Radiology [address] [place] [address] Pending Results Name Type Priority Associated Diagnoses Date /Time CBC Lab Routine VÍCTOR (acute kidney injury) (HCC) 11/23/2023 3:01 PM EDT RENAL FUNCTION PANEL Lab Routine VÍCTOR (acute kidney injury) (FORMERLY [facility]) 11/23/2023 3:01 PM EDT Health Maintenance Due Date Last Done Comments DXA Scan 1955 DTaP,Tdap,and Td Vaccines (1 - Tdap) 12/03/1974 Cologuard 12/03/2000 Fecal Occult Blood Test 12/03/2000 Sigmoidoscopy 12/03/2000 Zoster Vaccines (1 of 2) 12/03/2005 Pneumococcal Vaccine: 65+ Years (1 of 1 - PCV) 12/03/2020 Depression Screening 03/16/2021 03/16/2020 COVID-19 Vaccine (1 - 2022- season) 2023 CKD PHOS USE SMARTSET 34569 12/20/2023 12/19/2022 Influenza Vaccine (FLU shot) (Season Ended) 2024 GFR 05/07/2024 11/05/2023, 12/2022, 06/09/2023, Additional history exists Mammogram 05/28/2024 05/28/2023, 11/2021, 05/24/2021, Additional history exists Albumin/Creatinine Ratio 07/28/2024 07/28/2023, 05/24 CKD HGB USE SMARTSET 70274 11/04/202411/04, 11/05/2023, 07/28/2023, Additional history exists Diabetes [...] encounter Medical Devices Implanted Type Area Test Borer Helper Device Identifier Shelf Expiration Date Model / Serial / Lot Shell Acet Trident Ii 50mm - [id number] Implanted:Qty: 1 on 03/26/2020 by Willie Roe DO at OR [facility] Right: Hip KRISTIAN : ORTHOPAEDICS 07/17/2024 702-04-50D / / [id number] Trident Acetabular X3 0 36 D - [id number] Implanted:Qty: 1 on 03/26/2020 by Willie Roe DO at OR [facility] Right: Hip KRISTIAN : ORTHOPAEDICS 02/15/2024 623-00-36D / / [id number] Accolade Ii 132 Deg Sz 2 - [id number] Implanted:Qty: 1 on 03/26/2020 by Willie Roe DO at OR [facility] Right: Hip KRISTIAN : ORTHOPAEDICS 09/29/2020 [id number] / / [id number] Hip Hd Nk Alumina Mod D 36/+5 - [id number] Implanted:Qty: 1 on 03/26/2020 by Willie Roe DO at OR [facility] Right: Hip KRISTIAN : ORTHOPAEDICS 09/07/2024 6570-0-236 / / [id number] documented as of this encounter Visit Diagnoses Diagnosis VÍCTOR (acute kidney injury) (HCC)- Primary Acute kidney failure, unspecified VÍCTOR (acute kidney injury) (HCC) Acute kidney failure, unspecified documented in this encounter Advance Directives Latest Code Status on File Code Status Date Activated Date Inactivated Comments Full Code 08/04/2014 7:47 AM 08/04/2014 1:44 PM Thi s order reflects the patients wishes and were consensually agreed upon. Care Teams Tab Machine Operator Relationship Specialty Start Date End Date Priscilla Baez MD [address] [place] [address] [place] [address] PCP - General Family Medicine 09/11/15 documented as of this encounter
--- OUTSIDE RECORDS SUMMARY | 2024-01-05 13:13 | External Medical Summary ---
Author Name Unknown Address Unknown Organization [id number]:[place] [facility] [place] [address] [facility] [place] [address] Laboratory Report Ordering Provider Test Date Status KATERINE PARKER 11/23/2023 15:01:17 Final Observation Date Value Abnormality Reference (Units ) Status BUN 11/23/2023 15:01:17 18 6-20 (mg/dL) Final Creatinine 11/23/2023 15:01:17 1.4 Above high normal 0.5-1.0 (mg/dL) Final Glomerular filtration rate/1.73 sq M.predicted [Volume Rate/Area] in Serum, Plasma or Blood by Creatinine-based formula (CKD-EPI) 11/23/2023 15:01:17 42 Below low normal >=60 (mL/min) Final eGFR is calculated based on the CKD-EPI 2020 equation Sodium 11/23/2023 15:01:17 142 135-146 (m mol/L) Final Potassium 11/23/2023 15:01:17 4.2 3.5-5.1 (m mol/L) Final Cl 11/23/2023 15:01:17 105 98-107 (mm ol/L) Final CO2 11/23/2023 15:01:17 27 22-32 (mmo l/L) Final Anion gap 11/23/2023 15:01:17 10 7-15 (mmol /L) Final Glucose 11/23/2023 15:01:17 91 70-120 (mg /dL) Final Calcium 11/23/2023 15:01:17 9.5 8.4-10.2 ( mg/dL) Final Albumin 11/23/2023 15:01:17 4.2 3.8-5.0 (g /dL) Final Phosphate 11/23/2023 15:01:17 3.2 2.5-4.8 (m g/dL) Final Performing Location [facility] [facility] [place] [address] [facility] [place] [address]
--- OUTSIDE RECORDS SUMMARY | 2024-01-05 13:13 | External Medical Summary | Summary of Care ---
Author Name Unknown Organization [facility] Address [address] [place] [facility] [place] [place] [address] Phone [phone] Care Team Providers Care Ux Architect Name Role Phone Priscilla Baez MD Primary Care Provide r Reason for Referral * Precert (Within 10 days (routine)) - Authorized Specialty Diagnoses / Procedures Referred By Contac t Referred To Contact Radiology Diagnoses SOB (shortness of breath) Procedures CT PULMONARY EMBOLUS W CONTRAST Enid Rose PA-C [address] [place] [address] [place] [address] Referral ID Status Reason Start Date Expiration Date V isits Requested Visits Authorized [id number] Authorized Precert 11/10/2023 01/09/2024 999 999 Reason for Visit * Reason Onset Date Comments Test Results 11/09/2023 Encounter Details Date Type Department Care Team (Late st Contact Info) Description 11/09/2023 Telephone Family Medicine [address] [place] [phone] Enid Rose PA-C [address] [place] [address] [place] [address] Test Results Allergies Active Allergy Reactions Criticality Noted Date Comments No Known Drug Allergy 08/09/2004 documented as of this encounter (statuses as of 11/18/2023) Medications Medication Sig Dispensed Refills Start Date [...] Active Additional Information Patient taking differently:20 mg [id number], Reported on 10/07/2023 Tamsulosin HCl 0.4 MG [...] as of this encounter (statuses as of 11/18/2023) Active Problems Problem Noted Date Diagnosed Date [...] as of this encounter (statuses as of 11/18/2023) Resolved Problems Problem Noted Date Diagnosed Date Resolved Date Hip pain, right 07/06/2018 03/16/2020 OVARIAN CYST NEC-NOS 10/24/2005 017 ADJ DISORDER W/DEPRES MOOD 05/06/2005 0 09/11/2015 Headache 02/14/2004 09/11/2015 Overview: ICD-10 update of inactive term BACKACHE, T8 disc disease 01/18/2003 Lumbago 01/18/2003 07/06/2018 Excessive menstruation 01/18/200309/11 documented as of this encounter (statuses as of 11/18/2023) Immunizations Name Administration Dates Next Due PPD [...] encounter Miscellaneous Notes * Telephone Encounter - Clarita Hung RN - 11/10/2023 2:07 PM EDT Just ERIC, Pt sees Urology next week for Cysto/Urethral Dilation, not sure if that could be making kidney function worse * Telephone Encounter - Enid Rose PA-C - 11/09/2023 3:14 PM EDT Please call pt. Her kidney function is a little worse than normal. Make sure she is drinking enoughfluids. Can recheck in a week or two. Her D-dimer is also slightly elevated. With her ongoing SOB, I think it would be a good idea to get a CTA of chest. Order in. documented in this encounter Plan of Treatment Upcoming Encounters Date Type Department Care Team (Late st Contact Info) Description 02/04/2024 8:00 AM EDT Office Visit Orthopaedics [facility] [address] [place] [address] Willie Roe, [address] [place] [address] 02/29/2024 9:30 AM EDT Imaging Radiology, [address] [place] [address] 03/02/2024 8:00 AM EDT Office Visit Dermatology [address] [place] [address] Sandie Burden PA-C [address] [place] [address] [place] [address] 05/18/2024 3:30 PM EDT Office Visit Urology, [facility] [address] [place] [address] Thierry Rendon MD [address] [facility] [address] [place] [address] 06/09/2024 9:00 AM EDT Imaging Radiology [address] [place] [address] Scheduled Orders Name Type Priority Associated Diagnoses Orde r Schedule CT PULMONARY EMBOLUS W CONTRAST Medical Imaging Routine SOB (shortness of breath) Expected: 11/10/2023, Expires: 12/09/2024 Health Maintenance Due Date Last Done Comments DXA Scan 1955 DTaP,Tdap,and Td Vaccines (1 - Tdap) 12/03/1974 Cologuard 12/03/2000 Fecal Occult Blood Test 12/03/2000 Sigmoidoscopy 12/03/2000 Zoster Vaccines (1 of 2) 12/03/2005 Pneumococcal Vaccine: 65+ Years (1 of 1 - PCV) 12/03/2020 Depression Screening 03/16/2021 03/16/2020 COVID-19 Vaccine (1 - 2022- season) 2023 Influenza Vaccine (FLU shot) (#1) 2023 CKD PHOS USE SMARTSET 72194 12/20/2023 12/19/2022 GFR 05/07/2024 11/05/2023, 12/2022, 06/09/2023, Additional history exists Mammogram 05/28/2024 05/28/2023, 11/2021, 05/24/2021, Additional history exists Albumin/Creatinine Ratio 07/28/2024 07/28/2023, 05/24 CKD HGB USE SMARTSET 11481 11/04/202411/04, 11/05/2023, 07/28/2023, Additional history exists Diabetes [...] this encounter Medical Devices Implanted Type Area Audio Visual Aide Device Identifier Shelf Expiration Date Model / Serial / Lot Shell Acet Trident Ii 50mm - [id number] Implanted:Qty: 1 on 03/26/2020 by Willie Roe DO at OR [facility] Right: Hip KRISTIAN : ORTHOPAEDICS 07/17/2024 702-04-50D / / [id number] Trident Acetabular X3 0 36 D - [id number] Implanted:Qty: 1 on 03/26/2020 by Willie Roe DO at OR [facility] Right: Hip KRISTIAN : ORTHOPAEDICS 02/15/2024 623-00-36D / / [id number] Accolade Ii 132 Deg Sz 2 - [id number] Implanted:Qty: 1 on 03/26/2020 by Willie Roe DO at OR [facility] Right: Hip KRISTIAN : ORTHOPAEDICS 09/29/2020 9064-0992 / / [id number] Hip Hd Nk Alumina Mod D 36/+5 - [id number] Implanted:Qty: 1 on 03/26/2020 by Willie Roe DO at OR [facility] Right: Hip K[employer]IAN : ORTHOPAEDICS 09/07/2024 6570-0-236 / / [id number] documented as of this encounter Visit Diagnoses Diagnosis SOB (shortness of breath)- Primary Shortness of breath documented in this encounter Advance Directives Latest Code Status on File Code Status Date Activated Date Inactivated Comments Full Code 08/04/2014 7:47 AM 08/04/2014 1:44 PM Thi s order reflects the patients wishes and were consensually agreed upon. Care Teams Ux Architect Relationship Specialty Start Date End Date Priscilla Baez MD [address] [place] [address] [place] [address] PCP - General Family Medicine 09/11/15 documented as of this encounter
--- OUTSIDE RECORDS SUMMARY | 2024-01-05 13:13 | External Medical Summary | Summary of Care ---
Author Name Unknown Organization [facility] Address [address] [place] [address] Phone [phone] Care Team Providers Care Oil Field Tester Name Role Phone Priscilla Baez MD Primary Care Provide r Encounter Details Date Type Department Care Team (Late st Contact Info) Description 11/24/2023 Orders Only Family Medicine [address] [place] [phone] Priscilla Baez MD [address] [place] [address] [place] [address] Allergies Active Allergy Reactions [...] Active Additional Information Patient taking differently:20 mg [id number], Reported on 10/07/2023 Tamsulosin HCl 0.4 MG [...] Diagnosed Date Food insecurity 05/04/2023 Overview: Per [facility] Protocol Urinary retention 12/19/2022 Chronic [...] 12/02/2023 11:15 AM EDT Office Visit Urology, [facility] [address] [facility] [place] [address] Thierry Rendon MD [address] [facility] [address] [place] [address] 02/04/2024 8:00 AM EDT Office Visit [facility]opaedics [facility] [place] [address] Willie Roe, [address] [place] [address] 02/29/2024 9:30 AM EDT Imaging Radiology, [address] [place] [address] 03/02/2024 8:00 AM EDT Office Visit Dermatology [address] [place] [address] Sandie Burden PA-C [address] [place] [address] [place] [address] 05/18/2024 3:30 PM EDT Office Visit Urology, [facility] [address] [place] [address] Thierry Rendon MD [address] [facility] [address] [place] [address] 06/09/2024 9:00 AM EDT Imaging Radiology [address] [place] [address] Health Maintenance Due Date Last Done Comments [...] 07/28/2024 07/28/2023, 05/24 CKD HGB USE SMARTSET 18454 11/22/202411/22, 11/17/2023, 11/05/2023, Additional history exists CKD PHOS USE SMARTSET 88607 11/22/2024 040 08/2023, 11/19/2023, 12/19/2022 Diabetes Screening [...] this encounter Medical Devices Implanted Type Area Principal Consulting Engineer Device Identifier Shelf Expiration Date Model / Serial / Lot Shell Acet Trident Ii 50mm - [id number] Implanted:Qty: 1 on 03/26/2020 by Willie Roe DO at OR [facility] Right: Hip K[employer]STIAN : ORTHOPAEDICS 07/17/2024 702-04-50D / / [id number] Trident Acetabular X3 0 36 D - [id number] Implanted:Qty: 1 on 03/26/2020 by Willie Roe DO at OR [facility] Right: Hip K[employer]STIAN : ORTHOPAEDICS 02/15/2024 623-00-36D / / [id number] Accolade Ii 132 Deg Sz 2 - [id number] Implanted:Qty: 1 on 03/26/2020 by Willie Roe, DO at OR [facility] Right: Hip K[employer]STIAN : ORTHOPAEDICS 09/29/2020 [id number] / / [id number] Hip Hd Nk Alumina Mod D 36/+5 - [id number] Implanted:Qty: 1 on 03/26/2020 by Willie Roe, DO at OR [facility] Right: Hip K[employer]STIAN : ORTHOPAEDICS 09/07/2024 6570-0-236 / / [id number] documented as of this encounter Procedures Procedure Name Priority Date/Time Associated Diagnosis Comments CHEMISTRY-OUTSIDE Routine 11/19/2023 CHEMISTRY-OUTSIDE Routine 11/17/2023 documented in this encounter Results * (ABNORMAL) CHEMISTRY-OUTSIDE (11/19/2023) Not all results display below - see scan for full detail OUTSIDE LAB (SEE SCANNED REPORT) Comment:SCAN INCLUDES - BMP, PHOSPHORUS, MG CREATININE-OUTSID E LAB 1.65(A) 0.6 - 1.2 MG/DL OUTSIDE LAB (SEE SCANNED REPORT) EGFR-OUTSIDE LAB 31.8 ML/MIN OUT SIDE LAB (SEE SCANNED REPORT) POTASSIUM-OUTSIDE LAB 4.1 3.5 - 5.1 MMOL/L OUTSIDE LAB (SEE SCANNED REPORT) GLUCOSE-OUTSIDE LAB 81 70 - 99 MG/DL OUTSIDE LAB (SEE SCANNED REPORT) HOURS FASTING OUTSID E LAB (SEE SCANNED REPORT) TRIGLYCERIDES-OUT SIDE LAB OUTSIDE LAB (SEE SCANNED REPORT) CHOLESTEROL-OUTSI DE LAB OUTSIDE LAB (SEE SCANNED REPORT) HDL-OUTSIDE LAB OUTS [facility] (SEE SCANNED REPORT) CHOL/HDL RATIO-OUTSIDE LAB OUTSIDE LA B (SEE SCANNED REPORT) LDL (CALCULATED)-OUTS [facility] OUTSIDE LAB (SEE SCANNED REPORT) LDL (DIRECT MEASURE)-OUTSIDE LAB OUTSIDE LAB (SEE SCANNED REPORT) HEMOGLOBIN, [id number]-[id number] LAB OUTSIDE LAB (SEE SCANNED REPORT) PHOSPHORUS-OUTSID E LAB 2.9 2.5 - 4.9 MG/DL OUTSIDE LAB (SEE SCANNED REPORT) PTH-OUTSIDE LAB OUTS [facility] (SEE SCANNED REPORT) MICROALBUMIN RATIO-OUTSIDE LAB OUTSIDE LA B (SEE SCANNED REPORT) PROTEIN, UA-OUTSIDE LAB OUTSIDE LAB (SEE SCANNED REPORT) HGB OUTSIDE LA B (SEE SCANNED REPORT) 11/19/2023 Latosha Freire MD LABORATORY OUTSIDE LAB (SEE SCANNED REPORT) * (ABNORMAL) CHEMISTRY-OUTSIDE (11/17/2023) Not all results display below - see scan for full detail OUTSIDE LAB (SEE SCANNED REPORT) Comment:SCAN INCLUDES - CBCD , CMP, LIPASE, UA CREATININE-OUTSI DE LAB 1.95(A) 0.6 - 1.2 MG/DL OUTSIDE LAB (SEE SCANNED REPORT) EGFR-OUTSIDE LAB 26.0 ML/MIN OUT SIDE LAB (SEE SCANNED REPORT) POTASSIUM-OUTSID E LAB 4.1 3.5 - 5.1 MMOL/L OUTSIDE LAB (SEE SCANNED REPORT) GLUCOSE-OUTSIDE LAB 100(A) 70 - 99 MG/DL OUTSIDE LAB (SEE SCANNED REPORT) HOURS FASTING OUTSID E LAB (SEE SCANNED REPORT) TRIGLYCERIDES-OU TSIDE LAB OUTSIDE LAB (SEE SCANNED REPORT) CHOLESTEROL-OUTS [facility] OUTSIDE LAB (SEE SCANNED REPORT) HDL-OUTSIDE LAB OUTS [facility] (SEE SCANNED REPORT) CHOL/HDL RATIO-OUTSIDE LAB OUTSIDE LAB (SEE SCANNED REPORT) LDL (CALCULATED)-OUT SIDE LAB OUTSIDE LAB (SEE SCANNED REPORT) LDL (DIRECT MEASURE)-OUTSIDE LAB OUTSIDE LAB (SEE SCANNED REPORT) HEMOGLOBIN, [id number] LAB OUTSIDE LAB (SEE SCANNED REPORT) PHOSPHORUS-OUTSI DE LAB OUTSIDE LAB (SEE SCANNED REPORT) PTH-OUTSIDE LAB OUTS [facility] (SEE SCANNED REPORT) MICROALBUMIN RATIO-OUTSIDE LAB OUTSIDE LAB (SEE SCANNED REPORT) PROTEIN, UA-OUTSIDE LAB NEGATIVE NEGATIVE OUTSIDE LAB (SEE SCANNED REPORT) HGB 11.1(A) 12.0 - 16.0 G/DL OUTSIDE LAB (SEE SCANNED REPORT) 11/17/2023 History Per Patient LABORATORY OUTSIDE LAB (SEE SCANNED REPORT) documented in this encounter Advance Directives Latest Code Status on File Code Status Date Activated Date Inactivated Comments Full Code 08/04/2014 7:47 AM 08/04/2014 1:44 PM Thi s order reflects the patients wishes and were consensually agreed upon. Care Teams Oil Field Tester Relationship Specialty Start Date End Date Priscilla Baez MD [address] [place] [address] [place] [phone] PCP - General Family Medicine 09/11/15 documented as of this encounter
--- OUTSIDE RECORDS SUMMARY | 2024-01-05 13:13 | External Medical Summary ---
Author Name Unknown Address Unknown Organization K01:[facility] [place] - [address] [place] [address] [address] Laboratory Report Ordering Provider Test Date Status KAREN RAMOS 11/17/2023 10:58:44 Final Observation Date Value Abnormality Reference (Units) Status Bacteria identified in Specimen by Culture 11/17/2023 10:58:44 [id number]^BETA STREPTOCOCCUS GROUP B Abnormal Final 10,000 to 100,000 colonies/m L Beta Streptococcus group B Performing Location [facility] [place] [facility] [address] [facility] [address] Ordering Provider Test Date Status KAREN RAMOS 11/17/2023 10:58:44 Final Observation Date Value Abnormality Reference (Units ) Status Penicillin susceptibility 11/17/2023 10:58:44 <=0.06 Susceptible Final Vancomycinsusceptibility 11/17/2023 10:58:44 0.5 Susceptible Final Test: Culture, Urine, Quanti tative
Specimen Source: Urine, Catheter
Specimen Type: Urine
Specimen Date: 11/17/2023 10:58 AM
Result Date: 11/20/2023 8:17 AM
Result Status: Final result
Abnormal: Yes
Resulting Lab: [facility] [place]
[address]
[place] [address]

CULTURE

10,000 to 100,000 colonies/mL Beta Streptococcus group B (Abnormal)

SUSCEPTIBILITY

Beta Streptococcus
group B
METHOD MICROBROTH
DILUTIONS

PENICILLIN G <=0.06 Susceptible
VANCOMYCIN 0.5 Susceptible

null Performing Location LAB[facility] [place] - [address] [facility] [address]
--- OUTSIDE RECORDS SUMMARY | 2024-01-05 13:13 | External Medical Summary | Summary of Care ---
Author Name Unknown Organization [facility] Address [address] [place] [address] Phone [phone] Care Team Providers Care Process Assistant Name Role Phone Priscilla Baez MD Primary Care Provide r Reason for Visit * Reason Comments Hospital Follow-Up Encounter Details Date Type Department Care Team (Late st Contact Info) Description 11/23/2023 3:20 PM EDT Office Visit Family Medicine [address] [place] [address] Dylon Milton MD [address] [place] [address] [place] [id number] VÍCTOR (acute kidney injury) ([facility])* Allergies Active Allergy Reactions Criticality Noted Date [...] Active Additional Information Patient taking differently:20 mg [id number], Reported on 10/07/2023 Tamsulosin HCl 0.4 MG [...] Sign Reading Time Taken Comments Blood Pressure 124/60 11/23/2023 2:43 PM EDT Pulse 92 11/23/2023 2:43 PM EDT Temperature 36.4 C (97.6 F) 11/23/2023 2:43 PM ED T Respiratory Rate 16 11/23/2023 2:43 PM EDT Oxygen Saturation 96% 11/23/2023 2:43 PM EDT Inhaled Oxygen Concentration - - Weight 67.1 kg (148 lb) 11/23/2023 2:43 PM EDT Height 152.4 cm (5') 11/23/2023 2:43 PM EDT Body Mass Index 28.9 11/23/2023 2:43 PM EDT documented in this encounter Progress Notes * Dylon Milton MD - 11/23/2023 2:46 PM EDT Admitted to [facility] 11/16 discharged 11/18. Was seen by urology and sent to ER for VÍCTOR. She was treated for the B strep infection, rehydrated, told to hold the Mobic. She is still fatigued and was to comehere to get repeat labs. Patient Active Problem List Diagnosis Code GENERAL OSTEOARTHROSIS M15.9 Urethral stricture N35.919 Scoliosis M41.9 Arthritis of right hip M16.11 WERO on CPAP G47.33 Vertigo R42 Hyperlipidemia with target LDL less than 100 E78.5 Obesity, Class I, BMI 30.0-34.9 (see actual BMI) E66.9 Shoulder arthritis M19.019 Chronic kidney disease, stage 3a (HCC) N18.31 Urinary retention R33.9 Food insecurity Z59.41 Past Medical History: Diagnosis Date Generalized osteoarthritis WERO on CPAP Scoliosis Vertigo Past Surgical History: Procedure Laterality Date COLONOSCOPY normal COLONOSCOPY, DIAGNOSTIC (RECTUM) 10/20/2023 COLONOSCOPY FLEXIBLE PROXIMAL DIAGNOSTIC performed by Ellen Torres DO at ENDOSCOPY [facility] CYSTOSCOPY 07/31/2014 CYSTOSCOPY/TREATMENT OF STRICTURE N/A 08/04/2014 CYSTOURETHROSCOPY WITH CALIBRATION OR DILATION STRICTURE performed by Qiana Allen MD at OR [facility] CYSTOURETHROSCOPY W/BIOPSY N/A 08/04/2014 CYSTOURETHROSCOPY WITH BIOPSY performed by Qiana Allen MD at [facility] EGD, FLEXIBLE, DIAGNOSTIC KNEE ARTHROSCOPY, DIAGNOSTIC 09/27 Knee Arthroscopy, right LAPAROSCOPY; CHOLECYSTECTOMY 2009 [facility] LIGATE/CUT OVIDUCT(S) 1981 [facility] JAW W/FIXATION REMOVE TONSILS & ADENOIDS, UNDER 12 TOTAL HIP REPLACEMENT & PROSTHESIS Right 03/26/2020 ROBOTIC ARTHROPLASTY TOTAL HIP performed by Willie Roe DO at OR [facility] Review of patient's allergies indicates: Allergen Reactions No Known Drug Allergy Social History Socioeconomic History Marital status: Spouse [...] Resource Strain: Not on file Food Insecurity: Unknown (11/23/2023) Hunger Vital Sign Worried About Running Out of Food in the Last Year: Never true Ran Out of Food in the Last Year: Patient declined Transportation Needs: Not on file Physical Activity: Not on file Stress: Not on file Social Connections: Not on file Intimate Partner Violence: Not on file Housing Stability: Not on file Current Outpatient Medications Medication Sig Dispense Refill [...] HOURS NEEDED FOR WHEEZING 18 g 1 Cephalexin 500 MG Oral Capsule (Keflex) Take 1 Capsule by mouth in the morning and 1 Capsule beforebedtime. No current facility-administered medications for this visit. Immunization History Administered Date(s) Administered PPD 02/02/2006 Urine culture had grown 10-100,000 B strep. Results for orders placed or performed in visit on 11/05/23 COMPREHENSIVE METABOLIC PANEL Result Value Ref Range BUN 31 (H) 6 - 20 mg/dL Creatinine 1.9 (H) 0.5 - 1.0 mg/dL Estimated Glomerular Filtration Rate 29 (L) >=60 mL/min Sodium 137 135 - 146 mmol/L Potassium 4.7 3.5 - 5.1 mmol/L Chloride 104 98 - 107 mmol/L CO2 23 22 - 32 mmol/L Anion Gap 10 7 - 15 mmol/L Glucose 116 70 - 120 mg/dL Albumin 4.1 3.8 - 5.0 g/dL AST 10 10 - 35 U/L Alkaline Phosphatase 82 35 - 130 U/L Bilirubin, Total 0.3 <=1.2 mg/dL Calcium 9.5 8.4 - 10.2 mg/dL Protein 6.5 6.0 - 8.3 g/dL ALT 14 10 - 35 U/L O: Blood pressure 124/60, pulse 92, temperature 36.4 C (97.6 F), resp. rate 16, height 1.524 m (5'), weight 67.1 kg (148 lb), SpO2 96%. General appearance: well developed, well nourished and in no acute distress. Neck is supple without adenopathy or thyromegaly. Chest is symmetrical and moves normally. The lungs are clear without wheezes, rales, rhonchi or rubs, and the heart is regular without murmurs or gallops, or ectopy. PMI not displaced. A: VÍCTOR (acute kidney injury) (HCC) (Primary) - CBC; Future; Expected date: 11/23/2023 - RENAL FUNCTION PANEL; Future; Expected date: 11/23/2023 Follow Up: Return if symptoms worsen or fail to improve. documented in this encounter Nursing Notes * Clarita Hung RN - 11/23/2023 2:43 PM EDT Pt was in [facility] D/C 11/19/23. Was in hospital 3 days Pt had a urethral dilation, follows up next weekJust feels very tired documented in this encounter Plan of Treatment Upcoming Encounters Date Type Department Care Team (Late st Contact Info) Description 12/02/2023 11:15 AM EDT Office Visit Urology, [facility] [address] [place] [id number] Thierry Rendon MD [address] [facility] [place] [address] [place] [address] 02/04/2024 8:00 AM EDT Office Visit Orthopaedics [facility] [address] [place] [address] Willie Roe DO [address] [place] [place] [address] 02/29/2024 9:30 AM EDT Imaging Radiology, [address] [place] [address] 03/02/2024 8:00 AM EDT Office Visit Dermatology [address] [place] [address] Sandie Burden PA-C [address] [place] [address] [place] [address] 05/18/2024 3:30 PM EDT Office Visit Urology, [facility] [address] [place] [address] Thierry Rendon MD [address] [place] [address] [place] [address] 06/09/2024 9:00 AM EDT Imaging Radiology [address] [place] [address] Pending Results Name Type Priority Associated Diagnoses Date /Time CBC Lab Routine VÍCTOR (acute kidney injury) ([facility]) 11/23/2023 3:01 PM EDT RENAL FUNCTION PANEL Lab Routine VÍCTOR (acute kidney injury) ([facility]) 11/23/2023 3:01 PM EDT Scheduled Orders Name Type Priority Associated Diagnoses Orde r Schedule CBC Lab Routine VÍCTOR (acute kidney injury) ([facility]) Expected: 11/23/2023 (Approximate), Expires: 11/22/2024 RENAL FUNCTION PANEL Lab Routine VÍCTOR (acute kidney injury) ([facility]) Expected: 11/23/2023 (Approximate), Expires: 11/22/2024 Health Maintenance Due Date Last Done Comments DXA Scan 1955 DTaP,Tdap,and Td Vaccines (1 - Tdap) 12/03/1974 Cologuard 12/03/2000 Fecal Occult Blood Test 12/03/2000 Sigmoidoscopy 12/03/2000 Zoster Vaccines (1 of 2) 12/03/2005 Pneumococcal Vaccine: 65+ Years (1 of 1 - PCV) 12/03/2020 Depression Screening 03/16/2021 03/16/2020 COVID-19 Vaccine (1 - 2022- season) 2023 CKD PHOS USE SMARTSET [id number] 12/20/2023 12/19/2022 Influenza Vaccine (FLU shot) (Season Ended) 2024 GFR 05/07/2024 11/05/2023, 12/0 12/2022, 06/09/2023, Additional history exists Mammogram 05/28/2024 05/28/2023, 11/2021, 05/24/2021, Additional history exists Albumin/Creatinine Ratio 07/28/2024 07/28/2023, 05/24 CKD HGB USE SMARTSET 55194 11/04/202411/04, 11/05/2023, 07/28/2023, Additional history exists Diabetes [...] this encounter Medical Devices Implanted Type Area Green Meat Grader Device Identifier Shelf Expiration Date Model / Serial / Lot Shell Acet Trident Ii 50mm - [id number] Implanted:Qty: 1 on 03/26/2020 by Willie Roe DO at OR [facility] Right: Hip [employer] : ORTHOPAEDICS 07/17/2024 702-04-50D / / [id number] Trident Acetabular X3 0 36 D - [id number] Implanted:Qty: 1 on 03/26/2020 by Willie Roe DO at OR [facility] Right: Hip [employer] : ORTHOPAEDICS 02/15/2024 623-00-36D / / [id number] Accolade Ii 132 Deg Sz 2 - [id number] Implanted:Qty: 1 on 03/26/2020 by Willie Roe DO at OR [facility] Right: Hip [employer] : ORTHOPAEDICS 09/29/2020 [id number] / / [id number] Hip Hd Nk Alumina Mod D 36/+5 - [id number] Implanted:Qty: 1 on 03/26/2020 by Willie Roe DO at OR [facility] Right: Hip [employer] : ORTHOPAEDICS 09/07/2024 [id number] / / [id number] documented as of this encounter Visit Diagnoses Diagnosis VÍCTOR (acute kidney injury) (HCC)- Primary Acute kidney failure, unspecified documented in this encounter Advance Directives Latest Code Status on File Code Status Date Activated Date Inactivated Comments Full Code 08/04/2014 7:47 AM 08/04/2014 1:44 PM Thi s order reflects the patients wishes and were consensually agreed upon. Care Teams Process Assistant Relationship Specialty Start Date End Date Priscilla Baez MD [address] [place] [address] [place] [address] PCP - General Family Medicine 09/11/15 documented as of this encounter
--- OUTSIDE RECORDS SUMMARY | 2024-01-05 13:13 | External Medical Summary ---
Author Name Unknown Address Unknown Organization K01:[facility] [place] [address] [facility] [address] Laboratory Report Ordering Provider Test Date Status KATERINE PARKER 11/23/2023 15:01:17 Final Observation Date Value Abnormality Reference (Units ) Status WBC, Total 11/23/2023 15:01:17 9.12 4.00-10.80 (K/uL) Final RBC 11/23/2023 15:01:17 3.32 3.85-5.15 (M/uL) Final Hemoglobin 11/23/2023 15:01:17 11.3 Below low normal 12.0-15.3 (g/dL) Final HCT 11/23/2023 15:01:17 33.7 Below low normal 36.0-45.2 (%) Final MCV 11/23/2023 15:01:17 101.5 81.5-97.5 (fL) Final MCH 11/23/2023 15:01:17 34.0 27.0-34.0 (pg) Final MCHC 11/23/2023 15:01:17 33.5 32.0-36.0 (g/dL) Final RDW 11/23/2023 15:01:17 12.7 11.5-15.5 (%) Final Platelets 11/23/2023 15:01:17 353 140-400 (K/uL) Final MPV 11/23/2023 15:01:17 10.0 6.6-11.1 (fL) Final Nucleated erythrocytes/100 leukocytes [Ratio] in Blood by Automated count 11/23/2023 15:01:17 0 <=0 (/100 WBCs) Final Performing Location [facility] [place] [address] [facility] [address]
--- NOTE | 2024-01-05 14:57 | Neurology Consultation ---
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 Plan Recommend prednisone 60 mg for 7 days. Recommend valacyclovir 1 g 3 times daily for 7 days. Lubricant during the day and eye ointment at night with a patch to prevent corneal ulceration Frequent massages Telehealth Consultation Telehealth Information Telehealth Information: I performed this visit using a real-time telehealth connection between my location and the patients location ([facility]). After c onnecting through interactive tele-video, patient was identified by name and date of and/or wristband check.Patient (or authorized healthcare insurance follow up representative) was informed that this was a telemedicine visit and it was being conducted confidentially over secure lines. My office door was closed and no one else was present in the room with me.Patient (or authorized healthcare insurance follow up representative) provided consent to proceed with the visit, expressed an understanding of privacy and security of the telemedicine visit, and gave permission to have a hospital insurance follow up representative in the room in order to assist with the visit and to conduct portions of the visit, as needed. I informed the patient (or authorized healthcare insurance follow up representative) that I reviewed their record and presented the opportunity for them to ask any questions regarding the visit today. The patient agreed to participate. History of Present Illness Reason for Consultation: Facial palsy Requesting Physician: Dr Martin Attending Physician: Nga Martin MD History of Present Illness Mrs Carty a 68-year-old female patient with sensorineural hearing loss, HTN, urinary retention, cervical radiculopathy who presented to the emergency room yesterday with reports of left facial weakness that started with her inability to open her left eye, she also noticed that her speech was slurred because of the facial droop. Reports left facial numbness, dull sensation The patient improved her eyebrows. Denies any double vision, denies any arm or leg weakness or numbness, Has been having some upper respiratory symptoms no other focal neurological deficits. Allergies Allergy/AdvReac Type Severity Reaction Status Date / Time No Known Allergies Allergy Verified 01/04/24 22:43 Home Medications Medication Instructions Recorded Confirmed Type meclizine 25 mg tablet 25 mg PO TID PRN Dizziness 08/28/18 01/04/24 History meloxicam 15 mg tablet 15 mg PO DAILY 08/28/18 01/04/24 History multivitamin 1 tab PO DAILY 08/28/18 01/04/24 History CPAP Machine #1 ea 10/18/19 09/30/23 Rx CPAP Machine #1 ea 01/17/20 09/30/23 Rx cholecalciferol (vitamin D3) 125 125 mcg PO DAILY 07/24/20 01/04/24 History mcg (5,000 unit) capsule cranberry fruit concentrate 250 mg 250 mg PO DAILY 07/24/20 01/04/24 History chewable tablet (Azo Cranberry) mecobalamin (vitamin B12) 5,000 5,000 mcg PO DAILY 07/24/20 01/04/24 History mcg disintegrating tablet CPAP Supplies #1 ea 09/12/21 09/30/23 Rx albuterol sulfate 90 mcg/actuation 2 inh inhalation Q6H PRN Shortness 09/30/23 01/04/24 History breath activated powder inhaler Of Breath Or Wheezing atorvastatin 20 mg tablet 20 mg PO HS 11/17/23 01/04/24 History ferrous sulfate 325 mg (65 mg 325 mg PO BID 11/17/23 01/04/24 History iron) tablet pantoprazole 20 mg tablet,delayed 20 mg PO QAM 11/17/23 01/04/24 History release tamsulosin 0.4 mg capsule 0.4 mg PO BID 11/17/23 01/04/24 History Patient History Medical History Hyperlipidemia Osteopenia Osteoporosis Chronic insomnia Obstructive sleep apnea syndrome No pertinent family history Vertigo Sleep apnea Arthritis Surgical History History of tubal ligation History of tonsillectomy History of mandibular surgery History of cholecystectomy History of arthroscopic knee surgery Family History Grandfather (Maternal) Diabetes Grandmother (Maternal) Diabetes Sister Diabetes Son Hypertension Mother Lung cancer Social History Smoking Status: Unknown if ever smoked Second Hand Exposure: No; Do You Dip or Chew Tobacco: No; Tobacco Cessation Education Requested by Patient: No Hx Alcohol Use: No Hx Substance Use: No Preferred Language: Citizen Of [place] Communication Ability: Effective Industrial Training Specialist Required: No Beliefs That Will Affect Care: None marital status: Current Living Situation: Alone current occupational status: employed Other Information That Helps Us Care for You: No Feels Safe at Home: Yes Safety Concerns: Feels Safe At This Time Seatbelt Use: always Assistive Devices: Walker Review of Systems Negative except for the points mentioned in H&P Physical Exam General Constitutional: Appearance normally developed Head and face: normocephalic and atraumatic Eyes: no ptosis, no anisocoria, and no dysconjugate gaze Respiratory: normal effort Cardiovascular: regular rhythm and regular rate Abdomen: non distended Skin: no rashes, lesions, or ulcers noted Psychiatric: normal judgement and insight, normal mood, and normal affect NEUROLOGIC EXAMINATION: Mental Status:alert, oriented to time, place, person, normal recent memory, normal remote memory, normal attention span, normal concentration, normal language and normal fund of knowledge Cranial Nerves: CN 2 - no visual defect on confrontation and pupils round, equal, reactive to light CN 3, 4, 6 - extra-ocular movements intact and no nystagmus CN 5 - facial sensation intact CN 7 - complete left facial palsy CN 8 - intact hearing CN 9, 10 - palate symmetric, normal gag CN 11 - good shoulder shrug CN 12 - tongue midline MOTOR: Strength was at least antigravity throughout, Pronator drift was absent and There were no abnormal movements SENSATION: intact and symmetric to pinprick, light touch, vibration and joint position GAIT: stable, no ataxia and can perform tandem walking COORDINATION: no ataxia with finger to nose testing and heel to herron testing REFLEXES: cannot assess over telemedicine Results & Data Vital Signs (Past 12 Hours) Vital Signs Temp Pulse Pulse Resp BP BP Pulse Ox 01/05/24 11:18 36.7 C 77 18 145/79 H 97 01/05/24 10:19 84 01/05/24 05:56 87 27 H 97 01/05/24 05:40 77 15 96 01/05/24 05:30 84 15 97 01/05/24 05:20 76 17 96 01/05/24 05:10 84 22 97 01/05/24 05:05 143/91 H 01/05/24 05:05 77 19 96 01/05/24 05:04 83 15 96 01/05/24 04:40 84 18 97 01/05/24 04:30 134/93 01/05/24 04:30 72 16 96 01/05/24 04:20 86 14 98 01/05/24 04:10 72 17 96 01/05/24 04:00 125/77 01/05/24 04:00 74 18 95 01/05/24 03:50 80 19 95 01/05/24 03:40 72 20 95 01/05/24 03:30 159/96 H 01/05/24 03:30 89 14 98 01/05/24 03:20 94 H 20 97 01/05/24 03:10 79 19 96 01/05/24 03:00 137/89 01/05/24 03:00 89 21 97 O2 Del Method 01/05/24 11:18 Room Air 01/05/24 10:19 01/05/24 05:56 01/05/24 05:40 01/05/24 05:30 01/05/24 05:20 01/05/24 05:10 01/05/24 05:05 01/05/24 05:05 01/05/24 05:04 01/05/24 04:40 01/05/24 04:30 01/05/24 04:30 01/05/24 04:20 01/05/24 04:10 01/05/24 04:00 01/05/24 04:00 01/05/24 03:50 01/05/24 03:40 01/05/24 03:30 01/05/24 03:30 01/05/24 03:20 01/05/24 03:10 01/05/24 03:00 01/05/24 03:00 Laboratory Results Abnormal lab results 01/04/24 01/04/24 01/05/24 Range/Units 20:50 20:58 05:05 RBC 3.61 L (4.20-5.40) M/uL Hgb 11.9 L (12.0-16.0) g/dl POC Hgb 11.9 L (12.0-16.0) g/dl Hct 34.9 L (37.0-47.0) % POC Hct 35 L (37-47) % Bucks # (Auto) (0.11-0.59) K/uL Chloride (98-107) mmol/L POC Anion Gap 15.0 L (16-25) mmol/L POC BUN 32 H (7-18) mg/dl BUN 33 H (6-23) mg/dl Creatinine 2.11 H (0.6-1.2) mg/dl POC Creatinine 2.4 H (0.6-1.3) mg/dl Calcium 11.5 H (8.6-10.3) mg/dl POC Ioniz Calcium Stephani 1.42 H (1.12-1.32) mmol/l Urine Blood 2+ H (Negative) Ur Leukocyte Esterase 1+ H (Negative) Urine WBC (Auto) 11-20 H (0-5) /hpf Urine RBC (Auto) >20 H (0-2) /hpf 01/05/24 Range/Units 07:03 RBC 3.40 L (4.20-5.40) M/uL Hgb 11.0 L (12.0-16.0) g/dl POC Hgb (12.0-16.0) g/dl Hct 33.0 L (37.0-47.0) % POC Hct (37-47) % Bucks # (Auto) 0.74 H (0.11-0.59) K/uL Chloride 108 H (98-107) mmol/L POC Anion Gap (16-25) mmol/L POC BUN (7-18) mg/dl BUN 28 H (6-23) mg/dl Creatinine 1.69 H D (0.6-1.2) mg/dl POC Creatinine (0.6-1.3) mg/dl Calcium (8.6-10.3) mg/dl POC Ioniz Calcium Stephani (1.12-1.32) mmol/l Urine Blood (Negative) Ur Leukocyte Esterase (Negative) Urine WBC (Auto) (0-5) /hpf Urine RBC (Auto) (0-2) /hpf Diagnostic Findings Head CT 01/04/24 20:37 Exam(s): CT HEAD Without Contrast EXAM: CT Head Without Intravenous Contrast CLINICAL HISTORY: Reason for exam: Neuro deficit, acute, stroke suspected. TECHNIQUE: Axial computed tomography images of the head/brain without intravenous contrast. CTDI is 37.32 mGy and DLP is 547.75 mGy-cm. Automated exposure control was utilized for the study. A dose lowering technique was utilized adhering to the principles of ALARA. COMPARISON: No relevant prior studies available. FINDINGS: No acute intracranial hemorrhage. No midline shift or mass effect. The territorial dias-white matter differentiation is maintained throughout. Age-related cerebral volume loss. Periventricular and subcortical white matter hypoattenuation, consistent with chronic microangiopathy. The visualized orbits appear grossly unremarkable. The calvarium is intact. The visualized paranasal sinuses and mastoid air cells are grossly clear. IMPRESSION: No acute intracranial hemorrhage, midline shift, or mass effect. Electronically signed by: Marvin Sheth MD 01/04/24 22:03 PM Head CTA 01/04/24 20:37 Exam(s): CTA HEAD With Contrast IV Amt: 119 ML OPTIRAY 320 EXAM: CT Angiography Head With Intravenous Contrast CLINICAL HISTORY: Reason for exam: facial droop. TECHNIQUE: Axial computed tomographic angiography images of the head with intravenous contrast. Automated exposure control was utilized for the study. A dose lowering technique was utilized adhering to the principles of ALARA. MIP reconstructed images were created and reviewed. CONTRAST: Patient received 119 ML OPTIRAY 320 of IV contrast COMPARISON: No relevant prior studies available. FINDINGS: The dural venous sinuses are patent. Right internal carotid artery: No acute findings. Intracranial segment is patent with no significant stenosis. No aneurysm. Right anterior cerebral artery: Unremarkable. No occlusion or significant stenosis. No aneurysm. Right middle cerebral artery: Unremarkable. No occlusion or significant stenosis. No aneurysm. Right posterior cerebral artery: Unremarkable. No occlusion or significant stenosis. No aneurysm. Right vertebral artery: Hypoplastic. Left internal carotid artery: No acute findings. Intracranial segment is patent with no significant stenosis. No aneurysm. Left anterior cerebral artery: Unremarkable. No occlusion or significant stenosis. No aneurysm. Left middle cerebral artery: Unremarkable. No occlusion or significant stenosis. No aneurysm. Left posterior cerebral artery: Unremarkable. No occlusion or significant stenosis. No aneurysm. Left vertebral artery: Hypoplastic. Basilar artery: Hypoplastic. No occlusion or significant stenosis. No aneurysm. IMPRESSION: Negative CT angiogram of the head. Electronically signed by: Augustina Ho MD 01/05/24 02:09 AM Neck CTA 01/04/24 20:37 Exam(s): CTA NECK With Contrast IV Amt: 119 ML OPTIRAY 320 EXAM: CT Angiography Neck With Intravenous Contrast CLINICAL HISTORY: Reason for exam: facial droop. TECHNIQUE: Routine carotid CT angiography protocol was performed with intravenous contrast. NASCET criteria using the distal ICAs for comparison were used for evaluation of stenoses. Automated exposure control was utilized for the study. A dose lowering technique was utilized adhering to the principles of ALARA. MIP reconstructed images were created and reviewed. CONTRAST: Patient received 119 ML OPTIRAY 320 of IV contrast COMPARISON: None. FINDINGS: VASCULATURE: Right common carotid artery: Unremarkable. No occlusion or significant stenosis. No dissection. Right internal carotid artery: Unremarkable. Extracranial segment is patent with no occlusion or significant stenosis. No dissection. Right external carotid artery: Unremarkable. No occlusion. Right vertebral artery: Unremarkable. No occlusion or significant stenosis. No dissection. Left common carotid artery: Unremarkable. No occlusion or significant stenosis. No dissection. Left internal carotid artery: Unremarkable. Extracranial segment is patent with no occlusion or significant stenosis. No dissection. Left external carotid artery: Unremarkable. No occlusion. Left vertebral artery: Unremarkable. No occlusion or significant stenosis. No dissection. NECK: Bones/joints: Severe spinal canal stenosis at C6-7. No acute fracture. Soft tissues: Prominent cervical lymph nodes. Prominent mediastinal lymph nodes.. Lung apices: Clear. CAROTID STENOSIS REFERENCE USING NASCET CRITERIA: % ICA stenosis = (1 - narrowest ICA diameter/diameter of distal cervical ICA) x 100. Mild - <50% stenosis. Moderate - 50-69% stenosis. Severe - 70-94% stenosis. Near occlusion - 95-99% stenosis. Occluded - 100% stenosis. IMPRESSION: Negative CTA neck. Electronically signed by: Augustina Ho MD 01/05/24 02:14 AM Brain MRI 01/04/24 22:34 Exam(s): MRI HEAD Without Contrast EXAM: MR Head Without Intravenous Contrast CLINICAL HISTORY: Reason for exam: L facial droop. TECHNIQUE: Magnetic resonance images of the head/brain without intravenous contrast in multiple planes. COMPARISON: Comparison made to prior head CT from January 04, 2024. FINDINGS: Brain: Minimal nonspecific white matter changes. No mass. No hemorrhage. No acute infarct. The flow voids at the base the brain are intact. Hypoplastic vertebral basilar arteries. Ventricles: Unremarkable. No ventriculomegaly. Bones/joints: Unremarkable. No acute fracture. Sinuses: Unremarkable as visualized. No acute sinusitis. Mastoid air cells: Unremarkable as visualized. No mastoid effusion. Orbits: Left lens replacement. IMPRESSION: No evidence of acute intracranial pathology. If there is continued clinical concern, recommend contrast enhanced MRI of the IACs for further evaluation of Chicas's palsy. Electronically signed by: Augustina Ho MD 01/05/24 01:19 AM
[2024-01-05] MEDS ORDERED: ARTIFICIAL TEARS OPB PRN (15:40)
[2024-01-05] MEDS ORDERED: valACYclovir HCL 500 MG TABLET PO SCH (15:40)
[2024-01-05] MEDS: valACYclovir HCL 500 MG TABLET PO SCH (16:16)
[2024-01-05] MEDS: predniSONE 20 MG TAB PO SCH (16:16)
[2024-01-05] MEDS: ATORVASTATIN 20 MG TAB PO SCH (20:05)
[2024-01-06 07:20] LABS: Hematocrit (blood only) 33.8 % (37.0-47.0); Hemoglobin 11.5 g/dl (12.0-16.0); Mean Corpuscular Hemoglobin 32.7 pg (25.0-34.0); Mean Platelet Volume 10.1 fL (9.4-12.4); Platelet Count 331 K/uL (130-400); RDW Coefficient of Variation 12.1 % (11.5-14.5); RDW Standard Deviation 42.3 fL (36.4-46.3); Red Blood Count 3.52 M/uL (4.20-5.40)
[2024-01-06 07:31] LABS: BUN Creatinine Ratio 16.8 (10-20); Calcium 9.8 mg/dl (8.6-10.3); Creatinine Clr Calc Pharmacy 28.8 ml/min; Est GFR (African American) 37.7 ml/min; Est GFR (Non-African American) 32.5 ml/min; Phosphorus 3.6 mg/dl (2.5-4.9); Potassium 4.2 mmol/L (3.5-5.1)
--- NOTE | 2024-01-06 11:09 | Hospitalist Progress Note ---
Date of Service January 06, 2024 Assessment & Plan (1) Stroke-like symptom: Plan: 68-year-old female with past medical history significant for hyperlipidemia, obstructive sleep apnea on CPAP, ureteral stricture and urinary retention s/p multiple dilatations, CKD stage III, arthritis, vertigo comes because of left- sided facial droop and some slurred speech. Patient states she noticed watery left eye since last 3 days. On Mother's Day Thursday her [id number] noticed that she is having facial droop on the left side,So she came to the ER today. She also thinks she has some slurred speech. Feeling numbness on the left side of the face. Having difficulty raising the left brow. And also difficulty closing left eye tight. No weakness in the hands or legs. Ambulating okay. No headache. No dizziness. Vision is somewhat blurred. No runny nose or sore throat. No cough. No difficulty swallowing. No fevers. No nausea. No abdominal pain. No chest pains or shortness of breath. Normal bowel movements. States yesterday she had some difficulty micturating but today she is micturating okay as per patient. Chicas's palsy -MRI Brain:No evidence of acute intracranial pathology. If there is continued clinical concern, recommend contrast enhanced MRI of the IACs for further evaluation of Chicas's palsy. -Head CTA:Negative CT angiogram of the head. -Neck CTA:Negative CTA neck. Continue valacyclovir, prednisone Appreciate neurology input Advised to follow-up with neurology on discharge VÍCTOR on CKD stage III History of ureteral stricture and urinary retention s/p multiple dilatations Baseline creatinine 1.4 Presented with creatinine of 2.1 Received IV fluids Continue Flomax Avoid nephrotoxic agents Cr 1.6 today Advised to avoid NSAIDs Lung Nodule: POA --CT Chest:No finding to correspond to the 2.2 cm left midlung opacity on chest radiograph of January 04, 2024. This was artifactual. Subpleural ground glass opacities and reticulation, likely chronic. The findings favor interstitial lung disease. No consolidation to suggest pneumonia. 3. 5 mm subpleural groundglass left lower lobe nodule. This is likely benign. A follow-up chest CT in 6 months to ensure stability is recommended. -Denies smoking history --Advised to follow up as outpatient WERO CPAP nightly Hyperlipidemia On statin DVT prophylaxis SCDs Disposition Home Code Status Full code Admission and Anticipated Discharge Date Admission Date: January 05, 2024 Subjective Patient is seen and examined at bedside States feeling subjectively better today Left facial droop slowly improving Offers no other complaints Eager to get discharged Denies any chest pain, dyspnea, dizziness, nausea, vomiting, abdominal pain, focal weakness Review of Systems Review of Systems: All systems reviewed & are unremarkable except as noted in Subjective Physical Exam Physical Exam: Physical Exam: Vitals signs as noted above General Appearance:Moderately built and nourished, no apparent distress Head: normocephalic, Atraumatic, +Facial droop Eyes: normal inspection, EOMI Neck: supple, Trachea midline Respiratory/Chest: Normal breath sounds, CTA, No accessory muscle use Cardiovascular: S1, S2, No murmur Abdomen/GI:Soft, Non tender, Bowel sounds present Extremities/Musculoskeletal:normal inspection, no edema Neurologic/Psych:AAOX3, grossly no focal neurological deficits, +Facial droop Skin: normal color, warm Results & Data Results & Data Vital Signs (Past 12 Hours) Vital Signs Temp Pulse Pulse Resp BP Pulse Ox O2 Del Method 01/06/24 09:00 87 01/06/24 07:55 36.5 C 95 H 18 121/73 97 Room Air 01/06/24 02:28 36.4 C L 68 18 110/71 98 Room Air Laboratory Results Short CBC 01/06/24 Range/Units 06:42 WBC 10.90 H (4.8-10.8) K/ul Hgb 11.5 L (12.0-16.0) g/dl Hct 33.8 L (37.0-47.0) % Plt Count 331 (130-400) K/uL BMP 01/06/24 06:42 Sodium 138 Potassium 4.2 Chloride 106 Carbon Dioxide 24 BUN 27 H Creatinine 1.61 H Glucose 118 H Calcium 9.8
--- NOTE | 2024-01-06 15:13 | Discharge Summary ---
Date of Service January 06, 2024 Admission HPI Per Admitting Provider 68-year-old female with past medical history significant for hyperlipidemia, obstructive sleep apnea on CPAP, ureteral stricture and urinary retention s/p multiple dilatations, CKD stage III, arthritis, vertigo comes because of left- sided facial droop and some slurred speech. Patient states she noticed watery left eye since last 3 days. On Mother's Day Thursday her [id number] noticed that she is having facial droop on the left side,So she came to the ER today. She also thinks she has some slurred speech. Feeling numbness on the left side of the face. Having difficulty raising the left brow. And also difficulty closing left eye tight. No weakness in the hands or legs. Ambulating okay. No headache. No dizziness. Vision is somewhat blurred. No runny nose or sore throat. No cough. No difficulty swallowing. No fevers. No nausea. No abdominal pain. No chest pains or shortness of breath. Normal bowel movements. States yesterday she had some difficulty micturating but today she is micturat ing okay as per patient. Past medical history. As mentioned above. Past surgical history. Colonoscopy. Cystoscopy. Cystourethroscopy with dilatation of stricture. Cystourethroscopy with biopsy. EGD. Right knee arthroscopy. Laparoscopic cholecystectomy. Ligation of oviducts. Tonsillectomy adenoidectomy. Right total hip replacement. Social history. . Quit smoking 1975. Smoked 0.1 pack a day for 5 years. No alcohol use. No drug use. Family history. Father had lung cancer. Mother had lung cancer. Sister has diabetes. Paternal grandfather had diabetes. Sister had stroke. Admission Exam Per Admitting Provider General- Not in distress Head- atraumatic Eyes- PERRL, EOMI,difficult to raise left brow and closing left eye ENT- oropharynx clear Neck- supple, no JVD. Lungs- clear to auscultation no wheezing or crackles. Heart- regular rhythm; no murmur, no gallop. Abdomen- normal bowel sounds, soft, nontender, no distension. Extremities- no pretibial edema, no erythema seen. Neuro- alert, oriented PERRL, EOMI; Left side facial droop. Difficulty raising left eye brow. Difficulty closing left eye lid; no dysarthria; motor 5/5 bilaterally; no pronator drift, sensations intact, position sense intact. Skin- warm & dry Principal Diagnosis Chicas's palsy Left lower lobe Lung nodule Acute Kidney Injury Discharge Data Allergies Allergy/AdvReac Type Severity Reaction Status Date / Time No Known Allergies Allergy Verified 01/04/24 22:43 Consultations 01/04/24 22:32 ED Decision to Admit Stat 01/05/24 08:00 Consult Neurology Routine Procedures Performed Laboratory Results WBC 10.90 K/ul (4.8-10.8) H 01/06/24 06:42 RBC 3.52 M/uL (4.20-5.40) L 01/06/24 06:42 Hgb 11.5 g/dl (12.0-16.0) L 01/06/24 06:42 POC Hgb 11.9 g/dl (12.0-16.0) L 01/04/24 20:58 Hct 33.8 % (37.0-47.0) L 01/06/24 06:42 POC Hct 35 % (37-47) L 01/04/24 20:58 MCV 96.0 fL (80.0-100.0) 01/06/24 06:42 MCH 32.7 pg (25.0-34.0) 01/06/24 06:42 MCHC 34.0 g/dL (32.0-36.0) 01/06/24 06:42 RDW Std Deviation 42.3 fL (36.4-46.3) 01/06/24 06:42 RDW Coeff of Esteban 12.1 % (11.5-14.5) 01/06/24 06:42 Plt Count 331 K/uL (130-400) 01/06/24 06:42 MPV 10.1 fL (9.4-12.4) 01/06/24 06:42 Immature Gran % (Auto) 0.6 % 01/05/24 07:03 Neut % (Auto) 56.1 % 01/05/24 07:03 Lymph % (Auto) 28.0 % 01/05/24 07:03 [place] % (Auto) 10.4 % 01/05/24 07:03 Eos % (Auto) 3.8 % 01/05/24 07:03 Baso % (Auto) 1.1 % 01/05/24 07:03 Neut # (Auto) 3.98 K/uL (1.40-6.50) 01/05/24 07:03 Lymph # (Auto) 1.99 K/uL (1.20-3.40) 01/05/24 07:03 Winona # (Auto) 0.74 K/uL (0.11-0.59) H 01/05/24 07:03 Eos # (Auto) 0.27 K/uL (0.00-0.50) 01/05/24 07:03 Baso # (Auto) 0.08 K/uL (0.00-0.20) 01/05/24 07:03 Immature Gran # (Auto) 0.04 K/uL (0.01-0.20) 01/05/24 07:03 PT 10.7 Seconds (9.0-12.0) 01/04/24 20:50 INR 1.0 (0.9-1.1) 01/04/24 20:50 APTT 24 Seconds (21-31) 01/04/24 20:50 PTT Ratio 0.9 01/04/24 20:50 POC Sodium 138 mmol/L (135-144) 01/04/24 20:58 Sodium 138 mmol/L (136-145) 01/06/24 06:42 POC Potassium 3.7 mmol/L (3.3-5.0) 01/04/24 20:58 Potassium 4.2 mmol/L (3.5-5.1) 01/06/24 06:42 POC Chloride 104 mmol/L (101-112) 01/04/24 20:58 Chloride 106 mmol/L (98-107) 01/06/24 06:42 Carbon Dioxide 24 mmol/L (21-32) 01/06/24 06:42 POC Total CO2 24 mmol/L (24-31) 01/04/24 20:58 Anion Gap 8 (3-11) 01/06/24 06:42 POC Anion Gap 15.0 mmol/L (16-25) L 01/04/24 20:58 POC BUN 32 mg/dl (7-18) H 01/04/24 20:58 BUN 27 mg/dl (6-23) H 01/06/24 06:42 Creatinine 1.61 mg/dl (0.6-1.2) H 01/06/24 06:42 POC Creatinine 2.4 mg/dl (0.6-1.3) H 01/04/24 20:58 Est Cr Clr Drug Dosing 28.8 ml/min 01/06/24 06:42 Est GFR ( Amer) 37.7 ml/min 01/06/24 06:42 Est GFR (Non-Af Amer) 32.5 ml/min 01/06/24 06:42 BUN/Creatinine Ratio 16.8 (10-20) 01/06/24 06:42 Glucose 118 mg/dl (70-99(Fasting)) H 01/06/24 06:42 POC Glucose (other) 98 mg/dl (70-99) 01/04/24 20:58 Estimat Average Glucose 103 mg/dl 01/05/24 07:03 Hemoglobin A1c 5.2 % (4.5-5.6) 01/05/24 07:03 Calcium 9.8 mg/dl (8.6-10.3) 01/06/24 06:42 POC Ioniz Calcium Stephani 1.42 mmol/l (1.12-1.32) H 01/04/24 20:58 Phosphorus 3.6 mg/dl (2.5-4.9) 01/06/24 06:42 Magnesium 2.0 mg/dl (1.7-2.4) 01/06/24 06:42 Total Bilirubin 0.4 mg/dl (0.2-1.0) 01/04/24 20:50 AST 16 U/L (13-39) 01/04/24 20:50 ALT 14 U/L (7-52) 01/04/24 20:50 Alkaline Phosphatase 65 U/L (34-104) 01/04/24 20:50 Total Protein 7.6 gm/dl (6.0-8.3) 01/04/24 20:50 Albumin 4.5 gm/dl (3.4-5.0) 01/04/24 20:50 Globulin 3.1 gm/dl (2.5-4.0) 01/04/24 20:50 Albumin/Globulin Ratio 1.5 (0.9-2) 01/04/24 20:50 Triglycerides 123 mg/dl (0-150) 01/05/24 07:03 Cholesterol 192 mg/dl (0-200) 01/05/24 07:03 LDL Cholesterol, Calc 117 mg/dl 01/05/24 07:03 VLDL Cholesterol, Calc 25 mg/dl (0-30) 01/05/24 07:03 HDL Cholesterol 50 mg/dl 01/05/24 07:03 Cholesterol/HDL Ratio 3.8 (0-5) 01/05/24 07:03 Urine Color Yellow 01/05/24 05:05 Urine Appearance Clear (Clear) 01/05/24 05:05 Urine pH 7.5 (4.5-7.5) 01/05/24 05:05 Ur Specific Len[place] 1.020 (1.000-1.030) 01/05/24 05:05 Urine Protein Negative (Negative) 01/05/24 05:05 Urine Glucose (UA) Negative (Negative) 01/05/24 05:05 Urine Ketones Negative (Negative) 01/05/24 05:05 Urine Blood 2+ (Negative) H 01/05/24 05:05 Urine Nitrite Negative (Negative) 01/05/24 05:05 Urine Bilirubin Negative (Negative) 01/05/24 05:05 Urine Urobilinogen Negative (Negative) 01/05/24 05:05 Ur Leukocyte Esterase 1+ (Negative) H 01/05/24 05:05 Urine WBC (Auto) 11-20 /hpf (0-5) H 01/05/24 05:05 Urine RBC (Auto) >20 /hpf (0-2) H 01/05/24 05:05 U Hyaline Cast (Auto) 0-2 /lpf (0-2) 01/05/24 05:05 U Epithel Cells (Auto) 0-2 /hpf (0-2) 01/05/24 05:05 Urine Bacteria (Auto) None Seen (None Seen) 01/05/24 05:05 Nasal Screen MRSA (PCR) Negative (Negative) 01/05/24 Unknown Lyme Disease Screen Negative (Negative) 01/04/24 20:50 Impressions Chest X-Ray 01/04/24 20:37 XR chest 1V portable HISTORY: 68 years-old Female stroke alert acute strokelike symptoms COMPARISON: 02/12/2018 TECHNIQUE: AP view of the chest FINDINGS: Cardiac silhouette is enlarged. No pneumothorax, pleural effusion, or overt pulmonary edema. There is no ill-defined 2.2 cm left midlung opacity. Degenerative changes of the shoulders and spine. IMPRESSION: Ill-defined 2.2 cm left midlung opacity may be secondary to summation density however could be further evaluated with a follow-up chest CT. ACT 112: Negative or not required by law. The above report was generated using voice recognition software. It may contain grammatical, syntax or spelling errors. Electronically signed by: Aries Chua M.D. 01/05/2024 7:[address] 01/04/24 20:37 Exam(s): CT HEAD Without Contrast EXAM: CT Head Without Intravenous Contrast CLINICAL HISTORY: Reason for exam: Neuro deficit, acute, stroke suspected. TECHNIQUE: Axial computed tomography images of the head/brain without intravenous contrast. CTDI is 37.32 mGy and DLP is 547.75 mGy-cm. Automated exposure control was utilized for the study. A dose lowering technique was utilized adhering to the principles of ALARA. COMPARISON: No relevant prior studies available. FINDINGS: No acute intracranial hemorrhage. No midline shift or mass effect. The territorial dias-white matter differentiation is maintained throughout. Age-related cerebral volume loss. Periventricular and subcortical white matter hypoattenuation, consistent with chronic microangiopathy. The visualized orbits appear grossly unremarkable. The calvarium is intact. The visualized paranasal sinuses and mastoid air cells are grossly clear. IMPRESSION: No acute intracranial hemorrhage, midline shift, or mass effect. Electronically signed by: Marvin Sheth MD 01/04/24 22:03 PM Head CTA 01/04/24 20:37 Exam(s): CTA HEAD With Contrast IV Amt: 119 ML OPTIRAY 320 EXAM: CT Angiography Head With Intravenous Contrast CLINICAL HISTORY: Reason for exam: facial droop. TECHNIQUE: Axial computed tomographic angiography images of the head with intravenous contrast. Automated exposure control was utilized for the study. A dose lowering technique was utilized adhering to the principles of ALARA. MIP reconstructed images were created and reviewed. CONTRAST: Patient received 119 ML OPTIRAY 320 of IV contrast COMPARISON: No relevant prior studies available. FINDINGS: The dural venous sinuses are patent. Right internal carotid artery: No acute findings. Intracranial segment is patent with no significant stenosis. No aneurysm. Right anterior cerebral artery: Unremarkable. No occlusion or significant stenosis. No aneurysm. Right middle cerebral artery: Unremarkable. No occlusion or significant stenosis. No aneurysm. Right posterior cerebral artery: Unremarkable. No occlusion or significant stenosis. No aneurysm. Right vertebral artery: Hypoplastic. Left internal carotid artery: No acute findings. Intracranial segment is patent with no significant stenosis. No aneurysm. Left anterior cerebral artery: Unremarkable. No occlusion or significant stenosis. No aneurysm. Left middle cerebral artery: Unremarkable. No occlusion or significant stenosis. No aneurysm. Left posterior cerebral artery: Unremarkable. No occlusion or significant stenosis. No aneurysm. Left vertebral artery: Hypoplastic. Basilar artery: Hypoplastic. No occlusion or significant stenosis. No aneurysm. IMPRESSION: Negative CT angiogram of the head. Electronically signed by: Augustina Ho MD 01/05/24 02:09 AM Neck CTA 01/04/24 20:37 Exam(s): CTA NECK With Contrast IV Amt: 119 ML OPTIRAY 320 EXAM: CT Angiography Neck With Intravenous Contrast CLINICAL HISTORY: Reason for exam: facial droop. TECHNIQUE: Routine carotid CT angiography protocol was performed with intravenous contrast. NASCET criteria using the distal ICAs for comparison were used for evaluation of stenoses. Automated exposure control was utilized for the study. A dose lowering technique was utilized adhering to the principles of ALARA. MIP reconstructed images were created and reviewed. CONTRAST: Patient received 119 ML OPTIRAY 320 of IV contrast COMPARISON: None. FINDINGS: VASCULATURE: Right common carotid artery: Unremarkable. No occlusion or significant stenosis. No dissection. Right internal carotid artery: Unremarkable. Extracranial segment is patent with no occlusion or significant stenosis. No dissection. Right external carotid artery: Unremarkable. No occlusion. Right vertebral artery: Unremarkable. No occlusion or significant stenosis. No dissection. Left common carotid artery: Unremarkable. No occlusion or significant stenosis. No dissection. Left internal carotid artery: Unremarkable. Extracranial segment is patent with no occlusion or significant stenosis. No dissection. Left external carotid artery: Unremarkable. No occlusion. Left vertebral artery: Unremarkable. No occlusion or significant stenosis. No dissection. NECK: Bones/joints: Severe spinal canal stenosis at C6-7. No acute fracture. Soft tissues: Prominent cervical lymph nodes. Prominent mediastinal lymph nodes.. Lung apices: Clear. CAROTID STENOSIS REFERENCE USING NASCET CRITERIA: % ICA stenosis = (1 - narrowest ICA diameter/diameter of distal cervical ICA) x 100. Mild - <50% stenosis. Moderate - 50-69% stenosis. Severe - 70-94% stenosis. Near occlusion - 95-99% stenosis. Occluded - 100% stenosis. IMPRESSION: Negative CTA neck. Electronically signed by: Augustina Ho MD 01/05/24 02:14 AM Brain MRI 01/04/24 22:34 Exam(s): MRI HEAD Without Contrast EXAM: MR Head Without Intravenous Contrast CLINICAL HISTORY: Reason for exam: L facial droop. TECHNIQUE: Magnetic resonance images of the head/brain without intravenous contrast in multiple planes. COMPARISON: Comparison made to prior head CT from January 04, 2024. FINDINGS: Brain: Minimal nonspecific white matter changes. No mass. No hemorrhage. No acute infarct. The flow voids at the base the brain are intact. Hypoplastic vertebral basilar arteries. Ventricles: Unremarkable. No ventriculomegaly. Bones/joints: Unremarkable. No acute fracture. Sinuses: Unremarkable as visualized. No acute sinusitis. Mastoid air cells: Unremarkable as visualized. No mastoid effusion. Orbits: Left lens replacement. IMPRESSION: No evidence of acute intracranial pathology. If there is continued clinical concern, recommend contrast enhanced MRI of the IACs for further evaluation of Chicas's palsy. Electronically signed by: Augustina Ho MD 01/05/24 01:19 AM Abdomen/Pelvis CT 01/05/24 08:[address] WITHOUT CONTRAST CT DOSE: 1159.09 mGy.cm HISTORY: Reported urinary bladder retention. Acute kidney injury. víctor, hx of incomplete bladder emptying TECHNIQUE: Multiaxial CT images of the abdomen and pelvis were performed without contrast. A dose lowering technique was utilized adhering to the principles of ALARA. COMPARISON STUDY: CT 06/17/2012. FINDINGS: Bibasilar atelectasis/scarring with areas of mild traction bronchiectasis. No free air. Unremarkable spleen, pancreas and adrenal glands. Cholecystectomy. A 2.6 cm left hepatic lobe lesion on image 8 series 2 is unc hanged, compatible with a benign hemangioma. Mild nonspecific bilateral perinephric stranding. Subcentimeter hypodensity of the superior pole right kidney is too small to characterize, likely a cyst. Contrast is noted within the renal collecting systems without hydronephrosis. There is limited evaluation for renal and ureteral calculi secondary to the phase of postcontrast imaging. Urinary bladder wall thickening and trabeculation with a small anterior diverticulum. No urinary bladder mass lesion is identified. The uterus and adnexa are within normal limits. Mild atherosclerosis of the aorta. No lymphadenopathy. Small hiatal hernia. No bowel obstruction or bowel wall thickening. Mild colonic diverticulosis. The appendix is not visualized. No CT evidence of acute appendicitis. Unremarkable soft tissues. No acute fracture. Severe L2-L3 intervertebral disc space narrowing. Lumbar levoscoliosis. Right hip arthroplasty. IMPRESSION: 1. No hydronephrosis. 2. Urinary bladder wall thickening and trabeculation with a few small diverticula. 3. No bowel obstruction or bowel wall thickening. 4. Small hiatal hernia. 5. Additional findings as above. ACT 112: Negative or not required by law. The above report was generated using voice recognition software. It may contain grammatical, syntax or spelling errors. Dictated: 01/05/2024 8:31 AM Transcribed: 01/05/2024 8:49 AM Jay [id number] [email or web address] Electronically signed by: Aries Chua M.D. 01/05/2024 1:[address] 01/05/24 09:30 CT OF THE CHEST WITHOUT IV CONTRAST CLINICAL HISTORY: For better assessment of lung opacity on CXR COMPARISON STUDY: Chest CT February 12, 2018. Chest radiograph January 04, 2024. CT DOSE: 422.57 mGy.cm TECHNIQUE: Axial images of the chest were obtained without IV contrast. Images were reviewed in the axial, sagittal, and coronal planes. IV contrast was not administered for this examination. Automated exposure control was utilized for the study. A dose lowering technique was utilized adhering to the principles of ALARA. FINDINGS: No enlarged axillary, mediastinal or hilar lymph nodes are present. There is a small hiatal hernia. There is no pericardial effusion. Central airways are patent. There is no pneumothorax or pleural effusion. There is no finding to correspond to the 2.2 cm left midlung density on chest radiograph January 04, 2024. This was artifactual. A 5 mm subpleural groundglass left lower lobe nodule on image 121 of 233 is present. This was not clearly evident on CT of February 12, 2018 but may have been obscured by groundglass opacity. Mild subpleural groundglass opacities with reticulation are noted on this exam. There is no honeycombing. A 3 cm intermediate attenuation left hepatic dome lesion is similar to CT of February 12, 2018. This is benign. Excreted contrast within the collecting systems from recent contrast-enhanced CT is incidentally noted. IMPRESSION: 1. No finding to correspond to the 2.2 cm left midlung opacity on chest radiograph of January 04, 2024. This was artifactual. 2. Subpleural ground glass opacities and reticulation, likely chronic. The findings favor interstitial lung disease. No consolidation to suggest pneumonia. 3. 5 mm subpleural groundglass left lower lobe nodule. This is likely benign. A follow-up chest CT in 6 months to ensure stability is recommended. ACT 112: Negative or not required by law. Electronically signed by: Isaiah Marcelo M.D. 01/05/2024 11:30 AM Ordered Studies 01/04/24 20:37 CT head/brain wo con Stat CTA head w con [CT angio head w con] Stat CTA neck with con [CT angio neck with con] Stat 01/04/24 22:34 MRI Brain [MR brain wo con] Stat 01/05/24 08:00 CT Abd and Pelvis [CT abd pelvis wo con] Urgent 01/05/24 09:30 CT chest diagnostic wo con Urgent Hospital Course (1) Stroke-like symptom: 68-year-old female with past medical history significant for hyperlipidemia, obstructive sleep apnea on CPAP, ureteral stricture and urinary retention s/p multiple dilatations, CKD stage III, arthritis, vertigo comes because of left- sided facial droop and some slurred speech. Patient states she noticed watery left eye since last 3 days. On Mother's Day Thursday her [id number]-[id number] noticed that she is having facial droop on the left side,So she came to the ER today. She also thinks she has some slurred speech. Feeling numbness on the left side of the face. Having difficulty raising the left brow. And also difficulty closing left eye tight. No weakness in the hands or legs. Ambulating okay. No headache. No dizziness. Vision is somewhat blurred. No runny nose or sore throat. No cough. No difficulty swallowing. No fevers. No nausea. No abdominal pain. No chest pains or shortness of breath. Normal bowel movements. States yesterday she had some difficulty micturating but today she is micturating okay as per patient. Chicas's palsy -MRI Brain:No evidence of acute intracranial pathology. If there is continued clinical concern, recommend contrast enhanced MRI of the IACs for further evaluation of Chicas's palsy. -Head CTA:Negative CT angiogram of the head. -Neck CTA:Negative CTA neck. Continue valacyclovir, prednisone Appreciate neurology input Advised to follow-up with neurology on discharge VÍCTOR on CKD stage III History of ureteral stricture and urinary retention s/p multiple dilatations Baseline creatinine 1.4 Presented with creatinine of 2.1 Received IV fluids Continue Flomax Avoid nephrotoxic agents Cr 1.6 today Advised to avoid NSAIDs Lung Nodule: POA --CT Chest:No finding to correspond to the 2.2 cm left midlung opacity on chest radiograph of January 04, 2024. This was artifactual. Subpleural ground glass opacities and reticulation, likely chronic. The findings favor interstitial lung disease. No consolidation to suggest pneumonia. 3. 5 mm subpleural groundglass left lower lobe nodule. This is likely benign. A follow-up chest CT in 6 months to ensure stability is recommended. -Denies smoking history --Advised to follow up as outpatient WERO CPAP nightly Hyperlipidemia On statin DVT prophylaxis SCDs Disposition Home Code Status Full code Total Time Total Time Spent Total Time Spent (In Minutes): 54 minutes Discharge Plan Discharge Items Patient Disposition: Home - Self-Care Reason For Visit: STROKE LIKE SYMPTOMS Discharge Diagnosis: Chicas's palsy Left lower lobe Lung nodule Acute Kidney Injury Activity: Per Instructions section Exercise/Sports: Gradually increase as tolerated Non-emergency contact: Primary Care Provider and Neurologist Call non-emergency contact if: you have any medication questions, your symptoms worsen, your pain is concerning for you and you have a fever Follow-up/Referrals: Princess Funez PA-C [Physician Hydraulic Barker Operator] - (Date & Time 01/27/2024 11:20 AM Provider Princess Funez PA-C Department Neurology [facility] ) Priscilla Baez MD [Primary Care Provider] - (Date & Time 01/11/2024 5:40 PM Provider Priscilla Baez MD Department Family Medicine [facility] ) Diet: Heart Healthy Diet Texture: Easy to Chew Addtl Attending Provider Instructions: Follow-up with your primary care physician in 1 week Follow-up with your neurologist Dr.El Zuleta in 3-4 weeks as advised --Complete prednisone, valacyclovir course as prescribed. ---Frequently massages the eye as advised by your Neurologist. Use eye patch at night. --Your final urine culture is pending at the time of discharge. Follow-up with your physician for results. Seek immediate medical attention if your symptoms reoccur or worsen Please take all medications as instructed on discharge list below. Please call if you have any questions or problems. You can reach a [facility] hospitalist on duty at [facility] 24 hours a day by calling [phone] Pending Studies at Discharge: Yes Studies:: Urine Culture Stand-Alone Forms: My [facility] [address] [employer], Smoking Cessation Medications and DC Order Prescriptions: New Artificial Tears 1 drp OPB QID PRN (Reason: eye irritation) Qty: 1 1RF prednisone 20 mg Tablet 60 mg PO DAILY 5 Days Qty: 15 0RF valacyclovir 500 mg Tablet 1,000 mg PO DAILY Qty: 5 0RF Continued (DME) CPAP Machine Misc See Rx Instructions .ROUTE .MEDSUPPLY Qty: 1 0RF Rx Instructions: NEW CPAP 6CM. HEATED HUMIDITY. CPAP SUPPLIES. NORMAN 99. DERBY ANCILLARY (DME) CPAP Supplies Misc See Rx Instructions .ROUTE .MEDSUPPLY Qty: 1 0RF Rx Instructions: CPAP supplies, mask, and filter. Needs new mask fit patient comfort and appropriate seal. Avenue ancillary Azo Cranberry 250 mg tablet,chewable 250 mg PO DAILY cholecalciferol (vitamin D3) 125 mcg (5,000 unit) capsule 125 mcg PO DAILY mecobalamin (vitamin B12) 5,000 mcg tablet,disintegrating 5,000 mcg PO DAILY albuterol sulfate 90 mcg/actuation aerosol powdr breath activated 2 inh inhalation Q6H PRN (Reason: Shortness Of Breath Or Wheezing) (DME) CPAP Machine Misc See Rx Instructions .ROUTE .MEDSUPPLY Qty: 1 0RF Rx Instructions: CHANGE TO AUTO CPAP MIN 6 MAX 12. DERBY ANCILLARY meclizine 25 mg tablet 25 mg PO TID PRN (Reason: Dizziness) multivitamin Tablet 1 tab PO DAILY atorvastatin 20 mg tablet 20 mg PO HS pantoprazole 20 mg tablet,delayed release (DR/EC) 20 mg PO QAM tamsulosin 0.4 mg capsule 0.4 mg PO BID Rx Instructions: Morning and Afternoon ferrous sulfate 325 mg (65 mg iron) tablet 325 mg PO BID Discontinued meloxicam 15 mg Tablet 15 mg PO DAILY Hold Instructions: Resume on 12/03/23. VÍCTOR Discharge Orders: Discharge Order (Routine); Ordered 01/06/24 Ordered By: Antonio Goodrich Admission Data Admit Date/Time: 01/05/24 01:39 Attending Provider: Antonio Goodrich Admit Provider: Tip Talbert Primary Care Provider: Priscilla Baez Other Providers: Tip Talbert; Janice Ramos Other Interventions: Discharge Summary Assessment (RN) Last Done: 01/06/24 11:25
== END 2024-01-06 12:40 | disposition home or self-care (01) | DRG 74 ==
LOC: ED 20:29 → INTOOBSV 01-05 01:39 → SUATTDRO 01-05 01:39 → EDINP 01-05 01:39 → 1E 01-05 05:02 → 2S 01-05 10:32